=== PATIENT | female | born 1940 | race Asian ===

== ENCOUNTER 2017-06-17 20:55 | Inpatient (IN) | payer MEDICARE, MEDICAID ==
[~2017-06-17] VITALS: Ht 139.7 cm; Wt 47.7 kg
[~2017-06-17 20:55] MED LIST: DILT180C64 PO; GLIP10TA13 PO; HYDR-2766 PO; HYDR12.58 PO; METF-620 PO; METF500T4 PO; PIOG15TA2 PO
[2017-06-17] MEDS ORDERED: MORPHINE SULFATE 2 MG/ML DISP.SYRIN. IV/SQ PRN (21:15)
--- NOTE | 2017-06-17 21:21 | PHYS DOC ---
Past Medical History Past Medical History: A-Fib, Diabetes-Type II, Hypertension Past Surgical History: Hysterectomy Alcohol Use: None Drug Use: None Adult General Chief Complaint Chief Complaint: CHEST PAIN HPI HPI Patient is a 77 year old female who presents with chest pain. The patient reports 4-5 day history of intermittent chest tightness. Tonight the pain became more severe while she was at rest. Reports associated shortness of breath. She denies radiation of pain, denies nausea, diaphoresis. She denies previous history of similar symptoms. She doesn't know all of her medical problems but denies history of CAD or cardiac stents, may have CHF. She also has DM, HTN, CKD. She reports compliance with medication regiment. Nonsmoker. She recently moved from [place] & does not yet have a doctor here. She speaks Hmong, accompanied by her daughter in law who is translating & assisting with history. Review of Systems Review of Systems Constitutional: Denies fever or chills Eyes: Denies change in visual acuity HENT: Denies nasal congestion or sore throat Respiratory: Denies cough or reports shortness of breath Cardiovascular: For chest pain, denies edema GI: Denies abdominal pain, nausea, vomiting, bloody stools or diarrhea Musculoskeletal: Denies back pain or joint pain Integument: Denies rash or skin lesions Neurologic: Denies headache, focal weakness or sensory changes Current Medications Current Medications Current Medications Medications (Trade) Dose Ordered Sig/Sveta Start Time Stop Time Status Last Admin Dose Admin Aspirin (Maxi Aspirin) 325 mg 1X ONCE 06/17/17 21:30 06/17/17 21:31 DC 06/17/17 22:53 325 MG Morphine Sulfate 2 mg PRN Q15MIN PRN 06/17/17 21:15 06/18/17 21:14 Allergies Allergies Allergies Coded Allergies Type Severity Reaction Last Updated Verified No Known Drug Allergies 05/07/14 No Physical Exam Physical Exam Constitutional: Well developed, well nourished, no acute distress, non-toxic appearance. HENT: Normocephalic, atraumatic, bilateral external ears normal, oropharynx moist, nose normal. Eyes: PERRLA, EOMI, conjunctiva normal, no discharge. Neck: supple, no stridor. Cardiovascular: RRR, no murmurs, no edema. Lungs & Thorax: diminished bilaterally in bases, no wheezing, no respiratory distress. No reproducible tenderness with palpation over the anterior chest wall. Abdomen: soft, nontender, nondistended. Skin: Warm, dry, no erythema, no rash. Back: No tenderness. Extremities: No tenderness, no edema. No calf tenderness or swelling Neurologic: Alert and oriented X 3, no focal deficits noted. Psychologic: Affect normal, judgement normal, mood normal. Current Patient Data Vital Signs Vital Signs Date Time Temp Pulse Resp B/P (MAP) Pulse Ox O2 Delivery O2 Flow Rate FiO2 06/17/17 21:06 98.0 90 22 213/110 (144) 88 Room Air 98.0 Lab Values Laboratory Tests Test 06/17/17 21:45 White Blood Count 9.8 x10^3/uL (4.0-11.0) Red Blood Count 2.97 x10^6/uL (3.50-5.40) L Hemoglobin 9.3 g/dL (12.0-15.5) L Hematocrit 28.8 % (36.0-47.0) L Mean Corpuscular Volume 97 fL (79-100) Mean Corpuscular Hemoglobin 32 pg (25-35) Mean Corpuscular Hemoglobin Concent 32 g/dL (31-37) Red Cell Distribution Width 14.5 % (11.5-14.5) Platelet Count 259 x10^3/uL (140-400) Neutrophils (%) (Auto) 79 % (31-73) H Lymphocytes (%) (Auto) 14 % (24-48) L Monocytes (%) (Auto) 5 % (0-9) Eosinophils (%) (Auto) 1 % (0-3) Basophils (%) (Auto) 1 % (0-3) Neutrophils # (Auto) 7.8 x10^3uL (1.8-7.7) H Lymphocytes # (Auto) 1.4 x10^3/uL (1.0-4.8) Monocytes # (Auto) 0.5 x10^3/uL (0.0-1.1) Eosinophils # (Auto) 0.1 x10^3/uL (0.0-0.7) Basophils # (Auto) 0.1 x10^3/uL (0.0-0.2) Prothrombin Time 12.5 SEC (11.7-14.0) Prothrombin Time INR 1.0 (0.8-1.1) PTT 31 SEC (24-38) Sodium Level 141 mmol/L (136-145) Potassium Level 6.3 mmol/L (3.5-5.1) *H Chloride Level 108 mmol/L (98-107) H Carbon Dioxide Level 21 mmol/L (21-32) Anion Gap 12 (6-14) Blood Urea Nitrogen 56 mg/dL (7-20) H Creatinine 2.6 mg/dL (0.6-1.0) H Estimated GFR (Cockcroft-Gault) 17.8 BUN/Creatinine Ratio 22 (6-20) H Glucose Level 149 mg/dL (70-99) H Calcium Level 8.3 mg/dL (8.5-10.1) L Magnesium Level 2.3 mg/dL (1.8-2.4) Total Bilirubin 0.2 mg/dL (0.2-1.0) Aspartate Amino Transferase (AST) 18 U/L (15-37) Alanine Aminotransferase (ALT) 25 U/L (14-59) Alkaline Phosphatase 137 U/L (46-116) H Troponin I Quantitative 0.191 ng/mL (0.000-0.055) ZW-Oas-M-Type Natriuretic Peptide > 48491 pg/mL (0-449) H Total Protein 6.8 g/dL (6.4-8.2) Albumin 3.0 g/dL (3.4-5.0) L Albumin/Globulin Ratio 0.8 (1.0-1.7) L Lipase 142 U/L (73-393) Laboratory Tests 06/17/17 21:45 Laboratory Tests 06/17/17 21:45 EKG EKG Interpreted by me: Normal sinus rhythm rate 94, no acute ST or T wave changes, normal intervals, no ectopy.[] Radiology/Procedures Radiology/Procedures CXR: interpreted by me: cardiomegaly, pulmonary edema, right pleural effusion[ ] Course & Med Decision Making Course & Med Decision Making Pertinent Labs and Imaging studies reviewed. (See chart for details) The patient presents with chest pain and shortness of breath. She required oxygen by nasal cannula to maintain oxygen saturation > 90%. Gave aspirin upon arrival, morphine for pain. Blood pressure remained elevated greater than 200 systolic, administered labetalol 1. Systolic pressure improved to 180. Obtained labs, EKG, chest x-ray. Found to have acute exacerbation of congestive heart failure with acute on chronic renal failure and hyperkalemia. She did have peaked T waves on her EKG. Administered calcium, sodium bicarbonate, insulin and glucose, and Kayexalate. Gave Lasix for CHF. Troponin was elevated, likely secondary to congestive heart failure. Will defer anticoagulation at this time. Discussed with Dr. Hernandez of nephrology & Dr. Damon of cardiology. Discussed with Dr. Bey who agrees to admit to inpatient status. The patient is being admitted in guarded condition. Critical care time: 35 minutes [] Dragon Disclaimer Dragon Disclaimer This electronic medical record was generated, in whole or in part, using a voice recognition dictation system. Departure Departure Impression: Primary Impression: Congestive heart failure (CHF) Additional Impressions: Elevated troponin Acute on chronic renal failure Hyperkalemia Accelerated hypertension Disposition: ADMITTED INPATIENT Condition: GUARDED Referrals: NON,STAFF (PCP) Problem Qualifiers GÉNESIS BECKMAN MD Jun 17, 2017 21:21
[2017-06-17] MEDS ORDERED: ASPIRIN 325 MG TABLET PO ONE (21:30)
[2017-06-17 21:55] LABS: BASO # 0.1 x10^3/uL (0.0-0.2); BASO % 1 % (0-3); EOS % 1 % (0-3); HEMATOCRIT 28.8 % (36.0-47.0); HEMOGLOBIN 9.3 g/dL (12.0-15.5); LYMPH # 1.4 x10^3/uL (1.0-4.8); LYMPH % 14 % (24-48); MEAN CORPUSCULAR HEMOGLOBIN 32 pg (25-35); MEAN CORPUSCULAR HGB CONC 32 g/dL (31-37); MEAN CORPUSCULAR VOLUME 97 fL (79-100); MONO % 5 % (0-9); NEUT % 79 % (31-73); PLATELET COUNT 259 x10^3/uL (140-400); RED BLOOD COUNT 2.97 x10^6/uL (3.50-5.40); RED CELL DISTRIBUTION WIDTH 14.5 % (11.5-14.5); WHITE BLOOD COUNT 9.8 x10^3/uL (4.0-11.0)
[2017-06-17 22:04] LABS: PROTHROMBIN TIME PATIENT 12.5 SEC (11.7-14.0)
[2017-06-17 22:12] LABS: ALBUMIN/GLOBULIN RATIO 0.8 (1.0-1.7); CALCIUM 8.3 mg/dL (8.5-10.1); CREATININE 2.6 mg/dL (0.6-1.0); GFR 17.8; TOTAL BILIRUBIN 0.2 mg/dL (0.2-1.0); TOTAL PROTEIN 6.8 g/dL (6.4-8.2)
[2017-06-17 22:14] LABS: POTASSIUM 6.3 mmol/L (3.5-5.1)
[2017-06-17] MEDS ORDERED: INSULIN REGULAR 100 UNIT/ML 10ML VIAL. IV ONE (23:00)
[2017-06-17] MEDS ORDERED: DEXTROSE 50% 25 GM / 50ML DISP.SYRIN. IV ONE (23:00)
[2017-06-17] MEDS ORDERED: NITROGLYCERIN SUBLINGUAL 0.4 MG BOTTLE OF 25. SL PRN (23:00)
[2017-06-17] MEDS ORDERED: CALCIUM GLUCONATE 1,000 MG/10 ML VIAL. IVP ONE (23:00)
[2017-06-17] MEDS ORDERED: LABETALOL 20 MG/4 ML DISP.SYRIN. IVP ONE (23:00)
[2017-06-17] MEDS ORDERED: SODIUM POLYSTYRENE SULFONATE 15 GM/60 ML ORAL.SUSP. PO ONE (23:00)
[2017-06-17] MEDS ORDERED: FUROSEMIDE 40 MG/4 ML VIAL. IVP ONE (23:00)
[2017-06-17] MEDS ORDERED: ACETAMINOPHEN 325 MG TABLET. PO PRN (23:00)
[2017-06-17] MEDS ORDERED: SODIUM BICARB ADULT 8.4% 50 MEQ/50 ML DISP.SYRIN. IV ONE (23:00)
[2017-06-17] MEDS ORDERED: ONDANSETRON PF 4 MG/2 ML VIAL. IV PRN (23:00)
[2017-06-18] VITALS (9 sets, daily range): BP systolic 122–199; BP diastolic 50–98
--- NOTE | 2017-06-18 00:05 | HP ---
ADMIT DATE: 06/18/2017 CHIEF COMPLAINT: Shortness of breath. HISTORY OF PRESENT ILLNESS: The patient is a 77-year-old woman recently translocated from [place] who presented to the Emergency Room after she was noted by her family to be short of breath as well as weak and restless. On further questioning, the patient relates that this has been going on for a couple of days but worsening. She denies any chest pain. Denies any cough, any fevers, chills, headaches. She is not aware of any heart disease. She does have hypertension, diabetes and hypercholesterolemia; however. In the Emergency Room, she was found with signs and symptoms including elevated BNP. Chest x-rays with Redd B lines and right-sided minimal effusion consistent with CHF. PAST MEDICAL HISTORY: Chronic renal disease, hypertension, hyperlipidemia, diabetes mellitus. FAMILY HISTORY: Positive for kidney disease in two of her children. No heart disease known. SOCIAL HISTORY: Currently lives with her son, had immigrated to the [facility] in 1992, had been living in [place] and [place]. Never smoked. No toxic habits. ALLERGIES: No known drug allergies. MEDICATIONS: MAR reconciled with home medications. REVIEW OF SYSTEMS: The patient has generalized aches and pain in her joints but denies any focal problems in the chest, abdomen and head. The rest of organ system review is essentially negative. PHYSICAL EXAMINATION: VITAL SIGNS: Show a blood pressure of 178/87, heart rate of 89, of note initial blood pressure actually was 213/110. GENERAL: This is a frail 77-year-old woman, awake, alert, in no acute distress. HEENT: Shows no scleral icterus. NECK: Supple, no JVD. CARDIOVASCULAR: Heart has regular rate and rhythm. ABDOMEN: Positive bowel sounds, soft and nontender LUNGS: Clear. EXTREMITIES: She has trace edema in her lower extremities. No clubbing, no cyanosis. SKIN: Warm, soft and dry without any rash. LABORATORY DATA: CBC with WBC of 9.8, hemoglobin 9.3, platelets of 259. Chemistries with BUN and creatinine of 56 and 2.6, potassium at 6.3, sodium at 141, glucose 149. LFTs essentially within normal limits. ProBNP greater than 35,000. Initial troponin at 0.191. Albumin 3.0. IMAGING: Chest x-ray reviewed by myself showing vascular congestion as well as a small right-sided effusion. ASSESSMENT AND PLAN: This is a 77-year-old woman presenting with what appears to be congestive heart failure. This would be a new diagnosis for her. We will therefore admit to rule out acute coronary syndrome. We will get Cardiology involved. Echo will be done in the morning. In the meantime, we will start intravenous Lasix twice daily. Monitor her ins and outs closely. Her BUN and creatinine significantly elevated. Her son is aware of a history of renal failure. We will obtain Nephrology consult as well to guide further diuretic therapy. The patient had massive hyperkalemia which hopefully will correct with Lasix. We will monitor closely. The patient is diabetic. She is on both glipizide as well as metformin, both will be held for the time being in case further renal testing or cardiac catheterization will be necessary. We will institute insulin sliding scale, add Levemir if indicated. All her other home medications will be continued. She will be started on subcutaneous heparin twice daily for prophylaxis. GLENNA RANDLE MD DR: UR/nts JOB#: [id number] / [id number] EDUARDO
[2017-06-18] MEDS: DEXTROSE 50% 25 GM / 50ML DISP.SYRIN. IV PRN ×3 (01:06→07:53)
[2017-06-18] MEDS: FUROSEMIDE 20 MG/2 ML VIAL. IVP SCH ×3 (01:07→17:22)
[2017-06-18] MEDS ORDERED: PENT400T2 PO (01:46)
[2017-06-18] MEDS ORDERED: INSU100I13 SQ (01:46)
[2017-06-18] MEDS ORDERED: CRESTOR20 MG PO (01:46)
[2017-06-18] MEDS ORDERED: LOSA50TA6 PO (01:46)
[2017-06-18] MEDS ORDERED: HYDR25TA PO (01:46)
[2017-06-18] MEDS: hydrALAZINE 20 MG/ML VIAL. IVP PRN (03:04)
[2017-06-18 04:02] LABS: BASO % 0 % (0-3); EOS % 1 % (0-3); HEMATOCRIT 27.1 % (36.0-47.0); HEMOGLOBIN 8.6 g/dL (12.0-15.5); LYMPH # 1.6 x10^3/uL (1.0-4.8); LYMPH % 20 % (24-48); MEAN CORPUSCULAR HEMOGLOBIN 32 pg (25-35); MEAN CORPUSCULAR HGB CONC 32 g/dL (31-37); MEAN CORPUSCULAR VOLUME 100 fL (79-100); MONO % 7 % (0-9); NEUT % 73 % (31-73); PLATELET COUNT 224 x10^3/uL (140-400); RED BLOOD COUNT 2.72 x10^6/uL (3.50-5.40); RED CELL DISTRIBUTION WIDTH 14.6 % (11.5-14.5); WHITE BLOOD COUNT 8.4 x10^3/uL (4.0-11.0)
[2017-06-18 04:58] LABS: CALCIUM 8.5 mg/dL (8.5-10.1); CREATININE 2.8 mg/dL (0.6-1.0); GFR 16.3; POTASSIUM 4.5 mmol/L (3.5-5.1)
--- NOTE | 2017-06-18 07:16 | EKG ---
[facility] [address] [place] [address] Test Date: 2017-06-17 Test Time: 21:03:11 Pat Name: DELMY WASHINGTON Department: Room: 204 1 Gender: F Lock Fitter: : 1940 Requested By: GÉNESIS BECKMAN Order Number: [id number] Reading MD: Juan Martin Measurements Intervals [place] Rate: 94 P: 26 [place]: 140 QRS: -16 QRSD: 72 T: 31 QT: 374 QTc: 468 Interpretive Statements SINUS RHYTHM LEFTWARD AXIS QRS(T) CONTOUR ABNORMALITY CONSIDER ANTEROSEPTAL MYOCARDIAL DAMAGE RI6.01 Unconfirmed report Compared to ECG 05/07/2014 13:22:48 No significant changes Electronically Signed On 07-07-2017 10:17:24 CDT by Juan Martin
--- NOTE | 2017-06-18 07:28 | RAD ---
EXAM: Chest one view. HISTORY: Chest pain, shortness of breath. COMPARISON: 05/07/2014. FINDINGS: A frontal view of the chest is obtained. Basilar predominant interstitial opacities indicate mild pulmonary edema. There are small pleural effusions on the right greater than left. There is no pneumothorax. The heart is mildly enlarged. Prominence of the right hilum is not clearly changed chronically given differences in projection. This likely reflects aortic tortuosity. IMPRESSION: 1. Mild pulmonary edema. Small bilateral pleural effusions. Mild cardiomegaly.
[2017-06-18] MEDS: INSULIN ASPART 300 UNITS/3 ML INSULN.PEN SQ SCH ×3 (08:00→17:28)
[2017-06-18 08:45] LABS: CHOLESTEROL/HDL RATIO 3.2
[2017-06-18] MEDS: HYDROcodone/APAP 10/325 1 TAB TABLET PO SCH ×2 (09:00→21:08)
[2017-06-18] MEDS ORDERED: PIOGLITAZONE 15 MG TABLET. PO SCH (09:00)
[2017-06-18] MEDS ORDERED: hydroCHLOROthiazide 12.5 MG CAPSULE PO SCH (09:00)
[2017-06-18] MEDS ORDERED: LABETALOL 20 MG/4 ML DISP.SYRIN. IVP PRN (09:15)
[2017-06-18] MEDS ORDERED: MORPHINE SULFATE 2 MG/ML DISP.SYRIN. IV/SQ PRN (09:15)
[2017-06-18] MEDS ORDERED: ONDANSETRON PF 4 MG/2 ML VIAL. IV PRN (09:15)
--- NOTE | 2017-06-18 09:51 | PDOC2 ---
CARDIAC CONSULT DATE OF CONSULT Date of Consult DATE: 06/18/17 TIME: 09:42 REASON FOR CONSULT Reason for Consult: CHF Elevated troponin REFERRING PHYSICIAN Referring Physician: Dr. Martinez SOURCE Source: Chart review, Patient HISTORY OF PRESENT ILLNESS HISTORY OF PRESENT ILLNESS This is a 77 yo female who presented with complaints of chest pain. Patient reports symptoms have been ongoing for the past 10 days. Mainly occurs as night when she lays down. Located across her central chest. Described as heaviness. Non-radiating. Associated with shortness of breath. Denies any palpitations, dizziness, diaphoresis, or nausea/vomiting. Does reports orthopnea. No LE edema. Moved her from [place] a couple of months ago. Has not established care with anyone. Does report having history of "fluid on the lung" and reports having echocardiogram conducted in [place]. Reports compliance with medications. PAST MEDICAL HISTORY Cardiovascular: CHF, HTN, Hyperlipidemia Pulmonary: No pertinent hx GI: No pertinent hx Heme/Onc: Anemia NOS Hepatobiliary: No pertinent hx Psych: No pertinent hx Musculoskeletal: Osteoarthritis Rheumatologic: No pertinent hx Infectious disease: No pertinent hx ENT: No pertinent hx Renal/: Chronic renal insuff Endocrine: Diabetes Dermatology: No pertinent hx PAST SURGICAL HISTORY Past Surgical History: Hysterectomy FAMILY HISTORY Family History: Hypertension SOCIAL HISTORY Smoke: No ALCOHOL: none Drugs: None Lives: with Family CURRENT MEDICATIONS CURRENT MEDICATIONS Current Medications Medications (Trade) Dose Ordered Sig/Sveta Route PRN Reason Start Time Stop Time Status Last Admin Dose Admin Aspirin (Maxi Aspirin) 325 mg 1X ONCE PO 06/17/17 21:30 06/17/17 21:31 DC 06/17/17 22:53 Labetalol HCl (Normodyne) 10 mg 1X ONCE IVP 06/17/17 23:00 06/17/17 23:01 DC 06/17/17 22:53 Calcium Gluconate (Calcium Gluconate) 1,000 mg 1X ONCE IVP 06/17/17 23:00 06/17/17 23:01 DC 06/17/17 22:53 Sodium Bicarbonate 50 meq 1X ONCE IV 06/17/17 23:00 06/17/17 23:01 DC 06/17/17 23:33 Dextrose (Dextrose 50%-Water Syringe) 25 gm 1X ONCE IV 06/17/17 23:00 06/17/17 23:01 DC 06/17/17 22:54 Insulin Human Regular (NovoLIN R VIAL) 10 unit 1X ONCE IV 06/17/17 23:00 06/17/17 23:01 DC 06/17/17 22:50 Sodium Polystyrene Sulfonate (Kayexalate) 30 gm 1X ONCE PO 06/17/17 23:00 06/17/17 23:01 DC 06/17/17 23:33 Furosemide (Lasix) 40 mg 1X ONCE IVP 06/17/17 23:00 06/17/17 23:01 DC 06/17/17 22:53 Diltiazem HCl (Cardizem 24hr Cd) 180 mg DAILY PO 06/18/17 09:00 06/18/17 09:00 Dextrose (Dextrose 50%-Water Syringe) 12.5 gm PRN Q15MIN PRN IV SEE COMMENTS 06/17/17 23:30 06/18/17 07:53 Hydralazine HCl (Apresoline) 10 mg PRN Q4HRS PRN IVP ELEVATED BP, SEE COMMENTS 06/18/17 03:00 06/18/17 03:04 ALLERGIES ALLERGIES: Coded Allergies: No Known Drug Allergies (Unverified , 05/07/14) ROS Review of System 14 point ROS conducted with pertinent positives noted above in HPI. PHYSICAL EXAM General: Alert, Oriented X3, Cooperative, No acute distress HEENT: Atraumatic, Mucous membr. moist/pink Lungs: Other (bibasilar crackles) Heart: Regular rate, Normal S1, Normal S2, Other (2/6 systolic murmur ) Abdomen: Soft, No tenderness Extremities: No edema, Normal pulses Skin: No breakdown, No significant lesion Neuro: Normal speech, Sensation intact Psych/Mental Status: Mental status NL, Mood NL MUSCULOSKELETAL: Osteoarthritic changes both hands VITALS VITALS Vital Signs Date Time Temp Pulse Resp B/P (MAP) Pulse Ox O2 Delivery O2 Flow Rate FiO2 06/18/17 09:00 97 146/68 06/18/17 08:00 Nasal Cannula 3.0 06/18/17 07:00 98.1 22 92 98.1 LABS Lab: Laboratory Tests Test 06/17/17 21:45 06/18/17 00:09 06/18/17 00:59 06/18/17 01:27 White Blood Count 9.8 x10^3/uL (4.0-11.0) Red Blood Count 2.97 x10^6/uL (3.50-5.40) Hemoglobin 9.3 g/dL (12.0-15.5) Hematocrit 28.8 % (36.0-47.0) Mean Corpuscular Volume 97 fL (79-100) Mean Corpuscular Hemoglobin 32 pg (25-35) Mean Corpuscular Hemoglobin Concent 32 g/dL (31-37) Red Cell Distribution Width 14.5 % (11.5-14.5) Platelet Count 259 x10^3/uL (140-400) Neutrophils (%) (Auto) 79 % (31-73) Lymphocytes (%) (Auto) 14 % (24-48) Monocytes (%) (Auto) 5 % (0-9) Eosinophils (%) (Auto) 1 % (0-3) Basophils (%) (Auto) 1 % (0-3) Neutrophils # (Auto) 7.8 x10^3uL (1.8-7.7) Lymphocytes # (Auto) 1.4 x10^3/uL (1.0-4.8) Monocytes # (Auto) 0.5 x10^3/uL (0.0-1.1) Eosinophils # (Auto) 0.1 x10^3/uL (0.0-0.7) Basophils # (Auto) 0.1 x10^3/uL (0.0-0.2) Prothrombin Time 12.5 SEC (11.7-14.0) Prothromb Time International Ratio 1.0 (0.8-1.1) Activated Partial Thromboplast Time 31 SEC (24-38) Sodium Level 141 mmol/L (136-145) Potassium Level 6.3 mmol/L (3.5-5.1) Chloride Level 108 mmol/L (98-107) Carbon Dioxide Level 21 mmol/L (21-32) Anion Gap 12 (6-14) Blood Urea Nitrogen 56 mg/dL (7-20) Creatinine 2.6 mg/dL (0.6-1.0) Estimated GFR (Cockcroft-Gault) 17.8 BUN/Creatinine Ratio 22 (6-20) Glucose Level 149 mg/dL (70-99) Calcium Level 8.3 mg/dL (8.5-10.1) Magnesium Level 2.3 mg/dL (1.8-2.4) Total Bilirubin 0.2 mg/dL (0.2-1.0) Aspartate Amino Transf (AST/SGOT) 18 U/L (15-37) Alanine Aminotransferase (ALT/SGPT) 25 U/L (14-59) Alkaline Phosphatase 137 U/L (46-116) Troponin I Quantitative 0.191 ng/mL (0.000-0.055) YD-Bkh-H-Type Natriuretic Peptide > 85272 pg/mL (0-449) Total Protein 6.8 g/dL (6.4-8.2) Albumin 3.0 g/dL (3.4-5.0) Albumin/Globulin Ratio 0.8 (1.0-1.7) Lipase 142 U/L (73-393) Glucose (Fingerstick) 132 mg/dL (70-99) 30 mg/dL (70-99) 166 mg/dL (70-99) Test 06/18/17 03:09 06/18/17 03:29 06/18/17 03:30 06/18/17 05:09 Glucose (Fingerstick) 47 mg/dL (70-99) 279 mg/dL (70-99) 110 mg/dL (70-99) White Blood Count 8.4 x10^3/uL (4.0-11.0) Red Blood Count 2.72 x10^6/uL (3.50-5.40) Hemoglobin 8.6 g/dL (12.0-15.5) Hematocrit 27.1 % (36.0-47.0) Mean Corpuscular Volume 100 fL (79-100) Mean Corpuscular Hemoglobin 32 pg (25-35) Mean Corpuscular Hemoglobin Concent 32 g/dL (31-37) Red Cell Distribution Width 14.6 % (11.5-14.5) Platelet Count 224 x10^3/uL (140-400) Neutrophils (%) (Auto) 73 % (31-73) Lymphocytes (%) (Auto) 20 % (24-48) Monocytes (%) (Auto) 7 % (0-9) Eosinophils (%) (Auto) 1 % (0-3) Basophils (%) (Auto) 0 % (0-3) Neutrophils # (Auto) 6.1 x10^3uL (1.8-7.7) Lymphocytes # (Auto) 1.6 x10^3/uL (1.0-4.8) Monocytes # (Auto) 0.6 x10^3/uL (0.0-1.1) Eosinophils # (Auto) 0.0 x10^3/uL (0.0-0.7) Basophils # (Auto) 0.0 x10^3/uL (0.0-0.2) Sodium Level 147 mmol/L (136-145) Potassium Level 4.5 mmol/L (3.5-5.1) Chloride Level 110 mmol/L (98-107) Carbon Dioxide Level 25 mmol/L (21-32) Anion Gap 12 (6-14) Blood Urea Nitrogen 56 mg/dL (7-20) Creatinine 2.8 mg/dL (0.6-1.0) Estimated GFR (Cockcroft-Gault) 16.3 Glucose Level 332 mg/dL (70-99) Calcium Level 8.5 mg/dL (8.5-10.1) Magnesium Level 2.3 mg/dL (1.8-2.4) Troponin I Quantitative 0.213 ng/mL (0.000-0.055) Triglycerides Level 86 mg/dL (0-150) Cholesterol Level 151 mg/dL (0-200) LDL Cholesterol, Calculated 87 mg/dL (0-100) VLDL Cholesterol, Calculated 17 mg/dL (0-40) Non-HDL Cholesterol Calculated 104 mg/dL (0-129) HDL Cholesterol 47 mg/dL (40-60) Cholesterol/HDL Ratio 3.2 Thyroid Stimulating Hormone (TSH) 1.333 uIU/mL (0.358-3.74) Test 06/18/17 07:48 06/18/17 08:26 Glucose (Fingerstick) 38 mg/dL (70-99) 152 mg/dL (70-99) ASSESSMENT/PLAN ASSESSMENT/PLAN 1. Chest pain, atypical. Suspect the heaviness is related to orthopnea as it only occurs when patient lays down and is short of breath. 2. Elevated troponin; highest 0.213. Possibly type II demand ischemia in the setting of significant HTN and JOSY/CKD. 3. Acute on chronic heart failure; NT Pro BNP >35,000. CXR with pul edema 4. Malignant hypertension; improved but remains slightly elevated. 5. JOSY on CKD 6. Hyperkalemia; resolved 7. Diabetes; BS labile Recommendations 1. Resume home antiHTN therapy. Diltiazem was added. Monitor to assess need for changes 2. Check lipids. Trend troponin 3. Check echo to assess LV function/ presence of WMA 4. Continue IV diuresis with monitor of renal function 5. Obtain cardiac records, previous echocardiogram from [place]. 6. Could consider ischemic evaluation depending upon further diagnostics and review of previous records. Problems: JOJO ONEILL APRN Jun 18, 2017 09:51
--- NOTE | 2017-06-18 11:07 | PDOC ---
PROGRESS NOTES Chief Complaint Chief Complaint Chest pain Elevated troponin; highest 0.213. Possibly type II demand ischemia in the setting of significant HTN and JOSY/CKD. Acute on chronic heart failure; NT Pro BNP >35,000. CXR with pul edema Malignant hypertension JOSY on CKD Hyperkalemia, resolved Diabetes; BS labile LAnguage barrier History of Present Illness History of Present Illness feels ok SOn translating VS ok K better CXR shows pulmo edema and BNP high NO hx CHF [employer] TH[employer]AP[employer] NOw moved here from [place] creat 4 plus - old to patient - hx of CKD per family CARds has ordered echo DId not eat much breakfast, did not like food PLAN: echo PT/OT BMP while on diuresis shiela given CKD DVT prophy heparin SQ CArdiac diet Dw sons and RN Vitals Vitals Vital Signs Date Time Temp Pulse Resp B/P (MAP) Pulse Ox O2 Delivery O2 Flow Rate FiO2 06/18/17 09:00 97 146/68 06/18/17 08:00 Nasal Cannula 3.0 06/18/17 07:00 98.1 22 92 98.1 Physical Exam General: Alert, Cooperative, No acute distress Heart: Regular rate, Normal S1, Normal S2, No murmurs Lungs: Other (dec BS) Extremities: No clubbing, No cyanosis Skin: No rashes, No breakdown Labs LABS Laboratory Tests Test 06/17/17 21:45 06/18/17 00:09 06/18/17 00:59 06/18/17 01:27 White Blood Count 9.8 x10^3/uL (4.0-11.0) Red Blood Count 2.97 x10^6/uL (3.50-5.40) Hemoglobin 9.3 g/dL (12.0-15.5) Hematocrit 28.8 % (36.0-47.0) Mean Corpuscular Volume 97 fL (79-100) Mean Corpuscular Hemoglobin 32 pg (25-35) Mean Corpuscular Hemoglobin Concent 32 g/dL (31-37) Red Cell Distribution Width 14.5 % (11.5-14.5) Platelet Count 259 x10^3/uL (140-400) Neutrophils (%) (Auto) 79 % (31-73) Lymphocytes (%) (Auto) 14 % (24-48) Monocytes (%) (Auto) 5 % (0-9) Eosinophils (%) (Auto) 1 % (0-3) Basophils (%) (Auto) 1 % (0-3) Neutrophils # (Auto) 7.8 x10^3uL (1.8-7.7) Lymphocytes # (Auto) 1.4 x10^3/uL (1.0-4.8) Monocytes # (Auto) 0.5 x10^3/uL (0.0-1.1) Eosinophils # (Auto) 0.1 x10^3/uL (0.0-0.7) Basophils # (Auto) 0.1 x10^3/uL (0.0-0.2) Prothrombin Time 12.5 SEC (11.7-14.0) Prothromb Time International Ratio 1.0 (0.8-1.1) Activated Partial Thromboplast Time 31 SEC (24-38) Sodium Level 141 mmol/L (136-145) Potassium Level 6.3 mmol/L (3.5-5.1) Chloride Level 108 mmol/L (98-107) Carbon Dioxide Level 21 mmol/L (21-32) Anion Gap 12 (6-14) Blood Urea Nitrogen 56 mg/dL (7-20) Creatinine 2.6 mg/dL (0.6-1.0) Estimated GFR (Cockcroft-Gault) 17.8 BUN/Creatinine Ratio 22 (6-20) Glucose Level 149 mg/dL (70-99) Calcium Level 8.3 mg/dL (8.5-10.1) Magnesium Level 2.3 mg/dL (1.8-2.4) Total Bilirubin 0.2 mg/dL (0.2-1.0) Aspartate Amino Transf (AST/SGOT) 18 U/L (15-37) Alanine Aminotransferase (ALT/SGPT) 25 U/L (14-59) Alkaline Phosphatase 137 U/L (46-116) Troponin I Quantitative 0.191 ng/mL (0.000-0.055) RY-Nfl-R-Type Natriuretic Peptide > 71882 pg/mL (0-449) Total Protein 6.8 g/dL (6.4-8.2) Albumin 3.0 g/dL (3.4-5.0) Albumin/Globulin Ratio 0.8 (1.0-1.7) Lipase 142 U/L (73-393) Glucose (Fingerstick) 132 mg/dL (70-99) 30 mg/dL (70-99) 166 mg/dL (70-99) Test 06/18/17 03:09 06/18/17 03:29 06/18/17 03:30 06/18/17 05:09 Glucose (Fingerstick) 47 mg/dL (70-99) 279 mg/dL (70-99) 110 mg/dL (70-99) White Blood Count 8.4 x10^3/uL (4.0-11.0) Red Blood Count 2.72 x10^6/uL (3.50-5.40) Hemoglobin 8.6 g/dL (12.0-15.5) Hematocrit 27.1 % (36.0-47.0) Mean Corpuscular Volume 100 fL (79-100) Mean Corpuscular Hemoglobin 32 pg (25-35) Mean Corpuscular Hemoglobin Concent 32 g/dL (31-37) Red Cell Distribution Width 14.6 % (11.5-14.5) Platelet Count 224 x10^3/uL (140-400) Neutrophils (%) (Auto) 73 % (31-73) Lymphocytes (%) (Auto) 20 % (24-48) Monocytes (%) (Auto) 7 % (0-9) Eosinophils (%) (Auto) 1 % (0-3) Basophils (%) (Auto) 0 % (0-3) Neutrophils # (Auto) 6.1 x10^3uL (1.8-7.7) Lymphocytes # (Auto) 1.6 x10^3/uL (1.0-4.8) Monocytes # (Auto) 0.6 x10^3/uL (0.0-1.1) Eosinophils # (Auto) 0.0 x10^3/uL (0.0-0.7) Basophils # (Auto) 0.0 x10^3/uL (0.0-0.2) Sodium Level 147 mmol/L (136-145) Potassium Level 4.5 mmol/L (3.5-5.1) Chloride Level 110 mmol/L (98-107) Carbon Dioxide Level 25 mmol/L (21-32) Anion Gap 12 (6-14) Blood Urea Nitrogen 56 mg/dL (7-20) Creatinine 2.8 mg/dL (0.6-1.0) Estimated GFR (Cockcroft-Gault) 16.3 Glucose Level 332 mg/dL (70-99) Calcium Level 8.5 mg/dL (8.5-10.1) Magnesium Level 2.3 mg/dL (1.8-2.4) Troponin I Quantitative 0.213 ng/mL (0.000-0.055) Triglycerides Level 86 mg/dL (0-150) Cholesterol Level 151 mg/dL (0-200) LDL Cholesterol, Calculated 87 mg/dL (0-100) VLDL Cholesterol, Calculated 17 mg/dL (0-40) Non-HDL Cholesterol Calculated 104 mg/dL (0-129) HDL Cholesterol 47 mg/dL (40-60) Cholesterol/HDL Ratio 3.2 Thyroid Stimulating Hormone (TSH) 1.333 uIU/mL (0.358-3.74) Test 06/18/17 07:48 06/18/17 08:26 Glucose (Fingerstick) 38 mg/dL (70-99) 152 mg/dL (70-99) Review of Systems Review of Systems language barrier Assessment and Plan Assessmemt and Plan Problems Medical Problems: (1) Accelerated hypertension Status: Acute (2) Acute on chronic renal failure Status: Acute (3) Congestive heart failure (CHF) Status: Acute (4) Elevated troponin Status: Acute (5) Hyperkalemia Status: Acute Problems: Comment Review of Relevant I have reviewed the following items diamante (where applicable) has been applied. Labs Laboratory Tests Test 06/17/17 21:45 06/18/17 00:09 06/18/17 00:59 06/18/17 01:27 White Blood Count 9.8 x10^3/uL (4.0-11.0) Red Blood Count 2.97 x10^6/uL (3.50-5.40) Hemoglobin 9.3 g/dL (12.0-15.5) Hematocrit 28.8 % (36.0-47.0) Mean Corpuscular Volume 97 fL (79-100) Mean Corpuscular Hemoglobin 32 pg (25-35) Mean Corpuscular Hemoglobin Concent 32 g/dL (31-37) Red Cell Distribution Width 14.5 % (11.5-14.5) Platelet Count 259 x10^3/uL (140-400) Neutrophils (%) (Auto) 79 % (31-73) Lymphocytes (%) (Auto) 14 % (24-48) Monocytes (%) (Auto) 5 % (0-9) Eosinophils (%) (Auto) 1 % (0-3) Basophils (%) (Auto) 1 % (0-3) Neutrophils # (Auto) 7.8 x10^3uL (1.8-7.7) Lymphocytes # (Auto) 1.4 x10^3/uL (1.0-4.8) Monocytes # (Auto) 0.5 x10^3/uL (0.0-1.1) Eosinophils # (Auto) 0.1 x10^3/uL (0.0-0.7) Basophils # (Auto) 0.1 x10^3/uL (0.0-0.2) Prothrombin Time 12.5 SEC (11.7-14.0) Prothromb Time International Ratio 1.0 (0.8-1.1) Activated Partial Thromboplast Time 31 SEC (24-38) Sodium Level 141 mmol/L (136-145) Potassium Level 6.3 mmol/L (3.5-5.1) Chloride Level 108 mmol/L (98-107) Carbon Dioxide Level 21 mmol/L (21-32) Anion Gap 12 (6-14) Blood Urea Nitrogen 56 mg/dL (7-20) Creatinine 2.6 mg/dL (0.6-1.0) Estimated GFR (Cockcroft-Gault) 17.8 BUN/Creatinine Ratio 22 (6-20) Glucose Level 149 mg/dL (70-99) Calcium Level 8.3 mg/dL (8.5-10.1) Magnesium Level 2.3 mg/dL (1.8-2.4) Total Bilirubin 0.2 mg/dL (0.2-1.0) Aspartate Amino Transf (AST/SGOT) 18 U/L (15-37) Alanine Aminotransferase (ALT/SGPT) 25 U/L (14-59) Alkaline Phosphatase 137 U/L (46-116) Troponin I Quantitative 0.191 ng/mL (0.000-0.055) WF-Nsj-T-Type Natriuretic Peptide > 82133 pg/mL (0-449) Total Protein 6.8 g/dL (6.4-8.2) Albumin 3.0 g/dL (3.4-5.0) Albumin/Globulin Ratio 0.8 (1.0-1.7) Lipase 142 U/L (73-393) Glucose (Fingerstick) 132 mg/dL (70-99) 30 mg/dL (70-99) 166 mg/dL (70-99) Test 06/18/17 03:09 06/18/17 03:29 06/18/17 03:30 06/18/17 05:09 Glucose (Fingerstick) 47 mg/dL (70-99) 279 mg/dL (70-99) 110 mg/dL (70-99) White Blood Count 8.4 x10^3/uL (4.0-11.0) Red Blood Count 2.72 x10^6/uL (3.50-5.40) Hemoglobin 8.6 g/dL (12.0-15.5) Hematocrit 27.1 % (36.0-47.0) Mean Corpuscular Volume 100 fL (79-100) Mean Corpuscular Hemoglobin 32 pg (25-35) Mean Corpuscular Hemoglobin Concent 32 g/dL (31-37) Red Cell Distribution Width 14.6 % (11.5-14.5) Platelet Count 224 x10^3/uL (140-400) Neutrophils (%) (Auto) 73 % (31-73) Lymphocytes (%) (Auto) 20 % (24-48) Monocytes (%) (Auto) 7 % (0-9) Eosinophils (%) (Auto) 1 % (0-3) Basophils (%) (Auto) 0 % (0-3) Neutrophils # (Auto) 6.1 x10^3uL (1.8-7.7) Lymphocytes # (Auto) 1.6 x10^3/uL (1.0-4.8) Monocytes # (Auto) 0.6 x10^3/uL (0.0-1.1) Eosinophils # (Auto) 0.0 x10^3/uL (0.0-0.7) Basophils # (Auto) 0.0 x10^3/uL (0.0-0.2) Sodium Level 147 mmol/L (136-145) Potassium Level 4.5 mmol/L (3.5-5.1) Chloride Level 110 mmol/L (98-107) Carbon Dioxide Level 25 mmol/L (21-32) Anion Gap 12 (6-14) Blood Urea Nitrogen 56 mg/dL (7-20) Creatinine 2.8 mg/dL (0.6-1.0) Estimated GFR (Cockcroft-Gault) 16.3 Glucose Level 332 mg/dL (70-99) Calcium Level 8.5 mg/dL (8.5-10.1) Magnesium Level 2.3 mg/dL (1.8-2.4) Troponin I Quantitative 0.213 ng/mL (0.000-0.055) Triglycerides Level 86 mg/dL (0-150) Cholesterol Level 151 mg/dL (0-200) LDL Cholesterol, Calculated 87 mg/dL (0-100) VLDL Cholesterol, Calculated 17 mg/dL (0-40) Non-HDL Cholesterol Calculated 104 mg/dL (0-129) HDL Cholesterol 47 mg/dL (40-60) Cholesterol/HDL Ratio 3.2 Thyroid Stimulating Hormone (TSH) 1.333 uIU/mL (0.358-3.74) Test 06/18/17 07:48 06/18/17 08:26 Glucose (Fingerstick) 38 mg/dL (70-99) 152 mg/dL (70-99) Laboratory Tests Test 06/17/17 21:45 06/18/17 00:09 06/18/17 00:59 06/18/17 01:27 White Blood Count 9.8 x10^3/uL (4.0-11.0) Red Blood Count 2.97 x10^6/uL (3.50-5.40) Hemoglobin 9.3 g/dL (12.0-15.5) Hematocrit 28.8 % (36.0-47.0) Mean Corpuscular Volume 97 fL (79-100) Mean Corpuscular Hemoglobin 32 pg (25-35) Mean Corpuscular Hemoglobin Concent 32 g/dL (31-37) Red Cell Distribution Width 14.5 % (11.5-14.5) Platelet Count 259 x10^3/uL (140-400) Neutrophils (%) (Auto) 79 % (31-73) Lymphocytes (%) (Auto) 14 % (24-48) Monocytes (%) (Auto) 5 % (0-9) Eosinophils (%) (Auto) 1 % (0-3) Basophils (%) (Auto) 1 % (0-3) Neutrophils # (Auto) 7.8 x10^3uL (1.8-7.7) Lymphocytes # (Auto) 1.4 x10^3/uL (1.0-4.8) Monocytes # (Auto) 0.5 x10^3/uL (0.0-1.1) Eosinophils # (Auto) 0.1 x10^3/uL (0.0-0.7) Basophils # (Auto) 0.1 x10^3/uL (0.0-0.2) Prothrombin Time 12.5 SEC (11.7-14.0) Prothromb Time International Ratio 1.0 (0.8-1.1) Activated Partial Thromboplast Time 31 SEC (24-38) Sodium Level 141 mmol/L (136-145) Potassium Level 6.3 mmol/L (3.5-5.1) Chloride Level 108 mmol/L (98-107) Carbon Dioxide Level 21 mmol/L (21-32) Anion Gap 12 (6-14) Blood Urea Nitrogen 56 mg/dL (7-20) Creatinine 2.6 mg/dL (0.6-1.0) Estimated GFR (Cockcroft-Gault) 17.8 BUN/Creatinine Ratio 22 (6-20) Glucose Level 149 mg/dL (70-99) Calcium Level 8.3 mg/dL (8.5-10.1) Magnesium Level 2.3 mg/dL (1.8-2.4) Total Bilirubin 0.2 mg/dL (0.2-1.0) Aspartate Amino Transf (AST/SGOT) 18 U/L (15-37) Alanine Aminotransferase (ALT/SGPT) 25 U/L (14-59) Alkaline Phosphatase 137 U/L (46-116) Troponin I Quantitative 0.191 ng/mL (0.000-0.055) YG-Kss-J-Type Natriuretic Peptide > 05165 pg/mL (0-449) Total Protein 6.8 g/dL (6.4-8.2) Albumin 3.0 g/dL (3.4-5.0) Albumin/Globulin Ratio 0.8 (1.0-1.7) Lipase 142 U/L (73-393) Glucose (Fingerstick) 132 mg/dL (70-99) 30 mg/dL (70-99) 166 mg/dL (70-99) Test 06/18/17 03:09 06/18/17 03:29 06/18/17 03:30 06/18/17 05:09 Glucose (Fingerstick) 47 mg/dL (70-99) 279 mg/dL (70-99) 110 mg/dL (70-99) White Blood Count 8.4 x10^3/uL (4.0-11.0) Red Blood Count 2.72 x10^6/uL (3.50-5.40) Hemoglobin 8.6 g/dL (12.0-15.5) Hematocrit 27.1 % (36.0-47.0) Mean Corpuscular Volume 100 fL (79-100) Mean Corpuscular Hemoglobin 32 pg (25-35) Mean Corpuscular Hemoglobin Concent 32 g/dL (31-37) Red Cell Distribution Width 14.6 % (11.5-14.5) Platelet Count 224 x10^3/uL (140-400) Neutrophils (%) (Auto) 73 % (31-73) Lymphocytes (%) (Auto) 20 % (24-48) Monocytes (%) (Auto) 7 % (0-9) Eosinophils (%) (Auto) 1 % (0-3) Basophils (%) (Auto) 0 % (0-3) Neutrophils # (Auto) 6.1 x10^3uL (1.8-7.7) Lymphocytes # (Auto) 1.6 x10^3/uL (1.0-4.8) Monocytes # (Auto) 0.6 x10^3/uL (0.0-1.1) Eosinophils # (Auto) 0.0 x10^3/uL (0.0-0.7) Basophils # (Auto) 0.0 x10^3/uL (0.0-0.2) Sodium Level 147 mmol/L (136-145) Potassium Level 4.5 mmol/L (3.5-5.1) Chloride Level 110 mmol/L (98-107) Carbon Dioxide Level 25 mmol/L (21-32) Anion Gap 12 (6-14) Blood Urea Nitrogen 56 mg/dL (7-20) Creatinine 2.8 mg/dL (0.6-1.0) Estimated GFR (Cockcroft-Gault) 16.3 Glucose Level 332 mg/dL (70-99) Calcium Level 8.5 mg/dL (8.5-10.1) Magnesium Level 2.3 mg/dL (1.8-2.4) Troponin I Quantitative 0.213 ng/mL (0.000-0.055) Triglycerides Level 86 mg/dL (0-150) Cholesterol Level 151 mg/dL (0-200) LDL Cholesterol, Calculated 87 mg/dL (0-100) VLDL Cholesterol, Calculated 17 mg/dL (0-40) Non-HDL Cholesterol Calculated 104 mg/dL (0-129) HDL Cholesterol 47 mg/dL (40-60) Cholesterol/HDL Ratio 3.2 Thyroid Stimulating Hormone (TSH) 1.333 uIU/mL (0.358-3.74) Test 06/18/17 07:48 06/18/17 08:26 Glucose (Fingerstick) 38 mg/dL (70-99) 152 mg/dL (70-99) Medications Current Medications Aspirin (Amitive Aspirin) 325 mg 1X ONCE PO Last administered on 06/17/17 22:53 ; Start 06/17/17 at 21:30; Stop 06/17/17 at 21:31; Status DC Morphine Sulfate 2 mg PRN Q15MIN PRN IV/SQ PAIN GREATER THAN 3/10; Start at 21:15; Stop 06/18/17 at 09:15; Status DC Labetalol HCl (Normodyne) 10 mg 1X ONCE IVP Last administered on 06/17/17 22: 53; Start 06/17/17 at 23:00; Stop 06/17/17 at 23:01; Status DC Calcium Gluconate (Calcium Gluconate) 1,000 mg 1X ONCE IVP Last administered on 06/17/17 22:53; Start 06/17/17 at 23:00; Stop 06/17/17 at 23:01; Status DC Sodium Bicarbonate 50 meq 1X ONCE IV Last administered on 06/17/17 23:33; Start 06/17/17 at 23:00; Stop 06/17/17 at 23:01; Status DC Dextrose (Dextrose 50%-Water Syringe) 25 gm 1X ONCE IV Last administered on 22:54; Start 06/17/17 at 23:00; Stop 06/17/17 at 23:01; Status DC Insulin Human Regular (NovoLIN R VIAL) 10 unit 1X ONCE IV Last administered on 06/17/17 22:50; Start 06/17/17 at 23:00; Stop 06/17/17 at 23:01; Status DC Sodium Polystyrene Sulfonate (Kayexalate) 30 gm 1X ONCE PO Last administered on 06/17/17 23:33; Start 06/17/17 at 23:00; Stop 06/17/17 at 23:01; Status DC Furosemide (Lasix) 40 mg 1X ONCE IVP Last administered on 06/17/17 22:53; Start 06/17/17 at 23:00; Stop 06/17/17 at 23:01; Status DC Ondansetron HCl (Zofran) 4 mg PRN Q8HRS PRN IV NAUSEA/VOMITING; Start 06/17/17 at 23:00; Stop 06/18/17 at 09:15; Status DC Acetaminophen (Tylenol) 650 mg PRN Q4HRS PRN PO FEVER; Start 06/17/17 at 23:00 ; Stop 06/18/17 at 22:59 Nitroglycerin (Nitrostat) 0.4 mg PRN Q5MIN PRN SL CHEST PAIN; Start 06/17/17 at 23:00; Stop 06/18/17 at 22:59 Diltiazem HCl (Cardizem 24hr Cd) 180 mg DAILY PO Last administered on 09:00; Start 06/18/17 at 09:00 Acetaminophen/ Hydrocodone Bitart (Lortab 10/325) 1 tab BID PO ; Start 06/18/17 at 09:00 Pioglitazone HCl (Actos) 15 mg DAILY PO ; Start 06/18/17 at 09:00; Stop at 09:00; Status DC Hydrochlorothiazide (Microzide) 12.5 mg DAILY PO ; Start 06/18/17 at 09:00; Stop 06/18/17 at 09:00; Status DC Insulin Aspart (NovoLOG) 0-5 UNITS TIDWMEALS SQ ; Start 06/18/17 at 08:00 Dextrose (Dextrose 50%-Water Syringe) 12.5 gm PRN Q15MIN PRN IV SEE COMMENTS Last administered on 06/18/17 07:53; Start 06/17/17 at 23:30 Furosemide (Lasix) 20 mg [id number] IVP ; Start 06/17/17 at 23:30 Hydralazine HCl (Apresoline) 10 mg PRN Q4HRS PRN IVP ELEVATED BP, SEE COMMENTS Last administered on 06/18/17 03:04; Start 06/18/17 at 03:00 Morphine Sulfate 2 mg PRN Q2HR PRN IV/SQ PAIN GREATER THAN 3/10; Start at 09:15; Stop 06/19/17 at 09:14 Ondansetron HCl (Zofran) 4 mg PRN Q6HRS PRN IV NAUSEA/VOMITING; Start 06/18/17 at 09:15; Stop 06/19/17 at 09:14 Labetalol HCl (Normodyne) 10 mg PRN Q2HR PRN IVP HYPERTENSION, SEE COMMENTS; Start 06/18/17 at 09:15 Losartan Potassium (Cozaar) 50 mg DAILY PO ; Start 06/18/17 at 10:00 Pentoxifylline (TRENtal) 400 mg DAILY PO ; Start 06/18/17 at 10:00 Hydroxyzine Pamoate (Vistaril) 25 mg HS PO ; Start 06/18/17 at 21:00 Atorvastatin Calcium (Lipitor) 80 mg QHS PO ; Start 06/18/17 at 21:00 Active Scripts Active Reported Lantus Solostar (Insulin Glargine,Hum.rec.anlog) 100 Unit/1 Ml Insuln.pen 35 Unit SQ QHS Pentoxifylline 400 Mg Tablet.er 400 Mg PO DAILY Hydroxyzine Hcl 25 Mg Tablet 1 Tab PO HS Crestor (Rosuvastatin Calcium) 20 Mg Tablet 1 Tab PO DAILY Losartan Potassium 50 Mg Tablet 50 Mg PO DAILY Hydrochlorothiazide Tablet (Hydrochlorothiazide) 12.5 Mg Tablet 1 Tab PO DAILY Metformin Hcl 1,000 Mg Tablet 1 Tab PO BID Metformin Hcl 500 Mg Tablet 1 Tab PO BID Hydrocodone-Apap 10-325 (Hydrocodone Bit/Acetaminophen) 1 Each Tablet 1 Tab PO BID Glipizide 10 Mg Tablet 1 Tab PO BID Vitals/I & O Vital Sign - Last 24 Hours 06/17/17 06/17/17 06/17/17 06/17/17 21:06 22:00 22:30 22:53 Temp 98.0 98.0 Pulse 90 84 82 89 Resp 22 20 20 B/P (MAP) 213/110 (144) 180/84 (116) 181/91 (121) 178/87 Pulse Ox 88 93 95 O2 Delivery Room Air 06/17/17 06/17/17 06/18/17 06/18/17 23:00 23:54 00:32 00:32 Temp 98.5 98.5 Pulse 94 69 94 Resp 18 22 18 B/P (MAP) 219/97 (137) 176/81 (112) 199/98 (131) Pulse Ox 96 97 99 O2 Delivery Nasal Cannula Nasal Cannula Nasal Cannula O2 Flow Rate 3.0 3.0 3.0 06/18/17 06/18/17 06/18/17 06/18/17 02:40 03:04 03:30 04:34 Temp 97.9 97.9 Pulse 91 91 96 92 Resp 18 B/P (MAP) 199/94 (129) 199/94 166/72 (103) 150/85 (106) Pulse Ox 98 O2 Delivery Nasal Cannula O2 Flow Rate 3.0 06/18/17 06/18/17 06/18/17 07:00 08:00 09:00 Temp 98.1 98.1 Pulse 97 97 Resp 22 B/P (MAP) 146/68 (94) 146/68 Pulse Ox 92 O2 Delivery Nasal Cannula Nasal Cannula O2 Flow Rate 3.0 MALLORY DAWSON MD Jun 18, 2017 11:07
--- NOTE | 2017-06-18 11:56 | PDOC2 ---
CONSULT Date of Consult Date of Consult DATE: 06/18/17 TIME: 11:44 Reason for Consult Reason for Consult: RENAL FAILURE Referring Physician Referring Physician: RAZIA Identification/Chief Complaint Chief Complaint THIS IS A 77 YR OLD ADMITTED WITH SOB. SHE IS NOTED TO BE IN CHF. SHE IS ALSO NOTED TO HAVE A K O 6.3 WITH A CR OF 2.8. CR WAS 1.4 ABOUT 3 YEARS AGO WHEN SHE HAS CKD STAGE 3. ALL DUE TO HTN AND DM II RELATED END ORGAN DAMAGE. SHE HAS JUST MOVED BACK FROM [place] AND HER SON STATES THAT HER KIDNEY DOCTOR THERE TOLD HIM THAT HER KIDNEYS WERE WORKING AT 20%. OTHERWISE SHE HAS ANEMIA Problems: Source Source: Chart review History of Present Illness Reason for Visit: ABOVE Past Medical History Cardiovascular: CHF, HTN Heme/Onc: Anemia NOS Renal/: Chronic renal insuff Endocrine: Diabetes Past Surgical History Past Surgical History: Hysterectomy Current Problem List Problem List Problems Medical Problems: (1) Accelerated hypertension Status: Acute (2) Acute on chronic renal failure Status: Acute (3) Congestive heart failure (CHF) Status: Acute (4) Elevated troponin Status: Acute (5) Hyperkalemia Status: Acute Current Medications Current Medications Current Medications Aspirin (Maxi Aspirin) 325 mg 1X ONCE PO Last administered on 06/17/17 22:53 ; Start 06/17/17 at 21:30; Stop 06/17/17 at 21:31; Status DC Morphine Sulfate 2 mg PRN Q15MIN PRN IV/SQ PAIN GREATER THAN 3/10; Start at 21:15; Stop 06/18/17 at 09:15; Status DC Labetalol HCl (Normodyne) 10 mg 1X ONCE IVP Last administered on 06/17/17 22: 53; Start 06/17/17 at 23:00; Stop 06/17/17 at 23:01; Status DC Calcium Gluconate (Calcium Gluconate) 1,000 mg 1X ONCE IVP Last administered on 06/17/17 22:53; Start 06/17/17 at 23:00; Stop 06/17/17 at 23:01; Status DC Sodium Bicarbonate 50 meq 1X ONCE IV Last administered on 06/17/17 23:33; Start 06/17/17 at 23:00; Stop 06/17/17 at 23:01; Status DC Dextrose (Dextrose 50%-Water Syringe) 25 gm 1X ONCE IV Last administered on 22:54; Start 06/17/17 at 23:00; Stop 06/17/17 at 23:01; Status DC Insulin Human Regular (NovoLIN R VIAL) 10 unit 1X ONCE IV Last administered on 06/17/17 22:50; Start 06/17/17 at 23:00; Stop 06/17/17 at 23:01; Status DC Sodium Polystyrene Sulfonate (Kayexalate) 30 gm 1X ONCE PO Last administered on 06/17/17 23:33; Start 06/17/17 at 23:00; Stop 06/17/17 at 23:01; Status DC Furosemide (Lasix) 40 mg 1X ONCE IVP Last administered on 06/17/17 22:53; Start 06/17/17 at 23:00; Stop 06/17/17 at 23:01; Status DC Ondansetron HCl (Zofran) 4 mg PRN Q8HRS PRN IV NAUSEA/VOMITING; Start 06/17/17 at 23:00; Stop 06/18/17 at 09:15; Status DC Acetaminophen (Tylenol) 650 mg PRN Q4HRS PRN PO FEVER; Start 06/17/17 at 23:00 ; Stop 06/18/17 at 22:59 Nitroglycerin (Nitrostat) 0.4 mg PRN Q5MIN PRN SL CHEST PAIN; Start 06/17/17 at 23:00; Stop 06/18/17 at 22:59 Diltiazem HCl (Cardizem 24hr Cd) 180 mg DAILY PO Last administered on 09:00; Start 06/18/17 at 09:00 Acetaminophen/ Hydrocodone Bitart (Lortab 10/325) 1 tab BID PO ; Start 06/18/17 at 09:00 Pioglitazone HCl (Actos) 15 mg DAILY PO ; Start 06/18/17 at 09:00; Stop at 09:00; Status DC Hydrochlorothiazide (Microzide) 12.5 mg DAILY PO ; Start 06/18/17 at 09:00; Stop 06/18/17 at 09:00; Status DC Insulin Aspart (NovoLOG) 0-5 UNITS TIDWMEALS SQ ; Start 06/18/17 at 08:00 Dextrose (Dextrose 50%-Water Syringe) 12.5 gm PRN Q15MIN PRN IV SEE COMMENTS Last administered on 06/18/17 07:53; Start 06/17/17 at 23:30 Furosemide (Lasix) 20 mg BID92 IVP ; Start 06/17/17 at 23:30 Hydralazine HCl (Apresoline) 10 mg PRN Q4HRS PRN IVP ELEVATED BP, SEE COMMENTS Last administered on 06/18/17 03:04; Start 06/18/17 at 03:00 Morphine Sulfate 2 mg PRN Q2HR PRN IV/SQ PAIN GREATER THAN 3/10; Start at 09:15; Stop 06/19/17 at 09:14 Ondansetron HCl (Zofran) 4 mg PRN Q6HRS PRN IV NAUSEA/VOMITING; Start 06/18/17 at 09:15; Stop 06/19/17 at 09:14 Labetalol HCl (Normodyne) 10 mg PRN Q2HR PRN IVP HYPERTENSION, SEE COMMENTS; Start 06/18/17 at 09:15 Losartan Potassium (Cozaar) 50 mg DAILY PO ; Start 06/18/17 at 10:00 Pentoxifylline (TRENtal) 400 mg DAILY PO ; Start 06/18/17 at 10:00 Hydroxyzine Pamoate (Vistaril) 25 mg HS PO ; Start 06/18/17 at 21:00 Atorvastatin Calcium (Lipitor) 80 mg QHS PO ; Start 06/18/17 at 21:00 Heparin Sodium (Porcine) (Heparin Sq) 5,000 unit Q8HRS SQ ; Start 06/18/17 at 11 :30 Active Scripts Active Reported Lantus Solostar (Insulin Glargine,Hum.rec.anlog) 100 Unit/1 Ml Insuln.pen 35 Unit SQ QHS Pentoxifylline 400 Mg Tablet.er 400 Mg PO DAILY Hydroxyzine Hcl 25 Mg Tablet 1 Tab PO HS Crestor (Rosuvastatin Calcium) 20 Mg Tablet 1 Tab PO DAILY Losartan Potassium 50 Mg Tablet 50 Mg PO DAILY Hydrochlorothiazide Tablet (Hydrochlorothiazide) 12.5 Mg Tablet 1 Tab PO DAILY Metformin Hcl 1,000 Mg Tablet 1 Tab PO BID Metformin Hcl 500 Mg Tablet 1 Tab PO BID Hydrocodone-Apap 10-325 (Hydrocodone Bit/Acetaminophen) 1 Each Tablet 1 Tab PO BID Glipizide 10 Mg Tablet 1 Tab PO BID Allergies Allergies: Coded Allergies: No Known Drug Allergies (Unverified , 05/07/14) ROS General: YES: Fatigue, Appetite PSYCHOLOGICAL ROS: YES: Depression Eyes: Yes Decreased vision HEENT: YES: Heacaches Respiratory: YES: Cough, Orthopnea, Shortness of breath, SOB with excertion Cardiovascular: yes Edema, yes Lt Headedness Gastrointestinal: Yes Constipation Genitourinary: YES Frequency Musculoskeletal: Yes Muscular Weakness Neurological: Yes Weakness Skin: Yes Dry Skin Physical Exam General: Alert, Oriented X3, Cooperative, No acute distress HEENT: Atraumatic, PERRLA Lungs: Normal air movement, Other (BASILAR RALES) Heart: Regular rate, Normal S1, Normal S2 Abdomen: No tenderness Extremities: No clubbing, No cyanosis Skin: No rashes, No breakdown Neuro: Normal speech, Sensation intact Psych/Mental Status: Mental status NL, Mood NL MUSCULOSKELETAL: No joint tenderness, No deformity, No swelling Vitals VITALS Vital Signs Date Time Temp Pulse Resp B/P (MAP) Pulse Ox O2 Delivery O2 Flow Rate FiO2 06/18/17 09:00 97 146/68 06/18/17 08:00 Nasal Cannula 3.0 06/18/17 07:00 98.1 22 92 98.1 Labs Labs Laboratory Tests Test 06/17/17 21:45 06/18/17 00:09 06/18/17 00:59 06/18/17 01:27 White Blood Count 9.8 x10^3/uL (4.0-11.0) Red Blood Count 2.97 x10^6/uL (3.50-5.40) Hemoglobin 9.3 g/dL (12.0-15.5) Hematocrit 28.8 % (36.0-47.0) Mean Corpuscular Volume 97 fL (79-100) Mean Corpuscular Hemoglobin 32 pg (25-35) Mean Corpuscular Hemoglobin Concent 32 g/dL (31-37) Red Cell Distribution Width 14.5 % (11.5-14.5) Platelet Count 259 x10^3/uL (140-400) Neutrophils (%) (Auto) 79 % (31-73) Lymphocytes (%) (Auto) 14 % (24-48) Monocytes (%) (Auto) 5 % (0-9) Eosinophils (%) (Auto) 1 % (0-3) Basophils (%) (Auto) 1 % (0-3) Neutrophils # (Auto) 7.8 x10^3uL (1.8-7.7) Lymphocytes # (Auto) 1.4 x10^3/uL (1.0-4.8) Monocytes # (Auto) 0.5 x10^3/uL (0.0-1.1) Eosinophils # (Auto) 0.1 x10^3/uL (0.0-0.7) Basophils # (Auto) 0.1 x10^3/uL (0.0-0.2) Prothrombin Time 12.5 SEC (11.7-14.0) Prothromb Time International Ratio 1.0 (0.8-1.1) Activated Partial Thromboplast Time 31 SEC (24-38) Sodium Level 141 mmol/L (136-145) Potassium Level 6.3 mmol/L (3.5-5.1) Chloride Level 108 mmol/L (98-107) Carbon Dioxide Level 21 mmol/L (21-32) Anion Gap 12 (6-14) Blood Urea Nitrogen 56 mg/dL (7-20) Creatinine 2.6 mg/dL (0.6-1.0) Estimated GFR (Cockcroft-Gault) 17.8 BUN/Creatinine Ratio 22 (6-20) Glucose Level 149 mg/dL (70-99) Calcium Level 8.3 mg/dL (8.5-10.1) Magnesium Level 2.3 mg/dL (1.8-2.4) Total Bilirubin 0.2 mg/dL (0.2-1.0) Aspartate Amino Transf (AST/SGOT) 18 U/L (15-37) Alanine Aminotransferase (ALT/SGPT) 25 U/L (14-59) Alkaline Phosphatase 137 U/L (46-116) Troponin I Quantitative 0.191 ng/mL (0.000-0.055) GT-Emw-X-Type Natriuretic Peptide > 08453 pg/mL (0-449) Total Protein 6.8 g/dL (6.4-8.2) Albumin 3.0 g/dL (3.4-5.0) Albumin/Globulin Ratio 0.8 (1.0-1.7) Lipase 142 U/L (73-393) Glucose (Fingerstick) 132 mg/dL (70-99) 30 mg/dL (70-99) 166 mg/dL (70-99) Test 06/18/17 03:09 06/18/17 03:29 06/18/17 03:30 06/18/17 05:09 Glucose (Fingerstick) 47 mg/dL (70-99) 279 mg/dL (70-99) 110 mg/dL (70-99) White Blood Count 8.4 x10^3/uL (4.0-11.0) Red Blood Count 2.72 x10^6/uL (3.50-5.40) Hemoglobin 8.6 g/dL (12.0-15.5) Hematocrit 27.1 % (36.0-47.0) Mean Corpuscular Volume 100 fL (79-100) Mean Corpuscular Hemoglobin 32 pg (25-35) Mean Corpuscular Hemoglobin Concent 32 g/dL (31-37) Red Cell Distribution Width 14.6 % (11.5-14.5) Platelet Count 224 x10^3/uL (140-400) Neutrophils (%) (Auto) 73 % (31-73) Lymphocytes (%) (Auto) 20 % (24-48) Monocytes (%) (Auto) 7 % (0-9) Eosinophils (%) (Auto) 1 % (0-3) Basophils (%) (Auto) 0 % (0-3) Neutrophils # (Auto) 6.1 x10^3uL (1.8-7.7) Lymphocytes # (Auto) 1.6 x10^3/uL (1.0-4.8) Monocytes # (Auto) 0.6 x10^3/uL (0.0-1.1) Eosinophils # (Auto) 0.0 x10^3/uL (0.0-0.7) Basophils # (Auto) 0.0 x10^3/uL (0.0-0.2) Sodium Level 147 mmol/L (136-145) Potassium Level 4.5 mmol/L (3.5-5.1) Chloride Level 110 mmol/L (98-107) Carbon Dioxide Level 25 mmol/L (21-32) Anion Gap 12 (6-14) Blood Urea Nitrogen 56 mg/dL (7-20) Creatinine 2.8 mg/dL (0.6-1.0) Estimated GFR (Cockcroft-Gault) 16.3 Glucose Level 332 mg/dL (70-99) Calcium Level 8.5 mg/dL (8.5-10.1) Magnesium Level 2.3 mg/dL (1.8-2.4) Troponin I Quantitative 0.213 ng/mL (0.000-0.055) Triglycerides Level 86 mg/dL (0-150) Cholesterol Level 151 mg/dL (0-200) LDL Cholesterol, Calculated 87 mg/dL (0-100) VLDL Cholesterol, Calculated 17 mg/dL (0-40) Non-HDL Cholesterol Calculated 104 mg/dL (0-129) HDL Cholesterol 47 mg/dL (40-60) Cholesterol/HDL Ratio 3.2 Thyroid Stimulating Hormone (TSH) 1.333 uIU/mL (0.358-3.74) Test 06/18/17 07:48 06/18/17 08:26 06/18/17 10:30 Glucose (Fingerstick) 38 mg/dL (70-99) 152 mg/dL (70-99) Troponin I Quantitative 0.170 ng/mL (0.000-0.055) Laboratory Tests Test 06/17/17 21:45 06/18/17 00:09 06/18/17 00:59 06/18/17 01:27 White Blood Count 9.8 x10^3/uL (4.0-11.0) Red Blood Count 2.97 x10^6/uL (3.50-5.40) Hemoglobin 9.3 g/dL (12.0-15.5) Hematocrit 28.8 % (36.0-47.0) Mean Corpuscular Volume 97 fL (79-100) Mean Corpuscular Hemoglobin 32 pg (25-35) Mean Corpuscular Hemoglobin Concent 32 g/dL (31-37) Red Cell Distribution Width 14.5 % (11.5-14.5) Platelet Count 259 x10^3/uL (140-400) Neutrophils (%) (Auto) 79 % (31-73) Lymphocytes (%) (Auto) 14 % (24-48) Monocytes (%) (Auto) 5 % (0-9) Eosinophils (%) (Auto) 1 % (0-3) Basophils (%) (Auto) 1 % (0-3) Neutrophils # (Auto) 7.8 x10^3uL (1.8-7.7) Lymphocytes # (Auto) 1.4 x10^3/uL (1.0-4.8) Monocytes # (Auto) 0.5 x10^3/uL (0.0-1.1) Eosinophils # (Auto) 0.1 x10^3/uL (0.0-0.7) Basophils # (Auto) 0.1 x10^3/uL (0.0-0.2) Prothrombin Time 12.5 SEC (11.7-14.0) Prothromb Time International Ratio 1.0 (0.8-1.1) Activated Partial Thromboplast Time 31 SEC (24-38) Sodium Level 141 mmol/L (136-145) Potassium Level 6.3 mmol/L (3.5-5.1) Chloride Level 108 mmol/L (98-107) Carbon Dioxide Level 21 mmol/L (21-32) Anion Gap 12 (6-14) Blood Urea Nitrogen 56 mg/dL (7-20) Creatinine 2.6 mg/dL (0.6-1.0) Estimated GFR (Cockcroft-Gault) 17.8 BUN/Creatinine Ratio 22 (6-20) Glucose Level 149 mg/dL (70-99) Calcium Level 8.3 mg/dL (8.5-10.1) Magnesium Level 2.3 mg/dL (1.8-2.4) Total Bilirubin 0.2 mg/dL (0.2-1.0) Aspartate Amino Transf (AST/SGOT) 18 U/L (15-37) Alanine Aminotransferase (ALT/SGPT) 25 U/L (14-59) Alkaline Phosphatase 137 U/L (46-116) Troponin I Quantitative 0.191 ng/mL (0.000-0.055) YF-Vhd-Y-Type Natriuretic Peptide > 63593 pg/mL (0-449) Total Protein 6.8 g/dL (6.4-8.2) Albumin 3.0 g/dL (3.4-5.0) Albumin/Globulin Ratio 0.8 (1.0-1.7) Lipase 142 U/L (73-393) Glucose (Fingerstick) 132 mg/dL (70-99) 30 mg/dL (70-99) 166 mg/dL (70-99) Test 06/18/17 03:09 06/18/17 03:29 06/18/17 03:30 06/18/17 05:09 Glucose (Fingerstick) 47 mg/dL (70-99) 279 mg/dL (70-99) 110 mg/dL (70-99) White Blood Count 8.4 x10^3/uL (4.0-11.0) Red Blood Count 2.72 x10^6/uL (3.50-5.40) Hemoglobin 8.6 g/dL (12.0-15.5) Hematocrit 27.1 % (36.0-47.0) Mean Corpuscular Volume 100 fL (79-100) Mean Corpuscular Hemoglobin 32 pg (25-35) Mean Corpuscular Hemoglobin Concent 32 g/dL (31-37) Red Cell Distribution Width 14.6 % (11.5-14.5) Platelet Count 224 x10^3/uL (140-400) Neutrophils (%) (Auto) 73 % (31-73) Lymphocytes (%) (Auto) 20 % (24-48) Monocytes (%) (Auto) 7 % (0-9) Eosinophils (%) (Auto) 1 % (0-3) Basophils (%) (Auto) 0 % (0-3) Neutrophils # (Auto) 6.1 x10^3uL (1.8-7.7) Lymphocytes # (Auto) 1.6 x10^3/uL (1.0-4.8) Monocytes # (Auto) 0.6 x10^3/uL (0.0-1.1) Eosinophils # (Auto) 0.0 x10^3/uL (0.0-0.7) Basophils # (Auto) 0.0 x10^3/uL (0.0-0.2) Sodium Level 147 mmol/L (136-145) Potassium Level 4.5 mmol/L (3.5-5.1) Chloride Level 110 mmol/L (98-107) Carbon Dioxide Level 25 mmol/L (21-32) Anion Gap 12 (6-14) Blood Urea Nitrogen 56 mg/dL (7-20) Creatinine 2.8 mg/dL (0.6-1.0) Estimated GFR (Cockcroft-Gault) 16.3 Glucose Level 332 mg/dL (70-99) Calcium Level 8.5 mg/dL (8.5-10.1) Magnesium Level 2.3 mg/dL (1.8-2.4) Troponin I Quantitative 0.213 ng/mL (0.000-0.055) Triglycerides Level 86 mg/dL (0-150) Cholesterol Level 151 mg/dL (0-200) LDL Cholesterol, Calculated 87 mg/dL (0-100) VLDL Cholesterol, Calculated 17 mg/dL (0-40) Non-HDL Cholesterol Calculated 104 mg/dL (0-129) HDL Cholesterol 47 mg/dL (40-60) Cholesterol/HDL Ratio 3.2 Thyroid Stimulating Hormone (TSH) 1.333 uIU/mL (0.358-3.74) Test 06/18/17 07:48 06/18/17 08:26 06/18/17 10:30 Glucose (Fingerstick) 38 mg/dL (70-99) 152 mg/dL (70-99) Troponin I Quantitative 0.170 ng/mL (0.000-0.055) Assessment/Plan Assessment/Plan IMP CHF HYPERKALEMIA DM II HTN ANEMIA CKD STAGE 4 PLAN IV LASIX CONT WITH ARB 24 HR URINE ARANESP STOP HER METFORMIN JONES ABREU MD Jun 18, 2017 11:56
--- NOTE | 2017-06-18 12:19 | CARD ---
APPROVED REPORT EXAM: Two-dimensional and M-mode echocardiogram with Doppler and color Doppler. Other Information Quality : GoodHR: 90bpm Rhythm : NSR INDICATION Congestive Heart Failure New CHF RISK FACTORS Hypertension 2D DIMENSIONS RVDd2.2 (2.9-3.5cm)Left Atrium(2D)3.5 (1.6-4.0cm) IVSd1.2 (0.7-1.1cm)Aortic Root(2D)2.7 (2.0-3.7cm) LVDd4.6 (3.9-5.9cm)LVOT Diameter2.3 (1.8-2.4cm) PWd1.2 (0.7-1.1cm)LVDs3.1 (2.5-4.0cm) FS (%) 32.0 %SV58.0 ml LVEF(%)60.2 (>50%) Aortic Valve AoV Peak Elie.162.8cm/sAoV VTI29.7cm AO Peak GR.10.6mmHgLVOT Peak Elie.120.3cm/s AO Mean GR.6mmHgAVA (VMAX)3.08cm2 AI P 1/2 [id number] Mitral Valve MV E Lqqmmtod002.5cm/sMV E Peak Gr.9mmHg MV DECEL [id number] A Bntlicqr915.7cm/s MV E Mean Gr.4mmHgE/A Ratio0.7 MV A [id number] Pulmonary Valve PV Peak Rycaepgd97.4cm/s Tricuspid Valve TR P. Urzwympu500ry/sTR Peak Gr.41mmHg Pulmonary Vein S1 Linlmkft36.5cm/sD2 Tsdvbyhz80.0cm/s PVa [id number] LEFT VENTRICLE The left ventricle is normal size. There is mild concentric left ventricular hypertrophy. The left ve ntricular systolic function is low normal to mildly decreased. The Ejection Fraction is 45-50%. Trans mitral Doppler flow pattern is Grade I-abnormal relaxation pattern. RIGHT VENTRICLE The right ventricle is normal size. There is normal right ventricular wall thickness. The right ventr icular systolic function is normal. ATRIA The left atrium size is normal. The right atrium size is normal. The interatrial septum is intact wit h no evidence for an atrial septal defect or patent foramen ovale as noted on 2-D or Doppler imaging. AORTIC VALVE The aortic valve is not well visualized but appears mildly calcified and opens adequately. Doppler an d Color Flow revealed mild to moderate aortic regurgitation. There is no significant aortic valvular stenosis. MITRAL VALVE Mitral annular calcification is mild. The mitral valve leaflets are thickened. There is no evidence o f mitral valve prolapse. There is no mitral valve stenosis. Doppler and Color Flow revealed mild to m oderate, anteriorly directed mitral regurgitation. TRICUSPID VALVE Doppler and Color Flow revealed mild tricuspid regurgitation. The pulmonary artery systolic pressure is estimated at 44 mmHg. PULMONIC VALVE The pulmonic valve is not well visualized but appears to open adequately. Doppler and Color Flow reve aled mild pulmonic valvular regurgitation. There is no pulmonic valvular stenosis by spectral Doppler . GREAT VESSELS The aortic root is normal in size. The ascending aorta is normal in size. The pulmonary artery is nor mal. The IVC is normal in size and collapses >50% with inspiration. PERICARDIAL EFFUSION There is no evidence of significant pericardial effusion. Critical Notification Critical Value: No <Conclusion> The left ventricle is normal size. The left ventricular systolic function is low normal to mildly decreased. The Ejection Fraction is 45-50%. There is mild concentric left ventricular hypertrophy. There is no significant aortic valvular stenosis. Doppler and Color Flow revealed mild to moderate, anteriorly directed mitral regurgitation. Doppler and Color Flow revealed mild tricuspid regurgitation. The pulmonary artery systolic pressure is estimated at 44 mmHg.
[2017-06-18] MEDS: PENTOXIFYLLINE ER 400 MG TABLET.ER. PO SCH (12:32)
[2017-06-18] MEDS: LOSARTAN POTASSIUM 50 MG TABLET. PO SCH (12:33)
[2017-06-18] MEDS: HEPARIN PF for SUB-Q USE 5,000 UNIT/0.5 ML VIAL. SQ SCH ×2 (12:39→21:13)
[2017-06-18] MEDS ORDERED: DARBEPOETIN ALFA 60 MCG/0.3 ML DISP.SYRIN. SQ SCH (21:00)
[2017-06-18] MEDS: ATORVASTATIN CALCIUM 40 MG TABLET. PO SCH (21:07)
[2017-06-18] MEDS: hydrOXYzine PAMOATE 25 MG CAPSULE PO SCH (21:07)
[2017-06-19 03:10] VITALS: BP 118/47
[2017-06-19 05:48] LABS: HEMATOCRIT 26.3 % (36.0-47.0); HEMOGLOBIN 8.4 g/dL (12.0-15.5); RED BLOOD COUNT 2.68 x10^6/uL (3.50-5.40); RED CELL DISTRIBUTION WIDTH 14.5 % (11.5-14.5); WHITE BLOOD COUNT 7.8 x10^3/uL (4.0-11.0)
[2017-06-19 06:08] LABS: ALBUMIN 2.4 g/dL (3.4-5.0); CALCIUM 7.7 mg/dL (8.5-10.1); GFR 15.1; PHOSPHORUS 5.9 mg/dL (2.6-4.7); POTASSIUM 3.7 mmol/L (3.5-5.1)
[2017-06-19 06:09] LABS: CALCIUM 7.7 mg/dL (8.5-10.1); GFR 15.1; POTASSIUM 3.8 mmol/L (3.5-5.1)
[2017-06-19] MEDS: HEPARIN PF for SUB-Q USE 5,000 UNIT/0.5 ML VIAL. SQ SCH ×3 (06:10→21:49)
[2017-06-19 06:17] LABS: % SAT IRON 18 % (15-34); IRON,SERUM 33 ug/dL (50-170)
[2017-06-19 07:00] VITALS: BP 140/64
[2017-06-19] MEDS: INSULIN ASPART 300 UNITS/3 ML INSULN.PEN SQ SCH ×3 (08:00→17:39)
[2017-06-19] MEDS: PENTOXIFYLLINE ER 400 MG TABLET.ER. PO SCH (09:49)
[2017-06-19] MEDS: FUROSEMIDE 20 MG/2 ML VIAL. IVP SCH (09:49)
[2017-06-19] MEDS: LOSARTAN POTASSIUM 50 MG TABLET. PO SCH (09:49)
[2017-06-19] MEDS: HYDROcodone/APAP 10/325 1 TAB TABLET PO SCH ×2 (09:51→21:26)
[2017-06-19 11:00] VITALS: BP 170/94
--- NOTE | 2017-06-19 11:06 | PDOC ---
PROGRESS NOTES Chief Complaint Chief Complaint Chest pain Elevated troponin; highest 0.213. Possibly type II demand ischemia in the setting of significant HTN and JOSY/CKD. Acute on chronic heart failure; NT Pro BNP >35,000. CXR with pul edema Malignant hypertension JOSY on CKD Hyperkalemia, resolved Diabetes; BS labile LAnguage barrier History of Present Illness History of Present Illness Son not at bedside LAnguage barrier NO acute events overnight Good UO from lasix Getting 24 hr urine by renal - ends 5 pm tonight No CP or inc in SOA PLAn: CPM 24 hr urine Likely home xochilt Dw cards and NICANOR Muhammad Vitals Vitals Vital Signs Date Time Temp Pulse Resp B/P (MAP) Pulse Ox O2 Delivery O2 Flow Rate FiO2 06/19/17 09:51 18 Nasal Cannula 2.0 06/19/17 09:49 88 171/86 06/19/17 07:00 98.2 96 98.2 Physical Exam General: Alert, Oriented X3, Cooperative, No acute distress Heart: Regular rate, Normal S1, Normal S2, Other (2/6 systolic murmur ) Lungs: Other (dec BS) Abdomen: Soft, No tenderness Extremities: No edema, Normal pulses Skin: No breakdown, No significant lesion Labs LABS Laboratory Tests Test 06/18/17 11:32 06/18/17 16:25 06/18/17 21:04 06/19/17 04:30 Glucose (Fingerstick) 132 mg/dL (70-99) 208 mg/dL (70-99) 82 mg/dL (70-99) Sodium Level 145 mmol/L (136-145) Potassium Level 3.7 mmol/L (3.5-5.1) Chloride Level 108 mmol/L (98-107) Carbon Dioxide Level 27 mmol/L (21-32) Anion Gap 10 (6-14) Blood Urea Nitrogen 49 mg/dL (7-20) Creatinine 3.0 mg/dL (0.6-1.0) Estimated GFR (Cockcroft-Gault) 15.1 Glucose Level 160 mg/dL (70-99) Calcium Level 7.7 mg/dL (8.5-10.1) Phosphorus Level 5.9 mg/dL (2.6-4.7) Iron Level 33 ug/dL (50-170) Total Iron Binding Capacity 187 ug/dL (250-450) Iron Saturation 18 % (15-34) Albumin 2.4 g/dL (3.4-5.0) Test 06/19/17 04:45 06/19/17 07:40 06/19/17 10:17 White Blood Count 7.8 x10^3/uL (4.0-11.0) Red Blood Count 2.68 x10^6/uL (3.50-5.40) Hemoglobin 8.4 g/dL (12.0-15.5) Hematocrit 26.3 % (36.0-47.0) Mean Corpuscular Volume 98 fL (79-100) Mean Corpuscular Hemoglobin 31 pg (25-35) Mean Corpuscular Hemoglobin Concent 32 g/dL (31-37) Red Cell Distribution Width 14.5 % (11.5-14.5) Platelet Count 228 x10^3/uL (140-400) Sodium Level 146 mmol/L (136-145) Potassium Level 3.8 mmol/L (3.5-5.1) Chloride Level 109 mmol/L (98-107) Carbon Dioxide Level 26 mmol/L (21-32) Anion Gap 11 (6-14) Blood Urea Nitrogen 50 mg/dL (7-20) Creatinine 3.0 mg/dL (0.6-1.0) Estimated GFR (Cockcroft-Gault) 15.1 Glucose Level 164 mg/dL (70-99) Calcium Level 7.7 mg/dL (8.5-10.1) Glucose (Fingerstick) 90 mg/dL (70-99) 229 mg/dL (70-99) Review of Systems Review of Systems language barrier Assessment and Plan Assessmemt and Plan Problems Medical Problems: (1) Accelerated hypertension Status: Acute (2) Acute on chronic renal failure Status: Acute (3) Congestive heart failure (CHF) Status: Acute (4) Elevated troponin Status: Acute (5) Hyperkalemia Status: Acute Problems: Comment Review of Relevant I have reviewed the following items diamante (where applicable) has been applied. Labs Laboratory Tests Test 06/17/17 21:45 06/18/17 00:09 06/18/17 00:59 06/18/17 01:27 White Blood Count 9.8 x10^3/uL (4.0-11.0) Red Blood Count 2.97 x10^6/uL (3.50-5.40) Hemoglobin 9.3 g/dL (12.0-15.5) Hematocrit 28.8 % (36.0-47.0) Mean Corpuscular Volume 97 fL (79-100) Mean Corpuscular Hemoglobin 32 pg (25-35) Mean Corpuscular Hemoglobin Concent 32 g/dL (31-37) Red Cell Distribution Width 14.5 % (11.5-14.5) Platelet Count 259 x10^3/uL (140-400) Neutrophils (%) (Auto) 79 % (31-73) Lymphocytes (%) (Auto) 14 % (24-48) Monocytes (%) (Auto) 5 % (0-9) Eosinophils (%) (Auto) 1 % (0-3) Basophils (%) (Auto) 1 % (0-3) Neutrophils # (Auto) 7.8 x10^3uL (1.8-7.7) Lymphocytes # (Auto) 1.4 x10^3/uL (1.0-4.8) Monocytes # (Auto) 0.5 x10^3/uL (0.0-1.1) Eosinophils # (Auto) 0.1 x10^3/uL (0.0-0.7) Basophils # (Auto) 0.1 x10^3/uL (0.0-0.2) Prothrombin Time 12.5 SEC (11.7-14.0) Prothromb Time International Ratio 1.0 (0.8-1.1) Activated Partial Thromboplast Time 31 SEC (24-38) Sodium Level 141 mmol/L (136-145) Potassium Level 6.3 mmol/L (3.5-5.1) Chloride Level 108 mmol/L (98-107) Carbon Dioxide Level 21 mmol/L (21-32) Anion Gap 12 (6-14) Blood Urea Nitrogen 56 mg/dL (7-20) Creatinine 2.6 mg/dL (0.6-1.0) Estimated GFR (Cockcroft-Gault) 17.8 BUN/Creatinine Ratio 22 (6-20) Glucose Level 149 mg/dL (70-99) Calcium Level 8.3 mg/dL (8.5-10.1) Magnesium Level 2.3 mg/dL (1.8-2.4) Total Bilirubin 0.2 mg/dL (0.2-1.0) Aspartate Amino Transf (AST/SGOT) 18 U/L (15-37) Alanine Aminotransferase (ALT/SGPT) 25 U/L (14-59) Alkaline Phosphatase 137 U/L (46-116) Troponin I Quantitative 0.191 ng/mL (0.000-0.055) JA-Eqe-X-Type Natriuretic Peptide > 72500 pg/mL (0-449) Total Protein 6.8 g/dL (6.4-8.2) Albumin 3.0 g/dL (3.4-5.0) Albumin/Globulin Ratio 0.8 (1.0-1.7) Lipase 142 U/L (73-393) Glucose (Fingerstick) 132 mg/dL (70-99) 30 mg/dL (70-99) 166 mg/dL (70-99) Test 06/18/17 03:09 06/18/17 03:29 06/18/17 03:30 06/18/17 05:09 Glucose (Fingerstick) 47 mg/dL (70-99) 279 mg/dL (70-99) 110 mg/dL (70-99) White Blood Count 8.4 x10^3/uL (4.0-11.0) Red Blood Count 2.72 x10^6/uL (3.50-5.40) Hemoglobin 8.6 g/dL (12.0-15.5) Hematocrit 27.1 % (36.0-47.0) Mean Corpuscular Volume 100 fL (79-100) Mean Corpuscular Hemoglobin 32 pg (25-35) Mean Corpuscular Hemoglobin Concent 32 g/dL (31-37) Red Cell Distribution Width 14.6 % (11.5-14.5) Platelet Count 224 x10^3/uL (140-400) Neutrophils (%) (Auto) 73 % (31-73) Lymphocytes (%) (Auto) 20 % (24-48) Monocytes (%) (Auto) 7 % (0-9) Eosinophils (%) (Auto) 1 % (0-3) Basophils (%) (Auto) 0 % (0-3) Neutrophils # (Auto) 6.1 x10^3uL (1.8-7.7) Lymphocytes # (Auto) 1.6 x10^3/uL (1.0-4.8) Monocytes # (Auto) 0.6 x10^3/uL (0.0-1.1) Eosinophils # (Auto) 0.0 x10^3/uL (0.0-0.7) Basophils # (Auto) 0.0 x10^3/uL (0.0-0.2) Sodium Level 147 mmol/L (136-145) Potassium Level 4.5 mmol/L (3.5-5.1) Chloride Level 110 mmol/L (98-107) Carbon Dioxide Level 25 mmol/L (21-32) Anion Gap 12 (6-14) Blood Urea Nitrogen 56 mg/dL (7-20) Creatinine 2.8 mg/dL (0.6-1.0) Estimated GFR (Cockcroft-Gault) 16.3 Glucose Level 332 mg/dL (70-99) Calcium Level 8.5 mg/dL (8.5-10.1) Magnesium Level 2.3 mg/dL (1.8-2.4) Troponin I Quantitative 0.213 ng/mL (0.000-0.055) Triglycerides Level 86 mg/dL (0-150) Cholesterol Level 151 mg/dL (0-200) LDL Cholesterol, Calculated 87 mg/dL (0-100) VLDL Cholesterol, Calculated 17 mg/dL (0-40) Non-HDL Cholesterol Calculated 104 mg/dL (0-129) HDL Cholesterol 47 mg/dL (40-60) Cholesterol/HDL Ratio 3.2 Thyroid Stimulating Hormone (TSH) 1.333 uIU/mL (0.358-3.74) Test 06/18/17 07:48 06/18/17 08:26 06/18/17 10:30 06/18/17 11:32 Glucose (Fingerstick) 38 mg/dL (70-99) 152 mg/dL (70-99) 132 mg/dL (70-99) Troponin I Quantitative 0.170 ng/mL (0.000-0.055) Test 06/18/17 16:25 06/18/17 21:04 06/19/17 04:30 06/19/17 04:45 Glucose (Fingerstick) 208 mg/dL (70-99) 82 mg/dL (70-99) Sodium Level 145 mmol/L (136-145) 146 mmol/L (136-145) Potassium Level 3.7 mmol/L (3.5-5.1) 3.8 mmol/L (3.5-5.1) Chloride Level 108 mmol/L (98-107) 109 mmol/L (98-107) Carbon Dioxide Level 27 mmol/L (21-32) 26 mmol/L (21-32) Anion Gap 10 (6-14) 11 (6-14) Blood Urea Nitrogen 49 mg/dL (7-20) 50 mg/dL (7-20) Creatinine 3.0 mg/dL (0.6-1.0) 3.0 mg/dL (0.6-1.0) Estimated GFR (Cockcroft-Gault) 15.1 15.1 Glucose Level 160 mg/dL (70-99) 164 mg/dL (70-99) Calcium Level 7.7 mg/dL (8.5-10.1) 7.7 mg/dL (8.5-10.1) Phosphorus Level 5.9 mg/dL (2.6-4.7) Iron Level 33 ug/dL (50-170) Total Iron Binding Capacity 187 ug/dL (250-450) Iron Saturation 18 % (15-34) Albumin 2.4 g/dL (3.4-5.0) White Blood Count 7.8 x10^3/uL (4.0-11.0) Red Blood Count 2.68 x10^6/uL (3.50-5.40) Hemoglobin 8.4 g/dL (12.0-15.5) Hematocrit 26.3 % (36.0-47.0) Mean Corpuscular Volume 98 fL (79-100) Mean Corpuscular Hemoglobin 31 pg (25-35) Mean Corpuscular Hemoglobin Concent 32 g/dL (31-37) Red Cell Distribution Width 14.5 % (11.5-14.5) Platelet Count 228 x10^3/uL (140-400) Test 06/19/17 07:40 06/19/17 10:17 Glucose (Fingerstick) 90 mg/dL (70-99) 229 mg/dL (70-99) Laboratory Tests Test 06/18/17 11:32 06/18/17 16:25 06/18/17 21:04 06/19/17 04:30 Glucose (Fingerstick) 132 mg/dL (70-99) 208 mg/dL (70-99) 82 mg/dL (70-99) Sodium Level 145 mmol/L (136-145) Potassium Level 3.7 mmol/L (3.5-5.1) Chloride Level 108 mmol/L (98-107) Carbon Dioxide Level 27 mmol/L (21-32) Anion Gap 10 (6-14) Blood Urea Nitrogen 49 mg/dL (7-20) Creatinine 3.0 mg/dL (0.6-1.0) Estimated GFR (Cockcroft-Gault) 15.1 Glucose Level 160 mg/dL (70-99) Calcium Level 7.7 mg/dL (8.5-10.1) Phosphorus Level 5.9 mg/dL (2.6-4.7) Iron Level 33 ug/dL (50-170) Total Iron Binding Capacity 187 ug/dL (250-450) Iron Saturation 18 % (15-34) Albumin 2.4 g/dL (3.4-5.0) Test 06/19/17 04:45 06/19/17 07:40 06/19/17 10:17 White Blood Count 7.8 x10^3/uL (4.0-11.0) Red Blood Count 2.68 x10^6/uL (3.50-5.40) Hemoglobin 8.4 g/dL (12.0-15.5) Hematocrit 26.3 % (36.0-47.0) Mean Corpuscular Volume 98 fL (79-100) Mean Corpuscular Hemoglobin 31 pg (25-35) Mean Corpuscular Hemoglobin Concent 32 g/dL (31-37) Red Cell Distribution Width 14.5 % (11.5-14.5) Platelet Count 228 x10^3/uL (140-400) Sodium Level 146 mmol/L (136-145) Potassium Level 3.8 mmol/L (3.5-5.1) Chloride Level 109 mmol/L (98-107) Carbon Dioxide Level 26 mmol/L (21-32) Anion Gap 11 (6-14) Blood Urea Nitrogen 50 mg/dL (7-20) Creatinine 3.0 mg/dL (0.6-1.0) Estimated GFR (Cockcroft-Gault) 15.1 Glucose Level 164 mg/dL (70-99) Calcium Level 7.7 mg/dL (8.5-10.1) Glucose (Fingerstick) 90 mg/dL (70-99) 229 mg/dL (70-99) Medications Current Medications Aspirin (Maxi Aspirin) 325 mg 1X ONCE PO Last administered on 06/17/17 22:53 ; Start 06/17/17 at 21:30; Stop 06/17/17 at 21:31; Status DC Morphine Sulfate 2 mg PRN Q15MIN PRN IV/SQ PAIN GREATER THAN 3/10; Start at 21:15; Stop 06/18/17 at 09:15; Status DC Labetalol HCl (Normodyne) 10 mg 1X ONCE IVP Last administered on 06/17/17 22: 53; Start 06/17/17 at 23:00; Stop 06/17/17 at 23:01; Status DC Calcium Gluconate (Calcium Gluconate) 1,000 mg 1X ONCE IVP Last administered on 06/17/17 22:53; Start 06/17/17 at 23:00; Stop 06/17/17 at 23:01; Status DC Sodium Bicarbonate 50 meq 1X ONCE IV Last administered on 06/17/17 23:33; Start 06/17/17 at 23:00; Stop 06/17/17 at 23:01; Status DC Dextrose (Dextrose 50%-Water Syringe) 25 gm 1X ONCE IV Last administered on 22:54; Start 06/17/17 at 23:00; Stop 06/17/17 at 23:01; Status DC Insulin Human Regular (NovoLIN R VIAL) 10 unit 1X ONCE IV Last administered on 06/17/17 22:50; Start 06/17/17 at 23:00; Stop 06/17/17 at 23:01; Status DC Sodium Polystyrene Sulfonate (Kayexalate) 30 gm 1X ONCE PO Last administered on 06/17/17 23:33; Start 06/17/17 at 23:00; Stop 06/17/17 at 23:01; Status DC Furosemide (Lasix) 40 mg 1X ONCE IVP Last administered on 06/17/17 22:53; Start 06/17/17 at 23:00; Stop 06/17/17 at 23:01; Status DC Ondansetron HCl (Zofran) 4 mg PRN Q8HRS PRN IV NAUSEA/VOMITING; Start 06/17/17 at 23:00; Stop 06/18/17 at 09:15; Status DC Acetaminophen (Tylenol) 650 mg PRN Q4HRS PRN PO FEVER; Start 06/17/17 at 23:00 ; Stop 06/18/17 at 22:59; Status DC Nitroglycerin (Nitrostat) 0.4 mg PRN Q5MIN PRN SL CHEST PAIN; Start 06/17/17 at 23:00; Stop 06/18/17 at 22:59; Status DC Diltiazem HCl (Cardizem 24hr Cd) 180 mg DAILY PO Last administered on 09:49; Start 06/18/17 at 09:00 Acetaminophen/ Hydrocodone Bitart (Lortab 10/325) 1 tab BID PO Last administered on 06/19/17 09:51; Start 06/18/17 at 09:00 Pioglitazone HCl (Actos) 15 mg DAILY PO ; Start 06/18/17 at 09:00; Stop at 09:00; Status DC Hydrochlorothiazide (Microzide) 12.5 mg DAILY PO ; Start 06/18/17 at 09:00; Stop 06/18/17 at 09:00; Status DC Insulin Aspart (NovoLOG) 0-5 UNITS TIDWMEALS SQ Last administered on 06/18/17 17:28; Start 06/18/17 at 08:00 Dextrose (Dextrose 50%-Water Syringe) 12.5 gm PRN Q15MIN PRN IV SEE COMMENTS Last administered on 06/18/17 07:53; Start 06/17/17 at 23:30 Furosemide (Lasix) 20 mg [id number] IVP Last administered on 06/19/17 09:49; Start 06/17/17 at 23:30 Hydralazine HCl (Apresoline) 10 mg PRN Q4HRS PRN IVP ELEVATED BP, SEE COMMENTS Last administered on 06/18/17 03:04; Start 06/18/17 at 03:00 Morphine Sulfate 2 mg PRN Q2HR PRN IV/SQ PAIN GREATER THAN 3/10; Start at 09:15; Stop 06/19/17 at 09:14; Status DC Ondansetron HCl (Zofran) 4 mg PRN Q6HRS PRN IV NAUSEA/VOMITING; Start 06/18/17 at 09:15; Stop 06/19/17 at 09:14; Status DC Labetalol HCl (Normodyne) 10 mg PRN Q2HR PRN IVP HYPERTENSION, SEE COMMENTS; Start 06/18/17 at 09:15 Losartan Potassium (Cozaar) 50 mg DAILY PO Last administered on 06/19/17 09:49 ; Start 06/18/17 at 10:00 Pentoxifylline (TRENtal) 400 mg DAILY PO Last administered on 06/19/17 09:49; Start 06/18/17 at 10:00 Hydroxyzine Pamoate (Vistaril) 25 mg HS PO Last administered on 06/18/17 21:07 ; Start 06/18/17 at 21:00 Atorvastatin Calcium (Lipitor) 80 mg QHS PO Last administered on 06/18/17 21: 07; Start 06/18/17 at 21:00 Heparin Sodium (Porcine) (Heparin Sq) 5,000 unit Q8HRS SQ Last administered on 06/19/17 06:10; Start 06/18/17 at 11:30 Darbepoetin Keegan (Aranesp) 60 mcg WEEKLYHS SQ Last administered on 06/18/17 21 :08; Start 06/18/17 at 21:00 Active Scripts Active Reported Lantus Solostar (Insulin Glargine,Hum.rec.anlog) 100 Unit/1 Ml Insuln.pen 35 Unit SQ QHS Pentoxifylline 400 Mg Tablet.er 400 Mg PO DAILY Hydroxyzine Hcl 25 Mg Tablet 1 Tab PO HS Crestor (Rosuvastatin Calcium) 20 Mg Tablet 1 Tab PO DAILY Losartan Potassium 50 Mg Tablet 50 Mg PO DAILY Hydrochlorothiazide Tablet (Hydrochlorothiazide) 12.5 Mg Tablet 1 Tab PO DAILY Metformin Hcl 1,000 Mg Tablet 1 Tab PO BID Metformin Hcl 500 Mg Tablet 1 Tab PO BID Hydrocodone-Apap 10-325 (Hydrocodone Bit/Acetaminophen) 1 Each Tablet 1 Tab PO BID Glipizide 10 Mg Tablet 1 Tab PO BID Vitals/I & O Vital Sign - Last 24 Hours 906/18/17 06/18/17 06/18/17 12:33 15:00 19:10 19:31 Temp 97.8 98.9 97.8 98.9 Pulse 90 86 75 Resp 18 19 B/P (MAP) 169/75 146/63 (90) 144/58 (86) Pulse Ox 91 96 O2 Delivery Nasal Cannula Nasal Cannula Nasal Cannula O2 Flow Rate 3.0 2.0 06/18/17 06/18/17 06/18/17 06/19/17 21:08 22:36 23:15 03:10 Temp 98.4 98.0 98.4 98.0 Pulse 68 62 Resp 16 18 16 18 B/P (MAP) 122/50 (74) 118/47 (70) Pulse Ox 97 95 97 O2 Delivery Nasal Cannula Nasal Cannula Nasal Cannula Nasal Cannula O2 Flow Rate 2.0 3.0 3.0 06/19/17 06/19/17 06/19/17 06/19/17 07:00 08:00 09:49 09:49 Temp 98.2 98.2 Pulse 82 86 88 Resp B/P (MAP) 140/64 (89) 171/86 171/86 Pulse Ox 96 O2 Delivery Nasal Cannula Nasal Cannula O2 Flow Rate 3.0 2.0 06/19/17 09:51 Resp 18 O2 Delivery Nasal Cannula O2 Flow Rate 2.0 Intake and Output 06/19/17 06/19/17 06/20/17 14:59 22:59 06:59 Intake Total 250 ml Balance 250 ml MALLORY DAWSON MD Jun 19, 2017 11:06
--- NOTE | 2017-06-19 11:15 | PDOC ---
CARDIOLOGY PROGRESS NOTE SUBJECTIVE: Unable to communicate due to language barrier OBJECTIVE: Vital SIgns: Vital Signs Date Time Temp Pulse Resp B/P (MAP) Pulse Ox O2 Delivery O2 Flow Rate FiO2 06/19/17 09:51 18 Nasal Cannula 2.0 06/19/17 09:49 88 171/86 06/19/17 07:00 98.2 96 98.2 I & O Intake and Output 06/20/17 07:00 Intake Total 250 ml Balance 250 ml Intake Oral 250 ml Objective: Tachycardic. normal heart sounds mild rhonchi bilaterally. no edema. no focal neurologic deficits. CURRENT MEDICATIONS: Current Medications Medications (Trade) Dose Ordered Sig/Sveta Start Time Stop Time Status Last Admin Dose Admin Acetaminophen (Tylenol) 650 mg PRN Q4HRS PRN 06/17/17 23:00 06/18/17 22:59 DC Acetaminophen/ Hydrocodone Bitart (Lortab 10/325) 1 tab BID 06/18/17 09:00 06/19/17 09:51 1 TAB Aspirin (Maxi Aspirin) 325 mg 1X ONCE 06/17/17 21:30 06/17/17 21:31 DC 06/17/17 22:53 325 MG Atorvastatin Calcium (Lipitor) 80 mg QHS 06/18/17 21:00 06/18/17 21:07 80 MG Calcium Gluconate (Calcium Gluconate) 1,000 mg 1X ONCE 06/17/17 23:00 06/17/17 23:01 DC 06/17/17 22:53 1,000 MG Darbepoetin Keegan (Aranesp) 60 mcg WEEKLYHS 06/18/17 21:00 06/18/17 21:08 60 MCG Dextrose (Dextrose 50%-Water Syringe) 12.5 gm PRN Q15MIN PRN 06/17/17 23:30 06/18/17 07:53 12.5 GM Diltiazem HCl (Cardizem 24hr Cd) 180 mg DAILY 06/18/17 09:00 06/19/17 09:49 180 MG Furosemide (Lasix) 20 mg BID92 06/17/17 23:30 06/19/17 09:49 20 MG Heparin Sodium (Porcine) (Heparin Sq) 5,000 unit Q8HRS 06/18/17 11:30 06/19/17 06:10 5,000 UNIT Hydralazine HCl (Apresoline) 10 mg PRN Q4HRS PRN 06/18/17 03:00 06/18/17 03:04 10 MG Hydrochlorothiazide (Microzide) 12.5 mg DAILY 06/18/17 09:00 06/18/17 09:00 DC Hydroxyzine Pamoate (Vistaril) 25 mg HS 06/18/17 21:00 06/18/17 21:07 25 MG Insulin Aspart (NovoLOG) 0-5 UNITS TIDWMEALS 06/18/17 08:00 06/18/17 17:28 3 UNITS Insulin Human Regular (NovoLIN R VIAL) 10 unit 1X ONCE 06/17/17 23:00 06/17/17 23:01 DC 06/17/17 22:50 10 UNIT Labetalol HCl (Normodyne) 10 mg PRN Q2HR PRN 06/18/17 09:15 Losartan Potassium (Cozaar) 50 mg DAILY 06/18/17 10:00 06/19/17 09:49 50 MG Morphine Sulfate 2 mg PRN Q2HR PRN 06/18/17 09:15 06/19/17 09:14 DC Nitroglycerin (Nitrostat) 0.4 mg PRN Q5MIN PRN 06/17/17 23:00 06/18/17 22:59 DC Ondansetron HCl (Zofran) 4 mg PRN Q6HRS PRN 06/18/17 09:15 06/19/17 09:14 DC Pentoxifylline (TRENtal) 400 mg DAILY 06/18/17 10:00 06/19/17 09:49 400 MG Pioglitazone HCl (Actos) 15 mg DAILY 06/18/17 09:00 06/18/17 09:00 DC Sodium Polystyrene Sulfonate (Kayexalate) 30 gm 1X ONCE 06/17/17 23:00 06/17/17 23:01 DC 06/17/17 23:33 30 GM Sodium Bicarbonate 50 meq 1X ONCE 06/17/17 23:00 06/17/17 23:01 DC 06/17/17 23:33 50 MEQ ASSESSMENT: 1. Hypertensive urgency 2. Mild LV dysfunction. EF 45% 3. NSTEMI secondary to hypertensive urgency. Problems: PLAN: 1. Continue present meds. if necessary, can increase diltiazem. 2. Low dose lasix. Renal following. 3. Consider outpt MPI. Will follow along peripherally. AYSE MENDOZA MD Jun 19, 2017 11:15
--- NOTE | 2017-06-19 11:23 | PDOC ---
Renal-Progress Notes Subjective Notes Notes FEELING A BIT BETTER History of Present Illness Hx of present illness STABLE Vitals Vitals Vital Signs Date Time Temp Pulse Resp B/P (MAP) Pulse Ox O2 Delivery O2 Flow Rate FiO2 06/19/17 11:00 97.6 90 18 170/94 (119) 95 Nasal Cannula 3.0 97.6 Weight Weight [ ] I.O. Intake and Output Intake and Output 06/20/17 07:00 Intake Total 250 ml Balance 250 ml Intake Oral 250 ml Labs Labs Laboratory Tests Test 06/18/17 11:32 06/18/17 16:25 06/18/17 21:04 06/19/17 04:30 Glucose (Fingerstick) 132 mg/dL (70-99) 208 mg/dL (70-99) 82 mg/dL (70-99) Sodium Level 145 mmol/L (136-145) Potassium Level 3.7 mmol/L (3.5-5.1) Chloride Level 108 mmol/L (98-107) Carbon Dioxide Level 27 mmol/L (21-32) Anion Gap 10 (6-14) Blood Urea Nitrogen 49 mg/dL (7-20) Creatinine 3.0 mg/dL (0.6-1.0) Estimated GFR (Cockcroft-Gault) 15.1 Glucose Level 160 mg/dL (70-99) Calcium Level 7.7 mg/dL (8.5-10.1) Phosphorus Level 5.9 mg/dL (2.6-4.7) Iron Level 33 ug/dL (50-170) Total Iron Binding Capacity 187 ug/dL (250-450) Iron Saturation 18 % (15-34) Albumin 2.4 g/dL (3.4-5.0) Test 06/19/17 04:45 06/19/17 07:40 06/19/17 10:17 White Blood Count 7.8 x10^3/uL (4.0-11.0) Red Blood Count 2.68 x10^6/uL (3.50-5.40) Hemoglobin 8.4 g/dL (12.0-15.5) Hematocrit 26.3 % (36.0-47.0) Mean Corpuscular Volume 98 fL (79-100) Mean Corpuscular Hemoglobin 31 pg (25-35) Mean Corpuscular Hemoglobin Concent 32 g/dL (31-37) Red Cell Distribution Width 14.5 % (11.5-14.5) Platelet Count 228 x10^3/uL (140-400) Sodium Level 146 mmol/L (136-145) Potassium Level 3.8 mmol/L (3.5-5.1) Chloride Level 109 mmol/L (98-107) Carbon Dioxide Level 26 mmol/L (21-32) Anion Gap 11 (6-14) Blood Urea Nitrogen 50 mg/dL (7-20) Creatinine 3.0 mg/dL (0.6-1.0) Estimated GFR (Cockcroft-Gault) 15.1 Glucose Level 164 mg/dL (70-99) Calcium Level 7.7 mg/dL (8.5-10.1) Glucose (Fingerstick) 90 mg/dL (70-99) 229 mg/dL (70-99) Review of Systems Constitutional: yes: weakness, alert Eyes: Yes: no symptom reported Pulmonary: Yes dyspnea Cardiovascular: Yes no symptom reported, Yes edema Gastrointestional: Yes: no symptom reported Genitourinary: Yes: no symptom reported Skin: Yes no symptom reported Psychiatric/Neurological: Yes: no symptom reported Endocrine: Yes: no symptom reported Physical Exam General Appearance: no apparent distress Skin: warm Respiratory: decreased breath sounds Heart: S1S2, RRR Abdomen: soft, bowel sounds present Extremities: pulses present Neurology: alert, oriented Assessment Assessment IMP CKD STAGE 4-STABLE CHF-IMPROVED DM II HTN HYPERKALEMIA-RESOLVED ? 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
[2017-06-19 15:01] VITALS: BP 126/53
[2017-06-19 19:32] VITALS: BP 178/89
[2017-06-19] MEDS: hydrOXYzine PAMOATE 25 MG CAPSULE PO SCH (21:25)
[2017-06-19] MEDS: ATORVASTATIN CALCIUM 40 MG TABLET. PO SCH (21:25)
[2017-06-19] MEDS: hydrALAZINE 20 MG/ML VIAL. IVP PRN (21:27)
[2017-06-19 23:28] VITALS: BP 144/64
[2017-06-20 03:39] VITALS: BP 129/69
[2017-06-20] MEDS: HEPARIN PF for SUB-Q USE 5,000 UNIT/0.5 ML VIAL. SQ SCH ×2 (06:02→14:00)
[2017-06-20 06:50] LABS: CALCIUM 7.8 mg/dL (8.5-10.1); CREATININE 3.5 mg/dL (0.6-1.0); GFR 12.6
[2017-06-20 07:00] VITALS: BP 136/66
[2017-06-20] MEDS ORDERED: FUROSEMIDE 40 MG TABLET. PO SCH (09:00)
[2017-06-20] MEDS: PENTOXIFYLLINE ER 400 MG TABLET.ER. PO SCH (09:22)
[2017-06-20] MEDS: LOSARTAN POTASSIUM 50 MG TABLET. PO SCH (09:23)
[2017-06-20] MEDS: HYDROcodone/APAP 10/325 1 TAB TABLET PO SCH (09:24)
[2017-06-20] MEDS: INSULIN ASPART 300 UNITS/3 ML INSULN.PEN SQ SCH ×2 (09:26→12:00)
[2017-06-20 10:24] VITALS: BP 152/59
--- NOTE | 2017-06-20 11:49 | PDOC ---
Renal-Progress Notes Subjective Notes Notes NO NEW COMPLAINTS History of Present Illness Hx of present illness STABLE Vitals Vitals Vital Signs Date Time Temp Pulse Resp B/P (MAP) Pulse Ox O2 Delivery O2 Flow Rate FiO2 06/20/17 10:24 99.2 79 16 152/59 (90) 97 Nasal Cannula 3.0 99.2 Weight Weight [ ] I.O. Intake and Output Intake and Output 06/21/17 07:00 Intake Total 250 ml Balance 250 ml Intake Oral 250 ml Labs Labs Laboratory Tests Test 06/19/17 16:31 06/19/17 21:09 06/20/17 05:55 06/20/17 07:28 Glucose (Fingerstick) 227 mg/dL (70-99) 258 mg/dL (70-99) 241 mg/dL (70-99) Sodium Level 144 mmol/L (136-145) Potassium Level 4.0 mmol/L (3.5-5.1) Chloride Level 109 mmol/L (98-107) Carbon Dioxide Level 25 mmol/L (21-32) Anion Gap 10 (6-14) Blood Urea Nitrogen 55 mg/dL (7-20) Creatinine 3.5 mg/dL (0.6-1.0) Estimated GFR (Cockcroft-Gault) 12.6 Glucose Level 143 mg/dL (70-99) Calcium Level 7.8 mg/dL (8.5-10.1) Test 06/20/17 10:28 Glucose (Fingerstick) 289 mg/dL (70-99) Review of Systems Constitutional: yes: weakness, alert Eyes: Yes: no symptom reported Pulmonary: Yes dyspnea Cardiovascular: Yes no symptom reported, Yes edema Gastrointestional: Yes: no symptom reported Genitourinary: Yes: no symptom reported Skin: Yes no symptom reported Psychiatric/Neurological: Yes: no symptom reported Endocrine: Yes: no symptom reported Physical Exam General Appearance: no apparent distress Skin: warm Respiratory: decreased breath sounds Heart: S1S2, RRR Abdomen: soft, bowel sounds present Extremities: pulses present Neurology: alert, oriented Assessment Assessment IMP CKD STAGE 4-STABLE-CR OF 3.0-3.5 CHF-IMPROVED DM II HTN HYPERKALEMIA-RESOLVED ? PULM HTN CM WITH EF OF 45% AND LVH PLAN CONT LASIX STOP ARB OP F/U IN A FEW WEEKS WITH LABS JONES ABREU MD Jun 20, 2017 11:49
[2017-06-20] MEDS ORDERED: DILT180C2 PO (12:15)
[2017-06-20] MEDS ORDERED: FURO-69 PO (12:15)
--- NOTE | 2017-06-20 12:19 | PDOC3 ---
Discharge Summary Visit Information Date of Admission: Jun 17, 2017 Date of Discharge: Jun 20, 2017 Admitting Diagnosis Comment: Chest pain Elevated troponin; highest 0.213. Possibly type II demand ischemia in the setting of significant HTN and JOSY/CKD. Acute on chronic heart failure; NT Pro BNP >35,000. CXR with pul edema Malignant hypertension JOSY on CKD Hyperkalemia, resolved Diabetes; BS labile LAnguage barrier Final Diagnosis Problems Medical Problems: (1) Accelerated hypertension Status: Acute (2) Acute on chronic renal failure Status: Acute (3) Congestive heart failure (CHF) Status: Acute (4) Elevated troponin Status: Acute (5) Hyperkalemia Status: Acute Brief Hospital Course Allergies Allergies Coded Allergies Type Severity Reaction Last Updated Verified No Known Drug Allergies 05/07/14 No Vital Signs Vital Signs Date Time Temp Pulse Resp B/P (MAP) Pulse Ox O2 Delivery O2 Flow Rate FiO2 06/20/17 10:24 99.2 79 16 152/59 (90) 97 Nasal Cannula 3.0 99.2 Lab Results Laboratory Tests Test 06/18/17 16:25 06/18/17 21:04 06/19/17 04:30 06/19/17 04:45 Glucose (Fingerstick) 208 mg/dL (70-99) 82 mg/dL (70-99) Sodium Level 145 mmol/L (136-145) 146 mmol/L (136-145) Potassium Level 3.7 mmol/L (3.5-5.1) 3.8 mmol/L (3.5-5.1) Chloride Level 108 mmol/L (98-107) 109 mmol/L (98-107) Carbon Dioxide Level 27 mmol/L (21-32) 26 mmol/L (21-32) Anion Gap 10 (6-14) 11 (6-14) Blood Urea Nitrogen 49 mg/dL (7-20) 50 mg/dL (7-20) Creatinine 3.0 mg/dL (0.6-1.0) 3.0 mg/dL (0.6-1.0) Estimated GFR (Cockcroft-Gault) 15.1 15.1 Glucose Level 160 mg/dL (70-99) 164 mg/dL (70-99) Calcium Level 7.7 mg/dL (8.5-10.1) 7.7 mg/dL (8.5-10.1) Phosphorus Level 5.9 mg/dL (2.6-4.7) Iron Level 33 ug/dL (50-170) Total Iron Binding Capacity 187 ug/dL (250-450) Iron Saturation 18 % (15-34) Albumin 2.4 g/dL (3.4-5.0) White Blood Count 7.8 x10^3/uL (4.0-11.0) Red Blood Count 2.68 x10^6/uL (3.50-5.40) Hemoglobin 8.4 g/dL (12.0-15.5) Hematocrit 26.3 % (36.0-47.0) Mean Corpuscular Volume 98 fL (79-100) Mean Corpuscular Hemoglobin 31 pg (25-35) Mean Corpuscular Hemoglobin Concent 32 g/dL (31-37) Red Cell Distribution Width 14.5 % (11.5-14.5) Platelet Count 228 x10^3/uL (140-400) Test 06/19/17 07:40 06/19/17 10:17 06/19/17 16:31 06/19/17 21:09 Glucose (Fingerstick) 90 mg/dL (70-99) 229 mg/dL (70-99) 227 mg/dL (70-99) 258 mg/dL (70-99) Test 06/20/17 05:55 06/20/17 07:28 06/20/17 10:28 Sodium Level 144 mmol/L (136-145) Potassium Level 4.0 mmol/L (3.5-5.1) Chloride Level 109 mmol/L (98-107) Carbon Dioxide Level 25 mmol/L (21-32) Anion Gap 10 (6-14) Blood Urea Nitrogen 55 mg/dL (7-20) Creatinine 3.5 mg/dL (0.6-1.0) Estimated GFR (Cockcroft-Gault) 12.6 Glucose Level 143 mg/dL (70-99) Calcium Level 7.8 mg/dL (8.5-10.1) Glucose (Fingerstick) 241 mg/dL (70-99) 289 mg/dL (70-99) Laboratory Tests Test 06/19/17 16:31 06/19/17 21:09 06/20/17 05:55 06/20/17 07:28 Glucose (Fingerstick) 227 mg/dL (70-99) 258 mg/dL (70-99) 241 mg/dL (70-99) Sodium Level 144 mmol/L (136-145) Potassium Level 4.0 mmol/L (3.5-5.1) Chloride Level 109 mmol/L (98-107) Carbon Dioxide Level 25 mmol/L (21-32) Anion Gap 10 (6-14) Blood Urea Nitrogen 55 mg/dL (7-20) Creatinine 3.5 mg/dL (0.6-1.0) Estimated GFR (Cockcroft-Gault) 12.6 Glucose Level 143 mg/dL (70-99) Calcium Level 7.8 mg/dL (8.5-10.1) Test 06/20/17 10:28 Glucose (Fingerstick) 289 mg/dL (70-99) Brief Hospital Course Ms. Costa is a 77 old female no lebanese admitted for CHF and Chest pain, NO hx CHF but is diabetic, Also CKD. Just moved here for good from [place]. [place] managed with renal and cards, Cards recs low dose lasix. Renal recs stop losartan and metfomin, I dcd her on 20 PO lasix (Had mild CHF on admit), stop metformin and losartan given kidney fcn which stabilized here, Dw son over the phone, PT recs SNU, son decides to take her home, will be with her . RX done., Seen and examined time 40 mins in talks and paperwork Discharge Information Condition at Discharge: Improved, Stable Disposition/Orders: D/C to Home Scheduled Glipizide (Glipizide), 1 TAB PO BID, (Reported) Hydrochlorothiazide (Hydrochlorothiazide Tablet), 1 TAB PO DAILY, (Reported) Hydrocodone Bit/Acetaminophen (Hydrocodone-Apap 10-325 ), 1 TAB PO BID, ( Reported) Hydroxyzine Hcl (Hydroxyzine Hcl), 1 TAB PO HS, (Reported) Insulin Glargine,Hum.rec.anlog (Lantus Solostar), 35 UNIT SQ QHS, (Reported) Losartan Potassium (Losartan Potassium), 50 MG PO DAILY, (Reported) Metformin Hcl (Metformin Hcl), 1 TAB PO BID, (Reported) Metformin Hcl (Metformin Hcl), 1 TAB PO BID, (Reported) Pentoxifylline (Pentoxifylline), 400 MG PO DAILY, (Reported) Rosuvastatin Calcium (Crestor), 1 TAB PO DAILY, (Reported) Discontinued Medications Diltiazem Hcl (Cartia Xt), 180 MG PO, (Reported) Pioglitazone Hcl (Pioglitazone Hcl), 15 MG PO DAILY, (Reported) MALLORY DAWSON MD Jun 20, 2017 12:19
[2017-06-20 14:14] LABS: TOTAL SERUM CREATININE 2.62 mg/dL (0.57-1.00)
== END 2017-06-20 19:45 | disposition home or self-care (01) | DRG 280 ==
LOC: ER 20:55 → 2 NORTH 22:23
PROVIDERS: ADMIT Internal Medicine Hematology & Oncology; ATTEND Internal Medicine Hematology & Oncology
DX: I21.4 Non-ST elevation (NSTEMI) myocardial infarction (principal); I50.43 Acute on chronic combined systolic (congestive) and diastolic (congestive) heart failure; N18.4 Chronic kidney disease, stage 4 (severe); N17.9 Acute kidney failure, unspecified; I13.0 Hypertensive heart and chronic kidney disease with heart failure and stage 1 through stage 4 chronic kidney disease, or unspecified chronic kidney disease; E11.22 Type 2 diabetes mellitus with diabetic chronic kidney disease; E11.649 Type 2 diabetes mellitus with hypoglycemia without coma; E78.5 Hyperlipidemia, unspecified; E78.00 Pure hypercholesterolemia, unspecified; D64.9 Anemia, unspecified; I48.91 Unspecified atrial fibrillation; I16.0 Hypertensive urgency; E87.5 Hyperkalemia; M19.90 Unspecified osteoarthritis, unspecified site; Z90.710 Acquired absence of both cervix and uterus; Z82.49 Family history of ischemic heart disease and other diseases of the circulatory system; Z84.1 Family history of disorders of kidney and ureter; Z79.899 Other long term (current) drug therapy
CPT/HCPCS: 36415; 71010; 80048; 80053; 80061; 80069; 82575; 82962; 83540; 83550; 83690; 83735; 83880; 84156; 84443; 84484; 85025; 85027; 85610; 85730; 93005; 93306; 96374; 96375; J0360; J0610; J0881; J1815; J1940; J3490; J7042; Q0177; 99291-25

== ENCOUNTER 2017-08-06 13:07 | Emergency (ER) | payer MEDICARE, OTHER ==
[~2017-08-06] VITALS: Ht 152.4 cm; Wt 44.0 kg
[~2017-08-06 13:07] MED LIST changes: +CRESTOR20 MG PO; +DILT180C2 PO; +FURO-69 PO; +HYDR25TA PO; +INSU100I13 SQ; +LOSA50TA6 PO; +PENT400T2 PO
[2017-08-06] MEDS ORDERED: LIDOCAINE 1%/EPI 1:100,000 20 ML VIAL. ONE (14:53)
[2017-08-06] MEDS ORDERED: HEPARIN for IV BOLUS 10,000 UNIT/10 ML VIAL. ONE (14:54)
[2017-08-06] MEDS ORDERED: MIDAZOLAM HCL/PF 2 MG/2 ML VIAL. ONE (14:58)
[2017-08-06] MEDS ORDERED: fentaNYL PF VIAL 100 MCG/2 ML VIAL ONE (14:58)
[2017-08-06] MEDS ORDERED: MIDAZOLAM HCL/PF 2 MG/2 ML VIAL. IV ONE (15:00)
[2017-08-06] MEDS ORDERED: LIDOCAINE 1%/EPI 1:100,000 20 ML VIAL. IJ ONE (15:00)
[2017-08-06] MEDS ORDERED: fentaNYL PF VIAL 100 MCG/2 ML VIAL IV ONE (15:00)
--- NOTE | 2017-08-06 15:38 | EKG ---
[facility] [address] [place] [address] Test Date: 2017-08-06 Test Time: 13:56:12 Pat Name: DELMY WASHINGTON Department: Room: Gender: F [employer]: : 1940 Requested By: ISIS CALZADA Order Number: [id number] Reading MD: Lino Damon MD Measurements Intervals [place] Rate: 76 P: 13 WA: 170 QRS: -17 QRSD: 74 T: 30 QT: 406 QTc: 461 Interpretive Statements SINUS RHYTHM Electronically Signed On 08-09-2017 14:14:51 SPRING LAYER by Lino Damon MD
[2017-08-06 15:46] VITALS: BP 125/60
--- NOTE | 2017-08-06 16:10 | RAD ---
Procedure: Ultrasound and fluoroscopically guided placement of tunnel central venous catheter. 08/06/2017 4:05 PM Clinical Indication: Malfunctioning tunnel dialysis catheter Sedation: Conscious sedation was administered for 30 minutes. The patient was monitored by a qualified independent observer throughout the time of sedation. Please refer to the medical record for exact doses of medications utilized to achieve moderate sedation. Fluoroscopy time: 0.8 minutes Dose area product: 2 Gycm2 Consent: The procedure was explained in its entirety to the patient or the patients designated airline security representative by a member of the treatment team, including a discussion of the risks, benefits and commonly accepted alternatives to the procedure, as well as the expected consequences of no therapy whatsoever. Discussion of the risks included, but was not limited to, those that are most frequent and those that are rare but possibly severe or life-threatening, as well as the possibility of unforeseen complications. Sterility: All elements of maximal sterile barrier technique including the use of a cap, mask, sterile gown, sterile gloves, large sterile sheet, appropriate hand hygiene, and 2% chlorhexidine for cutaneous antisepsis (or acceptable alternative antiseptic per current guidelines) were followed for this procedure. Technique and Findings: Following informed consent, the patient was prepped and draped in the usual sterile fashion. Ultrasound interrogation of the right neck revealed patency and compressibility of the right internal jugular vein. A 21-gauge micropuncture was then used to gain access to this vein under ultrasound guidance. A hard copy ultrasound image was recorded. The needle was exchanged over a wire for a sheath. A small incision was made several centimeters inferior to the right clavicle. 19 cm tip to cuff palindrome tunneled dialysis catheter advanced from the small skin incision to the venotomy site, and then advanced through a peel-away sheath to the level of the right atrium. Catheter was found to flush and aspirate normally. Catheter was secured in place with 2-0 Prolene suture and a sterile dressing was applied. Catheter was packed with heparin per protocol. The neck dermatotomy was closed with Dermabond. No immediate complications were identified. Impression: Successful ultrasound and fluoroscopically guided placement of a right internal jugular tunneled central venous catheter
[2017-08-06 16:30] VITALS: BP 139/64
--- NOTE | 2017-08-06 17:10 | PHYS DOC ---
Past Medical History Past Medical History: A-Fib, Diabetes-Type II, Hypertension, Renal Failure Past Surgical History: Hysterectomy, Other Additional Past Surgical Histo: catheter placed in rt chest Alcohol Use: None Drug Use: None Adult General Chief Complaint Chief Complaint: DIALYSIS PROBLEM HPI HPI Patient is a 77 year old [f__sex] who presents with [] Review of Systems Review of Systems Constitutional: Denies fever or chills [] Eyes: Denies change in visual acuity, redness, or eye pain [] HENT: Denies nasal congestion or sore throat [] Respiratory: Denies cough or shortness of breath [] Cardiovascular: No additional information not addressed in HPI [] GI: Denies abdominal pain, nausea, vomiting, bloody stools or diarrhea [] : Denies dysuria or hematuria [] Musculoskeletal: Denies back pain or joint pain [] Integument: Denies rash or skin lesions [] Neurologic: Denies headache, focal weakness or sensory changes [] Endocrine: Denies polyuria or polydipsia [] All other systems were reviewed and found to be within normal limits, except as documented in this note. Current Medications Current Medications Current Medications Medications (Trade) Dose Ordered Sig/Sveta Start Time Stop Time Status Last Admin Dose Admin Cefazolin Sodium 50 ml @ 100 mls/hr 1X ONCE 08/06/17 15:00 08/06/17 15:29 DC 08/06/17 15:00 100 MLS/HR Fentanyl Citrate (Fentanyl 2ml Vial) 100 mcg 1X ONCE 08/06/17 15:00 08/06/17 15:02 DC 08/06/17 15:56 100 MCG Heparin Sodium (Porcine) (Heparin Sodium) 2,600 unit 1X ONCE 08/06/17 15:00 08/06/17 15:02 DC 08/06/17 15:55 3,200 UNIT Lidocaine/ Epinephrine (Xylocaine 1%-Epi 1:100,000) 20 ml 1X ONCE 08/06/17 15:00 08/06/17 15:02 DC 08/06/17 15:55 20 ML Midazolam HCl (Versed) 2 mg 1X ONCE 08/06/17 15:00 08/06/17 15:02 DC 08/06/17 15:56 2 MG Allergies Allergies Allergies Coded Allergies Type Severity Reaction Last Updated Verified No Known Drug Allergies 05/07/14 No Physical Exam Physical Exam Constitutional: Well developed, well nourished, no acute distress, non-toxic appearance. [] HENT: Normocephalic, atraumatic, bilateral external ears normal, oropharynx moist, no oral exudates, nose normal. [] Eyes: PERRLA, EOMI, conjunctiva normal, no discharge. [] Neck: Normal range of motion, no tenderness, supple, no stridor. [] Cardiovascular:Heart rate regular rhythm, no murmur [] Lungs & Thorax: Bilateral breath sounds clear to auscultation [] Abdomen: Bowel sounds normal, soft, no tenderness, no masses, no pulsatile masses. [] Skin: Warm, dry, no erythema, no rash. [] Back: No tenderness, no CVA tenderness. [] Extremities: No tenderness, no cyanosis, no clubbing, ROM intact, no edema. [] Neurologic: Alert and oriented X 3, normal motor function, normal sensory function, no focal deficits noted. [] Psychologic: Affect normal, judgement normal, mood normal. [] Current Patient Data Vital Signs Vital Signs Date Time Temp Pulse Resp B/P (MAP) Pulse Ox O2 Delivery O2 Flow Rate FiO2 08/06/17 16:30 78 19 139/64 (89) 91 Room Air 08/06/17 15:56 2.0 08/06/17 13:15 99.1 99.1 EKG EKG [] Radiology/Procedures Radiology/Procedures [] Course & Med Decision Making Course & Med Decision Making Pertinent Labs and Imaging studies reviewed. (See chart for details) [] Dragon Disclaimer Dragon Disclaimer This electronic medical record was generated, in whole or in part, using a voice recognition dictation system. Departure Departure Impression: Primary Impression: Peritoneal dialysis catheter dysfunction Additional Impression: Vascular dialysis catheter in place Disposition: HOME, SELF-CARE Condition: GOOD Referrals: CHRISTIANNE JACKSON MD (PCP) Additional Instructions: Your dialysis catheter was replaced today and follow-up as scheduled tomorrow to complete your dialysis which was unable to be fully performed today. If you have any oozing from the site apply some pressure. If it persists after an hour or become severe return to the emergency department. Follow-up with your doctor tomorrow Problem Qualifiers ISIS CALZADA MD Aug 06, 2017 17:10
[2017-08-07] MEDS ORDERED: INSU100I13 SQ (20:02)
== END 2017-08-06 17:51 | disposition home or self-care (01) ==
LOC: ER 13:07
DX: T85.691A Other mechanical complication of intraperitoneal dialysis catheter, initial encounter (principal); I12.9 Hypertensive chronic kidney disease with stage 1 through stage 4 chronic kidney disease, or unspecified chronic kidney disease; E11.22 Type 2 diabetes mellitus with diabetic chronic kidney disease; N18.9 Chronic kidney disease, unspecified; Z90.710 Acquired absence of both cervix and uterus; Z99.2 Dependence on renal dialysis; Y84.1 Kidney dialysis as the cause of abnormal reaction of the patient, or of later complication, without mention of misadventure at the time of the procedure; Y92.89 Other specified places as the place of occurrence of the external cause
CPT/HCPCS: 36558; 36589; 76937; 77001; 93005; 96365; 96375; 99285; C1750; C1769; C1892; J0690; J2250; J3010; J3490; 99152; 99153

== ENCOUNTER 2017-08-07 14:38 | Inpatient (IN) | payer OTHER, MEDICARE ==
[~2017-08-07] VITALS: Ht 152.4 cm; Wt 44.9 kg
--- NOTE | 2017-08-07 15:06 | RAD ---
AP PORTABLE CHEST Clinical Indication: SOA. Comparison: AP chest 06/17/2017. Findings: There is a right IJ hemodialysis catheter, tip in distal SVC. Atherosclerotic and tortuous thoracic aorta. Stable cardiomegaly. There is minimal interstitial edema, less apparent than on the prior study. No focal airspace disease. There is no pneumothorax. No pleural effusion is appreciated. There is no acute bone abnormality. IMPRESSION: 1. Right IJ dialysis catheter, tip in distal SVC. 2. Minimal interstitial edema. 3. Stable cardiomegaly.
[2017-08-07] MEDS ORDERED: IV NORMAL SALINE 500ML BAG 500 ML IV ONE (15:15)
--- NOTE | 2017-08-07 15:53 | RAD ---
PQRS Compliance Statement: One or more of the following individualized dose reduction techniques were utilized for this examination: 1. Automated exposure control 2. Adjustment of the mA and/or kV according to patient size 3. Use of iterative reconstruction technique CT HEAD WITHOUT CONTRAST History: AMS . Comparison: None. Technique: Axial images are obtained of the head from the skull base through the vertex without IV contrast. Findings: No mass-effect, midline shift, hemorrhage or obvious acute infarction is identified. Basilar cisterns are patent. The ventricles and sulci are prominent, consistent with age-related cerebral atrophy. There is mild periventricular white matter hypoattenuation. This is a nonspecific finding but is commonly due to chronic small vessel ischemic disease in a patient of this age. 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 Bone windows demonstrate no acute calvarial abnormality. The visualized paranasal sinuses appear clear. Mastoid air cells are well aerated. IMPRESSION: No acute intracranial abnormality.
[2017-08-07 16:02] LABS: BASO % 0 % (0-3); EOS % 1 % (0-3); LYMPH # 1.1 x10^3/uL (1.0-4.8); LYMPH % 11 % (24-48); MEAN CORPUSCULAR HEMOGLOBIN 30 pg (25-35); MEAN CORPUSCULAR HGB CONC 33 g/dL (31-37); MEAN CORPUSCULAR VOLUME 92 fL (79-100); MONO % 9 % (0-9); NEUT % 79 % (31-73); PLATELET COUNT 155 x10^3/uL (140-400); RED BLOOD COUNT 2.12 x10^6/uL (3.50-5.40); RED CELL DISTRIBUTION WIDTH 15.7 % (11.5-14.5); WHITE BLOOD COUNT 10.2 x10^3/uL (4.0-11.0)
[2017-08-07 16:05] LABS: HEMOGLOBIN 6.4 g/dL (12.0-15.5)
[2017-08-07 16:06] LABS: HEMATOCRIT 19.5 % (36.0-47.0)
[2017-08-07 16:10] LABS: CALCIUM 7.4 mg/dL (8.5-10.1); CREATININE 2.8 mg/dL (0.6-1.0); GFR 16.3; POTASSIUM 4.1 mmol/L (3.5-5.1)
[2017-08-07 16:16] LABS: ALBUMIN 2.1 g/dL (3.4-5.0); ALBUMIN/GLOBULIN RATIO 0.5 (1.0-1.7); TOTAL BILIRUBIN 0.2 mg/dL (0.2-1.0); TOTAL PROTEIN 6.2 g/dL (6.4-8.2)
--- NOTE | 2017-08-07 16:28 | PHYS DOC ---
Past Medical History Past Medical History: A-Fib, Diabetes-Type II, Hypertension, Renal Failure Past Surgical History: Hysterectomy, Other Additional Past Surgical Histo: catheter placed in rt chest Alcohol Use: None Drug Use: None Adult General Chief Complaint Chief Complaint: TREMORS HPI HPI Patient is a 77 year old Croatian female with history of end-stage renal disease requiring dialysis, hypertension and A. fib who presents with mental status change while at dialysis today. Patient system became hypotensive and then became altered with shaking tremors. Patient hypotensive on ED arrival alert person. Reports fever, body. No other symptoms or complaints. Patient was evaluated in this emergency department yesterday for a block Rios catheter was replaced by interventional radiology. Review of Systems Review of Systems ROS as per HPI. All other systems were reviewed and found to be within normal limits, except as documented in this note. Current Medications Current Medications Current Medications Medications (Trade) Dose Ordered Sig/Sveta Start Time Stop Time Status Last Admin Dose Admin Lorazepam (Ativan) 0.5 mg 1X ONCE 08/07/17 14:45 08/07/17 14:46 DC 08/07/17 14:47 0.5 MG Sodium Chloride 500 ml @ 500 mls/hr 1X ONCE 08/07/17 15:15 08/07/17 16:14 DC 08/07/17 15:27 500 MLS/HR Vancomycin HCl 1.25 gm/Sodium Chloride 250 ml @ 166.667 mls/hr 1X ONCE 08/07/17 16:45 08/07/17 18:14 08/07/17 16:33 166.667 MLS/HR Allergies Allergies Allergies Coded Allergies Type Severity Reaction Last Updated Verified No Known Drug Allergies 05/07/14 No Physical Exam Physical Exam Constitutional: Well developed, well nourished, weak and chronically ill appearing. [] HENT: Normocephalic, atraumatic, bilateral external ears normal, oropharynx moist, no oral exudates, nose normal. [] Eyes: PERRLA, EOMI. [] Neck: Normal range of motion, no tenderness, supple, no stridor. [] Cardiovascular:Heart rate regular rhythm, no murmur [] Lungs & Thorax: Bilateral breath sounds clear to auscultation [] Abdomen: Bowel sounds normal, soft. [] Skin: Warm, dry, no erythema, no rash. [] Back: No tenderness, no CVA tenderness. [] Extremities: No tenderness, ROM intact, no edema. [] Neurologic: Alert and oriented X 1, normal motor function, normal sensory function, no focal deficits noted. [] Current Patient Data Vital Signs Vital Signs Date Time Temp Pulse Resp B/P (MAP) Pulse Ox O2 Delivery O2 Flow Rate FiO2 08/07/17 14:38 100.6 100 16 132/61 (84) 97 Room Air 100.6 Lab Values Laboratory Tests Test 08/07/17 15:53 08/07/17 16:02 08/07/17 16:03 White Blood Count 10.2 x10^3/uL (4.0-11.0) Red Blood Count 2.12 x10^6/uL (3.50-5.40) L Hemoglobin 6.4 g/dL (12.0-15.5) *L Hematocrit 19.5 % (36.0-47.0) *L Mean Corpuscular Volume 92 fL (79-100) Mean Corpuscular Hemoglobin 30 pg (25-35) Mean Corpuscular Hemoglobin Concent 33 g/dL (31-37) Red Cell Distribution Width 15.7 % (11.5-14.5) H Platelet Count 155 x10^3/uL (140-400) Neutrophils (%) (Auto) 79 % (31-73) H Lymphocytes (%) (Auto) 11 % (24-48) L Monocytes (%) (Auto) 9 % (0-9) Eosinophils (%) (Auto) 1 % (0-3) Basophils (%) (Auto) 0 % (0-3) Neutrophils # (Auto) 8.1 x10^3uL (1.8-7.7) H Lymphocytes # (Auto) 1.1 x10^3/uL (1.0-4.8) Monocytes # (Auto) 0.9 x10^3/uL (0.0-1.1) Eosinophils # (Auto) 0.1 x10^3/uL (0.0-0.7) Basophils # (Auto) 0.0 x10^3/uL (0.0-0.2) Sodium Level 137 mmol/L (136-145) Potassium Level 4.1 mmol/L (3.5-5.1) Chloride Level 106 mmol/L (98-107) Carbon Dioxide Level 22 mmol/L (21-32) Anion Gap 9 (6-14) Blood Urea Nitrogen 17 mg/dL (7-20) Creatinine 2.8 mg/dL (0.6-1.0) H Estimated GFR (Cockcroft-Gault) 16.3 BUN/Creatinine Ratio 6 (6-20) Glucose Level 150 mg/dL (70-99) H Lactic Acid Level 1.5 mmol/L (0.4-2.0) Calcium Level 7.4 mg/dL (8.5-10.1) L Total Bilirubin 0.2 mg/dL (0.2-1.0) Aspartate Amino Transferase (AST) 18 U/L (15-37) Alanine Aminotransferase (ALT) 16 U/L (14-59) Alkaline Phosphatase 90 U/L (46-116) Ammonia 10 mcmol/L (11-34) L Total Protein 6.2 g/dL (6.4-8.2) L Albumin 2.1 g/dL (3.4-5.0) L Albumin/Globulin Ratio 0.5 (1.0-1.7) L Influenza Type A Antigen Negative (NEGATIVE) Influenza Type B Antigen Negative (NEGATIVE) Glucose (Fingerstick) 130 mg/dL (70-99) H Laboratory Tests 08/07/17 15:53 Laboratory Tests 08/07/17 15:53 EKG EKG [EKG: Sinus rhythm, rate 84, no acute ST-T wave changes, QTC 474. Interpretation by me.] Radiology/Procedures Radiology/Procedures [Chest x-ray: No acute cardiopulmonary disease CT head: No acute intracranial disease.] Course & Med Decision Making Course & Med Decision Making Pertinent Labs and Imaging studies reviewed. (See chart for details) [Patient with fever with rigors. IV abx started, infectious disease consulted for abx management. Dr. Gupta to admit. ] Dragon Disclaimer Dragon Disclaimer This electronic medical record was generated, in whole or in part, using a voice recognition dictation system. Departure Departure Impression: Primary Impression: Acute febrile illness Additional Impression: Urinary tract infection Disposition: ADMITTED INPATIENT Admitting Physician: Natalia Gupta Condition: STABLE Referrals: CHRISTIANNE JACKSON MD (PCP) Problem Qualifiers MAOMILADIS DOMINGUEZ Aug 07, 2017 16:28
[2017-08-07] MEDS ORDERED: VANCOMYCIN 1.25 GM in IV NORMAL SALINE 250ML 250 ML IV ONE (16:45)
[2017-08-07 17:02] LABS: OBC FLU VALID
[2017-08-07 18:00] LABS: BILIRUBIN,URINE NEGATIVE (NEG); GLUCOSE,URINE 250 mg/dL (NEG); NITRITE,URINE NEGATIVE (NEG); PH,URINE 7.5; PROTEIN,URINE 100 mg/dL (NEG-TRACE); UROBILINOGEN,URINE 0.2 mg/dL (0.2 mg/dL)
[2017-08-07 18:10] LABS: BACTERIA,URINE FEW /HPF (0-FEW); SQUAMOUS EPITHELIAL CELL,UR MANY /LPF; YEAST,URINE PRESENT /HPF
[2017-08-07 19:00] VITALS: BP 119/56
[2017-08-07] MEDS ORDERED: ONDANSETRON PF 4 MG/2 ML VIAL. IV PRN (19:00)
--- NOTE | 2017-08-07 19:21 | PDOC ---
PROGRESS NOTES Chief Complaint Chief Complaint Patient is a 77 year old Marshallese female with history of end-stage renal disease requiring dialysis, hypertension and A. fib who presents with mental status change while at dialysis today. Patient system became hypotensive and then became altered with shaking tremors. Patient hypotensive on ED arrival alert person. Reports fever, body. No other symptoms or complaints. Patient was evaluated in this emergency department yesterday for a block Rios catheter was replaced by interventional radiology. Vitals Vitals Vital Signs Date Time Temp Pulse Resp B/P (MAP) Pulse Ox O2 Delivery O2 Flow Rate FiO2 08/07/17 14:38 100.6 100 16 132/61 (84) 97 Room Air 100.6 Physical Exam Lungs: Other Labs LABS Laboratory Tests Test 08/07/17 15:53 08/07/17 16:02 08/07/17 16:03 08/07/17 17:55 White Blood Count 10.2 x10^3/uL (4.0-11.0) Red Blood Count 2.12 x10^6/uL (3.50-5.40) Hemoglobin 6.4 g/dL (12.0-15.5) Hematocrit 19.5 % (36.0-47.0) Mean Corpuscular Volume 92 fL (79-100) Mean Corpuscular Hemoglobin 30 pg (25-35) Mean Corpuscular Hemoglobin Concent 33 g/dL (31-37) Red Cell Distribution Width 15.7 % (11.5-14.5) Platelet Count 155 x10^3/uL (140-400) Neutrophils (%) (Auto) 79 % (31-73) Lymphocytes (%) (Auto) 11 % (24-48) Monocytes (%) (Auto) 9 % (0-9) Eosinophils (%) (Auto) 1 % (0-3) Basophils (%) (Auto) 0 % (0-3) Neutrophils # (Auto) 8.1 x10^3uL (1.8-7.7) Lymphocytes # (Auto) 1.1 x10^3/uL (1.0-4.8) Monocytes # (Auto) 0.9 x10^3/uL (0.0-1.1) Eosinophils # (Auto) 0.1 x10^3/uL (0.0-0.7) Basophils # (Auto) 0.0 x10^3/uL (0.0-0.2) Sodium Level 137 mmol/L (136-145) Potassium Level 4.1 mmol/L (3.5-5.1) Chloride Level 106 mmol/L (98-107) Carbon Dioxide Level 22 mmol/L (21-32) Anion Gap 9 (6-14) Blood Urea Nitrogen 17 mg/dL (7-20) Creatinine 2.8 mg/dL (0.6-1.0) Estimated GFR (Cockcroft-Gault) 16.3 BUN/Creatinine Ratio 6 (6-20) Glucose Level 150 mg/dL (70-99) Lactic Acid Level 1.5 mmol/L (0.4-2.0) Calcium Level 7.4 mg/dL (8.5-10.1) Total Bilirubin 0.2 mg/dL (0.2-1.0) Aspartate Amino Transf (AST/SGOT) 18 U/L (15-37) Alanine Aminotransferase (ALT/SGPT) 16 U/L (14-59) Alkaline Phosphatase 90 U/L (46-116) Ammonia 10 mcmol/L (11-34) Total Protein 6.2 g/dL (6.4-8.2) Albumin 2.1 g/dL (3.4-5.0) Albumin/Globulin Ratio 0.5 (1.0-1.7) Influenza Type A Antigen Negative (NEGATIVE) Influenza Type B Antigen Negative (NEGATIVE) Glucose (Fingerstick) 130 mg/dL (70-99) Urine Collection Type Unknown Urine Color Yellow Urine Clarity Cloudy Urine pH 7.5 Urine Specific [place] 1.010 Urine Protein 100 mg/dL (NEG-TRACE) Urine Glucose (UA) 250 mg/dL (NEG) Urine Ketones (Stick) Negative mg/dL (NEG) Urine Blood Moderate (NEG) Urine Nitrite Negative (NEG) Urine Bilirubin Negative (NEG) Urine Urobilinogen Dipstick 0.2 mg/dL (0.2 mg/dL) Urine Leukocyte Esterase Negative (NEG) Urine RBC 1-2 /HPF (0-2) Urine WBC 1-4 /HPF (0-4) Urine Squamous Epithelial Cells Many /LPF Urine Bacteria Few /HPF (0-FEW) Urine Yeast Present /HPF Assessment and Plan Assessmemt and Plan Problems Medical Problems: (1) Acute febrile illness Status: Acute (2) Urinary tract infection Status: Acute Problems: Comment Review of Relevant I have reviewed the following items diamante (where applicable) has been applied. Labs Laboratory Tests Test 08/07/17 15:53 08/07/17 16:02 08/07/17 16:03 08/07/17 17:55 White Blood Count 10.2 x10^3/uL (4.0-11.0) Red Blood Count 2.12 x10^6/uL (3.50-5.40) Hemoglobin 6.4 g/dL (12.0-15.5) Hematocrit 19.5 % (36.0-47.0) Mean Corpuscular Volume 92 fL (79-100) Mean Corpuscular Hemoglobin 30 pg (25-35) Mean Corpuscular Hemoglobin Concent 33 g/dL (31-37) Red Cell Distribution Width 15.7 % (11.5-14.5) Platelet Count 155 x10^3/uL (140-400) Neutrophils (%) (Auto) 79 % (31-73) Lymphocytes (%) (Auto) 11 % (24-48) Monocytes (%) (Auto) 9 % (0-9) Eosinophils (%) (Auto) 1 % (0-3) Basophils (%) (Auto) 0 % (0-3) Neutrophils # (Auto) 8.1 x10^3uL (1.8-7.7) Lymphocytes # (Auto) 1.1 x10^3/uL (1.0-4.8) Monocytes # (Auto) 0.9 x10^3/uL (0.0-1.1) Eosinophils # (Auto) 0.1 x10^3/uL (0.0-0.7) Basophils # (Auto) 0.0 x10^3/uL (0.0-0.2) Sodium Level 137 mmol/L (136-145) Potassium Level 4.1 mmol/L (3.5-5.1) Chloride Level 106 mmol/L (98-107) Carbon Dioxide Level 22 mmol/L (21-32) Anion Gap 9 (6-14) Blood Urea Nitrogen 17 mg/dL (7-20) Creatinine 2.8 mg/dL (0.6-1.0) Estimated GFR (Cockcroft-Gault) 16.3 BUN/Creatinine Ratio 6 (6-20) Glucose Level 150 mg/dL (70-99) Lactic Acid Level 1.5 mmol/L (0.4-2.0) Calcium Level 7.4 mg/dL (8.5-10.1) Total Bilirubin 0.2 mg/dL (0.2-1.0) Aspartate Amino Transf (AST/SGOT) 18 U/L (15-37) Alanine Aminotransferase (ALT/SGPT) 16 U/L (14-59) Alkaline Phosphatase 90 U/L (46-116) Ammonia 10 mcmol/L (11-34) Total Protein 6.2 g/dL (6.4-8.2) Albumin 2.1 g/dL (3.4-5.0) Albumin/Globulin Ratio 0.5 (1.0-1.7) Influenza Type A Antigen Negative (NEGATIVE) Influenza Type B Antigen Negative (NEGATIVE) Glucose (Fingerstick) 130 mg/dL (70-99) Urine Collection Type Unknown Urine Color Yellow Urine Clarity Cloudy Urine pH 7.5 Urine Specific [place] 1.010 Urine Protein 100 mg/dL (NEG-TRACE) Urine Glucose (UA) 250 mg/dL (NEG) Urine Ketones (Stick) Negative mg/dL (NEG) Urine Blood Moderate (NEG) Urine Nitrite Negative (NEG) Urine Bilirubin Negative (NEG) Urine Urobilinogen Dipstick 0.2 mg/dL (0.2 mg/dL) Urine Leukocyte Esterase Negative (NEG) Urine RBC 1-2 /HPF (0-2) Urine WBC 1-4 /HPF (0-4) Urine Squamous Epithelial Cells Many /LPF Urine Bacteria Few /HPF (0-FEW) Urine Yeast Present /HPF Laboratory Tests Test 08/07/17 15:53 08/07/17 16:02 08/07/17 16:03 08/07/17 17:55 White Blood Count 10.2 x10^3/uL (4.0-11.0) Red Blood Count 2.12 x10^6/uL (3.50-5.40) Hemoglobin 6.4 g/dL (12.0-15.5) Hematocrit 19.5 % (36.0-47.0) Mean Corpuscular Volume 92 fL (79-100) Mean Corpuscular Hemoglobin 30 pg (25-35) Mean Corpuscular Hemoglobin Concent 33 g/dL (31-37) Red Cell Distribution Width 15.7 % (11.5-14.5) Platelet Count 155 x10^3/uL (140-400) Neutrophils (%) (Auto) 79 % (31-73) Lymphocytes (%) (Auto) 11 % (24-48) Monocytes (%) (Auto) 9 % (0-9) Eosinophils (%) (Auto) 1 % (0-3) Basophils (%) (Auto) 0 % (0-3) Neutrophils # (Auto) 8.1 x10^3uL (1.8-7.7) Lymphocytes # (Auto) 1.1 x10^3/uL (1.0-4.8) Monocytes # (Auto) 0.9 x10^3/uL (0.0-1.1) Eosinophils # (Auto) 0.1 x10^3/uL (0.0-0.7) Basophils # (Auto) 0.0 x10^3/uL (0.0-0.2) Sodium Level 137 mmol/L (136-145) Potassium Level 4.1 mmol/L (3.5-5.1) Chloride Level 106 mmol/L (98-107) Carbon Dioxide Level 22 mmol/L (21-32) Anion Gap 9 (6-14) Blood Urea Nitrogen 17 mg/dL (7-20) Creatinine 2.8 mg/dL (0.6-1.0) Estimated GFR (Cockcroft-Gault) 16.3 BUN/Creatinine Ratio 6 (6-20) Glucose Level 150 mg/dL (70-99) Lactic Acid Level 1.5 mmol/L (0.4-2.0) Calcium Level 7.4 mg/dL (8.5-10.1) Total Bilirubin 0.2 mg/dL (0.2-1.0) Aspartate Amino Transf (AST/SGOT) 18 U/L (15-37) Alanine Aminotransferase (ALT/SGPT) 16 U/L (14-59) Alkaline Phosphatase 90 U/L (46-116) Ammonia 10 mcmol/L (11-34) Total Protein 6.2 g/dL (6.4-8.2) Albumin 2.1 g/dL (3.4-5.0) Albumin/Globulin Ratio 0.5 (1.0-1.7) Influenza Type A Antigen Negative (NEGATIVE) Influenza Type B Antigen Negative (NEGATIVE) Glucose (Fingerstick) 130 mg/dL (70-99) Urine Collection Type Unknown Urine Color Yellow Urine Clarity Cloudy Urine pH 7.5 Urine Specific [place] 1.010 Urine Protein 100 mg/dL (NEG-TRACE) Urine Glucose (UA) 250 mg/dL (NEG) Urine Ketones (Stick) Negative mg/dL (NEG) Urine Blood Moderate (NEG) Urine Nitrite Negative (NEG) Urine Bilirubin Negative (NEG) Urine Urobilinogen Dipstick 0.2 mg/dL (0.2 mg/dL) Urine Leukocyte Esterase Negative (NEG) Urine RBC 1-2 /HPF (0-2) Urine WBC 1-4 /HPF (0-4) Urine Squamous Epithelial Cells Many /LPF Urine Bacteria Few /HPF (0-FEW) Urine Yeast Present /HPF Medications Current Medications Lorazepam (Ativan) 0.5 mg 1X ONCE IV Last administered on 08/07/17 14:47; Start 08/07/17 at 14:45; Stop 08/07/17 at 14:46; Status DC Sodium Chloride 500 ml @ 500 mls/hr 1X ONCE IV Last administered on 15:27; Start 08/07/17 at 15:15; Stop 08/07/17 at 16:14; Status DC Vancomycin HCl 1.25 gm/Sodium Chloride 250 ml @ 166.667 mls/hr 1X ONCE IV Last administered on 08/07/17 16:33; Start 08/07/17 at 16:45; Stop 08/07/17 at 18:14; Status DC Ondansetron HCl (Zofran) 4 mg PRN Q8HRS PRN IV NAUSEA/VOMITING; Start at 19:00; Stop 08/08/17 at 18:59 Active Scripts Active Cardizem Cd (Diltiazem Hcl) 180 Mg Cap.er.24h 1 Cap PO DAILY Lasix (Furosemide) 20 Mg Tablet 1 Tab PO DAILY Reported Pentoxifylline 400 Mg Tablet.er 400 Mg PO DAILY Hydroxyzine Hcl 25 Mg Tablet 1 Tab PO HS Crestor (Rosuvastatin Calcium) 20 Mg Tablet 1 Tab PO DAILY Glipizide 10 Mg Tablet 1 Tab PO BID Vitals/I & O Vital Sign - Last 24 Hours 08/07/17 14:38 Temp 100.6 100.6 Pulse 100 Resp 16 B/P (MAP) 132/61 (84) Pulse Ox 97 O2 Delivery Room Air TONI MERRILL MD Aug 07, 2017 19:21
[2017-08-07 19:30] VITALS: BP 126/70
[2017-08-07] MEDS ORDERED: DEXTROSE 50% 25 GM / 50ML DISP.SYRIN. IV PRN (19:30)
--- NOTE | 2017-08-07 19:37 | PDOC1 ---
History and Physical Date of Admission Date of Admission DATE: 08/07/17 TIME: 19:28 Identification/Chief Complaint Chief Complaint confusion, acute Problems: Source Source: Caregiver, Chart review History of Present Illness History of Present Illness Ms. Costa, is a 77 year old [place] female who presents with mental status change while at dialysis today. Confusion and was making odd hand gestures in the ER the patient speaks no faroese, and her son translates. Hypotensive with rigors at dialysis today, and low blood pressure here in the ER pt seen now in the ICU, and BP 135/73, p 75, and per her son, she is near her baseline she has been getting gradually weaker, sometimes walks with a cane, but he reports he has had to carry her recently, but her arm. Patient was evaluated in this emergency department yesterday for a block Rios catheter was replaced by interventional radiology. Past Medical History Past Medical History end-stage renal disease requiring dialysis, hypertension and A. fib Cardiovascular: CHF, HTN, Hyperlipidemia Pulmonary: No pertinent hx GI: No pertinent hx Heme/Onc: Anemia NOS Hepatobiliary: No pertinent hx Psych: No pertinent hx Rheumatologic: No pertinent hx Infectious disease: No pertinent hx Renal/: Chronic renal insuff Endocrine: Diabetes Past Surgical History Past Surgical History: Hysterectomy Family History Family History: Hypertension Social History Smoke: No ALCOHOL: none Drugs: None Current Problem List Problem List Problems Medical Problems: (1) Acute febrile illness Status: Acute (2) Urinary tract infection Status: Acute Problems: Current Medications Current Medications Current Medications Lorazepam (Ativan) 0.5 mg 1X ONCE IV Last administered on 08/07/17 14:47; Start 08/07/17 at 14:45; Stop 08/07/17 at 14:46; Status DC Sodium Chloride 500 ml @ 500 mls/hr 1X ONCE IV Last administered on 15:27; Start 08/07/17 at 15:15; Stop 08/07/17 at 16:14; Status DC Vancomycin HCl 1.25 gm/Sodium Chloride 250 ml @ 166.667 mls/hr 1X ONCE IV Last administered on 08/07/17 16:33; Start 08/07/17 at 16:45; Stop 08/07/17 at 18:14; Status DC Ondansetron HCl (Zofran) 4 mg PRN Q8HRS PRN IV NAUSEA/VOMITING; Start at 19:00; Stop 08/08/17 at 18:59 Active Scripts Active Cardizem Cd (Diltiazem Hcl) 180 Mg Cap.er.24h 1 Cap PO DAILY Lasix (Furosemide) 20 Mg Tablet 1 Tab PO DAILY Reported Pentoxifylline 400 Mg Tablet.er 400 Mg PO DAILY Hydroxyzine Hcl 25 Mg Tablet 1 Tab PO HS Crestor (Rosuvastatin Calcium) 20 Mg Tablet 1 Tab PO DAILY Glipizide 10 Mg Tablet 1 Tab PO BID Allergies Allergies: Coded Allergies: No Known Drug Allergies (Unverified , 05/07/14) ROS General: YES: Chills, Fatigue, Malaise, Appetite PSYCHOLOGICAL ROS: No: Anxiety, Behavioral Disorder, Concentration difficultie , Decreased libido, Depression, Disorientation, Hallucinations, Hostility, Irritablity, Memory difficulties, Mood Swings, Obsessive thoughts Eyes: No Double vision, No Excessive tearing, No Eye Pain, No Photophobia, No Uses glasses HEENT: No: Heacaches, Visual Changes, Hearing change, Nasal congestion, Nasal discharge, Oral lesions, Sinus pain, Sore Throat, Epistaxis, Sneezing Gastrointestinal: No Nausea, No Vomiting, No Abdominal Pain, No Diarrhea, No Constipation, No Melena, No Hematochezia, No Other Genitourinary: No Dysuria, No Frequency, No Incontinence, No Hematuria, No Retention, No Discharge, No Urgency, No Pain, No Flank Pain, No Other, No , No , No , No , No , No , No Musculoskeletal: Yes Gait Disturbance, Yes Joint Pain, Yes Joint Stiffness, Yes Pain In: (right buttock), No Joint Swelling, No Muscle Pain, No Muscular Weakness, No Swelling In:, No Other Neurological: Yes Gait Disturbance, Yes Weakness, No Behavorial Changes, No Bowel/Bladder ControlChng, No Confusion, No Dizziness, No Headaches, No Impaired Coord/balance, No Memory Loss, No Numbness/ Tingling, No Seizures, No Other Skin: No Lumps, No Rash, No Skin Lesion Changes, No Other, No Acne Physical Exam General: Alert, Cooperative, No acute distress HEENT: Atraumatic, PERRLA, EOMI, Mucous membr. moist/pink, Other (OP clear) Lungs: Clear to auscultation Heart: no gallops, no murmurs Abdomen: Normal bowel sounds Rectal Exam: not examined, deferred Extremities: No cyanosis, No edema Skin: No rashes Neuro: Normal speech, Sensation intact, Cranial nerves 3-12 NL Psych/Mental Status: Mood NL Vitals Vitals Vital Signs Date Time Temp Pulse Resp B/P (MAP) Pulse Ox O2 Delivery O2 Flow Rate FiO2 08/07/17 18:43 76 26 139/78 (98) 96 Room Air 08/07/17 14:38 100.6 100.6 Labs Labs Laboratory Tests Test 08/07/17 15:53 08/07/17 16:02 08/07/17 16:03 08/07/17 17:55 White Blood Count 10.2 x10^3/uL (4.0-11.0) Red Blood Count 2.12 x10^6/uL (3.50-5.40) Hemoglobin 6.4 g/dL (12.0-15.5) Hematocrit 19.5 % (36.0-47.0) Mean Corpuscular Volume 92 fL (79-100) Mean Corpuscular Hemoglobin 30 pg (25-35) Mean Corpuscular Hemoglobin Concent 33 g/dL (31-37) Red Cell Distribution Width 15.7 % (11.5-14.5) Platelet Count 155 x10^3/uL (140-400) Neutrophils (%) (Auto) 79 % (31-73) Lymphocytes (%) (Auto) 11 % (24-48) Monocytes (%) (Auto) 9 % (0-9) Eosinophils (%) (Auto) 1 % (0-3) Basophils (%) (Auto) 0 % (0-3) Neutrophils # (Auto) 8.1 x10^3uL (1.8-7.7) Lymphocytes # (Auto) 1.1 x10^3/uL (1.0-4.8) Monocytes # (Auto) 0.9 x10^3/uL (0.0-1.1) Eosinophils # (Auto) 0.1 x10^3/uL (0.0-0.7) Basophils # (Auto) 0.0 x10^3/uL (0.0-0.2) Sodium Level 137 mmol/L (136-145) Potassium Level 4.1 mmol/L (3.5-5.1) Chloride Level 106 mmol/L (98-107) Carbon Dioxide Level 22 mmol/L (21-32) Anion Gap 9 (6-14) Blood Urea Nitrogen 17 mg/dL (7-20) Creatinine 2.8 mg/dL (0.6-1.0) Estimated GFR (Cockcroft-Gault) 16.3 BUN/Creatinine Ratio 6 (6-20) Glucose Level 150 mg/dL (70-99) Lactic Acid Level 1.5 mmol/L (0.4-2.0) Calcium Level 7.4 mg/dL (8.5-10.1) Total Bilirubin 0.2 mg/dL (0.2-1.0) Aspartate Amino Transf (AST/SGOT) 18 U/L (15-37) Alanine Aminotransferase (ALT/SGPT) 16 U/L (14-59) Alkaline Phosphatase 90 U/L (46-116) Ammonia 10 mcmol/L (11-34) Total Protein 6.2 g/dL (6.4-8.2) Albumin 2.1 g/dL (3.4-5.0) Albumin/Globulin Ratio 0.5 (1.0-1.7) Influenza Type A Antigen Negative (NEGATIVE) Influenza Type B Antigen Negative (NEGATIVE) Glucose (Fingerstick) 130 mg/dL (70-99) Urine Collection Type Unknown Urine Color Yellow Urine Clarity Cloudy Urine pH 7.5 Urine Specific [place] 1.010 Urine Protein 100 mg/dL (NEG-TRACE) Urine Glucose (UA) 250 mg/dL (NEG) Urine Ketones (Stick) Negative mg/dL (NEG) Urine Blood Moderate (NEG) Urine Nitrite Negative (NEG) Urine Bilirubin Negative (NEG) Urine Urobilinogen Dipstick 0.2 mg/dL (0.2 mg/dL) Urine Leukocyte Esterase Negative (NEG) Urine RBC 1-2 /HPF (0-2) Urine WBC 1-4 /HPF (0-4) Urine Squamous Epithelial Cells Many /LPF Urine Bacteria Few /HPF (0-FEW) Urine Yeast Present /HPF Laboratory Tests Test 08/07/17 15:53 08/07/17 16:02 08/07/17 16:03 08/07/17 17:55 White Blood Count 10.2 x10^3/uL (4.0-11.0) Red Blood Count 2.12 x10^6/uL (3.50-5.40) Hemoglobin 6.4 g/dL (12.0-15.5) Hematocrit 19.5 % (36.0-47.0) Mean Corpuscular Volume 92 fL (79-100) Mean Corpuscular Hemoglobin 30 pg (25-35) Mean Corpuscular Hemoglobin Concent 33 g/dL (31-37) Red Cell Distribution Width 15.7 % (11.5-14.5) Platelet Count 155 x10^3/uL (140-400) Neutrophils (%) (Auto) 79 % (31-73) Lymphocytes (%) (Auto) 11 % (24-48) Monocytes (%) (Auto) 9 % (0-9) Eosinophils (%) (Auto) 1 % (0-3) Basophils (%) (Auto) 0 % (0-3) Neutrophils # (Auto) 8.1 x10^3uL (1.8-7.7) Lymphocytes # (Auto) 1.1 x10^3/uL (1.0-4.8) Monocytes # (Auto) 0.9 x10^3/uL (0.0-1.1) Eosinophils # (Auto) 0.1 x10^3/uL (0.0-0.7) Basophils # (Auto) 0.0 x10^3/uL (0.0-0.2) Sodium Level 137 mmol/L (136-145) Potassium Level 4.1 mmol/L (3.5-5.1) Chloride Level 106 mmol/L (98-107) Carbon Dioxide Level 22 mmol/L (21-32) Anion Gap 9 (6-14) Blood Urea Nitrogen 17 mg/dL (7-20) Creatinine 2.8 mg/dL (0.6-1.0) Estimated GFR (Cockcroft-Gault) 16.3 BUN/Creatinine Ratio 6 (6-20) Glucose Level 150 mg/dL (70-99) Lactic Acid Level 1.5 mmol/L (0.4-2.0) Calcium Level 7.4 mg/dL (8.5-10.1) Total Bilirubin 0.2 mg/dL (0.2-1.0) Aspartate Amino Transf (AST/SGOT) 18 U/L (15-37) Alanine Aminotransferase (ALT/SGPT) 16 U/L (14-59) Alkaline Phosphatase 90 U/L (46-116) Ammonia 10 mcmol/L (11-34) Total Protein 6.2 g/dL (6.4-8.2) Albumin 2.1 g/dL (3.4-5.0) Albumin/Globulin Ratio 0.5 (1.0-1.7) Influenza Type A Antigen Negative (NEGATIVE) Influenza Type B Antigen Negative (NEGATIVE) Glucose (Fingerstick) 130 mg/dL (70-99) Urine Collection Type Unknown Urine Color Yellow Urine Clarity Cloudy Urine pH 7.5 Urine Specific [place] 1.010 Urine Protein 100 mg/dL (NEG-TRACE) Urine Glucose (UA) 250 mg/dL (NEG) Urine Ketones (Stick) Negative mg/dL (NEG) Urine Blood Moderate (NEG) Urine Nitrite Negative (NEG) Urine Bilirubin Negative (NEG) Urine Urobilinogen Dipstick 0.2 mg/dL (0.2 mg/dL) Urine Leukocyte Esterase Negative (NEG) Urine RBC 1-2 /HPF (0-2) Urine WBC 1-4 /HPF (0-4) Urine Squamous Epithelial Cells Many /LPF Urine Bacteria Few /HPF (0-FEW) Urine Yeast Present /HPF VTE Prophylaxis Ordered VTE Prophylaxis Devices: Yes VTE Pharmacological Prophylaxi: No Assessment/Plan Assessment/Plan fever, tachycardia, tachypnea, sepsis, metabolic encephalopathy, acute ESRD anemia of ESRD, type and cross as may need transfusion in AM vital now better admit, IV vanco, ID consult recently changed HD line severe malnutrition, consult nutrition DM2, on glipizide, check A1c, add SSI weakness and debility, PT and OT, plan home health at minimum TONI MERRILL MD Aug 07, 2017 19:37
[2017-08-07 20:00] VITALS: BP 131/65
[2017-08-07] MEDS ORDERED: CYCLOBENZAPRINE 10 MG TABLET. PO PRN (20:00)
[2017-08-07] MEDS ORDERED: INSU100I13 SQ (20:02)
[2017-08-07] MEDS: LIDOCAINE (700MG/PATCH) PATCH. TD SCH (20:46)
[2017-08-07] MEDS: hydrOXYzine PAMOATE 25 MG CAPSULE PO SCH (20:46)
[2017-08-07] MEDS: ATORVASTATIN CALCIUM 40 MG TABLET. PO SCH (20:46)
[2017-08-07 21:00] VITALS: BP 101/77
[2017-08-07 22:00] VITALS: BP 100/73
[2017-08-07 23:00] VITALS: BP 151/74
[2017-08-08] VITALS (15 sets, daily range): BP systolic 126–154; BP diastolic 55–69
[2017-08-08] MEDS ORDERED: CYCLOBENZAPRINE 10 MG TABLET. PO PRN (03:00)
[2017-08-08 05:42] LABS: BASO % 1 % (0-3); EOS % 3 % (0-3); LYMPH # 1.5 x10^3/uL (1.0-4.8); LYMPH % 20 % (24-48); MEAN CORPUSCULAR HEMOGLOBIN 31 pg (25-35); MEAN CORPUSCULAR HGB CONC 33 g/dL (31-37); MEAN CORPUSCULAR VOLUME 92 fL (79-100); MONO % 9 % (0-9); NEUT % 68 % (31-73); PLATELET COUNT 165 x10^3/uL (140-400); RED BLOOD COUNT 2.11 x10^6/uL (3.50-5.40); WHITE BLOOD COUNT 7.6 x10^3/uL (4.0-11.0)
[2017-08-08 05:51] LABS: POTASSIUM 4.4 mmol/L (3.5-5.1); TOTAL BILIRUBIN 0.2 mg/dL (0.2-1.0); TOTAL PROTEIN 6.1 g/dL (6.4-8.2)
[2017-08-08 05:58] LABS: HEMATOCRIT 19.4 % (36.0-47.0); HEMOGLOBIN 6.5 g/dL (12.0-15.5)
[2017-08-08 06:22] LABS: ALBUMIN/GLOBULIN RATIO 0.5 (1.0-1.7); CALCIUM 7.9 mg/dL (8.5-10.1); CREATININE 3.8 mg/dL (0.6-1.0); GFR 11.5
[2017-08-08] MEDS: glipiZIDE 5 MG TABLET PO SCH ×2 (07:30→17:24)
[2017-08-08] MEDS: INSULIN ASPART 300 UNITS/3 ML INSULN.PEN SQ SCH ×3 (08:00→17:28)
--- NOTE | 2017-08-08 08:49 | EKG ---
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
[2017-08-08] MEDS ORDERED: LIDOCAINE (700MG/PATCH) PATCH. TD SCH (09:00)
[2017-08-08] MEDS: PENTOXIFYLLINE ER 400 MG TABLET.ER. PO SCH (10:01)
--- NOTE | 2017-08-08 11:37 | PDOC2 ---
CONSULT Date of Consult Date of Consult DATE: 08/08/17 TIME: 11:36 Reason for Consult Reason for Consult: ESRD Referring Physician Referring Physician: Alonso Identification/Chief Complaint Chief Complaint fever and weakness Problems: Source Source: Chart review, Patient History of Present Illness Reason for Visit: 77 yo female with multiple recent hospitalizations here and [facility]. was at OP HD and developed Fevers, chills and shakes. SHe was george here for further eval. SHe is also noted to have low Hgb and has been transfused. Past Medical History Cardiovascular: CHF, HTN, Hyperlipidemia Pulmonary: No pertinent hx GI: No pertinent hx Heme/Onc: Anemia NOS Hepatobiliary: No pertinent hx Psych: No pertinent hx Rheumatologic: No pertinent hx Infectious disease: No pertinent hx Renal/: Chronic renal insuff Endocrine: Diabetes Past Surgical History Past Surgical History: Hysterectomy Family History Family History: Hypertension Social History No ALCOHOL: none Drugs: None Lives: with Family Current Problem List Problem List Problems Medical Problems: (1) Acute febrile illness Status: Acute (2) Urinary tract infection Status: Acute Current Medications Current Medications Current Medications Lorazepam (Ativan) 0.5 mg 1X ONCE IV Last administered on 08/07/17 14:47; Start 08/07/17 at 14:45; Stop 08/07/17 at 14:46; Status DC Sodium Chloride 500 ml @ 500 mls/hr 1X ONCE IV Last administered on 15:27; Start 08/07/17 at 15:15; Stop 08/07/17 at 16:14; Status DC Vancomycin HCl 1.25 gm/Sodium Chloride 250 ml @ 166.667 mls/hr 1X ONCE IV Last administered on 08/07/17 16:33; Start 08/07/17 at 16:45; Stop 08/07/17 at 18:14; Status DC Ondansetron HCl (Zofran) 4 mg PRN Q8HRS PRN IV NAUSEA/VOMITING; Start at 19:00; Stop 08/08/17 at 18:59 Diltiazem HCl (Cardizem 24hr Cd) 180 mg DAILY PO Last administered on 10:01; Start 08/08/17 at 09:00 Pentoxifylline (TRENtal) 400 mg DAILY PO Last administered on 08/08/17 10:01 ; Start 08/08/17 at 09:00 Glipizide (Glucotrol) 10 mg BIDBFRMEAL PO ; Start 08/08/17 at 07:30 Hydroxyzine Pamoate (Vistaril) 25 mg QHS PO Last administered on 08/07/17 20: 46; Start 08/07/17 at 21:00 Atorvastatin Calcium (Lipitor) 80 mg QHS PO Last administered on 08/07/17 20: 46; Start 08/07/17 at 21:00 Insulin Aspart (NovoLOG) 0-5 UNITS TIDWMEALS SQ ; Start 08/08/17 at 08:00 Dextrose (Dextrose 50%-Water Syringe) 12.5 gm PRN Q15MIN PRN IV SEE COMMENTS; Start 08/07/17 at 19:30 Cyclobenzaprine HCl (Flexeril) 5 mg PRN Q8MIN PRN PO MUSCLE SPASMS Last administered on 08/07/17 20:46; Start 08/07/17 at 20:00; Stop 08/08/17 at 02 :56; Status DC Lidocaine (Lidoderm) 1 patch DAILY TD ; Start 08/08/17 at 09:00; Stop at 09:00; Status DC Lidocaine (Lidoderm) 1 patch DAILY TD Last administered on 08/07/17 20:46; Start 08/07/17 at 21:00 Cyclobenzaprine HCl (Flexeril) 5 mg PRN Q8HRS PRN PO MUSCLE SPASMS; Start at 03:00 Active Scripts Active Cardizem Cd (Diltiazem Hcl) 180 Mg Cap.er.24h 1 Cap PO DAILY Lasix (Furosemide) 20 Mg Tablet 1 Tab PO DAILY Reported Lantus Solostar (Insulin Glargine,Hum.rec.anlog) 100 Unit/1 Ml Insuln.pen 15 Unit SQ DAILYWBKFT Pentoxifylline 400 Mg Tablet.er 400 Mg PO DAILY Hydroxyzine Hcl 25 Mg Tablet 1 Tab PO HS Crestor (Rosuvastatin Calcium) 20 Mg Tablet 1 Tab PO DAILY Glipizide 10 Mg Tablet 1 Tab PO BID Allergies Allergies: Coded Allergies: No Known Drug Allergies (Unverified , 05/07/14) ROS Review of System unable to get due to language barrier and no family around Physical Exam Physical Exam GEN: Awake, Oriented x ?, In no distress EYES: Vision Unchanged, Conjunctiva Normal EN: No EN Drainage, Mucous Membranes moist NECK: no JVD, min JVP, Supple, no Thyromegaly CVS: S1S2, soft Murmur, No Gallop, No Rub,no Edema RESP: no Rales, no Rhonchi,no Acc. Muscle Use GI: BS + ve, NO Bruit, Non Tender, Non Distended : no CVA tenderness, no Suprapubic Tenderness Vital Signs Vital Signs Date Time Temp Pulse Resp B/P (MAP) Pulse Ox O2 Delivery O2 Flow Rate FiO2 08/08/17 11:00 99.5 79 23 149/67 (94) 97 Nasal Cannula 2.0 99.5 Assessment & Plan ESRD: Current FLuid and E-lyte status does not necessitate emergent need for Dialysis. Will re-evaluate for Dialysis in am and continue on MWF schedule. fevers - defer to ID Met Acidosis - correct with HD Labs Labs Laboratory Tests Test 08/07/17 15:53 08/07/17 16:02 08/07/17 16:03 08/07/17 17:55 White Blood Count 10.2 x10^3/uL (4.0-11.0) Red Blood Count 2.12 x10^6/uL (3.50-5.40) Hemoglobin 6.4 g/dL (12.0-15.5) Hematocrit 19.5 % (36.0-47.0) Mean Corpuscular Volume 92 fL (79-100) Mean Corpuscular Hemoglobin 30 pg (25-35) Mean Corpuscular Hemoglobin Concent 33 g/dL (31-37) Red Cell Distribution Width 15.7 % (11.5-14.5) Platelet Count 155 x10^3/uL (140-400) Neutrophils (%) (Auto) 79 % (31-73) Lymphocytes (%) (Auto) 11 % (24-48) Monocytes (%) (Auto) 9 % (0-9) Eosinophils (%) (Auto) 1 % (0-3) Basophils (%) (Auto) 0 % (0-3) Neutrophils # (Auto) 8.1 x10^3uL (1.8-7.7) Lymphocytes # (Auto) 1.1 x10^3/uL (1.0-4.8) Monocytes # (Auto) 0.9 x10^3/uL (0.0-1.1) Eosinophils # (Auto) 0.1 x10^3/uL (0.0-0.7) Basophils # (Auto) 0.0 x10^3/uL (0.0-0.2) Sodium Level 137 mmol/L (136-145) Potassium Level 4.1 mmol/L (3.5-5.1) Chloride Level 106 mmol/L (98-107) Carbon Dioxide Level 22 mmol/L (21-32) Anion Gap 9 (6-14) Blood Urea Nitrogen 17 mg/dL (7-20) Creatinine 2.8 mg/dL (0.6-1.0) Estimated GFR (Cockcroft-Gault) 16.3 BUN/Creatinine Ratio 6 (6-20) Glucose Level 150 mg/dL (70-99) Lactic Acid Level 1.5 mmol/L (0.4-2.0) Calcium Level 7.4 mg/dL (8.5-10.1) Total Bilirubin 0.2 mg/dL (0.2-1.0) Aspartate Amino Transf (AST/SGOT) 18 U/L (15-37) Alanine Aminotransferase (ALT/SGPT) 16 U/L (14-59) Alkaline Phosphatase 90 U/L (46-116) Ammonia 10 mcmol/L (11-34) Total Protein 6.2 g/dL (6.4-8.2) Albumin 2.1 g/dL (3.4-5.0) Albumin/Globulin Ratio 0.5 (1.0-1.7) Influenza Type A Antigen Negative (NEGATIVE) Influenza Type B Antigen Negative (NEGATIVE) Glucose (Fingerstick) 130 mg/dL (70-99) Urine Collection Type Unknown Urine Color Yellow Urine Clarity Cloudy Urine pH 7.5 Urine Specific [place] 1.010 Urine Protein 100 mg/dL (NEG-TRACE) Urine Glucose (UA) 250 mg/dL (NEG) Urine Ketones (Stick) Negative mg/dL (NEG) Urine Blood Moderate (NEG) Urine Nitrite Negative (NEG) Urine Bilirubin Negative (NEG) Urine Urobilinogen Dipstick 0.2 mg/dL (0.2 mg/dL) Urine Leukocyte Esterase Negative (NEG) Urine RBC 1-2 /HPF (0-2) Urine WBC 1-4 /HPF (0-4) Urine Squamous Epithelial Cells Many /LPF Urine Bacteria Few /HPF (0-FEW) Urine Yeast Present /HPF Test 08/07/17 20:51 08/07/17 21:23 08/08/17 03:00 08/08/17 08:59 Glucose (Fingerstick) 69 mg/dL (70-99) 82 mg/dL (70-99) 63 mg/dL (70-99) White Blood Count 7.6 x10^3/uL (4.0-11.0) Red Blood Count 2.11 x10^6/uL (3.50-5.40) Hemoglobin 6.5 g/dL (12.0-15.5) Hematocrit 19.4 % (36.0-47.0) Mean Corpuscular Volume 92 fL (79-100) Mean Corpuscular Hemoglobin 31 pg (25-35) Mean Corpuscular Hemoglobin Concent 33 g/dL (31-37) Red Cell Distribution Width 16.0 % (11.5-14.5) Platelet Count 165 x10^3/uL (140-400) Neutrophils (%) (Auto) 68 % (31-73) Lymphocytes (%) (Auto) 20 % (24-48) Monocytes (%) (Auto) 9 % (0-9) Eosinophils (%) (Auto) 3 % (0-3) Basophils (%) (Auto) 1 % (0-3) Neutrophils # (Auto) 5.1 x10^3uL (1.8-7.7) Lymphocytes # (Auto) 1.5 x10^3/uL (1.0-4.8) Monocytes # (Auto) 0.7 x10^3/uL (0.0-1.1) Eosinophils # (Auto) 0.2 x10^3/uL (0.0-0.7) Basophils # (Auto) 0.0 x10^3/uL (0.0-0.2) Sodium Level 141 mmol/L (136-145) Potassium Level 4.4 mmol/L (3.5-5.1) Chloride Level 109 mmol/L (98-107) Carbon Dioxide Level 19 mmol/L (21-32) Anion Gap 13 (6-14) Blood Urea Nitrogen 25 mg/dL (7-20) Creatinine 3.8 mg/dL (0.6-1.0) Estimated GFR (Cockcroft-Gault) 11.5 BUN/Creatinine Ratio 7 (6-20) Glucose Level 96 mg/dL (70-99) Calcium Level 7.9 mg/dL (8.5-10.1) Total Bilirubin 0.2 mg/dL (0.2-1.0) Aspartate Amino Transf (AST/SGOT) 20 U/L (15-37) Alanine Aminotransferase (ALT/SGPT) 14 U/L (14-59) Alkaline Phosphatase 86 U/L (46-116) Total Protein 6.1 g/dL (6.4-8.2) Albumin 2.0 g/dL (3.4-5.0) Albumin/Globulin Ratio 0.5 (1.0-1.7) Random Vancomycin Level 27.1 mcg/mL Test 08/08/17 09:59 Glucose (Fingerstick) 102 mg/dL (70-99) Laboratory Tests Test 08/07/17 15:53 08/07/17 16:02 08/07/17 16:03 08/07/17 17:55 White Blood Count 10.2 x10^3/uL (4.0-11.0) Red Blood Count 2.12 x10^6/uL (3.50-5.40) Hemoglobin 6.4 g/dL (12.0-15.5) Hematocrit 19.5 % (36.0-47.0) Mean Corpuscular Volume 92 fL (79-100) Mean Corpuscular Hemoglobin 30 pg (25-35) Mean Corpuscular Hemoglobin Concent 33 g/dL (31-37) Red Cell Distribution Width 15.7 % (11.5-14.5) Platelet Count 155 x10^3/uL (140-400) Neutrophils (%) (Auto) 79 % (31-73) Lymphocytes (%) (Auto) 11 % (24-48) Monocytes (%) (Auto) 9 % (0-9) Eosinophils (%) (Auto) 1 % (0-3) Basophils (%) (Auto) 0 % (0-3) Neutrophils # (Auto) 8.1 x10^3uL (1.8-7.7) Lymphocytes # (Auto) 1.1 x10^3/uL (1.0-4.8) Monocytes # (Auto) 0.9 x10^3/uL (0.0-1.1) Eosinophils # (Auto) 0.1 x10^3/uL (0.0-0.7) Basophils # (Auto) 0.0 x10^3/uL (0.0-0.2) Sodium Level 137 mmol/L (136-145) Potassium Level 4.1 mmol/L (3.5-5.1) Chloride Level 106 mmol/L (98-107) Carbon Dioxide Level 22 mmol/L (21-32) Anion Gap 9 (6-14) Blood Urea Nitrogen 17 mg/dL (7-20) Creatinine 2.8 mg/dL (0.6-1.0) Estimated GFR (Cockcroft-Gault) 16.3 BUN/Creatinine Ratio 6 (6-20) Glucose Level 150 mg/dL (70-99) Lactic Acid Level 1.5 mmol/L (0.4-2.0) Calcium Level 7.4 mg/dL (8.5-10.1) Total Bilirubin 0.2 mg/dL (0.2-1.0) Aspartate Amino Transf (AST/SGOT) 18 U/L (15-37) Alanine Aminotransferase (ALT/SGPT) 16 U/L (14-59) Alkaline Phosphatase 90 U/L (46-116) Ammonia 10 mcmol/L (11-34) Total Protein 6.2 g/dL (6.4-8.2) Albumin 2.1 g/dL (3.4-5.0) Albumin/Globulin Ratio 0.5 (1.0-1.7) Influenza Type A Antigen Negative (NEGATIVE) Influenza Type B Antigen Negative (NEGATIVE) Glucose (Fingerstick) 130 mg/dL (70-99) Urine Collection Type Unknown Urine Color Yellow Urine Clarity Cloudy Urine pH 7.5 Urine Specific [place] 1.010 Urine Protein 100 mg/dL (NEG-TRACE) Urine Glucose (UA) 250 mg/dL (NEG) Urine Ketones (Stick) Negative mg/dL (NEG) Urine Blood Moderate (NEG) Urine Nitrite Negative (NEG) Urine Bilirubin Negative (NEG) Urine Urobilinogen Dipstick 0.2 mg/dL (0.2 mg/dL) Urine Leukocyte Esterase Negative (NEG) Urine RBC 1-2 /HPF (0-2) Urine WBC 1-4 /HPF (0-4) Urine Squamous Epithelial Cells Many /LPF Urine Bacteria Few /HPF (0-FEW) Urine Yeast Present /HPF Test 08/07/17 20:51 08/07/17 21:23 08/08/17 03:00 08/08/17 08:59 Glucose (Fingerstick) 69 mg/dL (70-99) 82 mg/dL (70-99) 63 mg/dL (70-99) White Blood Count 7.6 x10^3/uL (4.0-11.0) Red Blood Count 2.11 x10^6/uL (3.50-5.40) Hemoglobin 6.5 g/dL (12.0-15.5) Hematocrit 19.4 % (36.0-47.0) Mean Corpuscular Volume 92 fL (79-100) Mean Corpuscular Hemoglobin 31 pg (25-35) Mean Corpuscular Hemoglobin Concent 33 g/dL (31-37) Red Cell Distribution Width 16.0 % (11.5-14.5) Platelet Count 165 x10^3/uL (140-400) Neutrophils (%) (Auto) 68 % (31-73) Lymphocytes (%) (Auto) 20 % (24-48) Monocytes (%) (Auto) 9 % (0-9) Eosinophils (%) (Auto) 3 % (0-3) Basophils (%) (Auto) 1 % (0-3) Neutrophils # (Auto) 5.1 x10^3uL (1.8-7.7) Lymphocytes # (Auto) 1.5 x10^3/uL (1.0-4.8) Monocytes # (Auto) 0.7 x10^3/uL (0.0-1.1) Eosinophils # (Auto) 0.2 x10^3/uL (0.0-0.7) Basophils # (Auto) 0.0 x10^3/uL (0.0-0.2) Sodium Level 141 mmol/L (136-145) Potassium Level 4.4 mmol/L (3.5-5.1) Chloride Level 109 mmol/L (98-107) Carbon Dioxide Level 19 mmol/L (21-32) Anion Gap 13 (6-14) Blood Urea Nitrogen 25 mg/dL (7-20) Creatinine 3.8 mg/dL (0.6-1.0) Estimated GFR (Cockcroft-Gault) 11.5 BUN/Creatinine Ratio 7 (6-20) Glucose Level 96 mg/dL (70-99) Calcium Level 7.9 mg/dL (8.5-10.1) Total Bilirubin 0.2 mg/dL (0.2-1.0) Aspartate Amino Transf (AST/SGOT) 20 U/L (15-37) Alanine Aminotransferase (ALT/SGPT) 14 U/L (14-59) Alkaline Phosphatase 86 U/L (46-116) Total Protein 6.1 g/dL (6.4-8.2) Albumin 2.0 g/dL (3.4-5.0) Albumin/Globulin Ratio 0.5 (1.0-1.7) Random Vancomycin Level 27.1 mcg/mL Test 08/08/17 09:59 Glucose (Fingerstick) 102 mg/dL (70-99) RICHI ROSAS MD Aug 08, 2017 11:37
[2017-08-08] MEDS ORDERED: MAGNESIUM SULFATE 2GM 50 ML IV PRN (12:00)
--- NOTE | 2017-08-08 15:45 | PDOC2 ---
NEUROLOGY CONSULT Date of Admission Date of Admission DATE: 08/08/17 TIME: 15:35 Reason for Consult Reason for Consult: IMPRESSION: Metabolic encephalopathy. Confusion during dialysis. Abnormal movements. Hypocalcemia. Fever. ESRD on dialysis. AFib. HTN Hypotension episode. Anemia, Hgb 6.4 g GI bleeding? RECOMMENDATIONS/PLAN: EEG Lab: see orders. Maintain electrolytes balance. Treat medical diseases. OT/PT. HISTORY OF THE PRESENT ILLNESS: 77-y-old [place] origin female patient with above medical diseases had MS changes during dialysis. She also had confusion, muscle spasm like signs, and abnormal movements. She was therefore, hospitalized for further evaluation. Past Medical History end-stage renal disease requiring dialysis, hypertension and A. fib Cardiovascular: CHF, HTN, Hyperlipidemia Pulmonary: No pertinent hx GI: No pertinent hx Heme/Onc: Anemia NOS Hepatobiliary: No pertinent hx Psych: No pertinent hx Rheumatologic: No pertinent hx Infectious disease: No pertinent hx Renal/: Chronic renal insuff Endocrine: Diabetes Past Surgical History Hysterectomy Family History Hypertension Social History Smoke: No ALCOHOL: none Drugs: None ALLERGY: Reviewed. MEDICATIONS: Refer to MAR REVIEW OF SYSTEMS: Constitutional: Mild malnutrition. Head: No traumatic brain or head injury. Skin: No edema, or rash. Ear: No infection. Eyes: No vision loss or color blindness. Nose: No bleeding or purulent discharges. Hearing: Hearing decrease. Neck: No injury. Breast: No history of cancer, masses,or discharges. Cardiac: HTN. Pulmonary: No COPD. GI: No GI ulcer, GI bleeding. Urinary/genital: ESRD on dialysis.. Endocrinologic: No cousin face, craniofacial dysmorphism, polydactyly. Skeletomuscular: No muscular atrophy, deformity. Neurological: see HP. Psychiatric: Denies drug use/abuse. Otherwise, not [id number] review of systems. PHYSICAL EXAMINATION: General appearance is in subacute distress. HEENT: Normocephalic and nontraumatic. Eyes, nose, ears, and throat are unremarkable. Neck is supple. No lymphadenopathy. No bruits are heard over the carotid artery. No crepitus. Cardiovascular: S1, S2, regular rate and rhythm. Pulmonary: Clear to auscultation bilaterally. Abdomen: Bowel sounds are positive. Abdomen is soft, nontender, and nondistended. Extremities: No rash, lesions, or edema. No restriction of range of motion NEUROLOGICAL EXAMINATION: Awake. Unable to communicate. Not speaks Ghanaian. Oriented to time, place and person. PERRL. EOMI. CN: no focal findings. Muscle tone: within normal. Muscle strength: 4+ DTR: 2- Plantar reflex: Neutral response bilaterally Gait: not examined in bed. Sensory exam: no abnormal findings. No cerebellar signs elicited. F-T-N test fine. Current Medications Current Medications Current Medications Lorazepam (Ativan) 0.5 mg 1X ONCE IV Last administered on 08/07/17 14:47; Start 08/07/17 at 14:45; Stop 08/07/17 at 14:46; Status DC Sodium Chloride 500 ml @ 500 mls/hr 1X ONCE IV Last administered on 15:27; Start 08/07/17 at 15:15; Stop 08/07/17 at 16:14; Status DC Vancomycin HCl 1.25 gm/Sodium Chloride 250 ml @ 166.667 mls/hr 1X ONCE IV Last administered on 08/07/17 16:33; Start 08/07/17 at 16:45; Stop 08/07/17 at 18:14; Status DC Ondansetron HCl (Zofran) 4 mg PRN Q8HRS PRN IV NAUSEA/VOMITING; Start at 19:00; Stop 08/08/17 at 18:59 Diltiazem HCl (Cardizem 24hr Cd) 180 mg DAILY PO Last administered on 10:01; Start 08/08/17 at 09:00 Pentoxifylline (TRENtal) 400 mg DAILY PO Last administered on 08/08/17 10:01 ; Start 08/08/17 at 09:00 Glipizide (Glucotrol) 10 mg BIDBFRMEAL PO ; Start 08/08/17 at 07:30 Hydroxyzine Pamoate (Vistaril) 25 mg QHS PO Last administered on 08/07/17 20: 46; Start 08/07/17 at 21:00 Atorvastatin Calcium (Lipitor) 80 mg QHS PO Last administered on 08/07/17 20: 46; Start 08/07/17 at 21:00 Insulin Aspart (NovoLOG) 0-5 UNITS TIDWMEALS SQ ; Start 08/08/17 at 08:00 Dextrose (Dextrose 50%-Water Syringe) 12.5 gm PRN Q15MIN PRN IV SEE COMMENTS; Start 08/07/17 at 19:30 Cyclobenzaprine HCl (Flexeril) 5 mg PRN Q8MIN PRN PO MUSCLE SPASMS Last administered on 08/07/17t 20:46; Start 08/07/17 at 20:00; Stop 08/08/17 at 02 :56; Status DC Lidocaine (Lidoderm) 1 patch DAILY TD ; Start 08/08/17 at 09:00; Stop at 09:00; Status DC Lidocaine (Lidoderm) 1 patch DAILY TD Last administered on 08/07/17 20:46; Start 08/07/17 at 21:00 Cyclobenzaprine HCl (Flexeril) 5 mg PRN Q8HRS PRN PO MUSCLE SPASMS; Start at 03:00 Magnesium Sulfate/ Dextrose 50 ml @ 25 mls/hr PRN DAILY PRN IV for Mag < 1.7 on am labs; Start 08/08/17 at 12:00 Darbepoetin Keegan (Aranesp) 60 mcg WEEKLYHS SQ ; Start 08/08/17 at 21:00 Active Scripts Active Cardizem Cd (Diltiazem Hcl) 180 Mg Cap.er.24h 1 Cap PO DAILY Lasix (Furosemide) 20 Mg Tablet 1 Tab PO DAILY Reported Lantus Solostar (Insulin Glargine,Hum.rec.anlog) 100 Unit/1 Ml Insuln.pen 15 Unit SQ DAILYWBKFT Pentoxifylline 400 Mg Tablet.er 400 Mg PO DAILY Hydroxyzine Hcl 25 Mg Tablet 1 Tab PO HS Crestor (Rosuvastatin Calcium) 20 Mg Tablet 1 Tab PO DAILY Glipizide 10 Mg Tablet 1 Tab PO BID Allergies Allergies: Coded Allergies: No Known Drug Allergies (Unverified , 05/07/14) Vitals VITALS Vital Signs Date Time Temp Pulse Resp B/P (MAP) Pulse Ox O2 Delivery O2 Flow Rate FiO2 08/08/17 15:11 97.9 82 19 142/55 (84) 97 Room Air 97.9 08/08/17 12:00 2.0 Labs Labs Laboratory Tests Test 08/07/17 15:53 08/07/17 16:02 08/07/17 16:03 08/07/17 17:55 White Blood Count 10.2 x10^3/uL (4.0-11.0) Red Blood Count 2.12 x10^6/uL (3.50-5.40) Hemoglobin 6.4 g/dL (12.0-15.5) Hematocrit 19.5 % (36.0-47.0) Mean Corpuscular Volume 92 fL (79-100) Mean Corpuscular Hemoglobin 30 pg (25-35) Mean Corpuscular Hemoglobin Concent 33 g/dL (31-37) Red Cell Distribution Width 15.7 % (11.5-14.5) Platelet Count 155 x10^3/uL (140-400) Neutrophils (%) (Auto) 79 % (31-73) Lymphocytes (%) (Auto) 11 % (24-48) Monocytes (%) (Auto) 9 % (0-9) Eosinophils (%) (Auto) 1 % (0-3) Basophils (%) (Auto) 0 % (0-3) Neutrophils # (Auto) 8.1 x10^3uL (1.8-7.7) Lymphocytes # (Auto) 1.1 x10^3/uL (1.0-4.8) Monocytes # (Auto) 0.9 x10^3/uL (0.0-1.1) Eosinophils # (Auto) 0.1 x10^3/uL (0.0-0.7) Basophils # (Auto) 0.0 x10^3/uL (0.0-0.2) Sodium Level 137 mmol/L (136-145) Potassium Level 4.1 mmol/L (3.5-5.1) Chloride Level 106 mmol/L (98-107) Carbon Dioxide Level 22 mmol/L (21-32) Anion Gap 9 (6-14) Blood Urea Nitrogen 17 mg/dL (7-20) Creatinine 2.8 mg/dL (0.6-1.0) Estimated GFR (Cockcroft-Gault) 16.3 BUN/Creatinine Ratio 6 (6-20) Glucose Level 150 mg/dL (70-99) Hemoglobin A1c 7.2 % (4.8-5.6) Lactic Acid Level 1.5 mmol/L (0.4-2.0) Calcium Level 7.4 mg/dL (8.5-10.1) Total Bilirubin 0.2 mg/dL (0.2-1.0) Aspartate Amino Transf (AST/SGOT) 18 U/L (15-37) Alanine Aminotransferase (ALT/SGPT) 16 U/L (14-59) Alkaline Phosphatase 90 U/L (46-116) Ammonia 10 mcmol/L (11-34) Total Protein 6.2 g/dL (6.4-8.2) Albumin 2.1 g/dL (3.4-5.0) Albumin/Globulin Ratio 0.5 (1.0-1.7) Influenza Type A Antigen Negative (NEGATIVE) Influenza Type B Antigen Negative (NEGATIVE) Glucose (Fingerstick) 130 mg/dL (70-99) Urine Collection Type Unknown Urine Color Yellow Urine Clarity Cloudy Urine pH 7.5 Urine Specific [place] 1.010 Urine Protein 100 mg/dL (NEG-TRACE) Urine Glucose (UA) 250 mg/dL (NEG) Urine Ketones (Stick) Negative mg/dL (NEG) Urine Blood Moderate (NEG) Urine Nitrite Negative (NEG) Urine Bilirubin Negative (NEG) Urine Urobilinogen Dipstick 0.2 mg/dL (0.2 mg/dL) Urine Leukocyte Esterase Negative (NEG) Urine RBC 1-2 /HPF (0-2) Urine WBC 1-4 /HPF (0-4) Urine Squamous Epithelial Cells Many /LPF Urine Bacteria Few /HPF (0-FEW) Urine Yeast Present /HPF Test 08/07/17 20:51 08/07/17 21:23 08/08/17 03:00 08/08/17 08:59 Glucose (Fingerstick) 69 mg/dL (70-99) 82 mg/dL (70-99) 63 mg/dL (70-99) White Blood Count 7.6 x10^3/uL (4.0-11.0) Red Blood Count 2.11 x10^6/uL (3.50-5.40) Hemoglobin 6.5 g/dL (12.0-15.5) Hematocrit 19.4 % (36.0-47.0) Mean Corpuscular Volume 92 fL (79-100) Mean Corpuscular Hemoglobin 31 pg (25-35) Mean Corpuscular Hemoglobin Concent 33 g/dL (31-37) Red Cell Distribution Width 16.0 % (11.5-14.5) Platelet Count 165 x10^3/uL (140-400) Neutrophils (%) (Auto) 68 % (31-73) Lymphocytes (%) (Auto) 20 % (24-48) Monocytes (%) (Auto) 9 % (0-9) Eosinophils (%) (Auto) 3 % (0-3) Basophils (%) (Auto) 1 % (0-3) Neutrophils # (Auto) 5.1 x10^3uL (1.8-7.7) Lymphocytes # (Auto) 1.5 x10^3/uL (1.0-4.8) Monocytes # (Auto) 0.7 x10^3/uL (0.0-1.1) Eosinophils # (Auto) 0.2 x10^3/uL (0.0-0.7) Basophils # (Auto) 0.0 x10^3/uL (0.0-0.2) Sodium Level 141 mmol/L (136-145) Potassium Level 4.4 mmol/L (3.5-5.1) Chloride Level 109 mmol/L (98-107) Carbon Dioxide Level 19 mmol/L (21-32) Anion Gap 13 (6-14) Blood Urea Nitrogen 25 mg/dL (7-20) Creatinine 3.8 mg/dL (0.6-1.0) Estimated GFR (Cockcroft-Gault) 11.5 BUN/Creatinine Ratio 7 (6-20) Glucose Level 96 mg/dL (70-99) Calcium Level 7.9 mg/dL (8.5-10.1) Total Bilirubin 0.2 mg/dL (0.2-1.0) Aspartate Amino Transf (AST/SGOT) 20 U/L (15-37) Alanine Aminotransferase (ALT/SGPT) 14 U/L (14-59) Alkaline Phosphatase 86 U/L (46-116) Total Protein 6.1 g/dL (6.4-8.2) Albumin 2.0 g/dL (3.4-5.0) Albumin/Globulin Ratio 0.5 (1.0-1.7) Random Vancomycin Level 27.1 mcg/mL Test 08/08/17 09:59 08/08/17 12:06 08/08/17 14:30 Glucose (Fingerstick) 102 mg/dL (70-99) 139 mg/dL (70-99) Hemoglobin 8.6 g/dL (12.0-15.5) Laboratory Tests Test 08/07/17 15:53 08/07/17 16:02 08/07/17 16:03 08/07/17 17:55 White Blood Count 10.2 x10^3/uL (4.0-11.0) Red Blood Count 2.12 x10^6/uL (3.50-5.40) Hemoglobin 6.4 g/dL (12.0-15.5) Hematocrit 19.5 % (36.0-47.0) Mean Corpuscular Volume 92 fL (79-100) Mean Corpuscular Hemoglobin 30 pg (25-35) Mean Corpuscular Hemoglobin Concent 33 g/dL (31-37) Red Cell Distribution Width 15.7 % (11.5-14.5) Platelet Count 155 x10^3/uL (140-400) Neutrophils (%) (Auto) 79 % (31-73) Lymphocytes (%) (Auto) 11 % (24-48) Monocytes (%) (Auto) 9 % (0-9) Eosinophils (%) (Auto) 1 % (0-3) Basophils (%) (Auto) 0 % (0-3) Neutrophils # (Auto) 8.1 x10^3uL (1.8-7.7) Lymphocytes # (Auto) 1.1 x10^3/uL (1.0-4.8) Monocytes # (Auto) 0.9 x10^3/uL (0.0-1.1) Eosinophils # (Auto) 0.1 x10^3/uL (0.0-0.7) Basophils # (Auto) 0.0 x10^3/uL (0.0-0.2) Sodium Level 137 mmol/L (136-145) Potassium Level 4.1 mmol/L (3.5-5.1) Chloride Level 106 mmol/L (98-107) Carbon Dioxide Level 22 mmol/L (21-32) Anion Gap 9 (6-14) Blood Urea Nitrogen 17 mg/dL (7-20) Creatinine 2.8 mg/dL (0.6-1.0) Estimated GFR (Cockcroft-Gault) 16.3 BUN/Creatinine Ratio 6 (6-20) Glucose Level 150 mg/dL (70-99) Hemoglobin A1c 7.2 % (4.8-5.6) Lactic Acid Level 1.5 mmol/L (0.4-2.0) Calcium Level 7.4 mg/dL (8.5-10.1) Total Bilirubin 0.2 mg/dL (0.2-1.0) Aspartate Amino Transf (AST/SGOT) 18 U/L (15-37) Alanine Aminotransferase (ALT/SGPT) 16 U/L (14-59) Alkaline Phosphatase 90 U/L (46-116) Ammonia 10 mcmol/L (11-34) Total Protein 6.2 g/dL (6.4-8.2) Albumin 2.1 g/dL (3.4-5.0) Albumin/Globulin Ratio 0.5 (1.0-1.7) Influenza Type A Antigen Negative (NEGATIVE) Influenza Type B Antigen Negative (NEGATIVE) Glucose (Fingerstick) 130 mg/dL (70-99) Urine Collection Type Unknown Urine Color Yellow Urine Clarity Cloudy Urine pH 7.5 Urine Specific [place] 1.010 Urine Protein 100 mg/dL (NEG-TRACE) Urine Glucose (UA) 250 mg/dL (NEG) Urine Ketones (Stick) Negative mg/dL (NEG) Urine Blood Moderate (NEG) Urine Nitrite Negative (NEG) Urine Bilirubin Negative (NEG) Urine Urobilinogen Dipstick 0.2 mg/dL (0.2 mg/dL) Urine Leukocyte Esterase Negative (NEG) Urine RBC 1-2 /HPF (0-2) Urine WBC 1-4 /HPF (0-4) Urine Squamous Epithelial Cells Many /LPF Urine Bacteria Few /HPF (0-FEW) Urine Yeast Present /HPF Test 08/07/17 20:51 08/07/17 21:23 08/08/17 03:00 08/08/17 08:59 Glucose (Fingerstick) 69 mg/dL (70-99) 82 mg/dL (70-99) 63 mg/dL (70-99) White Blood Count 7.6 x10^3/uL (4.0-11.0) Red Blood Count 2.11 x10^6/uL (3.50-5.40) Hemoglobin 6.5 g/dL (12.0-15.5) Hematocrit 19.4 % (36.0-47.0) Mean Corpuscular Volume 92 fL (79-100) Mean Corpuscular Hemoglobin 31 pg (25-35) Mean Corpuscular Hemoglobin Concent 33 g/dL (31-37) Red Cell Distribution Width 16.0 % (11.5-14.5) Platelet Count 165 x10^3/uL (140-400) Neutrophils (%) (Auto) 68 % (31-73) Lymphocytes (%) (Auto) 20 % (24-48) Monocytes (%) (Auto) 9 % (0-9) Eosinophils (%) (Auto) 3 % (0-3) Basophils (%) (Auto) 1 % (0-3) Neutrophils # (Auto) 5.1 x10^3uL (1.8-7.7) Lymphocytes # (Auto) 1.5 x10^3/uL (1.0-4.8) Monocytes # (Auto) 0.7 x10^3/uL (0.0-1.1) Eosinophils # (Auto) 0.2 x10^3/uL (0.0-0.7) Basophils # (Auto) 0.0 x10^3/uL (0.0-0.2) Sodium Level 141 mmol/L (136-145) Potassium Level 4.4 mmol/L (3.5-5.1) Chloride Level 109 mmol/L (98-107) Carbon Dioxide Level 19 mmol/L (21-32) Anion Gap 13 (6-14) Blood Urea Nitrogen 25 mg/dL (7-20) Creatinine 3.8 mg/dL (0.6-1.0) Estimated GFR (Cockcroft-Gault) 11.5 BUN/Creatinine Ratio 7 (6-20) Glucose Level 96 mg/dL (70-99) Calcium Level 7.9 mg/dL (8.5-10.1) Total Bilirubin 0.2 mg/dL (0.2-1.0) Aspartate Amino Transf (AST/SGOT) 20 U/L (15-37) Alanine Aminotransferase (ALT/SGPT) 14 U/L (14-59) Alkaline Phosphatase 86 U/L (46-116) Total Protein 6.1 g/dL (6.4-8.2) Albumin 2.0 g/dL (3.4-5.0) Albumin/Globulin Ratio 0.5 (1.0-1.7) Random Vancomycin Level 27.1 mcg/mL Test 08/08/17 09:59 08/08/17 12:06 08/08/17 14:30 Glucose (Fingerstick) 102 mg/dL (70-99) 139 mg/dL (70-99) Hemoglobin 8.6 g/dL (12.0-15.5) MIRLANDE DEXTER MD Aug 08, 2017 15:45
--- NOTE | 2017-08-08 16:06 | PDOC ---
Infectious Disease Note Vital Sign Vital Signs Vital Signs Date Time Temp Pulse Resp B/P (MAP) Pulse Ox O2 Delivery O2 Flow Rate FiO2 08/08/17 15:11 97.9 82 19 142/55 (84) 97 Room Air 97.9 08/08/17 12:00 2.0 Labs Lab Laboratory Tests Test 08/07/17 15:53 08/07/17 16:02 08/07/17 16:03 08/07/17 17:55 White Blood Count 10.2 x10^3/uL (4.0-11.0) Red Blood Count 2.12 x10^6/uL (3.50-5.40) Hemoglobin 6.4 g/dL (12.0-15.5) Hematocrit 19.5 % (36.0-47.0) Mean Corpuscular Volume 92 fL (79-100) Mean Corpuscular Hemoglobin 30 pg (25-35) Mean Corpuscular Hemoglobin Concent 33 g/dL (31-37) Red Cell Distribution Width 15.7 % (11.5-14.5) Platelet Count 155 x10^3/uL (140-400) Neutrophils (%) (Auto) 79 % (31-73) Lymphocytes (%) (Auto) 11 % (24-48) Monocytes (%) (Auto) 9 % (0-9) Eosinophils (%) (Auto) 1 % (0-3) Basophils (%) (Auto) 0 % (0-3) Neutrophils # (Auto) 8.1 x10^3uL (1.8-7.7) Lymphocytes # (Auto) 1.1 x10^3/uL (1.0-4.8) Monocytes # (Auto) 0.9 x10^3/uL (0.0-1.1) Eosinophils # (Auto) 0.1 x10^3/uL (0.0-0.7) Basophils # (Auto) 0.0 x10^3/uL (0.0-0.2) Sodium Level 137 mmol/L (136-145) Potassium Level 4.1 mmol/L (3.5-5.1) Chloride Level 106 mmol/L (98-107) Carbon Dioxide Level 22 mmol/L (21-32) Anion Gap 9 (6-14) Blood Urea Nitrogen 17 mg/dL (7-20) Creatinine 2.8 mg/dL (0.6-1.0) Estimated GFR (Cockcroft-Gault) 16.3 BUN/Creatinine Ratio 6 (6-20) Glucose Level 150 mg/dL (70-99) Hemoglobin A1c 7.2 % (4.8-5.6) Lactic Acid Level 1.5 mmol/L (0.4-2.0) Calcium Level 7.4 mg/dL (8.5-10.1) Total Bilirubin 0.2 mg/dL (0.2-1.0) Aspartate Amino Transf (AST/SGOT) 18 U/L (15-37) Alanine Aminotransferase (ALT/SGPT) 16 U/L (14-59) Alkaline Phosphatase 90 U/L (46-116) Ammonia 10 mcmol/L (11-34) Total Protein 6.2 g/dL (6.4-8.2) Albumin 2.1 g/dL (3.4-5.0) Albumin/Globulin Ratio 0.5 (1.0-1.7) Influenza Type A Antigen Negative (NEGATIVE) Influenza Type B Antigen Negative (NEGATIVE) Glucose (Fingerstick) 130 mg/dL (70-99) Urine Collection Type Unknown Urine Color Yellow Urine Clarity Cloudy Urine pH 7.5 Urine Specific [place] 1.010 Urine Protein 100 mg/dL (NEG-TRACE) Urine Glucose (UA) 250 mg/dL (NEG) Urine Ketones (Stick) Negative mg/dL (NEG) Urine Blood Moderate (NEG) Urine Nitrite Negative (NEG) Urine Bilirubin Negative (NEG) Urine Urobilinogen Dipstick 0.2 mg/dL (0.2 mg/dL) Urine Leukocyte Esterase Negative (NEG) Urine RBC 1-2 /HPF (0-2) Urine WBC 1-4 /HPF (0-4) Urine Squamous Epithelial Cells Many /LPF Urine Bacteria Few /HPF (0-FEW) Urine Yeast Present /HPF Test 08/07/17 20:51 08/07/17 21:23 08/08/17 03:00 08/08/17 08:59 Glucose (Fingerstick) 69 mg/dL (70-99) 82 mg/dL (70-99) 63 mg/dL (70-99) White Blood Count 7.6 x10^3/uL (4.0-11.0) Red Blood Count 2.11 x10^6/uL (3.50-5.40) Hemoglobin 6.5 g/dL (12.0-15.5) Hematocrit 19.4 % (36.0-47.0) Mean Corpuscular Volume 92 fL (79-100) Mean Corpuscular Hemoglobin 31 pg (25-35) Mean Corpuscular Hemoglobin Concent 33 g/dL (31-37) Red Cell Distribution Width 16.0 % (11.5-14.5) Platelet Count 165 x10^3/uL (140-400) Neutrophils (%) (Auto) 68 % (31-73) Lymphocytes (%) (Auto) 20 % (24-48) Monocytes (%) (Auto) 9 % (0-9) Eosinophils (%) (Auto) 3 % (0-3) Basophils (%) (Auto) 1 % (0-3) Neutrophils # (Auto) 5.1 x10^3uL (1.8-7.7) Lymphocytes # (Auto) 1.5 x10^3/uL (1.0-4.8) Monocytes # (Auto) 0.7 x10^3/uL (0.0-1.1) Eosinophils # (Auto) 0.2 x10^3/uL (0.0-0.7) Basophils # (Auto) 0.0 x10^3/uL (0.0-0.2) Sodium Level 141 mmol/L (136-145) Potassium Level 4.4 mmol/L (3.5-5.1) Chloride Level 109 mmol/L (98-107) Carbon Dioxide Level 19 mmol/L (21-32) Anion Gap 13 (6-14) Blood Urea Nitrogen 25 mg/dL (7-20) Creatinine 3.8 mg/dL (0.6-1.0) Estimated GFR (Cockcroft-Gault) 11.5 BUN/Creatinine Ratio 7 (6-20) Glucose Level 96 mg/dL (70-99) Calcium Level 7.9 mg/dL (8.5-10.1) Total Bilirubin 0.2 mg/dL (0.2-1.0) Aspartate Amino Transf (AST/SGOT) 20 U/L (15-37) Alanine Aminotransferase (ALT/SGPT) 14 U/L (14-59) Alkaline Phosphatase 86 U/L (46-116) Total Protein 6.1 g/dL (6.4-8.2) Albumin 2.0 g/dL (3.4-5.0) Albumin/Globulin Ratio 0.5 (1.0-1.7) Random Vancomycin Level 27.1 mcg/mL Test 08/08/17 09:59 08/08/17 12:06 08/08/17 14:30 Glucose (Fingerstick) 102 mg/dL (70-99) 139 mg/dL (70-99) Hemoglobin 8.6 g/dL (12.0-15.5) Objective Assessment Fever Yeast in urine Malfunction HDC s/p replacement, 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 An attempt to contact her son Mack at [phone] was unsuccessful. D/w patient's [id number] Will continue to follow D/w Dr. Jose Rafael Rosas, renal Thank you [id number] PT SEEN ,EXAMINED ,D/W SPRAYER INSECTICIDE CONTINUE SAME EVELYN CULP APRN Aug 08, 2017 16:05 LUZ ROSAS MD Aug 08, 2017 18:40
--- NOTE | 2017-08-08 16:27 | PDOC ---
PROGRESS NOTES Chief Complaint Chief Complaint fever, tachycardia, tachypnea, sepsis, metabolic encephalopathy, acute ESRD anemia of ESRD, severe malnutrition, DM2, on glipizide, weakness and debility, History of Present Illness History of Present Illness vital now better 1 u PRBC given this AM , IV vanco x1, ID consult, level checked this AM recently changed HD line Vitals Vitals Vital Signs Date Time Temp Pulse Resp B/P (MAP) Pulse Ox O2 Delivery O2 Flow Rate FiO2 08/08/17 15:11 97.9 82 19 142/55 (84) 97 Room Air 97.9 08/08/17 13:30 2.0 Physical Exam General: Alert, Cooperative, No acute distress Heart: Regular rate Lungs: Clear, Other Abdomen: Normal bowel sounds Extremities: No cyanosis, No edema Skin: No rashes Labs LABS Laboratory Tests Test 08/07/17 17:55 08/07/17 20:51 08/07/17 21:23 08/08/17 00:00 Urine Collection Type Unknown Urine Color Yellow Urine Clarity Cloudy Urine pH 7.5 Urine Specific [place] 1.010 Urine Protein 100 mg/dL (NEG-TRACE) Urine Glucose (UA) 250 mg/dL (NEG) Urine Ketones (Stick) Negative mg/dL (NEG) Urine Blood Moderate (NEG) Urine Nitrite Negative (NEG) Urine Bilirubin Negative (NEG) Urine Urobilinogen Dipstick 0.2 mg/dL (0.2 mg/dL) Urine Leukocyte Esterase Negative (NEG) Urine RBC 1-2 /HPF (0-2) Urine WBC 1-4 /HPF (0-4) Urine Squamous Epithelial Cells Many /LPF Urine Bacteria Few /HPF (0-FEW) Urine Yeast Present /HPF Glucose (Fingerstick) 69 mg/dL (70-99) 82 mg/dL (70-99) Nasal Screen MRSA (PCR) Negative (Negative) Test 08/08/17 03:00 08/08/17 08:59 08/08/17 09:59 08/08/17 12:06 White Blood Count 7.6 x10^3/uL (4.0-11.0) Red Blood Count 2.11 x10^6/uL (3.50-5.40) Hemoglobin 6.5 g/dL (12.0-15.5) Hematocrit 19.4 % (36.0-47.0) Mean Corpuscular Volume 92 fL (79-100) Mean Corpuscular Hemoglobin 31 pg (25-35) Mean Corpuscular Hemoglobin Concent 33 g/dL (31-37) Red Cell Distribution Width 16.0 % (11.5-14.5) Platelet Count 165 x10^3/uL (140-400) Neutrophils (%) (Auto) 68 % (31-73) Lymphocytes (%) (Auto) 20 % (24-48) Monocytes (%) (Auto) 9 % (0-9) Eosinophils (%) (Auto) 3 % (0-3) Basophils (%) (Auto) 1 % (0-3) Neutrophils # (Auto) 5.1 x10^3uL (1.8-7.7) Lymphocytes # (Auto) 1.5 x10^3/uL (1.0-4.8) Monocytes # (Auto) 0.7 x10^3/uL (0.0-1.1) Eosinophils # (Auto) 0.2 x10^3/uL (0.0-0.7) Basophils # (Auto) 0.0 x10^3/uL (0.0-0.2) Sodium Level 141 mmol/L (136-145) Potassium Level 4.4 mmol/L (3.5-5.1) Chloride Level 109 mmol/L (98-107) Carbon Dioxide Level 19 mmol/L (21-32) Anion Gap 13 (6-14) Blood Urea Nitrogen 25 mg/dL (7-20) Creatinine 3.8 mg/dL (0.6-1.0) Estimated GFR (Cockcroft-Gault) 11.5 BUN/Creatinine Ratio 7 (6-20) Glucose Level 96 mg/dL (70-99) Calcium Level 7.9 mg/dL (8.5-10.1) Total Bilirubin 0.2 mg/dL (0.2-1.0) Aspartate Amino Transf (AST/SGOT) 20 U/L (15-37) Alanine Aminotransferase (ALT/SGPT) 14 U/L (14-59) Alkaline Phosphatase 86 U/L (46-116) Total Protein 6.1 g/dL (6.4-8.2) Albumin 2.0 g/dL (3.4-5.0) Albumin/Globulin Ratio 0.5 (1.0-1.7) Random Vancomycin Level 27.1 mcg/mL Glucose (Fingerstick) 63 mg/dL (70-99) 102 mg/dL (70-99) 139 mg/dL (70-99) Test 08/08/17 14:30 Hemoglobin 8.6 g/dL (12.0-15.5) Review of Systems Review of Systems no n.v/.d str better eating OK more alert this AM, much improved from last night Assessment and Plan Assessmemt and Plan Problems Medical Problems: (1) Acute febrile illness Status: Acute (2) Urinary tract infection Status: Acute Problems: Comment Review of Relevant I have reviewed the following items diamante (where applicable) has been applied. Labs Laboratory Tests Test 08/07/17 15:53 08/07/17 16:02 08/07/17 16:03 08/07/17 17:55 White Blood Count 10.2 x10^3/uL (4.0-11.0) Red Blood Count 2.12 x10^6/uL (3.50-5.40) Hemoglobin 6.4 g/dL (12.0-15.5) Hematocrit 19.5 % (36.0-47.0) Mean Corpuscular Volume 92 fL (79-100) Mean Corpuscular Hemoglobin 30 pg (25-35) Mean Corpuscular Hemoglobin Concent 33 g/dL (31-37) Red Cell Distribution Width 15.7 % (11.5-14.5) Platelet Count 155 x10^3/uL (140-400) Neutrophils (%) (Auto) 79 % (31-73) Lymphocytes (%) (Auto) 11 % (24-48) Monocytes (%) (Auto) 9 % (0-9) Eosinophils (%) (Auto) 1 % (0-3) Basophils (%) (Auto) 0 % (0-3) Neutrophils # (Auto) 8.1 x10^3uL (1.8-7.7) Lymphocytes # (Auto) 1.1 x10^3/uL (1.0-4.8) Monocytes # (Auto) 0.9 x10^3/uL (0.0-1.1) Eosinophils # (Auto) 0.1 x10^3/uL (0.0-0.7) Basophils # (Auto) 0.0 x10^3/uL (0.0-0.2) Sodium Level 137 mmol/L (136-145) Potassium Level 4.1 mmol/L (3.5-5.1) Chloride Level 106 mmol/L (98-107) Carbon Dioxide Level 22 mmol/L (21-32) Anion Gap 9 (6-14) Blood Urea Nitrogen 17 mg/dL (7-20) Creatinine 2.8 mg/dL (0.6-1.0) Estimated GFR (Cockcroft-Gault) 16.3 BUN/Creatinine Ratio 6 (6-20) Glucose Level 150 mg/dL (70-99) Hemoglobin A1c 7.2 % (4.8-5.6) Lactic Acid Level 1.5 mmol/L (0.4-2.0) Calcium Level 7.4 mg/dL (8.5-10.1) Total Bilirubin 0.2 mg/dL (0.2-1.0) Aspartate Amino Transf (AST/SGOT) 18 U/L (15-37) Alanine Aminotransferase (ALT/SGPT) 16 U/L (14-59) Alkaline Phosphatase 90 U/L (46-116) Ammonia 10 mcmol/L (11-34) Total Protein 6.2 g/dL (6.4-8.2) Albumin 2.1 g/dL (3.4-5.0) Albumin/Globulin Ratio 0.5 (1.0-1.7) Influenza Type A Antigen Negative (NEGATIVE) Influenza Type B Antigen Negative (NEGATIVE) Glucose (Fingerstick) 130 mg/dL (70-99) Urine Collection Type Unknown Urine Color Yellow Urine Clarity Cloudy Urine pH 7.5 Urine Specific [employer] [place] 1.010 Urine Protein 100 mg/dL (NEG-TRACE) Urine Glucose (UA) 250 mg/dL (NEG) Urine Ketones (Stick) Negative mg/dL (NEG) Urine Blood Moderate (NEG) Urine Nitrite Negative (NEG) Urine Bilirubin Negative (NEG) Urine Urobilinogen Dipstick 0.2 mg/dL (0.2 mg/dL) Urine Leukocyte Esterase Negative (NEG) Urine RBC 1-2 /HPF (0-2) Urine WBC 1-4 /HPF (0-4) Urine Squamous Epithelial Cells Many /LPF Urine Bacteria Few /HPF (0-FEW) Urine Yeast Present /HPF Test 08/07/17 20:51 08/07/17 21:23 08/08/17 00:00 08/08/17 03:00 Glucose (Fingerstick) 69 mg/dL (70-99) 82 mg/dL (70-99) Nasal Screen MRSA (PCR) Negative (Negative) White Blood Count 7.6 x10^3/uL (4.0-11.0) Red Blood Count 2.11 x10^6/uL (3.50-5.40) Hemoglobin 6.5 g/dL (12.0-15.5) Hematocrit 19.4 % (36.0-47.0) Mean Corpuscular Volume 92 fL (79-100) Mean Corpuscular Hemoglobin 31 pg (25-35) Mean Corpuscular Hemoglobin Concent 33 g/dL (31-37) Red Cell Distribution Width 16.0 % (11.5-14.5) Platelet Count 165 x10^3/uL (140-400) Neutrophils (%) (Auto) 68 % (31-73) Lymphocytes (%) (Auto) 20 % (24-48) Monocytes (%) (Auto) 9 % (0-9) Eosinophils (%) (Auto) 3 % (0-3) Basophils (%) (Auto) 1 % (0-3) Neutrophils # (Auto) 5.1 x10^3uL (1.8-7.7) Lymphocytes # (Auto) 1.5 x10^3/uL (1.0-4.8) Monocytes # (Auto) 0.7 x10^3/uL (0.0-1.1) Eosinophils # (Auto) 0.2 x10^3/uL (0.0-0.7) Basophils # (Auto) 0.0 x10^3/uL (0.0-0.2) Sodium Level 141 mmol/L (136-145) Potassium Level 4.4 mmol/L (3.5-5.1) Chloride Level 109 mmol/L (98-107) Carbon Dioxide Level 19 mmol/L (21-32) Anion Gap 13 (6-14) Blood Urea Nitrogen 25 mg/dL (7-20) Creatinine 3.8 mg/dL (0.6-1.0) Estimated GFR (Cockcroft-Gault) 11.5 BUN/Creatinine Ratio 7 (6-20) Glucose Level 96 mg/dL (70-99) Calcium Level 7.9 mg/dL (8.5-10.1) Total Bilirubin 0.2 mg/dL (0.2-1.0) Aspartate Amino Transf (AST/SGOT) 20 U/L (15-37) Alanine Aminotransferase (ALT/SGPT) 14 U/L (14-59) Alkaline Phosphatase 86 U/L (46-116) Total Protein 6.1 g/dL (6.4-8.2) Albumin 2.0 g/dL (3.4-5.0) Albumin/Globulin Ratio 0.5 (1.0-1.7) Random Vancomycin Level 27.1 mcg/mL Test 08/08/17 08:59 08/08/17 09:59 08/08/17 12:06 08/08/17 14:30 Glucose (Fingerstick) 63 mg/dL (70-99) 102 mg/dL (70-99) 139 mg/dL (70-99) Hemoglobin 8.6 g/dL (12.0-15.5) Laboratory Tests Test 08/07/17 17:55 08/07/17 20:51 08/07/17 21:23 08/08/17 00:00 Urine Collection Type Unknown Urine Color Yellow Urine Clarity Cloudy Urine pH 7.5 Urine Specific [place] 1.010 Urine Protein 100 mg/dL (NEG-TRACE) Urine Glucose (UA) 250 mg/dL (NEG) Urine Ketones (Stick) Negative mg/dL (NEG) Urine Blood Moderate (NEG) Urine Nitrite Negative (NEG) Urine Bilirubin Negative (NEG) Urine Urobilinogen Dipstick 0.2 mg/dL (0.2 mg/dL) Urine Leukocyte Esterase Negative (NEG) Urine RBC 1-2 /HPF (0-2) Urine WBC 1-4 /HPF (0-4) Urine Squamous Epithelial Cells Many /LPF Urine Bacteria Few /HPF (0-FEW) Urine Yeast Present /HPF Glucose (Fingerstick) 69 mg/dL (70-99) 82 mg/dL (70-99) Nasal Screen MRSA (PCR) Negative (Negative) Test 08/08/17 03:00 08/08/17 08:59 08/08/17 09:59 08/08/17 12:06 White Blood Count 7.6 x10^3/uL (4.0-11.0) Red Blood Count 2.11 x10^6/uL (3.50-5.40) Hemoglobin 6.5 g/dL (12.0-15.5) Hematocrit 19.4 % (36.0-47.0) Mean Corpuscular Volume 92 fL (79-100) Mean Corpuscular Hemoglobin 31 pg (25-35) Mean Corpuscular Hemoglobin Concent 33 g/dL (31-37) Red Cell Distribution Width 16.0 % (11.5-14.5) Platelet Count 165 x10^3/uL (140-400) Neutrophils (%) (Auto) 68 % (31-73) Lymphocytes (%) (Auto) 20 % (24-48) Monocytes (%) (Auto) 9 % (0-9) Eosinophils (%) (Auto) 3 % (0-3) Basophils (%) (Auto) 1 % (0-3) Neutrophils # (Auto) 5.1 x10^3uL (1.8-7.7) Lymphocytes # (Auto) 1.5 x10^3/uL (1.0-4.8) Monocytes # (Auto) 0.7 x10^3/uL (0.0-1.1) Eosinophils # (Auto) 0.2 x10^3/uL (0.0-0.7) Basophils # (Auto) 0.0 x10^3/uL (0.0-0.2) Sodium Level 141 mmol/L (136-145) Potassium Level 4.4 mmol/L (3.5-5.1) Chloride Level 109 mmol/L (98-107) Carbon Dioxide Level 19 mmol/L (21-32) Anion Gap 13 (6-14) Blood Urea Nitrogen 25 mg/dL (7-20) Creatinine 3.8 mg/dL (0.6-1.0) Estimated GFR (Cockcroft-Gault) 11.5 BUN/Creatinine Ratio 7 (6-20) Glucose Level 96 mg/dL (70-99) Calcium Level 7.9 mg/dL (8.5-10.1) Total Bilirubin 0.2 mg/dL (0.2-1.0) Aspartate Amino Transf (AST/SGOT) 20 U/L (15-37) Alanine Aminotransferase (ALT/SGPT) 14 U/L (14-59) Alkaline Phosphatase 86 U/L (46-116) Total Protein 6.1 g/dL (6.4-8.2) Albumin 2.0 g/dL (3.4-5.0) Albumin/Globulin Ratio 0.5 (1.0-1.7) Random Vancomycin Level 27.1 mcg/mL Glucose (Fingerstick) 63 mg/dL (70-99) 102 mg/dL (70-99) 139 mg/dL (70-99) Test 08/08/17 14:30 Hemoglobin 8.6 g/dL (12.0-15.5) Medications Current Medications Lorazepam (Ativan) 0.5 mg 1X ONCE IV Last administered on 08/07/17 14:47; Start 08/07/17 at 14:45; Stop 08/07/17 at 14:46; Status DC Sodium Chloride 500 ml @ 500 mls/hr 1X ONCE IV Last administered on 15:27; Start 08/07/17 at 15:15; Stop 08/07/17 at 16:14; Status DC Vancomycin HCl 1.25 gm/Sodium Chloride 250 ml @ 166.667 mls/hr 1X ONCE IV Last administered on 08/07/17 16:33; Start 08/07/17 at 16:45; Stop 08/07/17 at 18:14; Status DC Ondansetron HCl (Zofran) 4 mg PRN Q8HRS PRN IV NAUSEA/VOMITING; Start at 19:00; Stop 08/08/17 at 18:59 Diltiazem HCl (Cardizem 24hr Cd) 180 mg DAILY PO Last administered on 10:01; Start 08/08/17 at 09:00 Pentoxifylline (TRENtal) 400 mg DAILY PO Last administered on 08/08/17 10:01 ; Start 08/08/17 at 09:00 Glipizide (Glucotrol) 10 mg BIDBFRMEAL PO ; Start 08/08/17 at 07:30 Hydroxyzine Pamoate (Vistaril) 25 mg QHS PO Last administered on 08/07/17 20: 46; Start 08/07/17 at 21:00 Atorvastatin Calcium (Lipitor) 80 mg QHS PO Last administered on 08/07/17 20: 46; Start 08/07/17 at 21:00 Insulin Aspart (NovoLOG) 0-5 UNITS TIDWMEALS SQ ; Start 08/08/17 at 08:00 Dextrose (Dextrose 50%-Water Syringe) 12.5 gm PRN Q15MIN PRN IV SEE COMMENTS; Start 08/07/17 at 19:30 Cyclobenzaprine HCl (Flexeril) 5 mg PRN Q8MIN PRN PO MUSCLE SPASMS Last administered on 08/07/17 20:46; Start 08/07/17 at 20:00; Stop 08/08/17 at 02 :56; Status DC Lidocaine (Lidoderm) 1 patch DAILY TD ; Start 08/08/17 at 09:00; Stop at 09:00; Status DC Lidocaine (Lidoderm) 1 patch DAILY TD Last administered on 08/07/17 20:46; Start 08/07/17 at 21:00 Cyclobenzaprine HCl (Flexeril) 5 mg PRN Q8HRS PRN PO MUSCLE SPASMS; Start at 03:00 Magnesium Sulfate/ Dextrose 50 ml @ 25 mls/hr PRN DAILY PRN IV for Mag < 1.7 on am labs; Start 08/08/17 at 12:00 Darbepoetin Keegan (Aranesp) 60 mcg WEEKLYHS SQ ; Start 08/08/17 at 21:00 Active Scripts Active Cardizem Cd (Diltiazem Hcl) 180 Mg Cap.er.24h 1 Cap PO DAILY Lasix (Furosemide) 20 Mg Tablet 1 Tab PO DAILY Reported Lantus Solostar (Insulin Glargine,Hum.rec.anlog) 100 Unit/1 Ml Insuln.pen 15 Unit SQ DAILYWBKFT Pentoxifylline 400 Mg Tablet.er 400 Mg PO DAILY Hydroxyzine Hcl 25 Mg Tablet 1 Tab PO HS Crestor (Rosuvastatin Calcium) 20 Mg Tablet 1 Tab PO DAILY Glipizide 10 Mg Tablet 1 Tab PO BID Vitals/I & O Vital Sign - Last 24 Hours 08/07/17 08/07/17 08/07/17 08/07/17 16:43 17:13 17:43 18:13 Pulse 76 76 78 70 Resp 27 22 28 26 B/P (MAP) 135/62 (86) 139/64 (89) 122/66 (84) 128/62 (84) Pulse Ox 96 93 97 93 O2 Delivery Room Air Room Air Room Air Room Air 08/07/17 08/07/17 08/07/17 08/07/17 18:43 19:00 19:00 19:30 Temp 99.8 99.8 Pulse 76 76 74 Resp 26 14 14 B/P (MAP) 139/78 (98) 119/56 (77) 126/70 (88) Pulse Ox 96 92 94 O2 Delivery Room Air Room Air Room Air Room Air 08/07/17 08/07/17 08/07/17 08/07/17 20:00 21:00 22:00 22:10 Pulse 76 72 72 Resp 14 14 14 B/P (MAP) 131/65 (87) 101/77 (85) 100/73 (82) Pulse Ox 94 90 83 95 O2 Delivery Room Air Room Air Room Air Nasal Cannula O2 Flow Rate 2.0 08/07/17 08/07/17 08/08/17 08/08/17 23:00 23:50 00:00 01:00 Temp 99.0 99.0 Pulse 79 76 74 Resp 12 14 14 B/P (MAP) 151/74 (99) 134/65 (88) 132/61 (84) Pulse Ox 99 98 98 O2 Delivery Nasal Cannula Room Air Nasal Cannula Nasal Cannula O2 Flow Rate 2.0 2.0 2.0 08/08/17 08/08/17 08/08/17 08/08/17 02:00 03:01 03:50 04:00 Temp 99.8 99.8 Pulse 78 74 78 Resp 14 14 16 B/P (MAP) 141/68 (92) 133/68 (89) 146/64 (91) Pulse Ox 92 100 100 O2 Delivery Nasal Cannula Nasal Cannula Room Air Nasal Cannula O2 Flow Rate 2.0 2.0 2.0 08/08/17 08/08/17 08/08/17 08/08/17 05:00 06:00 07:00 08:00 Pulse 80 84 78 Resp 16 16 B/P (MAP) 131/63 (85) 131/62 (85) 138/60 (86) Pulse Ox 100 100 100 O2 Delivery Nasal Cannula Nasal Cannula Nasal Cannula Nasal Cannula O2 Flow Rate 2.0 2.0 2.0 2.0 08/08/17 08/08/17 08/08/17 08/08/17 08:00 09:00 10:01 10:45 Temp 100.6 99.1 100.6 99.1 Pulse 80 82 85 79 Resp 23 B/P (MAP) 141/67 (91) 126/69 (88) 140/68 140/68 Pulse Ox 97 98 O2 Delivery Nasal Cannula Nasal Cannula O2 Flow Rate 2.0 2.0 08/08/17 08/08/17 08/08/17 08/08/17 11:00 12:00 13:30 15:11 Temp 99.5 97.9 99.5 97.9 Pulse 79 77 82 Resp 19 B/P (MAP) 149/67 (94) 135/57 (83) 142/55 (84) Pulse Ox 97 99 97 O2 Delivery Nasal Cannula Nasal Cannula Nasal Cannula Room Air O2 Flow Rate 2.0 2.0 2.0 Intake and Output 08/07/17 08/07/17 08/08/17 15:00 23:00 07:00 Intake Total 850 ml Output Total 375 ml 425 ml Balance 475 ml -425 ml TONI MERRILL MD Aug 08, 2017 16:27
[2017-08-08] MEDS ORDERED: DARBEPOETIN ALFA 60 MCG/0.3 ML DISP.SYRIN. SQ SCH (21:00)
[2017-08-08] MEDS: LIDOCAINE (700MG/PATCH) PATCH. TD SCH (21:33)
[2017-08-08] MEDS: hydrOXYzine PAMOATE 25 MG CAPSULE PO SCH (21:34)
[2017-08-08] MEDS: ATORVASTATIN CALCIUM 40 MG TABLET. PO SCH (21:34)
[2017-08-09] VITALS (7 sets, daily range): BP systolic 114–152; BP diastolic 61–86
--- NOTE | 2017-08-09 04:04 | CONS ---
DATE OF CONSULTATION: 08/07/2017 REFERRING PHYSICIAN: Dr. Gupta REASON FOR CONSULTATION: Fever in a hemodialysis patient. HISTORY OF PRESENT ILLNESS: This patient is a 77-year-old Laotian Tyson speaking female with a past medical history of chronic kidney disease stage 4. She was hospitalized at [facility] last month where she was started on dialysis after developing pulmonary edema. Blood cultures on 07/18/2017 and 07/22/2017 were negative. According to her law since discharge, the patient has had several episodes of fever, chills and moments of not quite acting herself. She and her family understood these symptoms are typical of persons new to dialysis. Two days ago apparently her dialysis catheter malfunctioned and was replaced on 08/06/2017. The following day during dialysis run, she developed fevers, chills and altered mental status changes. On arrival to the ER, she had a temperature of 100.6 with a normal white blood cell count and hemoglobin of 6.4. She was transfused with 1 unit of packed RBCs. A CT of the head was unremarkable. Chest x-ray showed minimal interstitial edema without focal airspace disease, pneumothorax or pleural effusion. Blood cultures were obtained. She received one-time dose of vancomycin. In an attempt to communicate with the patient the regional trainer line was somewhat difficult as she has hearing impairment apparent. She is currently eating a snack and following a nonverbal cues appropriately. PAST MEDICAL HISTORY: ESBL. Chronic kidney disease, on hemodialysis; congestive heart failure, diabetes mellitus type 2, hypertension, anemia, non-ST elevation NV, atrial fibrillation, and GI bleed. PAST SURGICAL HISTORY: Right IJ tunneled hemodialysis catheter replacement 08/06/2017. Partial hysterectomy. SOCIAL HISTORY: The patient lives at home. She has been hospitalized four times within the last 2 months. ALLERGIES: No known drug allergies. MEDICATIONS: One time dose of vancomycin 08/07/2017. Other medications are available and have been reviewed on the MAR. REVIEW OF SYSTEMS: The patient's [id number] is assisting with interpreting. The patient denies headaches or dizziness. She had an episode of confusion a couple nights ago where she saw children running around and that were not there. Denies chest congestion, cough, shortness of air or wheezing. Denies chest pain, palpitations or swelling. Denies nausea, vomiting or diarrhea. She makes small amounts of urine. She complains of some dysuria at times. Denies muscle aches or joint pains. Denies rash. Overall, is feeling better. She would like to get out of bed on her own without the bed alarm going off. PHYSICAL EXAMINATION: GENERAL: Laotian female, propped up in bed and conversing with her [id number] and grandchildren in no apparent distress. VITAL SIGNS: Temperature is 97.9. T max 100.6, blood pressure 142/55, heart rate 82, respiratory rate 19, pulse oximetry 97% on room air. Weight is 101 pounds, BMI 19. HEENT: Normal conjunctivae. Oral mucosa is pink and moist, edentulous. NECK: Supple. LUNGS: Fine crackles, right lower lobe. Breathing unlabored. HEART: Normal S1, S2. ABDOMEN: Nondistended. Bowel sounds active. Soft, nontender. EXTREMITIES: No gross edema or cyanosis. SKIN: Without rash. Warm to touch. NEUROLOGIC: Alert, responding to questions appropriately and following commands via family. LINES: Right-sided tunneled [facility] (08/06/2017). Clean. LABORATORY DATA: Today's WBC 7.6, hemoglobin 8.6 from 6.5, platelet count 165,000. Creatinine is 3.8, BUN 25, sodium 141, potassium 4.4, glucose 96, total bilirubin 0.2, AST 20, ALT 14, albumin 2.0, ammonia 10, creatinine kinase 113. Random vancomycin trough 27.1. Urinalysis unremarkable for infection. Positive yeast. MRSA screen negative. Influenza screen negative. IMAGING: Per HPI. IMPRESSION: 1. Fever. 2. Yeast in urine. 3. Malfunction hemodialysis catheter, status post replacement on 08/06/2017. 4. Chronic kidney disease on hemodialysis. 5. Anemia, status post blood transfusion. 6. Congestive heart failure. 7. Diabetes. PLAN: The patient received a one-time dose of vancomycin on the , so far. Blood cultures are pending. An attempt to contact her son, Mack was unsuccessful. The above information obtained through her [id number], medical record and staff. We will continue to follow. Thank you, Dr. Gupta for asking us to participate in this patient's care. Should you have further questions or concerns please call. LUZ ROSAS MD DR: [email or web address]/ayde JOB#: [id number] / [id number] EDUARDO
[2017-08-09 04:52] LABS: CALCIUM 8.3 mg/dL (8.5-10.1); CREATININE 4.9 mg/dL (0.6-1.0); GFR 8.6; PHOSPHORUS 5.4 mg/dL (2.6-4.7); POTASSIUM 4.8 mmol/L (3.5-5.1)
[2017-08-09] MEDS: PENTOXIFYLLINE ER 400 MG TABLET.ER. PO SCH (08:51)
[2017-08-09] MEDS: glipiZIDE 5 MG TABLET PO SCH ×2 (08:51→20:12)
[2017-08-09] MEDS: LIDOCAINE (700MG/PATCH) PATCH. TD SCH (08:52)
[2017-08-09] MEDS: INSULIN ASPART 300 UNITS/3 ML INSULN.PEN SQ SCH ×3 (08:58→17:00)
[2017-08-09] MEDS ORDERED: VANCOMYCIN PER PHARMACY MC PRN (11:00)
--- NOTE | 2017-08-09 11:20 | PDOC ---
SUBJECTIVE ROS ESRD Doing same unable to get ROS OBJECTIVE Vital Signs Vital Signs Date Time Temp Pulse Resp B/P (MAP) Pulse Ox O2 Delivery O2 Flow Rate FiO2 08/09/17 08:51 80 126/62 08/09/17 07:00 100.9 18 92 Room Air 100.9 08/08/17 13:30 2.0 I & 0 Intake and Output 08/09/17 07:00 Intake Total 910 ml Output Total 500 ml Balance 410 ml Intake Oral 560 ml Blood Product IV Normal Saline Flush 350 ml Output Urine Total 500 ml # Voids 2 # Bowel Movements 1 PHYSICAL EXAM Physical Exam General Appearance: Awake: Alert Oriented x ? Neck: No JVD or JVP Chest: CTA Carmelo Heart: S1 S2 Abdomen - Soft NTND Extremities - No Edema DIAGNOSIS/ASSESSMENT Assessment & Plan ESRD: Dialysis as below F 180 NR 3.0 Hrs 3 K 2.5 Ca 140 Na 40 HC03 Qb 350 + Qd 500+ Heparin 0 Units Uf 2-3 Kgs or to dry weight as tolerated May give 25-50 gms of 25% Albumin if needed to maintain Hemodynamic stability Treatment plan reviewed and discussed with stripper cutter machine Problems: COMMENT/RELEVANT DATA Meds Current Medications Medications (Trade) Dose Ordered Sig/Sveta Start Time Stop Time Status Last Admin Dose Admin Atorvastatin Calcium (Lipitor) 80 mg QHS 08/07/17 21:00 08/08/17 21:34 80 MG Calcium Carbonate/ Glycine (Oscal) 500 mg BID 08/09/17 12:00 Cefepime HCl (Maxipime) 1 gm DAILY 08/09/17 11:00 Cefepime HCl 1 gm/ Dextrose 50 ml @ 100 mls/hr DAILY 08/10/17 09:00 UNV Cyclobenzaprine HCl (Flexeril) 5 mg PRN Q8HRS PRN 08/08/17 03:00 Darbepoetin Keegan (Aranesp) 60 mcg WEEKLYHS 08/08/17 21:00 08/08/17 21:34 60 MCG Dextrose (Dextrose 50%-Water Syringe) 12.5 gm PRN Q15MIN PRN 08/07/17 19:30 Diltiazem HCl (Cardizem 24hr Cd) 180 mg DAILY 08/08/17 09:00 08/09/17 08:51 180 MG Glipizide (Glucotrol) 10 mg BIDBFRMEAL 08/08/17 07:30 08/09/17 08:51 10 MG Hydroxyzine Pamoate (Vistaril) 25 mg QHS 08/07/17 21:00 08/08/17 21:34 25 MG Insulin Aspart (NovoLOG) 0-5 UNITS TIDWMEALS 08/08/17 08:00 08/09/17 08:58 2 UNITS Lidocaine (Lidoderm) 1 patch DAILY 08/07/17 21:00 08/09/17 08:52 1 PATCH Lorazepam (Ativan) 0.5 mg 1X ONCE 08/07/17 14:45 08/07/17 14:46 DC 08/07/17 14:47 0.5 MG Magnesium Sulfate/ Dextrose 50 ml @ 25 mls/hr PRN DAILY PRN 08/08/17 12:00 Ondansetron HCl (Zofran) 4 mg PRN Q8HRS PRN 08/07/17 19:00 08/08/17 18:59 DC Pentoxifylline (TRENtal) 400 mg DAILY 08/08/17 09:00 08/09/17 08:51 400 MG Sodium Chloride 500 ml @ 500 mls/hr 1X ONCE 08/07/17 15:15 08/07/17 16:14 DC 08/07/17 15:27 500 MLS/HR Vancomycin HCl (Vanco Per Pharmacy) 1 each PRN DAILY PRN 08/09/17 11:00 Vancomycin HCl 1.25 gm/Sodium Chloride 250 ml @ 166.667 mls/hr 1X ONCE 08/07/17 16:45 08/07/17 18:14 DC 08/07/17 16:33 166.667 MLS/HR Vancomycin HCl 750 mg/Dextrose 250 ml @ 250 mls/hr 1X ONCE 08/09/17 16:00 08/09/17 16:59 Cancel Vitamin D (Vitamin D3) 5,000 unit DAILY 08/09/17 12:00 Lab Laboratory Tests Test 08/08/17 12:06 08/08/17 14:30 08/08/17 16:38 08/08/17 20:52 Glucose (Fingerstick) 139 mg/dL (70-99) 365 mg/dL (70-99) 269 mg/dL (70-99) Hemoglobin 8.6 g/dL (12.0-15.5) Test 08/09/17 02:52 08/09/17 04:00 08/09/17 08:05 08/09/17 11:04 Glucose (Fingerstick) 109 mg/dL (70-99) 163 mg/dL (70-99) 144 mg/dL (70-99) Hemoglobin 7.9 g/dL (12.0-15.5) Sodium Level 139 mmol/L (136-145) Potassium Level 4.8 mmol/L (3.5-5.1) Chloride Level 108 mmol/L (98-107) Carbon Dioxide Level 20 mmol/L (21-32) Anion Gap 11 (6-14) Blood Urea Nitrogen 35 mg/dL (7-20) Creatinine 4.9 mg/dL (0.6-1.0) Estimated GFR (Cockcroft-Gault) 8.6 Glucose Level 143 mg/dL (70-99) Calcium Level 8.3 mg/dL (8.5-10.1) Phosphorus Level 5.4 mg/dL (2.6-4.7) Magnesium Level 1.9 mg/dL (1.8-2.4) Albumin 2.0 g/dL (3.4-5.0) Random Vancomycin Level 19.7 mcg/mL RICHI ROSAS MD Aug 09, 2017 11:20
[2017-08-09] MEDS: CHOLECALCIFEROL (VITAMIN D3) 5,000 UNIT CAPSULE PO SCH (12:41)
[2017-08-09] MEDS: CEFEPIME HCL IV Push 1 GM VIAL. IVP SCH (12:41)
[2017-08-09] MEDS: CALCIUM CARBONATE 500 MG TABLET PO SCH ×2 (12:41→20:11)
--- NOTE | 2017-08-09 13:56 | PDOC ---
PROGRESS NOTES Chief Complaint Chief Complaint fever, tachycardia, tachypnea, sepsis, metabolic encephalopathy, acute ESRD anemia of ESRD, severe malnutrition, DM2, on glipizide, weakness and debility, History of Present Illness History of Present Illness NO fevers no leukocytosis Tender to palpation HD cath site - has this been changed? UA clean, CXR ok, neg BC ID on case NO mauritanian no fam at bedside PLAn: CPM Change HD cath? HD per renal Add esr xochilt Vitals Vitals Vital Signs Date Time Temp Pulse Resp B/P (MAP) Pulse Ox O2 Delivery O2 Flow Rate FiO2 08/09/17 08:51 80 126/62 08/09/17 08:00 Room Air 2.0 08/09/17 07:00 100.9 18 92 100.9 Physical Exam General: Alert, Cooperative, No acute distress Heart: Regular rate Lungs: Clear, Other Abdomen: Normal bowel sounds Extremities: No cyanosis, No edema Skin: No rashes Labs LABS Laboratory Tests Test 08/08/17 14:30 08/08/17 16:38 08/08/17 20:52 08/09/17 02:52 Hemoglobin 8.6 g/dL (12.0-15.5) Glucose (Fingerstick) 365 mg/dL (70-99) 269 mg/dL (70-99) 109 mg/dL (70-99) Test 08/09/17 04:00 08/09/17 08:05 08/09/17 11:04 Hemoglobin 7.9 g/dL (12.0-15.5) Sodium Level 139 mmol/L (136-145) Potassium Level 4.8 mmol/L (3.5-5.1) Chloride Level 108 mmol/L (98-107) Carbon Dioxide Level 20 mmol/L (21-32) Anion Gap 11 (6-14) Blood Urea Nitrogen 35 mg/dL (7-20) Creatinine 4.9 mg/dL (0.6-1.0) Estimated GFR (Cockcroft-Gault) 8.6 Glucose Level 143 mg/dL (70-99) Calcium Level 8.3 mg/dL (8.5-10.1) Phosphorus Level 5.4 mg/dL (2.6-4.7) Magnesium Level 1.9 mg/dL (1.8-2.4) Albumin 2.0 g/dL (3.4-5.0) Random Vancomycin Level 19.7 mcg/mL Glucose (Fingerstick) 163 mg/dL (70-99) 144 mg/dL (70-99) Review of Systems Review of Systems minimal mauritanian Assessment and Plan Assessmemt and Plan Problems Medical Problems: (1) Acute febrile illness Status: Acute (2) Urinary tract infection Status: Acute Problems: Comment Review of Relevant I have reviewed the following items diamante (where applicable) has been applied. Labs Laboratory Tests Test 08/07/17 15:53 08/07/17 16:02 08/07/17 16:03 08/07/17 17:55 White Blood Count 10.2 x10^3/uL (4.0-11.0) Red Blood Count 2.12 x10^6/uL (3.50-5.40) Hemoglobin 6.4 g/dL (12.0-15.5) Hematocrit 19.5 % (36.0-47.0) Mean Corpuscular Volume 92 fL (79-100) Mean Corpuscular Hemoglobin 30 pg (25-35) Mean Corpuscular Hemoglobin Concent 33 g/dL (31-37) Red Cell Distribution Width 15.7 % (11.5-14.5) Platelet Count 155 x10^3/uL (140-400) Neutrophils (%) (Auto) 79 % (31-73) Lymphocytes (%) (Auto) 11 % (24-48) Monocytes (%) (Auto) 9 % (0-9) Eosinophils (%) (Auto) 1 % (0-3) Basophils (%) (Auto) 0 % (0-3) Neutrophils # (Auto) 8.1 x10^3uL (1.8-7.7) Lymphocytes # (Auto) 1.1 x10^3/uL (1.0-4.8) Monocytes # (Auto) 0.9 x10^3/uL (0.0-1.1) Eosinophils # (Auto) 0.1 x10^3/uL (0.0-0.7) Basophils # (Auto) 0.0 x10^3/uL (0.0-0.2) Sodium Level 137 mmol/L (136-145) Potassium Level 4.1 mmol/L (3.5-5.1) Chloride Level 106 mmol/L (98-107) Carbon Dioxide Level 22 mmol/L (21-32) Anion Gap 9 (6-14) Blood Urea Nitrogen 17 mg/dL (7-20) Creatinine 2.8 mg/dL (0.6-1.0) Estimated GFR (Cockcroft-Gault) 16.3 BUN/Creatinine Ratio 6 (6-20) Glucose Level 150 mg/dL (70-99) Hemoglobin A1c 7.2 % (4.8-5.6) Lactic Acid Level 1.5 mmol/L (0.4-2.0) Calcium Level 7.4 mg/dL (8.5-10.1) Total Bilirubin 0.2 mg/dL (0.2-1.0) Aspartate Amino Transf (AST/SGOT) 18 U/L (15-37) Alanine Aminotransferase (ALT/SGPT) 16 U/L (14-59) Alkaline Phosphatase 90 U/L (46-116) Ammonia 10 mcmol/L (11-34) Total Protein 6.2 g/dL (6.4-8.2) Albumin 2.1 g/dL (3.4-5.0) Albumin/Globulin Ratio 0.5 (1.0-1.7) Influenza Type A Antigen Negative (NEGATIVE) Influenza Type B Antigen Negative (NEGATIVE) Glucose (Fingerstick) 130 mg/dL (70-99) Urine Collection Type Unknown Urine Color Yellow Urine Clarity Cloudy Urine pH 7.5 Urine Specific [place] 1.010 Urine Protein 100 mg/dL (NEG-TRACE) Urine Glucose (UA) 250 mg/dL (NEG) Urine Ketones (Stick) Negative mg/dL (NEG) Urine Blood Moderate (NEG) Urine Nitrite Negative (NEG) Urine Bilirubin Negative (NEG) Urine Urobilinogen Dipstick 0.2 mg/dL (0.2 mg/dL) Urine Leukocyte Esterase Negative (NEG) Urine RBC 1-2 /HPF (0-2) Urine WBC 1-4 /HPF (0-4) Urine Squamous Epithelial Cells Many /LPF Urine Bacteria Few /HPF (0-FEW) Urine Yeast Present /HPF Test 08/07/17 20:51 08/07/17 21:23 08/08/17 00:00 08/08/17 03:00 Glucose (Fingerstick) 69 mg/dL (70-99) 82 mg/dL (70-99) Nasal Screen MRSA (PCR) Negative (Negative) White Blood Count 7.6 x10^3/uL (4.0-11.0) Red Blood Count 2.11 x10^6/uL (3.50-5.40) Hemoglobin 6.5 g/dL (12.0-15.5) Hematocrit 19.4 % (36.0-47.0) Mean Corpuscular Volume 92 fL (79-100) Mean Corpuscular Hemoglobin 31 pg (25-35) Mean Corpuscular Hemoglobin Concent 33 g/dL (31-37) Red Cell Distribution Width 16.0 % (11.5-14.5) Platelet Count 165 x10^3/uL (140-400) Neutrophils (%) (Auto) 68 % (31-73) Lymphocytes (%) (Auto) 20 % (24-48) Monocytes (%) (Auto) 9 % (0-9) Eosinophils (%) (Auto) 3 % (0-3) Basophils (%) (Auto) 1 % (0-3) Neutrophils # (Auto) 5.1 x10^3uL (1.8-7.7) Lymphocytes # (Auto) 1.5 x10^3/uL (1.0-4.8) Monocytes # (Auto) 0.7 x10^3/uL (0.0-1.1) Eosinophils # (Auto) 0.2 x10^3/uL (0.0-0.7) Basophils # (Auto) 0.0 x10^3/uL (0.0-0.2) Sodium Level 141 mmol/L (136-145) Potassium Level 4.4 mmol/L (3.5-5.1) Chloride Level 109 mmol/L (98-107) Carbon Dioxide Level 19 mmol/L (21-32) Anion Gap 13 (6-14) Blood Urea Nitrogen 25 mg/dL (7-20) Creatinine 3.8 mg/dL (0.6-1.0) Estimated GFR (Cockcroft-Gault) 11.5 BUN/Creatinine Ratio 7 (6-20) Glucose Level 96 mg/dL (70-99) Calcium Level 7.9 mg/dL (8.5-10.1) Total Bilirubin 0.2 mg/dL (0.2-1.0) Aspartate Amino Transf (AST/SGOT) 20 U/L (15-37) Alanine Aminotransferase (ALT/SGPT) 14 U/L (14-59) Alkaline Phosphatase 86 U/L (46-116) Creatine Kinase 113 U/L (26-192) Total Protein 6.1 g/dL (6.4-8.2) Albumin 2.0 g/dL (3.4-5.0) Albumin/Globulin Ratio 0.5 (1.0-1.7) Vitamin B12 Level 382 pg/mL (247-911) 25-Hydroxy Vitamin D Total 9.6 ng/mL (30-100) Thyroid Stimulating Hormone (TSH) 1.276 uIU/mL (0.358-3.74) Random Vancomycin Level 27.1 mcg/mL Test 08/08/17 08:59 08/08/17 09:59 08/08/17 12:06 08/08/17 14:30 Glucose (Fingerstick) 63 mg/dL (70-99) 102 mg/dL (70-99) 139 mg/dL (70-99) Hemoglobin 8.6 g/dL (12.0-15.5) Test 08/08/17 16:38 08/08/17 20:52 08/09/17 02:52 08/09/17 04:00 Glucose (Fingerstick) 365 mg/dL (70-99) 269 mg/dL (70-99) 109 mg/dL (70-99) Hemoglobin 7.9 g/dL (12.0-15.5) Sodium Level 139 mmol/L (136-145) Potassium Level 4.8 mmol/L (3.5-5.1) Chloride Level 108 mmol/L (98-107) Carbon Dioxide Level 20 mmol/L (21-32) Anion Gap 11 (6-14) Blood Urea Nitrogen 35 mg/dL (7-20) Creatinine 4.9 mg/dL (0.6-1.0) Estimated GFR (Cockcroft-Gault) 8.6 Glucose Level 143 mg/dL (70-99) Calcium Level 8.3 mg/dL (8.5-10.1) Phosphorus Level 5.4 mg/dL (2.6-4.7) Magnesium Level 1.9 mg/dL (1.8-2.4) Albumin 2.0 g/dL (3.4-5.0) Random Vancomycin Level 19.7 mcg/mL Test 08/09/17 08:05 08/09/17 11:04 Glucose (Fingerstick) 163 mg/dL (70-99) 144 mg/dL (70-99) Laboratory Tests Test 08/08/17 14:30 08/08/17 16:38 08/08/17 20:52 08/09/17 02:52 Hemoglobin 8.6 g/dL (12.0-15.5) Glucose (Fingerstick) 365 mg/dL (70-99) 269 mg/dL (70-99) 109 mg/dL (70-99) Test 08/09/17 04:00 08/09/17 08:05 08/09/17 11:04 Hemoglobin 7.9 g/dL (12.0-15.5) Sodium Level 139 mmol/L (136-145) Potassium Level 4.8 mmol/L (3.5-5.1) Chloride Level 108 mmol/L (98-107) Carbon Dioxide Level 20 mmol/L (21-32) Anion Gap 11 (6-14) Blood Urea Nitrogen 35 mg/dL (7-20) Creatinine 4.9 mg/dL (0.6-1.0) Estimated GFR (Cockcroft-Gault) 8.6 Glucose Level 143 mg/dL (70-99) Calcium Level 8.3 mg/dL (8.5-10.1) Phosphorus Level 5.4 mg/dL (2.6-4.7) Magnesium Level 1.9 mg/dL (1.8-2.4) Albumin 2.0 g/dL (3.4-5.0) Random Vancomycin Level 19.7 mcg/mL Glucose (Fingerstick) 163 mg/dL (70-99) 144 mg/dL (70-99) Microbiology 08/07/17 Blood Culture - Preliminary, Resulted NO GROWTH AFTER 1 DAY Medications Current Medications Lorazepam (Ativan) 0.5 mg 1X ONCE IV Last administered on 08/07/17 14:47; Start 08/07/17 at 14:45; Stop 08/07/17 at 14:46; Status DC Sodium Chloride 500 ml @ 500 mls/hr 1X ONCE IV Last administered on 15:27; Start 08/07/17 at 15:15; Stop 08/07/17 at 16:14; Status DC Vancomycin HCl 1.25 gm/Sodium Chloride 250 ml @ 166.667 mls/hr 1X ONCE IV Last administered on 08/07/17 16:33; Start 08/07/17 at 16:45; Stop 08/07/17 at 18:14; Status DC Ondansetron HCl (Zofran) 4 mg PRN Q8HRS PRN IV NAUSEA/VOMITING; Start at 19:00; Stop 08/08/17 at 18:59; Status DC Diltiazem HCl (Cardizem 24hr Cd) 180 mg DAILY PO Last administered on 08:51; Start 08/08/17 at 09:00 Pentoxifylline (TRENtal) 400 mg DAILY PO Last administered on 08/09/17 08:51 ; Start 08/08/17 at 09:00 Glipizide (Glucotrol) 10 mg BIDBFRMEAL PO Last administered on 08/09/17 08:51 ; Start 08/08/17 at 07:30 Hydroxyzine Pamoate (Vistaril) 25 mg QHS PO Last administered on 08/08/17 21: 34; Start 08/07/17 at 21:00 Atorvastatin Calcium (Lipitor) 80 mg QHS PO Last administered on 08/08/17 21: 34; Start 08/07/17 at 21:00 Insulin Aspart (NovoLOG) 0-5 UNITS TIDWMEALS SQ Last administered on 08:58; Start 08/08/17 at 08:00 Dextrose (Dextrose 50%-Water Syringe) 12.5 gm PRN Q15MIN PRN IV SEE COMMENTS; Start 08/07/17 at 19:30 Cyclobenzaprine HCl (Flexeril) 5 mg PRN Q8MIN PRN PO MUSCLE SPASMS Last administered on 08/07/17 20:46; Start 08/07/17 at 20:00; Stop 08/08/17 at 02 :56; Status DC Lidocaine (Lidoderm) 1 patch DAILY TD ; Start 08/08/17 at 09:00; Stop at 09:00; Status DC Lidocaine (Lidoderm) 1 patch DAILY TD Last administered on 08/09/17 08:52; Start 08/07/17 at 21:00 Cyclobenzaprine HCl (Flexeril) 5 mg PRN Q8HRS PRN PO MUSCLE SPASMS; Start at 03:00 Magnesium Sulfate/ Dextrose 50 ml @ 25 mls/hr PRN DAILY PRN IV for Mag < 1.7 on am labs; Start 08/08/17 at 12:00 Darbepoetin Keegan (Aranesp) 60 mcg WEEKLYHS SQ Last administered on 08/08/17 21:34; Start 08/08/17 at 21:00 Vancomycin HCl (Vanco Per Pharmacy) 1 each PRN DAILY PRN MC SEE COMMENTS Last administered on 08/09/17 12:12; Start 08/09/17 at 11:00 Cefepime HCl 1 gm/ Dextrose 50 ml @ 100 mls/hr DAILY IV ; Start 08/10/17 at 09 :00; Status UNV Cefepime HCl (Maxipime) 1 gm DAILY IVP Last administered on 08/09/17 12:41; Start 08/09/17 at 11:00 Vancomycin HCl 750 mg/Dextrose 250 ml @ 250 mls/hr 1X ONCE IV ; Start at 16:00; Stop 08/09/17 at 16:59; Status Cancel Vitamin D (Vitamin D3) 5,000 unit DAILY PO Last administered on 08/09/17 12: 41; Start 08/09/17 at 12:00 Calcium Carbonate/ Glycine (Oscal) 500 mg BID PO Last administered on 12:41; Start 08/09/17 at 12:00 Vancomycin HCl 500 mg/Dextrose 100 ml @ 100 mls/hr QMWF IV ; Start 08/09/17 at 16:00 Active Scripts Active Cardizem Cd (Diltiazem Hcl) 180 Mg Cap.er.24h 1 Cap PO DAILY Lasix (Furosemide) 20 Mg Tablet 1 Tab PO DAILY Reported Lantus Solostar (Insulin Glargine,Hum.rec.anlog) 100 Unit/1 Ml Insuln.pen 15 Unit SQ DAILYWBKFT Pentoxifylline 400 Mg Tablet.er 400 Mg PO DAILY Hydroxyzine Hcl 25 Mg Tablet 1 Tab PO HS Crestor (Rosuvastatin Calcium) 20 Mg Tablet 1 Tab PO DAILY Glipizide 10 Mg Tablet 1 Tab PO BID Vitals/I & O Vital Sign - Last 24 Hours 08/08/17 08/08/17 08/08/17 08/09/17 15:11 20:00 20:00 00:00 Temp 97.9 99.3 98.7 97.9 99.3 98.7 Pulse 82 81 81 Resp B/P (MAP) 142/55 (84) 154/68 (96) 152/61 (91) Pulse Ox 97 96 94 O2 Delivery Room Air Room Air Room Air Room Air 08/09/17 08/09/17 08/09/17 08/09/17 04:00 07:00 08:00 08:51 Temp 101.4 100.9 101.4 100.9 Pulse 86 86 80 Resp B/P (MAP) 144/63 (90) 126/76 (93) 126/62 Pulse Ox 94 92 O2 Delivery Room Air Room Air Room Air O2 Flow Rate 2.0 Intake and Output 08/08/17 08/08/17 08/09/17 15:00 23:00 07:00 Intake Total 350 ml 200 ml 360 ml Output Total 150 ml 350 ml Balance 200 ml -150 ml 360 ml MALLORY DAWSON MD Aug 09, 2017 13:56
--- NOTE | 2017-08-09 15:05 | PDOC ---
PROGRESS NOTES Assessment Assessment Metabolic encephalopathy. Confusion during dialysis. Abnormal movements. Hypocalcemia. Fever. ESRD on dialysis. AFib. HTN Hypotension episode. Anemia, Hgb 6.4 g GI bleeding? Vit D deficiency, Vut D 25OH 9.6. RECOMMENDATIONS/PLAN: EEG Maintain electrolytes balance. Treat medical diseases. Vit D and Calcium supplement. OT/PT. HISTORY OF THE PRESENT ILLNESS: 77-y-old [place] origin female patient with above medical diseases had MS changes during dialysis. She also had confusion, muscle spasm like signs, and abnormal movements. She was therefore, hospitalized for further evaluation. Past Medical History end-stage renal disease requiring dialysis, hypertension and A. fib Cardiovascular: CHF, HTN, Hyperlipidemia Pulmonary: No pertinent hx GI: No pertinent hx Heme/Onc: Anemia NOS Hepatobiliary: No pertinent hx Psych: No pertinent hx Rheumatologic: No pertinent hx Infectious disease: No pertinent hx Renal/: Chronic renal insuff Endocrine: Diabetes Past Surgical History Hysterectomy Family History Hypertension Social History Smoke: No ALCOHOL: none Drugs: None ALLERGY: Reviewed. MEDICATIONS: Refer to MAR REVIEW OF SYSTEMS: Constitutional: Mild malnutrition. Head: No traumatic brain or head injury. Skin: No edema, or rash. Ear: No infection. Eyes: No vision loss or color blindness. Nose: No bleeding or purulent discharges. Hearing: Hearing decrease. Neck: No injury. Breast: No history of cancer, masses,or discharges. Cardiac: HTN. Pulmonary: No COPD. GI: No GI ulcer, GI bleeding. Urinary/genital: ESRD on dialysis.. Endocrinologic: No cousin face, craniofacial dysmorphism, polydactyly. Skeletomuscular: No muscular atrophy, deformity. Neurological: see HP. Psychiatric: Denies drug use/abuse. Otherwise, not [id number] review of systems. PHYSICAL EXAMINATION: General appearance is in subacute distress. HEENT: Normocephalic and nontraumatic. Eyes, nose, ears, and throat are unremarkable. Neck is supple. No lymphadenopathy. No bruits are heard over the carotid artery. No crepitus. Cardiovascular: S1, S2, regular rate and rhythm. Pulmonary: Clear to auscultation bilaterally. Abdomen: Bowel sounds are positive. Abdomen is soft, nontender, and nondistended. Extremities: No rash, lesions, or edema. No restriction of range of motion NEUROLOGICAL EXAMINATION: Awake. Unable to communicate. Not speaks Sammarinese. Not sure if she is oriented to time, place and person. PERRL. EOMI. CN: no focal findings. Muscle tone: within normal. Muscle strength: 4+ DTR: 2- Plantar reflex: Neutral response bilaterally Gait: not examined in bed. Sensory exam: no abnormal findings. No cerebellar signs elicited. F-T-N test fine. Objective Objective Vital Signs Date Time Temp Pulse Resp B/P (MAP) Pulse Ox O2 Delivery O2 Flow Rate FiO2 08/09/17 11:00 100.3 85 18 151/86 (107) 96 Room Air 100.3 08/09/17 08:00 2.0 Intake and Output 08/09/17 07:00 Intake Total 910 ml Output Total 500 ml Balance 410 ml Intake Oral 560 ml Blood Product IV Normal Saline Flush 350 ml Output Urine Total 500 ml # Voids 2 # Bowel Movements 1 Vitals Signs Vitals VS - Last 72 Hours, by Label Date Time Temp Pulse Resp B/P (MAP) Pulse Ox O2 Delivery O2 Flow Rate FiO2 08/09/17 11:00 100.3 85 18 151/86 (107) 96 Room Air 100.3 08/09/17 08:51 80 126/62 08/09/17 08:00 Room Air 2.0 08/09/17 07:00 100.9 86 18 126/76 (93) 92 Room Air 100.9 08/09/17 04:00 101.4 86 19 144/63 (90) 94 Room Air 101.4 08/09/17 00:00 98.7 81 19 152/61 (91) 94 Room Air 98.7 08/08/17 20:00 Room Air 08/08/17 20:00 99.3 81 19 154/68 (96) 96 Room Air 99.3 08/08/17 15:11 97.9 82 19 142/55 (84) 97 Room Air 97.9 08/08/17 13:30 Nasal Cannula 2.0 08/08/17 12:00 77 22 135/57 (83) 99 Nasal Cannula 2.0 08/08/17 11:00 99.5 79 23 149/67 (94) 97 Nasal Cannula 2.0 99.5 08/08/17 10:45 99.1 79 23 140/68 99.1 08/08/17 10:01 85 140/68 08/08/17 09:00 82 24 126/69 (88) 98 Nasal Cannula 2.0 08/08/17 08:00 100.6 80 25 141/67 (91) 97 Nasal Cannula 2.0 100.6 08/08/17 08:00 Nasal Cannula 2.0 08/08/17 07:00 78 138/60 (86) 100 Nasal Cannula 2.0 Laboratory Laboratory Laboratory Tests Test 08/08/17 16:38 08/08/17 20:52 08/09/17 02:52 08/09/17 04:00 Glucose (Fingerstick) 365 mg/dL (70-99) 269 mg/dL (70-99) 109 mg/dL (70-99) Hemoglobin 7.9 g/dL (12.0-15.5) Sodium Level 139 mmol/L (136-145) Potassium Level 4.8 mmol/L (3.5-5.1) Chloride Level 108 mmol/L (98-107) Carbon Dioxide Level 20 mmol/L (21-32) Anion Gap 11 (6-14) Blood Urea Nitrogen 35 mg/dL (7-20) Creatinine 4.9 mg/dL (0.6-1.0) Estimated GFR (Cockcroft-Gault) 8.6 Glucose Level 143 mg/dL (70-99) Calcium Level 8.3 mg/dL (8.5-10.1) Phosphorus Level 5.4 mg/dL (2.6-4.7) Magnesium Level 1.9 mg/dL (1.8-2.4) Albumin 2.0 g/dL (3.4-5.0) Random Vancomycin Level 19.7 mcg/mL Test 08/09/17 08:05 08/09/17 11:04 Glucose (Fingerstick) 163 mg/dL (70-99) 144 mg/dL (70-99) Microbiology 08/07/17 Blood Culture - Preliminary, Resulted NO GROWTH AFTER 1 DAY Medication Medications Current Medications Calcium Carbonate/ Glycine (Oscal) 500 mg BID PO Last administered on 12:41; Start 08/09/17 at 12:00 Cefepime HCl (Maxipime) 1 gm DAILY IVP Last administered on 08/09/17 12:41; Start 08/09/17 at 11:00 Cefepime HCl 1 gm/ Dextrose 50 ml @ 100 mls/hr DAILY IV ; Start 08/10/17 at 09 :00; Status UNV Darbepoetin Keegan (Aranesp) 60 mcg WEEKLYHS SQ Last administered on 08/08/17 21:34; Start 08/08/17 at 21:00 Vancomycin HCl (Vanco Per Pharmacy) 1 each PRN DAILY PRN MC SEE COMMENTS Last administered on 08/09/17 12:12; Start 08/09/17 at 11:00 Vancomycin HCl 500 mg/Dextrose 100 ml @ 100 mls/hr QMWF IV ; Start 08/09/17 at 16:00 Vancomycin HCl 750 mg/Dextrose 250 ml @ 250 mls/hr 1X ONCE IV ; Start at 16:00; Stop 08/09/17 at 16:59; Status Cancel Vitamin D (Vitamin D3) 5,000 unit DAILY PO Last administered on 08/09/17 12: 41; Start 08/09/17 at 12:00 Comment Review of Relevant I have reviewed the following items diamante (where applicable) has been applied. MIRLANDE DEXTER MD Aug 09, 2017 15:05
[2017-08-09] MEDS ORDERED: IV NORMAL SALINE 1000ML BAG 1,000 ML IV PRN ×2 (15:31)
[2017-08-09] MEDS ORDERED: diphenhydrAMINE 50 MG/ML VIAL IV PRN ×2 (15:45)
[2017-08-09] MEDS ORDERED: DIALYSIS PATIENT. MC PRN (15:45)
[2017-08-09] MEDS ORDERED: VANCOMYCIN 500 MG in IV DEXTROSE 5% 100 ML IV SCH (16:00)
[2017-08-09] MEDS ORDERED: VANCOMYCIN 750 MG in IV DEXTROSE 5% 250 ML IV ONE (16:00)
--- NOTE | 2017-08-09 18:32 | EEG ---
DATE OF SERVICE: 08/09/2017 EEG NUMBER: [id number]. OBJECTIVE: This is a 77-year-old female patient with history of mental status changes, abnormal movements and seizure-like episodes. EEG was requested to evaluate a seizure activity. METHODS: Twenty electrodes were applied according to the international 10-20 electrode placement system. EKG monitoring, hyperventilation, intermittent photic stimulation, monopolar and bipolar montages are routinely utilized. The record was obtained on a digital system with video monitoring. FINDINGS: 1. Background: The patient was recorded in the awake and drowsy states. No actual sleep state was recorded. The overall background amplitude is 10-30 microvolts. A posterior dominant rhythm of 7-8 Hz is observed. 2. Abnormalities: No specific epileptiform discharge or electrographic seizure is seen. No focal or diffuse slowing. 3. Activation: Hyperventilation was not performed because the patient does not speak Togolese and was unable to follow the commands. Intermittent photic stimulation was performed with photic driving. No specific epileptiform discharge or electrographic seizure induced. IMPRESSION: This EEG is a mildly abnormal study for the awake and drowsy states. No sleep state was recorded. The posterior dominant rhythm of 7-8 Hz is mildly slow for age. No focal, lateralizing, specific epileptiform discharge or electrographic seizure is seen. MIRLANDE DEXTER MD DR: JOCELYN/ayde JOB#: [id number] / [id number] EDUARDO
[2017-08-09] MEDS: hydrOXYzine PAMOATE 25 MG CAPSULE PO SCH (20:12)
[2017-08-09] MEDS: ATORVASTATIN CALCIUM 40 MG TABLET. PO SCH (20:12)
[2017-08-10 03:00] VITALS: BP 133/66
[2017-08-10 05:04] LABS: BASO % 1 % (0-3); EOS % 1 % (0-3); HEMATOCRIT 26.5 % (36.0-47.0); HEMOGLOBIN 8.9 g/dL (12.0-15.5); LYMPH # 1.3 x10^3/uL (1.0-4.8); LYMPH % 18 % (24-48); MEAN CORPUSCULAR HEMOGLOBIN 30 pg (25-35); MEAN CORPUSCULAR HGB CONC 34 g/dL (31-37); MEAN CORPUSCULAR VOLUME 88 fL (79-100); MONO % 11 % (0-9); NEUT % 70 % (31-73); PLATELET COUNT 196 x10^3/uL (140-400); RED BLOOD COUNT 3.02 x10^6/uL (3.50-5.40); RED CELL DISTRIBUTION WIDTH 17.8 % (11.5-14.5); WHITE BLOOD COUNT 7.3 x10^3/uL (4.0-11.0)
[2017-08-10 05:56] LABS: ALBUMIN 2.2 g/dL (3.4-5.0); CALCIUM 8.6 mg/dL (8.5-10.1); CREATININE 2.7 mg/dL (0.6-1.0); MAGNESIUM 1.9 mg/dL (1.8-2.4); POTASSIUM 3.7 mmol/L (3.5-5.1)
[2017-08-10 07:00] VITALS: BP 134/59
[2017-08-10 08:07] VITALS: BP 133/66
[2017-08-10] MEDS: CHOLECALCIFEROL (VITAMIN D3) 5,000 UNIT CAPSULE PO SCH (08:07)
[2017-08-10] MEDS: CALCIUM CARBONATE 500 MG TABLET PO SCH (08:08)
[2017-08-10] MEDS: glipiZIDE 5 MG TABLET PO SCH (08:08)
[2017-08-10] MEDS: PENTOXIFYLLINE ER 400 MG TABLET.ER. PO SCH (08:08)
[2017-08-10] MEDS: CEFEPIME HCL IV Push 1 GM VIAL. IVP SCH (08:09)
[2017-08-10] MEDS: INSULIN ASPART 300 UNITS/3 ML INSULN.PEN SQ SCH (08:22)
[2017-08-10] MEDS: LIDOCAINE (700MG/PATCH) PATCH. TD SCH (08:22)
[2017-08-10] MEDS ORDERED: CEFEPIME HCL 1 GM in IV DEXTROSE 5% 50 ML IV SCH (09:00)
[2017-08-10] MEDS ORDERED: DEXTROSE 50% 25 GM / 50ML DISP.SYRIN. IV PRN (09:30)
--- NOTE | 2017-08-10 10:48 | PDOC ---
Infectious Disease Note Subjective Subjective pt feeling good, as per family, ready to go home ROS ROS GEN: Denies fevers, chills, sweats HEENT: Denies blurred vision, sore throat CV: Denies chest pain RESP: Denies shortness of air, cough GI: Denies n/v/d NEURO: Denies confusion, dizziness MSK: Denies weakness, joint pain/swelling Vital Sign Vital Signs Vital Signs Date Time Temp Pulse Resp B/P (MAP) Pulse Ox O2 Delivery O2 Flow Rate FiO2 08/10/17 08:07 90 133/66 08/10/17 08:00 Room Air 2.0 08/10/17 07:00 99.3 20 97 99.3 Physical Exam PHYSICAL EXAM GENERAL: NAD, Alert HEENT: PERRL, OC/OP NECK: Supple, no JVD, no LN LUNGS: Clear HEART: S1S2, no gallop, no murmur ABD: Soft, NT, no organomegaly, no rebound EXT: No edema, no cyanosis [employer]: Alert, oriented x 3, no focal neurologic deficit SKIN: No rash IV: ok Labs Lab Laboratory Tests Test 08/09/17 11:04 08/09/17 20:43 08/10/17 03:50 08/10/17 07:49 Glucose (Fingerstick) 144 mg/dL (70-99) 207 mg/dL (70-99) 362 mg/dL (70-99) White Blood Count 7.3 x10^3/uL (4.0-11.0) Red Blood Count 3.02 x10^6/uL (3.50-5.40) Hemoglobin 8.9 g/dL (12.0-15.5) Hematocrit 26.5 % (36.0-47.0) Mean Corpuscular Volume 88 fL (79-100) Mean Corpuscular Hemoglobin 30 pg (25-35) Mean Corpuscular Hemoglobin Concent 34 g/dL (31-37) Red Cell Distribution Width 17.8 % (11.5-14.5) Platelet Count 196 x10^3/uL (140-400) Neutrophils (%) (Auto) 70 % (31-73) Lymphocytes (%) (Auto) 18 % (24-48) Monocytes (%) (Auto) 11 % (0-9) Eosinophils (%) (Auto) 1 % (0-3) Basophils (%) (Auto) 1 % (0-3) Neutrophils # (Auto) 5.1 x10^3uL (1.8-7.7) Lymphocytes # (Auto) 1.3 x10^3/uL (1.0-4.8) Monocytes # (Auto) 0.8 x10^3/uL (0.0-1.1) Eosinophils # (Auto) 0.1 x10^3/uL (0.0-0.7) Basophils # (Auto) 0.0 x10^3/uL (0.0-0.2) Erythrocyte Sedimentation Rate 115 (0-25) Sodium Level 139 mmol/L (136-145) Potassium Level 3.7 mmol/L (3.5-5.1) Chloride Level 98 mmol/L (98-107) Carbon Dioxide Level 33 mmol/L (21-32) Anion Gap 8 (6-14) Blood Urea Nitrogen 15 mg/dL (7-20) Creatinine 2.7 mg/dL (0.6-1.0) Estimated GFR (Cockcroft-Gault) 17.0 Glucose Level 348 mg/dL (70-99) Calcium Level 8.6 mg/dL (8.5-10.1) Phosphorus Level 3.0 mg/dL (2.6-4.7) Magnesium Level 1.9 mg/dL (1.8-2.4) Albumin 2.2 g/dL (3.4-5.0) Micro bc neg Objective Assessment Fever Yeast in urine Malfunction HDC s/p replacement, 08/06 CKD/HD Anemia s/p PRBCs CHF Diabetes Plan Plan of Care change antibiotics to po augmentin x 5 days d/c ANKIT Stock MD Aug 10, 2017 10:47
[2017-08-10] MEDS ORDERED: AMOX1TAB58 PO (11:11)
--- NOTE | 2017-08-10 11:15 | PDOC3 ---
Discharge Summary Visit Information Date of Admission: Aug 07, 2017 Date of Discharge: Aug 10, 2017 Admitting Diagnosis Comment: Chief Complaint fever, tachycardia, tachypnea, sepsis, metabolic encephalopathy, acute ESRD anemia of ESRD, severe malnutrition, DM2, on glipizide, weakness and debility, Final Diagnosis Problems Medical Problems: (1) Acute febrile illness Status: Acute (2) Urinary tract infection Status: Acute Brief Hospital Course Allergies Allergies Coded Allergies Type Severity Reaction Last Updated Verified No Known Drug Allergies 05/07/14 No Vital Signs Vital Signs Date Time Temp Pulse Resp B/P (MAP) Pulse Ox O2 Delivery O2 Flow Rate FiO2 08/10/17 08:07 90 133/66 08/10/17 08:00 Room Air 2.0 08/10/17 07:00 99.3 20 97 99.3 Lab Results Laboratory Tests Test 08/08/17 12:06 08/08/17 14:30 08/08/17 16:38 08/08/17 20:52 Glucose (Fingerstick) 139 mg/dL (70-99) 365 mg/dL (70-99) 269 mg/dL (70-99) Hemoglobin 8.6 g/dL (12.0-15.5) Test 08/09/17 02:52 08/09/17 04:00 08/09/17 08:05 08/09/17 11:04 Glucose (Fingerstick) 109 mg/dL (70-99) 163 mg/dL (70-99) 144 mg/dL (70-99) Hemoglobin 7.9 g/dL (12.0-15.5) Sodium Level 139 mmol/L (136-145) Potassium Level 4.8 mmol/L (3.5-5.1) Chloride Level 108 mmol/L (98-107) Carbon Dioxide Level 20 mmol/L (21-32) Anion Gap 11 (6-14) Blood Urea Nitrogen 35 mg/dL (7-20) Creatinine 4.9 mg/dL (0.6-1.0) Estimated GFR (Cockcroft-Gault) 8.6 Glucose Level 143 mg/dL (70-99) Calcium Level 8.3 mg/dL (8.5-10.1) Phosphorus Level 5.4 mg/dL (2.6-4.7) Magnesium Level 1.9 mg/dL (1.8-2.4) Albumin 2.0 g/dL (3.4-5.0) 25-Hydroxy Vitamin D Total 9.5 ng/mL (30-100) Random Vancomycin Level 19.7 mcg/mL Test 08/09/17 20:43 08/10/17 03:50 08/10/17 07:49 Glucose (Fingerstick) 207 mg/dL (70-99) 362 mg/dL (70-99) White Blood Count 7.3 x10^3/uL (4.0-11.0) Red Blood Count 3.02 x10^6/uL (3.50-5.40) Hemoglobin 8.9 g/dL (12.0-15.5) Hematocrit 26.5 % (36.0-47.0) Mean Corpuscular Volume 88 fL (79-100) Mean Corpuscular Hemoglobin 30 pg (25-35) Mean Corpuscular Hemoglobin Concent 34 g/dL (31-37) Red Cell Distribution Width 17.8 % (11.5-14.5) Platelet Count 196 x10^3/uL (140-400) Neutrophils (%) (Auto) 70 % (31-73) Lymphocytes (%) (Auto) 18 % (24-48) Monocytes (%) (Auto) 11 % (0-9) Eosinophils (%) (Auto) 1 % (0-3) Basophils (%) (Auto) 1 % (0-3) Neutrophils # (Auto) 5.1 x10^3uL (1.8-7.7) Lymphocytes # (Auto) 1.3 x10^3/uL (1.0-4.8) Monocytes # (Auto) 0.8 x10^3/uL (0.0-1.1) Eosinophils # (Auto) 0.1 x10^3/uL (0.0-0.7) Basophils # (Auto) 0.0 x10^3/uL (0.0-0.2) Erythrocyte Sedimentation Rate 115 (0-25) Sodium Level 139 mmol/L (136-145) Potassium Level 3.7 mmol/L (3.5-5.1) Chloride Level 98 mmol/L (98-107) Carbon Dioxide Level 33 mmol/L (21-32) Anion Gap 8 (6-14) Blood Urea Nitrogen 15 mg/dL (7-20) Creatinine 2.7 mg/dL (0.6-1.0) Estimated GFR (Cockcroft-Gault) 17.0 Glucose Level 348 mg/dL (70-99) Calcium Level 8.6 mg/dL (8.5-10.1) Phosphorus Level 3.0 mg/dL (2.6-4.7) Magnesium Level 1.9 mg/dL (1.8-2.4) Albumin 2.2 g/dL (3.4-5.0) Laboratory Tests Test 08/09/17 20:43 08/10/17 03:50 08/10/17 07:49 Glucose (Fingerstick) 207 mg/dL (70-99) 362 mg/dL (70-99) White Blood Count 7.3 x10^3/uL (4.0-11.0) Red Blood Count 3.02 x10^6/uL (3.50-5.40) Hemoglobin 8.9 g/dL (12.0-15.5) Hematocrit 26.5 % (36.0-47.0) Mean Corpuscular Volume 88 fL (79-100) Mean Corpuscular Hemoglobin 30 pg (25-35) Mean Corpuscular Hemoglobin Concent 34 g/dL (31-37) Red Cell Distribution Width 17.8 % (11.5-14.5) Platelet Count 196 x10^3/uL (140-400) Neutrophils (%) (Auto) 70 % (31-73) Lymphocytes (%) (Auto) 18 % (24-48) Monocytes (%) (Auto) 11 % (0-9) Eosinophils (%) (Auto) 1 % (0-3) Basophils (%) (Auto) 1 % (0-3) Neutrophils # (Auto) 5.1 x10^3uL (1.8-7.7) Lymphocytes # (Auto) 1.3 x10^3/uL (1.0-4.8) Monocytes # (Auto) 0.8 x10^3/uL (0.0-1.1) Eosinophils # (Auto) 0.1 x10^3/uL (0.0-0.7) Basophils # (Auto) 0.0 x10^3/uL (0.0-0.2) Erythrocyte Sedimentation Rate 115 (0-25) Sodium Level 139 mmol/L (136-145) Potassium Level 3.7 mmol/L (3.5-5.1) Chloride Level 98 mmol/L (98-107) Carbon Dioxide Level 33 mmol/L (21-32) Anion Gap 8 (6-14) Blood Urea Nitrogen 15 mg/dL (7-20) Creatinine 2.7 mg/dL (0.6-1.0) Estimated GFR (Cockcroft-Gault) 17.0 Glucose Level 348 mg/dL (70-99) Calcium Level 8.6 mg/dL (8.5-10.1) Phosphorus Level 3.0 mg/dL (2.6-4.7) Magnesium Level 1.9 mg/dL (1.8-2.4) Albumin 2.2 g/dL (3.4-5.0) Brief Hospital Course Ms. Costa is a 77 old [ female, minimal citizen of [place] lives with son who speaks fluent citizen of [place] admitted for fevers, BC neg, no source, urine and CXR ok, CO managed with ID, With broad spectrum abx fever abated, HD cath on left side changed this admit, To resume reg schedule fo HD, Cleared form ID. PO augmentin x 5 days Dw ,. Cady and son and RN Rx inc alvarado Time 31 mins Discharge Information Condition at Discharge: Improved, Stable Disposition/Orders: D/C to Home Scheduled Diltiazem Hcl (Cardizem Cd), 1 CAP PO DAILY Furosemide (Lasix), 1 TAB PO DAILY Glipizide (Glipizide), 1 TAB PO BID, (Reported) Hydroxyzine Hcl (Hydroxyzine Hcl), 1 TAB PO HS, (Reported) Insulin Glargine,Hum.rec.anlog (Lantus Solostar), 15 UNIT SQ [id number], ( Reported) Pentoxifylline (Pentoxifylline), 400 MG PO DAILY, (Reported) Rosuvastatin Calcium (Crestor), 1 TAB PO DAILY, (Reported) MALLORY DAWSON MD Aug 10, 2017 11:15
[2017-08-10] MEDS ORDERED: AMOXICILLIN/K CLAV 500/125MG TABLET. PO SCH (11:30)
[2017-08-10] MEDS ORDERED: INSULIN ASPART 300 UNITS/3 ML INSULN.PEN SQ SCH ×2 (11:30→12:00)
--- NOTE | 2017-08-10 17:14 | PDOC ---
PROGRESS NOTES Assessment Assessment Metabolic encephalopathy. Confusion during dialysis. Abnormal movements. Hypocalcemia. Fever. ESRD on dialysis. AFib. HTN Hypotension episode. Anemia, Hgb 6.4 g GI bleeding? Vit D deficiency, Vut D 25OH 9.6. RECOMMENDATIONS/PLAN: Maintain electrolytes balance. Treat medical diseases. Vit D and Calcium supplement. Discussed with her sone at bedside. FU with PCP. EEG on 08/09/17: The posterior dominant rhythm of 7-8 Hz/s that is slow for age. HISTORY OF THE PRESENT ILLNESS: 77-y-old [place] origin female patient with above medical diseases had MS changes during dialysis. She also had confusion, muscle spasm like signs, and abnormal movements. She was therefore, hospitalized for further evaluation. Past Medical History end-stage renal disease requiring dialysis, hypertension and A. fib Cardiovascular: CHF, HTN, Hyperlipidemia Pulmonary: No pertinent hx GI: No pertinent hx Heme/Onc: Anemia NOS Hepatobiliary: No pertinent hx Psych: No pertinent hx Rheumatologic: No pertinent hx Infectious disease: No pertinent hx Renal/: Chronic renal insuff Endocrine: Diabetes Past Surgical History Hysterectomy Family History Hypertension Social History Smoke: No ALCOHOL: none Drugs: None ALLERGY: Reviewed. MEDICATIONS: Refer to MAR REVIEW OF SYSTEMS: Constitutional: Mild malnutrition. Head: No traumatic brain or head injury. Skin: No edema, or rash. Ear: No infection. Eyes: No vision loss or color blindness. Nose: No bleeding or purulent discharges. Hearing: Hearing decrease. Neck: No injury. Breast: No history of cancer, masses,or discharges. Cardiac: HTN. Pulmonary: No COPD. GI: No GI ulcer, GI bleeding. Urinary/genital: ESRD on dialysis.. Endocrinologic: No cousin face, craniofacial dysmorphism, polydactyly. Skeletomuscular: No muscular atrophy, deformity. Neurological: see HP. Psychiatric: Denies drug use/abuse. Otherwise, not [id number] review of systems. PHYSICAL EXAMINATION: General appearance is in no acute distress. HEENT: Normocephalic and nontraumatic. Eyes, nose, ears, and throat are unremarkable. Neck is supple. No lymphadenopathy. No bruits are heard over the carotid artery. No crepitus. Cardiovascular: S1, S2, regular rate and rhythm. Pulmonary: Clear to auscultation bilaterally. Abdomen: Bowel sounds are positive. Abdomen is soft, nontender, and nondistended. Extremities: No rash, lesions, or edema. No restriction of range of motion NEUROLOGICAL EXAMINATION: Awake. Unable to communicate. Not speaks [place]ian. Not sure if she is oriented to time, but she knows place and person. PERRL. EOMI. CN: no focal findings. Muscle tone: within normal. Muscle strength: 4+ DTR: 2- Plantar reflex: Neutral response bilaterally Gait: not examined in bed. Sensory exam: no abnormal findings. No cerebellar signs elicited. F-T-N test fine. Objective Objective Vital Signs Date Time Temp Pulse Resp B/P (MAP) Pulse Ox O2 Delivery O2 Flow Rate FiO2 08/10/17 08:07 90 133/66 08/10/17 08:00 Room Air 2.0 08/10/17 07:00 99.3 20 97 99.3 Intake and Output 08/10/17 07:00 Intake Total 780 ml Balance 780 ml Intake Oral 680 ml IV Total 100 ml # Voids 11 Vitals Signs Vitals VS - Last 72 Hours, by Label Date Time Temp Pulse Resp B/P (MAP) Pulse Ox O2 Delivery O2 Flow Rate FiO2 08/10/17 08:07 90 133/66 08/10/17 08:00 Room Air 2.0 08/10/17 07:00 99.3 93 20 134/59 (84) 97 Room Air 99.3 08/10/17 03:00 99.0 90 20 133/66 (88) 92 Room Air 99.0 08/09/17 23:00 98.8 104 20 139/70 (93) 94 Room Air 98.8 08/09/17 20:00 Room Air 08/09/17 19:00 98.8 109 20 114/65 (81) 95 Room Air 98.8 08/09/17 15:00 99.5 79 18 129/63 (85) 92 Room Air 99.5 08/09/17 11:00 100.3 85 18 151/86 (107) 96 Room Air 100.3 08/09/17 08:51 80 126/62 08/09/17 08:00 Room Air 2.0 08/09/17 07:00 100.9 86 18 126/76 (93) 92 Room Air 100.9 Laboratory Laboratory Laboratory Tests Test 08/09/17 20:43 08/10/17 03:50 08/10/17 07:49 Glucose (Fingerstick) 207 mg/dL (70-99) 362 mg/dL (70-99) White Blood Count 7.3 x10^3/uL (4.0-11.0) Red Blood Count 3.02 x10^6/uL (3.50-5.40) Hemoglobin 8.9 g/dL (12.0-15.5) Hematocrit 26.5 % (36.0-47.0) Mean Corpuscular Volume 88 fL (79-100) Mean Corpuscular Hemoglobin 30 pg (25-35) Mean Corpuscular Hemoglobin Concent 34 g/dL (31-37) Red Cell Distribution Width 17.8 % (11.5-14.5) Platelet Count 196 x10^3/uL (140-400) Neutrophils (%) (Auto) 70 % (31-73) Lymphocytes (%) (Auto) 18 % (24-48) Monocytes (%) (Auto) 11 % (0-9) Eosinophils (%) (Auto) 1 % (0-3) Basophils (%) (Auto) 1 % (0-3) Neutrophils # (Auto) 5.1 x10^3uL (1.8-7.7) Lymphocytes # (Auto) 1.3 x10^3/uL (1.0-4.8) Monocytes # (Auto) 0.8 x10^3/uL (0.0-1.1) Eosinophils # (Auto) 0.1 x10^3/uL (0.0-0.7) Basophils # (Auto) 0.0 x10^3/uL (0.0-0.2) Erythrocyte Sedimentation Rate 115 (0-25) Sodium Level 139 mmol/L (136-145) Potassium Level 3.7 mmol/L (3.5-5.1) Chloride Level 98 mmol/L (98-107) Carbon Dioxide Level 33 mmol/L (21-32) Anion Gap 8 (6-14) Blood Urea Nitrogen 15 mg/dL (7-20) Creatinine 2.7 mg/dL (0.6-1.0) Estimated GFR (Cockcroft-Gault) 17.0 Glucose Level 348 mg/dL (70-99) Calcium Level 8.6 mg/dL (8.5-10.1) Phosphorus Level 3.0 mg/dL (2.6-4.7) Magnesium Level 1.9 mg/dL (1.8-2.4) Albumin 2.2 g/dL (3.4-5.0) Microbiology 08/07/17 Blood Culture - Preliminary, Resulted NO GROWTH AFTER 2 DAYS Medication Medications Current Medications Amoxicillin/ Clavulanate Potassium (Augmentin 500/ 125mg) 1 tab BID PO ; Start 08/10/17 at 11:30; Stop 08/10/17 at 12:11; Status DC Cefepime HCl 1 gm/ Dextrose 50 ml @ 100 mls/hr DAILY IV ; Start 08/10/17 at 09 :00; Status UNV Dextrose (Dextrose 50%-Water Syringe) 12.5 gm PRN Q15MIN PRN IV SEE COMMENTS; Start 08/10/17 at 09:30; Stop 08/10/17 at 12:11; Status DC Insulin Aspart (NovoLOG) 0-9 UNITS TIDWMEALS SQ ; Start 08/10/17 at 12:00; Stop 08/10/17 at 12:11; Status DC Insulin Aspart (NovoLOG) 5 units TIDAC SQ ; Start 08/10/17 at 11:30; Stop at 12:11; Status DC Insulin Detemir (Levemir) 15 units QHS SQ ; Start 08/10/17 at 21:00; Stop at 21:00; Status DC Comment Review of Relevant I have reviewed the following items diamante (where applicable) has been applied. MIRLANDE DEXTER MD Aug 10, 2017 17:14
[2017-08-10] MEDS ORDERED: INSULIN DETEMIR 300 UNITS/3 ML INSULN.PEN. SQ SCH (21:00)
== END 2017-08-10 12:10 | disposition home or self-care (01) | DRG 871 ==
LOC: ER 14:38 → 1 WEST ICU 17:59 → 5 NORTH 08-08 13:01
PROVIDERS: ADMIT Internal Medicine; ATTEND Internal Medicine
PROC: 30233N1 Transfusion of Nonautologous Red Blood Cells into Peripheral Vein, Percutaneous Approach (ICD-10-PCS; 2017-08-08)
PROC: 5A1D70Z Performance of Urinary Filtration, Intermittent, Less than 6 Hours Per Day (ICD-10-PCS; principal; 2017-08-09)
DX: A41.9 Sepsis, unspecified organism (principal); E43 Unspecified severe protein-calorie malnutrition; G93.41 Metabolic encephalopathy; I13.2 Hypertensive heart and chronic kidney disease with heart failure and with stage 5 chronic kidney disease, or end stage renal disease; I95.9 Hypotension, unspecified; E11.22 Type 2 diabetes mellitus with diabetic chronic kidney disease; I48.91 Unspecified atrial fibrillation; I50.9 Heart failure, unspecified; N18.6 End stage renal disease; N39.0 Urinary tract infection, site not specified; Z68.1 Body mass index [BMI] 19.9 or less, adult; M62.838 Other muscle spasm; E55.9 Vitamin D deficiency, unspecified; D63.1 Anemia in chronic kidney disease; R41.0 Disorientation, unspecified; E78.5 Hyperlipidemia, unspecified; Z82.49 Family history of ischemic heart disease and other diseases of the circulatory system; Z99.2 Dependence on renal dialysis; I25.2 Old myocardial infarction; Z90.711 Acquired absence of uterus with remaining cervical stump
CPT/HCPCS: 36415; 70450; 71010; 80053; 80069; 80202; 81001; 82140; 82306; 82550; 82607; 82962; 83036; 83605; 83735; 84443; 85018; 85025; 85651; 86850; 86900; 86901; 86920; 87040; 87641; 87804; 93005; 95816; 96361; 96365; 96366; 96375; J0692; J0881; J1815; J2060; J3370; J7040; J7050; P9016; Q0177; 97530; 97535; 99285-25; J7030

== ENCOUNTER 2017-08-14 10:40 | Emergency (ER) | payer OTHER, MEDICARE ==
[~2017-08-14] VITALS: Ht 152.4 cm; Wt 44.0 kg
[~2017-08-14 10:40] MED LIST changes: +AMOX1TAB58 PO
--- NOTE | 2017-08-14 11:11 | PHYS DOC ---
Past Medical History Past Medical History: A-Fib, Diabetes-Type II, Hypertension, Renal Failure Past Surgical History: Hysterectomy, Other Additional Past Surgical Histo: catheter placed in rt chest Alcohol Use: None Drug Use: None Adult General Chief Complaint Chief Complaint: DIALYSIS PROBLEM HPI HPI Patient is a 77 year old female who presents with complaint of problems with her dialysis catheter. Patient is accompanied by her son who helps provide history. The patient was recently diagnosed with end-stage renal disease and has been on hemodialysis for approximately 1 month. Patient has a right subclavian catheter in place which has already required replacement due to the previous catheter clotting. Patient underwent dialysis yesterday, however the patient was told that there was concern her catheter might be clotting again as it was not working properly. The patient currently has no other complaints and is not experiencing any somatic symptoms at this time. The patient's son brought the patient to the emergency department for evaluation and guidance as to resolution of any trouble with her catheter. Review of Systems Review of Systems Constitutional: Denies fever or chills [] Eyes: Denies change in visual acuity, redness, or eye pain [] HENT: Denies nasal congestion or sore throat [] Respiratory: Denies cough or shortness of breath [] Cardiovascular: Denies chest pain or edema[] GI: Denies abdominal pain, nausea, vomiting, bloody stools or diarrhea [] : Denies dysuria or hematuria [] Musculoskeletal: Denies back pain or joint pain [] Integument: Denies rash or skin lesions [] Neurologic: Denies headache, focal weakness or sensory changes [] All other systems were reviewed and found to be within normal limits, except as documented in this note. Allergies Allergies Allergies Coded Allergies Type Severity Reaction Last Updated Verified No Known Drug Allergies 05/07/14 No Physical Exam Physical Exam Constitutional: Alert, afebrile, no acute distress. [] HENT: Normocephalic, atraumatic, bilateral external ears normal, oropharynx moist, no oral exudates, nose normal. [] Eyes: PERRLA, EOMI, conjunctiva normal, no discharge. [] Neck: Normal range of motion, no tenderness, supple, no stridor. [] Cardiovascular:Heart rate regular rhythm, no murmur [] Lungs & Thorax: Right subclavian catheter, breath sounds clear to auscultation bilaterally [] Abdomen: Bowel sounds normal, soft, no tenderness, no masses, no pulsatile masses. [] Skin: Warm, dry, no erythema, no rash. [] Back: No tenderness, no CVA tenderness. [] Extremities: No tenderness, no cyanosis, no clubbing, ROM intact, no edema. [] Neurologic: Alert and oriented X 3, normal motor function, normal sensory function, no focal deficits noted. [] Current Patient Data Vital Signs Vital Signs Date Time Temp Pulse Resp B/P (MAP) Pulse Ox O2 Delivery O2 Flow Rate FiO2 08/14/17 11:54 76 20 146/63 (90) 94 08/14/17 10:57 98.2 Room Air 98.2 Lab Values Laboratory Tests Test 08/14/17 11:30 White Blood Count 9.1 x10^3/uL (4.0-11.0) Red Blood Count 2.63 x10^6/uL (3.50-5.40) L Hemoglobin 7.7 g/dL (12.0-15.5) L Hematocrit 24.2 % (36.0-47.0) L Mean Corpuscular Volume 92 fL (79-100) Mean Corpuscular Hemoglobin 29 pg (25-35) Mean Corpuscular Hemoglobin Concent 32 g/dL (31-37) Red Cell Distribution Width 18.6 % (11.5-14.5) H Platelet Count 147 x10^3/uL (140-400) Neutrophils (%) (Auto) 64 % (31-73) Lymphocytes (%) (Auto) 21 % (24-48) L Monocytes (%) (Auto) 12 % (0-9) H Eosinophils (%) (Auto) 3 % (0-3) Basophils (%) (Auto) 1 % (0-3) Neutrophils # (Auto) 5.8 x10^3uL (1.8-7.7) Lymphocytes # (Auto) 1.9 x10^3/uL (1.0-4.8) Monocytes # (Auto) 1.1 x10^3/uL (0.0-1.1) Eosinophils # (Auto) 0.2 x10^3/uL (0.0-0.7) Basophils # (Auto) 0.1 x10^3/uL (0.0-0.2) Sodium Level 132 mmol/L (136-145) L Potassium Level 4.0 mmol/L (3.5-5.1) Chloride Level 98 mmol/L (98-107) Carbon Dioxide Level 23 mmol/L (21-32) Anion Gap 11 (6-14) Blood Urea Nitrogen 31 mg/dL (7-20) H Creatinine 4.9 mg/dL (0.6-1.0) H Estimated GFR (Cockcroft-Gault) 8.6 Glucose Level 468 mg/dL (70-99) H Calcium Level 7.7 mg/dL (8.5-10.1) L Phosphorus Level 5.1 mg/dL (2.6-4.7) H Magnesium Level 2.0 mg/dL (1.8-2.4) Laboratory Tests 08/14/17 11:30 Laboratory Tests 08/14/17 11:30 EKG EKG Rhythm strip interpretation by me: Heart rate 77, sinus rhythm, no ectopy[] Radiology/Procedures Radiology/Procedures Not performed[] Course & Med Decision Making Course & Med Decision Making Pertinent Labs and Imaging studies reviewed. (See chart for details) Patient remained in the emergency department with no remarkable events reported. Patient's vital signs are stable and patient is in no acute distress. After receiving the patient's blood work, I contacted Dr. Novak and spoke with him regarding the patient's numbers and current concerns over the dialysis catheter. After discussion we agreed the patient can safely be discharged with recommended follow-up in 2 days at the patient's dialysis center for reevaluation of the catheter and referral for replacement that day if the catheter is not functioning properly. I did recommend that the patient return to the emergency department if she experiences any worsening symptoms including shortness of breath, worsening swelling, chest pain, or any other worsening symptoms. The patient and patient's son voiced understanding and in agreement with treatment plan. Dragon Disclaimer Dragon Disclaimer This electronic medical record was generated, in whole or in part, using a voice recognition dictation system. Departure Departure Impression: Primary Impression: Complications, dialysis, catheter, mechanical Additional Impression: ESRD (end stage renal disease) Disposition: HOME, SELF-CARE Condition: STABLE Referrals: CHRISTIANNE JACKSON MD (PCP) Patient Instructions: Tunneled Catheter Insertion and Removal Additional Instructions: You will need to go to the dialysis center on 08/16/2017, to have your catheter reevaluated. If your catheter is not functioning, they will schedule you to have the catheter replaced the same day. Return to the emergency department for any worsening symptoms. Problem Qualifiers Primary Impression: Complications, dialysis, catheter, mechanical Encounter type: initial encounter Qualified Codes: T82.49XA - Other complication of vascular dialysis catheter, initial encounter LEE HANNA MD Aug 14, 2017 11:11
[2017-08-14 11:43] LABS: BASO # 0.1 x10^3/uL (0.0-0.2); BASO % 1 % (0-3); EOS % 3 % (0-3); HEMATOCRIT 24.2 % (36.0-47.0); HEMOGLOBIN 7.7 g/dL (12.0-15.5); LYMPH # 1.9 x10^3/uL (1.0-4.8); LYMPH % 21 % (24-48); MEAN CORPUSCULAR HEMOGLOBIN 29 pg (25-35); MEAN CORPUSCULAR HGB CONC 32 g/dL (31-37); MEAN CORPUSCULAR VOLUME 92 fL (79-100); MONO % 12 % (0-9); NEUT % 64 % (31-73); PLATELET COUNT 147 x10^3/uL (140-400); RED BLOOD COUNT 2.63 x10^6/uL (3.50-5.40); RED CELL DISTRIBUTION WIDTH 18.6 % (11.5-14.5); WHITE BLOOD COUNT 9.1 x10^3/uL (4.0-11.0)
[2017-08-14 11:54] LABS: CALCIUM 7.7 mg/dL (8.5-10.1); CREATININE 4.9 mg/dL (0.6-1.0); GFR 8.6
[2017-08-14 11:58] LABS: PHOSPHORUS 5.1 mg/dL (2.6-4.7)
[2017-08-14 12:50] VITALS: BP 137/63
== END 2017-08-14 12:55 | disposition home or self-care (01) ==
LOC: ER 10:40
DX: T82.898A Other specified complication of vascular prosthetic devices, implants and grafts, initial encounter (principal); I12.0 Hypertensive chronic kidney disease with stage 5 chronic kidney disease or end stage renal disease; E11.22 Type 2 diabetes mellitus with diabetic chronic kidney disease; N18.6 End stage renal disease; Z99.2 Dependence on renal dialysis; I48.91 Unspecified atrial fibrillation
CPT/HCPCS: 36415; 80048; 83735; 84100; 85025; 99284

== ENCOUNTER 2017-08-16 17:47 | Inpatient (IN) | payer OTHER, MEDICARE ==
[~2017-08-16] VITALS: Ht 142.2 cm; Wt 42.6 kg
[2017-08-16 18:39] LABS: BASO # 0.1 x10^3/uL (0.0-0.2); BASO % 1 % (0-3); EOS % 3 % (0-3); HEMATOCRIT 26.2 % (36.0-47.0); HEMOGLOBIN 8.6 g/dL (12.0-15.5); LYMPH # 1.7 x10^3/uL (1.0-4.8); LYMPH % 19 % (24-48); MEAN CORPUSCULAR HEMOGLOBIN 29 pg (25-35); MEAN CORPUSCULAR HGB CONC 33 g/dL (31-37); MEAN CORPUSCULAR VOLUME 90 fL (79-100); MONO % 10 % (0-9); NEUT % 68 % (31-73); PLATELET COUNT 186 x10^3/uL (140-400); RED BLOOD COUNT 2.92 x10^6/uL (3.50-5.40); RED CELL DISTRIBUTION WIDTH 18.1 % (11.5-14.5); WHITE BLOOD COUNT 8.9 x10^3/uL (4.0-11.0)
--- NOTE | 2017-08-16 18:45 | PHYS DOC ---
Past Medical History Past Medical History: A-Fib, Diabetes-Type II, Hypertension, Renal Failure Past Surgical History: Hysterectomy, Other Additional Past Surgical Histo: catheter placed in rt chest Alcohol Use: None Drug Use: None Adult General Chief Complaint Chief Complaint: dialysis catheter problem HPI HPI Patient is a 77 year old female who presents with complaint of dialysis catheter not working properly. Patient presented to her dialysis center prior to arrival and was told that her dialysis catheter was not working properly. The patient was sent to the emergency department for evaluation. The patient was seen 2 days ago in the emergency department for the same complaint. Dr. Novak of nephrology was consulted and agreed with plan of patient going to the dialysis center today as he stated they would be able to refer the patient for outpatient replacement of her dialysis catheter if it were not functioning properly. The patient has no other complaints at this time. The patient has not received full dialysis over the past 4 days. Review of Systems Review of Systems Constitutional: Denies fever or chills [] Eyes: Denies change in visual acuity, redness, or eye pain [] HENT: Denies nasal congestion or sore throat [] Respiratory: Denies cough or shortness of breath [] Cardiovascular: Denies chest pain or edema[] GI: Denies abdominal pain, nausea, vomiting, bloody stools or diarrhea [] : Denies dysuria or hematuria [] Musculoskeletal: Denies back pain or joint pain [] Integument: Denies rash or skin lesions [] Neurologic: Denies headache, focal weakness or sensory changes [] All other systems were reviewed and found to be within normal limits, except as documented in this note. Allergies Allergies Allergies Coded Allergies Type Severity Reaction Last Updated Verified No Known Drug Allergies 05/07/14 No Physical Exam Physical Exam Constitutional: Alert, afebrile, no acute distress. [] HENT: Normocephalic, atraumatic, bilateral external ears normal, oropharynx moist, no oral exudates, nose normal. [] Eyes: PERRLA, EOMI, conjunctiva normal, no discharge. [] Neck: Normal range of motion, no tenderness, supple, no stridor. [] Cardiovascular:Heart rate regular rhythm, no murmur [] Lungs & Thorax: Right subclavian catheter in place, Bilateral breath sounds clear to auscultation [] Abdomen: Bowel sounds normal, soft, no tenderness, no masses, no pulsatile masses. [] Skin: Warm, dry, no erythema, no rash. [] Back: No tenderness, no CVA tenderness. [] Extremities: No tenderness, no cyanosis, no clubbing, ROM intact, no edema. [] Neurologic: Alert and oriented X 3, normal motor function, normal sensory function, no focal deficits noted. [] Current Patient Data Vital Signs Vital Signs Date Time Temp Pulse Resp B/P (MAP) Pulse Ox O2 Delivery O2 Flow Rate FiO2 08/16/17 17:55 98.8 84 24 138/66 (90) 97 Room Air 98.8 Lab Values Laboratory Tests Test 08/16/17 18:20 White Blood Count 8.9 x10^3/uL (4.0-11.0) Red Blood Count 2.92 x10^6/uL (3.50-5.40) L Hemoglobin 8.6 g/dL (12.0-15.5) L Hematocrit 26.2 % (36.0-47.0) L Mean Corpuscular Volume 90 fL (79-100) Mean Corpuscular Hemoglobin 29 pg (25-35) Mean Corpuscular Hemoglobin Concent 33 g/dL (31-37) Red Cell Distribution Width 18.1 % (11.5-14.5) H Platelet Count 186 x10^3/uL (140-400) Neutrophils (%) (Auto) 68 % (31-73) Lymphocytes (%) (Auto) 19 % (24-48) L Monocytes (%) (Auto) 10 % (0-9) H Eosinophils (%) (Auto) 3 % (0-3) Basophils (%) (Auto) 1 % (0-3) Neutrophils # (Auto) 6.1 x10^3uL (1.8-7.7) Lymphocytes # (Auto) 1.7 x10^3/uL (1.0-4.8) Monocytes # (Auto) 0.9 x10^3/uL (0.0-1.1) Eosinophils # (Auto) 0.2 x10^3/uL (0.0-0.7) Basophils # (Auto) 0.1 x10^3/uL (0.0-0.2) Sodium Level 136 mmol/L (136-145) Potassium Level 4.0 mmol/L (3.5-5.1) Chloride Level 102 mmol/L (98-107) Carbon Dioxide Level 21 mmol/L (21-32) Anion Gap 13 (6-14) Blood Urea Nitrogen 38 mg/dL (7-20) H Creatinine 4.9 mg/dL (0.6-1.0) H Estimated GFR (Cockcroft-Gault) 8.6 BUN/Creatinine Ratio 8 (6-20) Glucose Level 326 mg/dL (70-99) H Calcium Level 8.5 mg/dL (8.5-10.1) Magnesium Level Pending Total Bilirubin Pending Aspartate Amino Transferase (AST) Pending Alanine Aminotransferase (ALT) Pending Alkaline Phosphatase Pending Total Protein Pending Albumin Pending Albumin/Globulin Ratio Pending Laboratory Tests 08/16/17 18:20 Laboratory Tests 08/16/17 18:20 EKG EKG Interpreted by me: Heart rate 83, sinus rhythm, normal intervals, normal axis, no acute ST/T-wave abnormalities present[] Radiology/Procedures Radiology/Procedures Not performed[] Course & Med Decision Making Course & Med Decision Making Pertinent Labs and Imaging studies reviewed. (See chart for details) Patient's vital signs are stable and patient is in no acute distress at this time. However, the patient was unable to have her dialysis catheter placed as was previously recommended. Patient's BUN and creatinine have increased since previous visit. Due to failure for successful outpatient treatment, the patient will be admitted to the hospital for placement of dialysis catheter and to resume her dialysis. I spoke with Dr. Gupta who accepted care of patient in hospital. Dragon Disclaimer Dragon Disclaimer This electronic medical record was generated, in whole or in part, using a voice recognition dictation system. Departure Departure Impression: Primary Impression: Dialysis catheter clot or failure Additional Impressions: End stage renal disease Failure of outpatient treatment Disposition: ADMITTED INPATIENT Admitting Physician: Natalia Gupta Condition: STABLE Referrals: CHRISTIANNE JACKSON MD (PCP) Problem Qualifiers LEE HANNA MD Aug 16, 2017 18:45
[2017-08-16 18:59] LABS: CALCIUM 8.5 mg/dL (8.5-10.1); CREATININE 4.9 mg/dL (0.6-1.0); GFR 8.6
[2017-08-16 19:04] LABS: ALBUMIN 2.5 g/dL (3.4-5.0); ALBUMIN/GLOBULIN RATIO 0.6 (1.0-1.7); MAGNESIUM 2.4 mg/dL (1.8-2.4); TOTAL BILIRUBIN 0.2 mg/dL (0.2-1.0); TOTAL PROTEIN 6.7 g/dL (6.4-8.2)
[2017-08-16] MEDS ORDERED: ONDANSETRON PF 4 MG/2 ML VIAL. IV PRN (19:30)
[2017-08-16] MEDS ORDERED: ACETAMINOPHEN 325 MG TABLET. PO PRN (19:30)
--- NOTE | 2017-08-16 22:08 | PDOC1 ---
History and Physical Date of Admission Date of Admission DATE: 08/16/17 TIME: 22:08 Identification/Chief Complaint Chief Complaint sent from dialysis, fistula not functional Problems: Source Source: Chart review, Patient History of Present Illness History of Present Illness Ms De Luna, is a 77 year old female sent by EMS from HD, due to dialysis catheter not working properly. . The patient was seen by me in the emergency department for evaluation. The patient was seen 2 days ago in the emergency department for the same complaint. Dr. Novak of nephrology was made aware of situation by ER staff. Pt feels well, and per report by her son, she had no new complaints no HD 4 days Past Medical History Cardiovascular: CHF, HTN, Hyperlipidemia Pulmonary: No pertinent hx GI: No pertinent hx Heme/Onc: Anemia NOS Hepatobiliary: No pertinent hx Psych: No pertinent hx Rheumatologic: No pertinent hx Infectious disease: No pertinent hx Renal/: Chronic renal insuff Endocrine: Diabetes Past Surgical History Past Surgical History: Hysterectomy Family History Family History: Hypertension Social History Smoke: No ALCOHOL: none Drugs: None Current Problem List Problem List Problems Medical Problems: (1) Complications, dialysis, catheter, mechanical Status: Acute (2) Dialysis catheter clot or failure Status: Acute (3) End stage renal disease Status: Acute (4) Failure of outpatient treatment Status: Acute Problems: Current Medications Current Medications Current Medications Ondansetron HCl (Zofran) 4 mg PRN Q8HRS PRN IV NAUSEA/VOMITING; Start at 19:30; Stop 08/17/17 at 19:29 Acetaminophen (Tylenol) 650 mg PRN Q4HRS PRN PO FEVER; Start 08/16/17 at 19:30 ; Stop 08/17/17 at 19:29 Active Scripts Active Augmentin 500-125 Tablet (Amoxicillin/Potassium Clav) 1 Each Tablet 1 Tab PO BID Cardizem Cd (Diltiazem Hcl) 180 Mg Cap.er.24h 1 Cap PO DAILY Lasix (Furosemide) 20 Mg Tablet 1 Tab PO DAILY Reported Lantus Solostar (Insulin Glargine,Hum.rec.anlog) 100 Unit/1 Ml Insuln.pen 15 Unit SQ DAILYWBKFT Pentoxifylline 400 Mg Tablet.er 400 Mg PO DAILY Hydroxyzine Hcl 25 Mg Tablet 1 Tab PO HS Crestor (Rosuvastatin Calcium) 20 Mg Tablet 1 Tab PO DAILY Glipizide 10 Mg Tablet 1 Tab PO BID Allergies Allergies: Coded Allergies: No Known Drug Allergies (Unverified , 05/07/14) ROS Review of System unable due to language barrier Physical Exam General: Alert, Cooperative, No acute distress HEENT: EOMI, Mucous membr. moist/pink Lungs: Normal air movement Heart: no gallops Rectal Exam: not examined Extremities: Normal pulses Neuro: Normal tone Psych/Mental Status: Mood NL Vitals Vitals Vital Signs Date Time Temp Pulse Resp B/P (MAP) Pulse Ox O2 Delivery O2 Flow Rate FiO2 08/16/17 20:53 81 16 141/68 (92) 95 Room Air 08/16/17 17:55 98.8 98.8 Labs Labs Laboratory Tests Test 08/16/17 18:20 08/16/17 21:30 White Blood Count 8.9 x10^3/uL (4.0-11.0) Red Blood Count 2.92 x10^6/uL (3.50-5.40) Hemoglobin 8.6 g/dL (12.0-15.5) Hematocrit 26.2 % (36.0-47.0) Mean Corpuscular Volume 90 fL (79-100) Mean Corpuscular Hemoglobin 29 pg (25-35) Mean Corpuscular Hemoglobin Concent 33 g/dL (31-37) Red Cell Distribution Width 18.1 % (11.5-14.5) Platelet Count 186 x10^3/uL (140-400) Neutrophils (%) (Auto) 68 % (31-73) Lymphocytes (%) (Auto) 19 % (24-48) Monocytes (%) (Auto) 10 % (0-9) Eosinophils (%) (Auto) 3 % (0-3) Basophils (%) (Auto) 1 % (0-3) Neutrophils # (Auto) 6.1 x10^3uL (1.8-7.7) Lymphocytes # (Auto) 1.7 x10^3/uL (1.0-4.8) Monocytes # (Auto) 0.9 x10^3/uL (0.0-1.1) Eosinophils # (Auto) 0.2 x10^3/uL (0.0-0.7) Basophils # (Auto) 0.1 x10^3/uL (0.0-0.2) Sodium Level 136 mmol/L (136-145) Potassium Level 4.0 mmol/L (3.5-5.1) Chloride Level 102 mmol/L (98-107) Carbon Dioxide Level 21 mmol/L (21-32) Anion Gap 13 (6-14) Blood Urea Nitrogen 38 mg/dL (7-20) Creatinine 4.9 mg/dL (0.6-1.0) Estimated GFR (Cockcroft-Gault) 8.6 BUN/Creatinine Ratio 8 (6-20) Glucose Level 326 mg/dL (70-99) Calcium Level 8.5 mg/dL (8.5-10.1) Magnesium Level 2.4 mg/dL (1.8-2.4) Total Bilirubin 0.2 mg/dL (0.2-1.0) Aspartate Amino Transf (AST/SGOT) 14 U/L (15-37) Alanine Aminotransferase (ALT/SGPT) 14 U/L (14-59) Alkaline Phosphatase 121 U/L (46-116) Total Protein 6.7 g/dL (6.4-8.2) Albumin 2.5 g/dL (3.4-5.0) Albumin/Globulin Ratio 0.6 (1.0-1.7) Glucose (Fingerstick) 283 mg/dL (70-99) Laboratory Tests Test 08/16/17 18:20 08/16/17 21:30 White Blood Count 8.9 x10^3/uL (4.0-11.0) Red Blood Count 2.92 x10^6/uL (3.50-5.40) Hemoglobin 8.6 g/dL (12.0-15.5) Hematocrit 26.2 % (36.0-47.0) Mean Corpuscular Volume 90 fL (79-100) Mean Corpuscular Hemoglobin 29 pg (25-35) Mean Corpuscular Hemoglobin Concent 33 g/dL (31-37) Red Cell Distribution Width 18.1 % (11.5-14.5) Platelet Count 186 x10^3/uL (140-400) Neutrophils (%) (Auto) 68 % (31-73) Lymphocytes (%) (Auto) 19 % (24-48) Monocytes (%) (Auto) 10 % (0-9) Eosinophils (%) (Auto) 3 % (0-3) Basophils (%) (Auto) 1 % (0-3) Neutrophils # (Auto) 6.1 x10^3uL (1.8-7.7) Lymphocytes # (Auto) 1.7 x10^3/uL (1.0-4.8) Monocytes # (Auto) 0.9 x10^3/uL (0.0-1.1) Eosinophils # (Auto) 0.2 x10^3/uL (0.0-0.7) Basophils # (Auto) 0.1 x10^3/uL (0.0-0.2) Sodium Level 136 mmol/L (136-145) Potassium Level 4.0 mmol/L (3.5-5.1) Chloride Level 102 mmol/L (98-107) Carbon Dioxide Level 21 mmol/L (21-32) Anion Gap 13 (6-14) Blood Urea Nitrogen 38 mg/dL (7-20) Creatinine 4.9 mg/dL (0.6-1.0) Estimated GFR (Cockcroft-Gault) 8.6 BUN/Creatinine Ratio 8 (6-20) Glucose Level 326 mg/dL (70-99) Calcium Level 8.5 mg/dL (8.5-10.1) Magnesium Level 2.4 mg/dL (1.8-2.4) Total Bilirubin 0.2 mg/dL (0.2-1.0) Aspartate Amino Transf (AST/SGOT) 14 U/L (15-37) Alanine Aminotransferase (ALT/SGPT) 14 U/L (14-59) Alkaline Phosphatase 121 U/L (46-116) Total Protein 6.7 g/dL (6.4-8.2) Albumin 2.5 g/dL (3.4-5.0) Albumin/Globulin Ratio 0.6 (1.0-1.7) Glucose (Fingerstick) 283 mg/dL (70-99) VTE Prophylaxis Ordered VTE Prophylaxis Devices: Yes VTE Pharmacological Prophylaxi: No Assessment/Plan Assessment/Plan ESRD malnfunctioning HD fistula admit TONI MERRILL MD Aug 16, 2017 22:08
[2017-08-16 23:00] VITALS: BP 131/65
[2017-08-16] MEDS ORDERED: DEXTROSE 50% 25 GM / 50ML DISP.SYRIN. IV PRN (23:30)
[2017-08-16] MEDS: hydrOXYzine PAMOATE 25 MG CAPSULE PO SCH (23:43)
[2017-08-17] VITALS (14 sets, daily range): BP systolic 116–154; BP diastolic 51–77
--- NOTE | 2017-08-17 00:53 | EKG ---
[facility] [address] [place] [address] Test Date: 2017-08-16 Test Time: 18:10:47 Pat Name: DELMY WASHINGTON Department: Room: 536 1 Gender: F Setter Induction Heating Equipment: : 1940 Requested By: LEE HANNA Order Number: [id number] Reading MD: Lucas Haile Measurements Intervals [place] Rate: 83 P: 6 WV: 170 QRS: -22 QRSD: 76 T: 41 QT: 392 QTc: 461 Interpretive Statements SINUS RHYTHM LEFTWARD AXIS CONSIDER LEFT VENTRICULAR HYPERTROPHY POSSIBLY ABNORMAL ECG Electronically Signed On 08-23-2017 14:25:46 [employer] by Lucas Haile
[2017-08-17 05:20] LABS: BASO # 0.1 x10^3/uL (0.0-0.2); BASO % 1 % (0-3); EOS % 3 % (0-3); HEMATOCRIT 24.2 % (36.0-47.0); HEMOGLOBIN 7.8 g/dL (12.0-15.5); LYMPH # 1.9 x10^3/uL (1.0-4.8); LYMPH % 23 % (24-48); MEAN CORPUSCULAR HEMOGLOBIN 29 pg (25-35); MEAN CORPUSCULAR HGB CONC 32 g/dL (31-37); MEAN CORPUSCULAR VOLUME 90 fL (79-100); MONO % 11 % (0-9); NEUT % 63 % (31-73); PLATELET COUNT 189 x10^3/uL (140-400); RED BLOOD COUNT 2.71 x10^6/uL (3.50-5.40); RED CELL DISTRIBUTION WIDTH 18.3 % (11.5-14.5); WHITE BLOOD COUNT 8.2 x10^3/uL (4.0-11.0)
[2017-08-17 05:39] LABS: CALCIUM 8.2 mg/dL (8.5-10.1); CREATININE 5.3 mg/dL (0.6-1.0); GFR 7.8; POTASSIUM 4.3 mmol/L (3.5-5.1)
[2017-08-17] MEDS: glipiZIDE 5 MG TABLET PO SCH ×2 (07:30→16:34)
[2017-08-17] MEDS: INSULIN ASPART 300 UNITS/3 ML INSULN.PEN SQ SCH ×3 (08:00→16:37)
[2017-08-17] MEDS ORDERED: IV NORMAL SALINE 1000ML BAG 1,000 ML IV PRN ×2 (08:38)
[2017-08-17] MEDS ORDERED: DIALYSIS PATIENT. MC PRN ×2 (08:45)
[2017-08-17] MEDS ORDERED: 0.9 % SODIUM CHLORIDE 10 ML DISP.SYRIN. IV PRN ×2 (08:45)
--- NOTE | 2017-08-17 11:10 | PDOC ---
PROGRESS NOTES Chief Complaint Chief Complaint 1. MAlfunctioning HD cath 2. ESRD on HD 3. ANemia of ESRD 4. HTN, controlled 5. Fevers History of Present Illness History of Present Illness CAlled by RN bec Temp 100 low grade this AM No UA, CXR ok, WBC ok HD cath site seems ok, but not functioning per HD RN so renal planning to change it by IR Pt seen in HD, no concerns - language barrier PLAN: IR to change HD cath Send UA MOnitor temps IF > 102 BC Dw RN TAY and RN sean Vitals Vitals Vital Signs Date Time Temp Pulse Resp B/P (MAP) Pulse Ox O2 Delivery O2 Flow Rate FiO2 08/17/17 08:00 Room Air 08/17/17 07:30 100.4 83 20 132/51 (78) 95 100.4 Physical Exam General: Alert, Cooperative, No acute distress Heart: No murmurs Lungs: Clear, Other Abdomen: Normal bowel sounds Extremities: No clubbing, No cyanosis, Normal pulses Skin: No rashes, No breakdown Labs LABS Laboratory Tests Test 08/16/17 18:20 08/16/17 21:30 08/17/17 04:30 08/17/17 08:07 White Blood Count 8.9 x10^3/uL (4.0-11.0) 8.2 x10^3/uL (4.0-11.0) Red Blood Count 2.92 x10^6/uL (3.50-5.40) 2.71 x10^6/uL (3.50-5.40) Hemoglobin 8.6 g/dL (12.0-15.5) 7.8 g/dL (12.0-15.5) Hematocrit 26.2 % (36.0-47.0) 24.2 % (36.0-47.0) Mean Corpuscular Volume 90 fL (79-100) 90 fL (79-100) Mean Corpuscular Hemoglobin 29 pg (25-35) 29 pg (25-35) Mean Corpuscular Hemoglobin Concent 33 g/dL (31-37) 32 g/dL (31-37) Red Cell Distribution Width 18.1 % (11.5-14.5) 18.3 % (11.5-14.5) Platelet Count 186 x10^3/uL (140-400) 189 x10^3/uL (140-400) Neutrophils (%) (Auto) 68 % (31-73) 63 % (31-73) Lymphocytes (%) (Auto) 19 % (24-48) 23 % (24-48) Monocytes (%) (Auto) 10 % (0-9) 11 % (0-9) Eosinophils (%) (Auto) 3 % (0-3) 3 % (0-3) Basophils (%) (Auto) 1 % (0-3) 1 % (0-3) Neutrophils # (Auto) 6.1 x10^3uL (1.8-7.7) 5.2 x10^3uL (1.8-7.7) Lymphocytes # (Auto) 1.7 x10^3/uL (1.0-4.8) 1.9 x10^3/uL (1.0-4.8) Monocytes # (Auto) 0.9 x10^3/uL (0.0-1.1) 0.9 x10^3/uL (0.0-1.1) Eosinophils # (Auto) 0.2 x10^3/uL (0.0-0.7) 0.2 x10^3/uL (0.0-0.7) Basophils # (Auto) 0.1 x10^3/uL (0.0-0.2) 0.1 x10^3/uL (0.0-0.2) Sodium Level 136 mmol/L (136-145) 138 mmol/L (136-145) Potassium Level 4.0 mmol/L (3.5-5.1) 4.3 mmol/L (3.5-5.1) Chloride Level 102 mmol/L (98-107) 106 mmol/L (98-107) Carbon Dioxide Level 21 mmol/L (21-32) 23 mmol/L (21-32) Anion Gap 13 (6-14) 9 (6-14) Blood Urea Nitrogen 38 mg/dL (7-20) 40 mg/dL (7-20) Creatinine 4.9 mg/dL (0.6-1.0) 5.3 mg/dL (0.6-1.0) Estimated GFR (Cockcroft-Gault) 8.6 7.8 BUN/Creatinine Ratio 8 (6-20) Glucose Level 326 mg/dL (70-99) 179 mg/dL (70-99) Calcium Level 8.5 mg/dL (8.5-10.1) 8.2 mg/dL (8.5-10.1) Magnesium Level 2.4 mg/dL (1.8-2.4) Total Bilirubin 0.2 mg/dL (0.2-1.0) Aspartate Amino Transf (AST/SGOT) 14 U/L (15-37) Alanine Aminotransferase (ALT/SGPT) 14 U/L (14-59) Alkaline Phosphatase 121 U/L (46-116) Total Protein 6.7 g/dL (6.4-8.2) Albumin 2.5 g/dL (3.4-5.0) Albumin/Globulin Ratio 0.6 (1.0-1.7) Glucose (Fingerstick) 283 mg/dL (70-99) 107 mg/dL (70-99) 25-Hydroxy Vitamin D Total 9.0 ng/mL (30-100) Review of Systems Review of Systems language barrier, no concerns Assessment and Plan Assessmemt and Plan Problems Medical Problems: (1) Complications, dialysis, catheter, mechanical Status: Acute (2) Dialysis catheter clot or failure Status: Acute (3) End stage renal disease Status: Acute (4) Failure of outpatient treatment Status: Acute Problems: Comment Review of Relevant I have reviewed the following items diamante (where applicable) has been applied. Labs Laboratory Tests Test 08/16/17 18:20 08/16/17 21:30 08/17/17 04:30 08/17/17 08:07 White Blood Count 8.9 x10^3/uL (4.0-11.0) 8.2 x10^3/uL (4.0-11.0) Red Blood Count 2.92 x10^6/uL (3.50-5.40) 2.71 x10^6/uL (3.50-5.40) Hemoglobin 8.6 g/dL (12.0-15.5) 7.8 g/dL (12.0-15.5) Hematocrit 26.2 % (36.0-47.0) 24.2 % (36.0-47.0) Mean Corpuscular Volume 90 fL (79-100) 90 fL (79-100) Mean Corpuscular Hemoglobin 29 pg (25-35) 29 pg (25-35) Mean Corpuscular Hemoglobin Concent 33 g/dL (31-37) 32 g/dL (31-37) Red Cell Distribution Width 18.1 % (11.5-14.5) 18.3 % (11.5-14.5) Platelet Count 186 x10^3/uL (140-400) 189 x10^3/uL (140-400) Neutrophils (%) (Auto) 68 % (31-73) 63 % (31-73) Lymphocytes (%) (Auto) 19 % (24-48) 23 % (24-48) Monocytes (%) (Auto) 10 % (0-9) 11 % (0-9) Eosinophils (%) (Auto) 3 % (0-3) 3 % (0-3) Basophils (%) (Auto) 1 % (0-3) 1 % (0-3) Neutrophils # (Auto) 6.1 x10^3uL (1.8-7.7) 5.2 x10^3uL (1.8-7.7) Lymphocytes # (Auto) 1.7 x10^3/uL (1.0-4.8) 1.9 x10^3/uL (1.0-4.8) Monocytes # (Auto) 0.9 x10^3/uL (0.0-1.1) 0.9 x10^3/uL (0.0-1.1) Eosinophils # (Auto) 0.2 x10^3/uL (0.0-0.7) 0.2 x10^3/uL (0.0-0.7) Basophils # (Auto) 0.1 x10^3/uL (0.0-0.2) 0.1 x10^3/uL (0.0-0.2) Sodium Level 136 mmol/L (136-145) 138 mmol/L (136-145) Potassium Level 4.0 mmol/L (3.5-5.1) 4.3 mmol/L (3.5-5.1) Chloride Level 102 mmol/L (98-107) 106 mmol/L (98-107) Carbon Dioxide Level 21 mmol/L (21-32) 23 mmol/L (21-32) Anion Gap 13 (6-14) 9 (6-14) Blood Urea Nitrogen 38 mg/dL (7-20) 40 mg/dL (7-20) Creatinine 4.9 mg/dL (0.6-1.0) 5.3 mg/dL (0.6-1.0) Estimated GFR (Cockcroft-Gault) 8.6 7.8 BUN/Creatinine Ratio 8 (6-20) Glucose Level 326 mg/dL (70-99) 179 mg/dL (70-99) Calcium Level 8.5 mg/dL (8.5-10.1) 8.2 mg/dL (8.5-10.1) Magnesium Level 2.4 mg/dL (1.8-2.4) Total Bilirubin 0.2 mg/dL (0.2-1.0) Aspartate Amino Transf (AST/SGOT) 14 U/L (15-37) Alanine Aminotransferase (ALT/SGPT) 14 U/L (14-59) Alkaline Phosphatase 121 U/L (46-116) Total Protein 6.7 g/dL (6.4-8.2) Albumin 2.5 g/dL (3.4-5.0) Albumin/Globulin Ratio 0.6 (1.0-1.7) Glucose (Fingerstick) 283 mg/dL (70-99) 107 mg/dL (70-99) 25-Hydroxy Vitamin D Total 9.0 ng/mL (30-100) Laboratory Tests Test 08/16/17 18:20 08/16/17 21:30 08/17/17 04:30 08/17/17 08:07 White Blood Count 8.9 x10^3/uL (4.0-11.0) 8.2 x10^3/uL (4.0-11.0) Red Blood Count 2.92 x10^6/uL (3.50-5.40) 2.71 x10^6/uL (3.50-5.40) Hemoglobin 8.6 g/dL (12.0-15.5) 7.8 g/dL (12.0-15.5) Hematocrit 26.2 % (36.0-47.0) 24.2 % (36.0-47.0) Mean Corpuscular Volume 90 fL (79-100) 90 fL (79-100) Mean Corpuscular Hemoglobin 29 pg (25-35) 29 pg (25-35) Mean Corpuscular Hemoglobin Concent 33 g/dL (31-37) 32 g/dL (31-37) Red Cell Distribution Width 18.1 % (11.5-14.5) 18.3 % (11.5-14.5) Platelet Count 186 x10^3/uL (140-400) 189 x10^3/uL (140-400) Neutrophils (%) (Auto) 68 % (31-73) 63 % (31-73) Lymphocytes (%) (Auto) 19 % (24-48) 23 % (24-48) Monocytes (%) (Auto) 10 % (0-9) 11 % (0-9) Eosinophils (%) (Auto) 3 % (0-3) 3 % (0-3) Basophils (%) (Auto) 1 % (0-3) 1 % (0-3) Neutrophils # (Auto) 6.1 x10^3uL (1.8-7.7) 5.2 x10^3uL (1.8-7.7) Lymphocytes # (Auto) 1.7 x10^3/uL (1.0-4.8) 1.9 x10^3/uL (1.0-4.8) Monocytes # (Auto) 0.9 x10^3/uL (0.0-1.1) 0.9 x10^3/uL (0.0-1.1) Eosinophils # (Auto) 0.2 x10^3/uL (0.0-0.7) 0.2 x10^3/uL (0.0-0.7) Basophils # (Auto) 0.1 x10^3/uL (0.0-0.2) 0.1 x10^3/uL (0.0-0.2) Sodium Level 136 mmol/L (136-145) 138 mmol/L (136-145) Potassium Level 4.0 mmol/L (3.5-5.1) 4.3 mmol/L (3.5-5.1) Chloride Level 102 mmol/L (98-107) 106 mmol/L (98-107) Carbon Dioxide Level 21 mmol/L (21-32) 23 mmol/L (21-32) Anion Gap 13 (6-14) 9 (6-14) Blood Urea Nitrogen 38 mg/dL (7-20) 40 mg/dL (7-20) Creatinine 4.9 mg/dL (0.6-1.0) 5.3 mg/dL (0.6-1.0) Estimated GFR (Cockcroft-Gault) 8.6 7.8 BUN/Creatinine Ratio 8 (6-20) Glucose Level 326 mg/dL (70-99) 179 mg/dL (70-99) Calcium Level 8.5 mg/dL (8.5-10.1) 8.2 mg/dL (8.5-10.1) Magnesium Level 2.4 mg/dL (1.8-2.4) Total Bilirubin 0.2 mg/dL (0.2-1.0) Aspartate Amino Transf (AST/SGOT) 14 U/L (15-37) Alanine Aminotransferase (ALT/SGPT) 14 U/L (14-59) Alkaline Phosphatase 121 U/L (46-116) Total Protein 6.7 g/dL (6.4-8.2) Albumin 2.5 g/dL (3.4-5.0) Albumin/Globulin Ratio 0.6 (1.0-1.7) Glucose (Fingerstick) 283 mg/dL (70-99) 107 mg/dL (70-99) 25-Hydroxy Vitamin D Total 9.0 ng/mL (30-100) Medications Current Medications Ondansetron HCl (Zofran) 4 mg PRN Q8HRS PRN IV NAUSEA/VOMITING; Start at 19:30; Stop 08/17/17 at 19:29 Acetaminophen (Tylenol) 650 mg PRN Q4HRS PRN PO FEVER Last administered on t 08:25; Start 08/16/17 at 19:30; Stop 08/17/17 at 19:29 Diltiazem HCl (Cardizem 24hr Cd) 180 mg DAILY PO ; Start 08/17/17 at 09:00 Furosemide (Lasix) 20 mg DAILY PO ; Start 08/17/17 at 09:00 Pentoxifylline (TRENtal) 400 mg DAILY PO ; Start 08/17/17 at 09:00 Glipizide (Glucotrol) 10 mg BIDBFRMEAL PO ; Start 08/17/17 at 07:30 Hydroxyzine Pamoate (Vistaril) 25 mg QHS PO Last administered on 08/16/17t 23: 43; Start 08/16/17 at 23:45 Insulin Detemir (Levemir) 15 units QHS SQ ; Start 08/17/17 at 21:00 Atorvastatin Calcium (Lipitor) 80 mg QHS PO ; Start 08/17/17 at 21:00 Insulin Aspart (NovoLOG) 0-7 UNITS TIDWMEALS SQ ; Start 08/17/17 at 08:00 Dextrose (Dextrose 50%-Water Syringe) 12.5 gm PRN Q15MIN PRN IV SEE COMMENTS; Start 08/16/17 at 23:30 Sodium Chloride 1,000 ml @ 1,000 mls/hr Q1H PRN IV hypotension; Start at 08:38; Stop 08/17/17 at 14:37 Sodium Chloride (Normal Saline Flush) 10 ml 1X PRN PRN IV AP catheter pack; Start 08/17/17 at 08:45; Stop 08/18/17 at 08:44 Sodium Chloride (Normal Saline Flush) 10 ml 1X PRN PRN IV PAPER LATCHER catheter pack; Start 08/17/17 at 08:45; Stop 08/18/17 at 08:44 Sodium Chloride 1,000 ml @ 400 mls/hr Q2H30M PRN IV PATENCY; Start 08/17/17 at 08:38; Stop 08/17/17 at 20:37 Info (PHARMACY MONITORING -- do not chart) 1 each PRN DAILY PRN MC SEE COMMENTS ; Start 08/17/17 at 08:45 Info (PHARMACY MONITORING -- do not chart) 1 each PRN DAILY PRN MC SEE COMMENTS ; Start 08/17/17 at 08:45; Status UNV Active Scripts Active Augmentin 500-125 Tablet (Amoxicillin/Potassium Clav) 1 Each Tablet 1 Tab PO BID Cardizem Cd (Diltiazem Hcl) 180 Mg Cap.er.24h 1 Cap PO DAILY Lasix (Furosemide) 20 Mg Tablet 1 Tab PO DAILY Reported Lantus Solostar (Insulin Glargine,Hum.rec.anlog) 100 Unit/1 Ml Insuln.pen 15 Unit SQ DAILYWBKFT Pentoxifylline 400 Mg Tablet.er 400 Mg PO DAILY Hydroxyzine Hcl 25 Mg Tablet 1 Tab PO HS Crestor (Rosuvastatin Calcium) 20 Mg Tablet 1 Tab PO DAILY Glipizide 10 Mg Tablet 1 Tab PO BID Vitals/I & O Vital Sign - Last 24 Hours 08/16/17 08/16/17 08/16/17 08/16/17 17:55 18:53 19:23 20:23 Temp 98.8 98.8 Pulse 84 76 79 75 Resp 24 18 18 16 B/P (MAP) 138/66 (90) 134/64 (87) 159/71 (100) 138/68 (91) Pulse Ox 97 96 97 95 O2 Delivery Room Air Room Air Room Air Room Air 08/16/17 08/16/17 08/16/17 08/17/17 20:53 22:49 23:00 03:00 Temp 99.1 99.9 99.1 99.9 Pulse 81 73 74 Resp 16 20 20 B/P (MAP) 141/68 (92) 131/65 (87) 126/66 (86) Pulse Ox 95 94 95 O2 Delivery Room Air Room Air Room Air Room Air 08/17/17 08/17/17 07:30 08:00 Temp 100.4 100.4 Pulse 83 Resp 20 B/P (MAP) 132/51 (78) Pulse Ox 95 O2 Delivery Room Air Room Air Intake and Output 08/16/17 08/16/17 08/17/17 15:00 23:00 07:00 Intake Total 500 ml Balance 500 ml MALLORY DAWSON MD Aug 17, 2017 11:10
--- NOTE | 2017-08-17 11:29 | PDOC2 ---
CONSULT Date of Consult Date of Consult DATE: 08/17/17 TIME: 11:21 Reason for Consult Reason for Consult: ESRD Referring Physician Referring Physician: GARFIELD Identification/Chief Complaint Chief Complaint NON FUNCTIONING DIALYSIS CATHETER AND SOME SOB Problems: Source Source: Chart review History of Present Illness Reason for Visit: THIS IS A 77 YR OLD ESRD PT ON HD OP ON MWF. SHE HAS NOT HAD A GOOD DIALYSIS SINCE LAST WEDNESDAY DUE TO HER POORLY FUNCTIONING HD CATHETER. SHE WENT TO DIALYSIS YESTERDAY AND THE CATHETER WAS NOT WORKING WELL AND THE PT WAS SLIGHTLY SOB WELL. THE DIALYSIS UNIT SENT HER TO THE ER AFTER EFFORTS TO HAVE THIS CATHETER CHANGED AN OP LAST WEEK DID NOT WORK. LAST WEEK BEING THE WEEK. WITH HER MILD SOB AND LACK OF DIALYSIS SHE WAS ADMITTED. HER LABS ARE C/W ESRD Past Medical History Cardiovascular: CHF, HTN, Hyperlipidemia Pulmonary: No pertinent hx GI: No pertinent hx Heme/Onc: Anemia NOS Hepatobiliary: No pertinent hx Psych: No pertinent hx Rheumatologic: No pertinent hx Infectious disease: No pertinent hx Renal/: Chronic renal insuff Endocrine: Diabetes, Hyperparathyroidism Past Surgical History Past Surgical History: Hysterectomy Family History Family History: Hypertension Social History No ALCOHOL: none Drugs: None Lives: with Family Current Problem List Problem List Problems Medical Problems: (1) Complications, dialysis, catheter, mechanical Status: Acute (2) Dialysis catheter clot or failure Status: Acute (3) End stage renal disease Status: Acute (4) Failure of outpatient treatment Status: Acute Current Medications Current Medications Current Medications Ondansetron HCl (Zofran) 4 mg PRN Q8HRS PRN IV NAUSEA/VOMITING; Start at 19:30; Stop 08/17/17 at 19:29 Acetaminophen (Tylenol) 650 mg PRN Q4HRS PRN PO FEVER Last administered on t 08:25; Start 08/16/17 at 19:30; Stop 08/17/17 at 19:29 Diltiazem HCl (Cardizem 24hr Cd) 180 mg DAILY PO ; Start 08/17/17 at 09:00 Furosemide (Lasix) 20 mg DAILY PO ; Start 08/17/17 at 09:00 Pentoxifylline (TRENtal) 400 mg DAILY PO ; Start 08/17/17 at 09:00 Glipizide (Glucotrol) 10 mg BIDBFRMEAL PO ; Start 08/17/17 at 07:30 Hydroxyzine Pamoate (Vistaril) 25 mg QHS PO Last administered on 08/16/17t 23: 43; Start 08/16/17 at 23:45 Insulin Detemir (Levemir) 15 units QHS SQ ; Start 08/17/17 at 21:00 Atorvastatin Calcium (Lipitor) 80 mg QHS PO ; Start 08/17/17 at 21:00 Insulin Aspart (NovoLOG) 0-7 UNITS TIDWMEALS SQ ; Start 08/17/17 at 08:00 Dextrose (Dextrose 50%-Water Syringe) 12.5 gm PRN Q15MIN PRN IV SEE COMMENTS; Start 08/16/17 at 23:30 Sodium Chloride 1,000 ml @ 1,000 mls/hr Q1H PRN IV hypotension; Start at 08:38; Stop 08/17/17 at 14:37 Sodium Chloride (Normal Saline Flush) 10 ml 1X PRN PRN IV AP catheter pack; Start 08/17/17 at 08:45; Stop 08/18/17 at 08:44 Sodium Chloride (Normal Saline Flush) 10 ml 1X PRN PRN IV [employer]OR catheter pack; Start 08/17/17 at 08:45; Stop 08/18/17 at 08:44 Sodium Chloride 1,000 ml @ 400 mls/hr Q2H30M PRN IV PATENCY; Start 08/17/17 at 08:38; Stop 08/17/17 at 20:37 Info (PHARMACY MONITORING -- do not chart) 1 each PRN DAILY PRN MC SEE COMMENTS ; Start 08/17/17 at 08:45 Info (PHARMACY MONITORING -- do not chart) 1 each PRN DAILY PRN MC SEE COMMENTS ; Start 08/17/17 at 08:45; Status UNV Active Scripts Active Augmentin 500-125 Tablet (Amoxicillin/Potassium Clav) 1 Each Tablet 1 Tab PO BID Cardizem Cd (Diltiazem Hcl) 180 Mg Cap.er.24h 1 Cap PO DAILY Lasix (Furosemide) 20 Mg Tablet 1 Tab PO DAILY Reported Lantus Solostar (Insulin Glargine,Hum.rec.anlog) 100 Unit/1 Ml Insuln.pen 15 Unit SQ DAILYWBKFT Pentoxifylline 400 Mg Tablet.er 400 Mg PO DAILY Hydroxyzine Hcl 25 Mg Tablet 1 Tab PO HS Crestor (Rosuvastatin Calcium) 20 Mg Tablet 1 Tab PO DAILY Glipizide 10 Mg Tablet 1 Tab PO BID Allergies Allergies: Coded Allergies: No Known Drug Allergies (Unverified , 05/07/14) ROS General: YES: Fatigue, Malaise PSYCHOLOGICAL ROS: YES: Anxiety Eyes: Yes Decreased vision HEENT: YES: Heacaches Respiratory: YES: Cough, Orthopnea, Shortness of breath Cardiovascular: yes Orthopnea Gastrointestinal: Yes Constipation Genitourinary: YES Other (ANURIA) Musculoskeletal: Yes Muscular Weakness Neurological: Yes Weakness Skin: Yes Dry Skin Physical Exam General: Alert, Cooperative HEENT: Atraumatic, PERRLA Lungs: Other (DECREASED AT BASES) Heart: Regular rate Abdomen: Normal bowel sounds, Soft, No tenderness Extremities: No clubbing Skin: No breakdown Neuro: Cranial nerves 3-12 NL Psych/Mental Status: Mental status NL, Mood NL MUSCULOSKELETAL: No joint tenderness, No deformity, No swelling Vitals VITALS Vital Signs Date Time Temp Pulse Resp B/P (MAP) Pulse Ox O2 Delivery O2 Flow Rate FiO2 08/17/17 08:00 Room Air 08/17/17 07:30 100.4 83 20 132/51 (78) 95 100.4 Labs Labs Laboratory Tests Test 08/16/17 18:20 08/16/17 21:30 08/17/17 04:30 08/17/17 08:07 White Blood Count 8.9 x10^3/uL (4.0-11.0) 8.2 x10^3/uL (4.0-11.0) Red Blood Count 2.92 x10^6/uL (3.50-5.40) 2.71 x10^6/uL (3.50-5.40) Hemoglobin 8.6 g/dL (12.0-15.5) 7.8 g/dL (12.0-15.5) Hematocrit 26.2 % (36.0-47.0) 24.2 % (36.0-47.0) Mean Corpuscular Volume 90 fL (79-100) 90 fL (79-100) Mean Corpuscular Hemoglobin 29 pg (25-35) 29 pg (25-35) Mean Corpuscular Hemoglobin Concent 33 g/dL (31-37) 32 g/dL (31-37) Red Cell Distribution Width 18.1 % (11.5-14.5) 18.3 % (11.5-14.5) Platelet Count 186 x10^3/uL (140-400) 189 x10^3/uL (140-400) Neutrophils (%) (Auto) 68 % (31-73) 63 % (31-73) Lymphocytes (%) (Auto) 19 % (24-48) 23 % (24-48) Monocytes (%) (Auto) 10 % (0-9) 11 % (0-9) Eosinophils (%) (Auto) 3 % (0-3) 3 % (0-3) Basophils (%) (Auto) 1 % (0-3) 1 % (0-3) Neutrophils # (Auto) 6.1 x10^3uL (1.8-7.7) 5.2 x10^3uL (1.8-7.7) Lymphocytes # (Auto) 1.7 x10^3/uL (1.0-4.8) 1.9 x10^3/uL (1.0-4.8) Monocytes # (Auto) 0.9 x10^3/uL (0.0-1.1) 0.9 x10^3/uL (0.0-1.1) Eosinophils # (Auto) 0.2 x10^3/uL (0.0-0.7) 0.2 x10^3/uL (0.0-0.7) Basophils # (Auto) 0.1 x10^3/uL (0.0-0.2) 0.1 x10^3/uL (0.0-0.2) Sodium Level 136 mmol/L (136-145) 138 mmol/L (136-145) Potassium Level 4.0 mmol/L (3.5-5.1) 4.3 mmol/L (3.5-5.1) Chloride Level 102 mmol/L (98-107) 106 mmol/L (98-107) Carbon Dioxide Level 21 mmol/L (21-32) 23 mmol/L (21-32) Anion Gap 13 (6-14) 9 (6-14) Blood Urea Nitrogen 38 mg/dL (7-20) 40 mg/dL (7-20) Creatinine 4.9 mg/dL (0.6-1.0) 5.3 mg/dL (0.6-1.0) Estimated GFR (Cockcroft-Gault) 8.6 7.8 BUN/Creatinine Ratio 8 (6-20) Glucose Level 326 mg/dL (70-99) 179 mg/dL (70-99) Calcium Level 8.5 mg/dL (8.5-10.1) 8.2 mg/dL (8.5-10.1) Magnesium Level 2.4 mg/dL (1.8-2.4) Total Bilirubin 0.2 mg/dL (0.2-1.0) Aspartate Amino Transf (AST/SGOT) 14 U/L (15-37) Alanine Aminotransferase (ALT/SGPT) 14 U/L (14-59) Alkaline Phosphatase 121 U/L (46-116) Total Protein 6.7 g/dL (6.4-8.2) Albumin 2.5 g/dL (3.4-5.0) Albumin/Globulin Ratio 0.6 (1.0-1.7) Glucose (Fingerstick) 283 mg/dL (70-99) 107 mg/dL (70-99) 25-Hydroxy Vitamin D Total 9.0 ng/mL (30-100) Laboratory Tests Test 08/16/17 18:20 08/16/17 21:30 08/17/17 04:30 08/17/17 08:07 White Blood Count 8.9 x10^3/uL (4.0-11.0) 8.2 x10^3/uL (4.0-11.0) Red Blood Count 2.92 x10^6/uL (3.50-5.40) 2.71 x10^6/uL (3.50-5.40) Hemoglobin 8.6 g/dL (12.0-15.5) 7.8 g/dL (12.0-15.5) Hematocrit 26.2 % (36.0-47.0) 24.2 % (36.0-47.0) Mean Corpuscular Volume 90 fL (79-100) 90 fL (79-100) Mean Corpuscular Hemoglobin 29 pg (25-35) 29 pg (25-35) Mean Corpuscular Hemoglobin Concent 33 g/dL (31-37) 32 g/dL (31-37) Red Cell Distribution Width 18.1 % (11.5-14.5) 18.3 % (11.5-14.5) Platelet Count 186 x10^3/uL (140-400) 189 x10^3/uL (140-400) Neutrophils (%) (Auto) 68 % (31-73) 63 % (31-73) Lymphocytes (%) (Auto) 19 % (24-48) 23 % (24-48) Monocytes (%) (Auto) 10 % (0-9) 11 % (0-9) Eosinophils (%) (Auto) 3 % (0-3) 3 % (0-3) Basophils (%) (Auto) 1 % (0-3) 1 % (0-3) Neutrophils # (Auto) 6.1 x10^3uL (1.8-7.7) 5.2 x10^3uL (1.8-7.7) Lymphocytes # (Auto) 1.7 x10^3/uL (1.0-4.8) 1.9 x10^3/uL (1.0-4.8) Monocytes # (Auto) 0.9 x10^3/uL (0.0-1.1) 0.9 x10^3/uL (0.0-1.1) Eosinophils # (Auto) 0.2 x10^3/uL (0.0-0.7) 0.2 x10^3/uL (0.0-0.7) Basophils # (Auto) 0.1 x10^3/uL (0.0-0.2) 0.1 x10^3/uL (0.0-0.2) Sodium Level 136 mmol/L (136-145) 138 mmol/L (136-145) Potassium Level 4.0 mmol/L (3.5-5.1) 4.3 mmol/L (3.5-5.1) Chloride Level 102 mmol/L (98-107) 106 mmol/L (98-107) Carbon Dioxide Level 21 mmol/L (21-32) 23 mmol/L (21-32) Anion Gap 13 (6-14) 9 (6-14) Blood Urea Nitrogen 38 mg/dL (7-20) 40 mg/dL (7-20) Creatinine 4.9 mg/dL (0.6-1.0) 5.3 mg/dL (0.6-1.0) Estimated GFR (Cockcroft-Gault) 8.6 7.8 BUN/Creatinine Ratio 8 (6-20) Glucose Level 326 mg/dL (70-99) 179 mg/dL (70-99) Calcium Level 8.5 mg/dL (8.5-10.1) 8.2 mg/dL (8.5-10.1) Magnesium Level 2.4 mg/dL (1.8-2.4) Total Bilirubin 0.2 mg/dL (0.2-1.0) Aspartate Amino Transf (AST/SGOT) 14 U/L (15-37) Alanine Aminotransferase (ALT/SGPT) 14 U/L (14-59) Alkaline Phosphatase 121 U/L (46-116) Total Protein 6.7 g/dL (6.4-8.2) Albumin 2.5 g/dL (3.4-5.0) Albumin/Globulin Ratio 0.6 (1.0-1.7) Glucose (Fingerstick) 283 mg/dL (70-99) 107 mg/dL (70-99) 25-Hydroxy Vitamin D Total 9.0 ng/mL (30-100) Assessment/Plan Assessment/Plan IMP ESRD ANEMIA NON FUNCTIONING HD CATHETER DM II HTN HYPERVOLEMIA PLAN [facility] WILL ASK IR TO PLACE NEW TUNNELED HD CATHETER WILL HAVE HD HERE HD TODAY UF TO RUI D/W OK ONCE NEW HD CATHETER IS IN PLACE JONES ABREU MD Aug 17, 2017 11:29
[2017-08-17 12:45] LABS: PROTHROMBIN TIME PATIENT 12.8 SEC (11.7-14.0)
[2017-08-17] MEDS ORDERED: LIDOCAINE 1%/EPI 1:100,000 20 ML VIAL. ONE (13:25)
[2017-08-17] MEDS ORDERED: HEPARIN for IV BOLUS 10,000 UNIT/10 ML VIAL. ONE (13:25)
--- NOTE | 2017-08-17 13:36 | PDOC1 ---
IR Pre-Procedure H&P H&P Update No significant change from Dr. Hernandez consult note done on 08/17/17. Will plan to check and exchange HD cath BOB ROMEO MD Aug 17, 2017 13:36
[2017-08-17] MEDS ORDERED: MIDAZOLAM HCL/PF 2 MG/2 ML VIAL. ONE (13:38)
[2017-08-17] MEDS ORDERED: fentaNYL PF VIAL 100 MCG/2 ML VIAL ONE (13:38)
[2017-08-17] MEDS ORDERED: fentaNYL PF VIAL 100 MCG/2 ML VIAL IV ONE (14:00)
[2017-08-17] MEDS ORDERED: LIDOCAINE 1%/EPI 1:100,000 20 ML VIAL. IJ ONE (14:00)
[2017-08-17] MEDS ORDERED: MIDAZOLAM HCL/PF 2 MG/2 ML VIAL. IV ONE (14:00)
--- NOTE | 2017-08-17 14:40 | RAD ---
Procedure: Tunneled right IJ hemodialysis catheter exchange Date: 08/17/2017 2:31 PM Clinical Indication: NONFUNCTIONING DIALYSIS CATHETER Sedation: Conscious sedation was administered for 38 minutes. Intravenous Versed and fentanyl were given. The patient was monitored by a qualified independent observer throughout the time of sedation. Please refer to the medical record for exact doses of medications utilized to achieve moderate sedation. Fluoroscopy time: 0.8 minutes Dose area product: 1 Gycm2 Consent: The procedure was explained in its entirety to the patient and her son by a member of the treatment team, including a discussion of the risks, benefits and commonly accepted alternatives to the procedure, as well as the expected consequences of no therapy whatsoever. Discussion of the risks included, but was not limited to, those that are most frequent and those that are rare but possibly severe or life-threatening, as well as the possibility of unforeseen complications. Sterility: All elements of maximal sterile barrier technique including the use of a cap, mask, sterile gown, sterile gloves, large sterile sheet, appropriate hand hygiene, and 2% chlorhexidine for cutaneous antisepsis (or acceptable alternative antiseptic per current guidelines) were followed for this procedure. Technique and Findings: Following informed consent, the patient was prepped and draped in the usual sterile fashion. Initial fluoroscopic image demonstrated that the existing HD catheter had been slightly retracted compared to 08/06/2017 placement images. 2 separate stiff Glidewires were advanced through the existing HD catheter past the right atrium and into the IVC. The existing catheter was removed over the wires and a new 23 cm palindrome HD catheter was positioned with tip in the right atrium. Catheter was secured to the skin with sutures. Catheter was packed with 1000 units per milliliter heparin. Sterile dressing was applied. The patient tolerated the procedure well and was transferred to the floor in stable condition. No immediate complications were identified. Impression: Successful replacement of right IJ hemodialysis catheter with a 23 cm palindrome HD catheter.
[2017-08-17 16:32] LABS: BILIRUBIN,URINE NEGATIVE (NEG); GLUCOSE,URINE 500 mg/dL (NEG); NITRITE,URINE NEGATIVE (NEG); PH,URINE 7.5; PROTEIN,URINE >=300 mg/dL (NEG-TRACE); UROBILINOGEN,URINE 0.2 mg/dL (0.2 mg/dL)
[2017-08-17] MEDS: FUROSEMIDE 20 MG TABLET PO SCH (16:35)
[2017-08-17] MEDS: PENTOXIFYLLINE ER 400 MG TABLET.ER. PO SCH (16:35)
[2017-08-17 16:58] LABS: BACTERIA,URINE 0 /HPF (0-FEW); RBC,URINE OCC /HPF (0-2); SQUAMOUS EPITHELIAL CELL,UR FEW /LPF; WBC,URINE 0 /HPF (0-4)
[2017-08-17] MEDS ORDERED: ATORVASTATIN CALCIUM 40 MG TABLET. PO SCH (21:00)
[2017-08-17] MEDS ORDERED: INSULIN DETEMIR 300 UNITS/3 ML INSULN.PEN. SQ SCH (21:00)
[2017-08-17] MEDS ORDERED: DARBEPOETIN ALFA 60 MCG/0.3 ML DISP.SYRIN. SQ SCH (21:00)
[2017-08-17] MEDS: hydrOXYzine PAMOATE 25 MG CAPSULE PO SCH (21:18)
[2017-08-17] MEDS ORDERED: ACETAMINOPHEN 325 MG TABLET. PO PRN (21:30)
[2017-08-18 03:00] VITALS: BP 118/73
[2017-08-18 06:29] LABS: CALCIUM 8.4 mg/dL (8.5-10.1); CREATININE 4.2 mg/dL (0.6-1.0); GFR 10.2; POTASSIUM 4.4 mmol/L (3.5-5.1)
[2017-08-18 07:00] VITALS: BP 143/62
[2017-08-18] MEDS: INSULIN ASPART 300 UNITS/3 ML INSULN.PEN SQ SCH ×3 (08:00→17:37)
[2017-08-18 11:00] VITALS: BP 129/57
[2017-08-18] MEDS: FUROSEMIDE 20 MG TABLET PO SCH (11:13)
[2017-08-18] MEDS: glipiZIDE 5 MG TABLET PO SCH ×2 (11:13→17:39)
[2017-08-18] MEDS: PENTOXIFYLLINE ER 400 MG TABLET.ER. PO SCH (11:13)
--- NOTE | 2017-08-18 11:57 | PDOC ---
Renal-Progress Notes Subjective Notes Notes NO COMPLAINTS History of Present Illness Hx of present illness STABLE Vitals Vitals Vital Signs Date Time Temp Pulse Resp B/P (MAP) Pulse Ox O2 Delivery O2 Flow Rate FiO2 08/18/17 11:14 87 129/57 08/18/17 08:00 Room Air 08/18/17 07:00 97.7 16 97 97.7 Weight Weight [ ] I.O. Intake and Output Intake and Output 08/18/17 06:59 Intake Total 360 ml Output Total 750 ml Balance -390 ml Intake Oral 360 ml Output Urine Total 300 ml Stool Total 450 ml # Voids 3 Labs Labs Laboratory Tests Test 08/17/17 12:25 08/17/17 12:30 08/17/17 16:15 08/17/17 16:31 Prothrombin Time 12.8 SEC (11.7-14.0) Prothromb Time International Ratio 1.0 (0.8-1.1) Glucose (Fingerstick) 214 mg/dL (70-99) 316 mg/dL (70-99) Urine Collection Type Unknown Urine Color Yellow Urine Clarity Clear Urine pH 7.5 Urine Specific [place] 1.010 Urine Protein >=300 mg/dL (NEG-TRACE) Urine Glucose (UA) 500 mg/dL (NEG) Urine Ketones (Stick) Negative mg/dL (NEG) Urine Blood Small (NEG) Urine Nitrite Negative (NEG) Urine Bilirubin Negative (NEG) Urine Urobilinogen Dipstick 0.2 mg/dL (0.2 mg/dL) Urine Leukocyte Esterase Negative (NEG) Urine RBC Occ /HPF (0-2) Urine WBC 0 /HPF (0-4) Urine Squamous Epithelial Cells Few /LPF Urine Bacteria 0 /HPF (0-FEW) Test 08/17/17 20:53 08/18/17 05:25 08/18/17 08:23 08/18/17 11:11 Glucose (Fingerstick) 174 mg/dL (70-99) 67 mg/dL (70-99) 277 mg/dL (70-99) Sodium Level 141 mmol/L (136-145) Potassium Level 4.4 mmol/L (3.5-5.1) Chloride Level 107 mmol/L (98-107) Carbon Dioxide Level 26 mmol/L (21-32) Anion Gap 8 (6-14) Blood Urea Nitrogen 30 mg/dL (7-20) Creatinine 4.2 mg/dL (0.6-1.0) Estimated GFR (Cockcroft-Gault) 10.2 Glucose Level 96 mg/dL (70-99) Calcium Level 8.4 mg/dL (8.5-10.1) Review of Systems Constitutional: yes: weakness, alert, oriented Ears/Nose/Throat: Yes: no symptom reported Eyes: Yes: no symptom reported Cardiovascular: Yes no symptom reported Gastrointestional: Yes: no symptom reported Genitourinary: Yes: no symptom reported Musculoskeletal: Yes: muscle stiffness Psychiatric/Neurological: Yes: no symptom reported Endocrine: Yes: no symptom reported Physical Exam General Appearance: no apparent distress Skin: warm Respiratory: bilateral CTA Heart: S1S2 Abdomen: soft, bowel sounds present Genitourinary: bladder flat Extremities: pulses present, atrophy Neurology: alert Assessment Assessment IMP NON FUNCTIONING DIALYSIS CATHETER S/P NEW TUNNELED HD CATHETER DM II HTN ESRD ANEMIA HYPERVOLEMIA-RESOLVED PLAN OK TO D/C FROM RENAL STANDPOINT NEXT HD OP TOMORROW UPDATED SON JONES ABREU MD Aug 18, 2017 11:57
--- NOTE | 2017-08-18 13:35 | PDOC3 ---
Discharge Summary Visit Information Date of Admission: Aug 16, 2017 Date of Discharge: Aug 18, 2017 Admitting Diagnosis Comment: 1. MAlfunctioning HD cath 2. ESRD on HD 3. ANemia of ESRD 4. HTN, controlled 5. Fevers Final Diagnosis Problems Medical Problems: (1) Complications, dialysis, catheter, mechanical Status: Acute (2) Dialysis catheter clot or failure Status: Acute (3) End stage renal disease Status: Acute (4) Failure of outpatient treatment Status: Acute Brief Hospital Course Allergies Allergies Coded Allergies Type Severity Reaction Last Updated Verified No Known Drug Allergies 05/07/14 No Vital Signs Vital Signs Date Time Temp Pulse Resp B/P (MAP) Pulse Ox O2 Delivery O2 Flow Rate FiO2 08/18/17 11:14 87 129/57 08/18/17 11:00 98.1 18 98 Room Air 98.1 Lab Results Laboratory Tests Test 08/16/17 18:20 08/16/17 21:30 08/17/17 04:30 08/17/17 08:07 White Blood Count 8.9 x10^3/uL (4.0-11.0) 8.2 x10^3/uL (4.0-11.0) Red Blood Count 2.92 x10^6/uL (3.50-5.40) 2.71 x10^6/uL (3.50-5.40) Hemoglobin 8.6 g/dL (12.0-15.5) 7.8 g/dL (12.0-15.5) Hematocrit 26.2 % (36.0-47.0) 24.2 % (36.0-47.0) Mean Corpuscular Volume 90 fL (79-100) 90 fL (79-100) Mean Corpuscular Hemoglobin 29 pg (25-35) 29 pg (25-35) Mean Corpuscular Hemoglobin Concent 33 g/dL (31-37) 32 g/dL (31-37) Red Cell Distribution Width 18.1 % (11.5-14.5) 18.3 % (11.5-14.5) Platelet Count 186 x10^3/uL (140-400) 189 x10^3/uL (140-400) Neutrophils (%) (Auto) 68 % (31-73) 63 % (31-73) Lymphocytes (%) (Auto) 19 % (24-48) 23 % (24-48) Monocytes (%) (Auto) 10 % (0-9) 11 % (0-9) Eosinophils (%) (Auto) 3 % (0-3) 3 % (0-3) Basophils (%) (Auto) 1 % (0-3) 1 % (0-3) Neutrophils # (Auto) 6.1 x10^3uL (1.8-7.7) 5.2 x10^3uL (1.8-7.7) Lymphocytes # (Auto) 1.7 x10^3/uL (1.0-4.8) 1.9 x10^3/uL (1.0-4.8) Monocytes # (Auto) 0.9 x10^3/uL (0.0-1.1) 0.9 x10^3/uL (0.0-1.1) Eosinophils # (Auto) 0.2 x10^3/uL (0.0-0.7) 0.2 x10^3/uL (0.0-0.7) Basophils # (Auto) 0.1 x10^3/uL (0.0-0.2) 0.1 x10^3/uL (0.0-0.2) Sodium Level 136 mmol/L (136-145) 138 mmol/L (136-145) Potassium Level 4.0 mmol/L (3.5-5.1) 4.3 mmol/L (3.5-5.1) Chloride Level 102 mmol/L (98-107) 106 mmol/L (98-107) Carbon Dioxide Level 21 mmol/L (21-32) 23 mmol/L (21-32) Anion Gap 13 (6-14) 9 (6-14) Blood Urea Nitrogen 38 mg/dL (7-20) 40 mg/dL (7-20) Creatinine 4.9 mg/dL (0.6-1.0) 5.3 mg/dL (0.6-1.0) Estimated GFR (Cockcroft-Gault) 8.6 7.8 BUN/Creatinine Ratio 8 (6-20) Glucose Level 326 mg/dL (70-99) 179 mg/dL (70-99) Calcium Level 8.5 mg/dL (8.5-10.1) 8.2 mg/dL (8.5-10.1) Magnesium Level 2.4 mg/dL (1.8-2.4) Total Bilirubin 0.2 mg/dL (0.2-1.0) Aspartate Amino Transf (AST/SGOT) 14 U/L (15-37) Alanine Aminotransferase (ALT/SGPT) 14 U/L (14-59) Alkaline Phosphatase 121 U/L (46-116) Total Protein 6.7 g/dL (6.4-8.2) Albumin 2.5 g/dL (3.4-5.0) Albumin/Globulin Ratio 0.6 (1.0-1.7) Glucose (Fingerstick) 283 mg/dL (70-99) 107 mg/dL (70-99) 25-Hydroxy Vitamin D Total 9.0 ng/mL (30-100) Test 08/17/17 12:25 08/17/17 12:30 08/17/17 16:15 08/17/17 16:31 Prothrombin Time 12.8 SEC (11.7-14.0) Prothromb Time International Ratio 1.0 (0.8-1.1) Glucose (Fingerstick) 214 mg/dL (70-99) 316 mg/dL (70-99) Urine Collection Type Unknown Urine Color Yellow Urine Clarity Clear Urine pH 7.5 Urine Specific [place] 1.010 Urine Protein >=300 mg/dL (NEG-TRACE) Urine Glucose (UA) 500 mg/dL (NEG) Urine Ketones (Stick) Negative mg/dL (NEG) Urine Blood Small (NEG) Urine Nitrite Negative (NEG) Urine Bilirubin Negative (NEG) Urine Urobilinogen Dipstick 0.2 mg/dL (0.2 mg/dL) Urine Leukocyte Esterase Negative (NEG) Urine RBC Occ /HPF (0-2) Urine WBC 0 /HPF (0-4) Urine Squamous Epithelial Cells Few /LPF Urine Bacteria 0 /HPF (0-FEW) Test 08/17/17 20:53 08/18/17 05:25 08/18/17 08:23 08/18/17 11:11 Glucose (Fingerstick) 174 mg/dL (70-99) 67 mg/dL (70-99) 277 mg/dL (70-99) Sodium Level 141 mmol/L (136-145) Potassium Level 4.4 mmol/L (3.5-5.1) Chloride Level 107 mmol/L (98-107) Carbon Dioxide Level 26 mmol/L (21-32) Anion Gap 8 (6-14) Blood Urea Nitrogen 30 mg/dL (7-20) Creatinine 4.2 mg/dL (0.6-1.0) Estimated GFR (Cockcroft-Gault) 10.2 Glucose Level 96 mg/dL (70-99) Calcium Level 8.4 mg/dL (8.5-10.1) Laboratory Tests Test 08/17/17 16:15 08/17/17 16:31 08/17/17 20:53 08/18/17 05:25 Urine Collection Type Unknown Urine Color Yellow Urine Clarity Clear Urine pH 7.5 Urine Specific [place] 1.010 Urine Protein >=300 mg/dL (NEG-TRACE) Urine Glucose (UA) 500 mg/dL (NEG) Urine Ketones (Stick) Negative mg/dL (NEG) Urine Blood Small (NEG) Urine Nitrite Negative (NEG) Urine Bilirubin Negative (NEG) Urine Urobilinogen Dipstick 0.2 mg/dL (0.2 mg/dL) Urine Leukocyte Esterase Negative (NEG) Urine RBC Occ /HPF (0-2) Urine WBC 0 /HPF (0-4) Urine Squamous Epithelial Cells Few /LPF Urine Bacteria 0 /HPF (0-FEW) Glucose (Fingerstick) 316 mg/dL (70-99) 174 mg/dL (70-99) Sodium Level 141 mmol/L (136-145) Potassium Level 4.4 mmol/L (3.5-5.1) Chloride Level 107 mmol/L (98-107) Carbon Dioxide Level 26 mmol/L (21-32) Anion Gap 8 (6-14) Blood Urea Nitrogen 30 mg/dL (7-20) Creatinine 4.2 mg/dL (0.6-1.0) Estimated GFR (Cockcroft-Gault) 10.2 Glucose Level 96 mg/dL (70-99) Calcium Level 8.4 mg/dL (8.5-10.1) Test 08/18/17 08:23 08/18/17 11:11 Glucose (Fingerstick) 67 mg/dL (70-99) 277 mg/dL (70-99) Brief Hospital Course Ms. Costa is a 77 old female with minimal v[place]an, admitted for malfunctioning HD cath, HD could not get her dialyzed. Now fixed by IR, good flow in HD, Ready for hme, no new meds Seen and examined dc < 30 Discharge Information Condition at Discharge: Improved, Stable Disposition/Orders: D/C to Home Scheduled Amoxicillin/Potassium Clav (Augmentin 500-125 Tablet), 1 TAB PO BID Diltiazem Hcl (Cardizem Cd), 1 CAP PO DAILY Furosemide (Lasix), 1 TAB PO DAILY Glipizide (Glipizide), 1 TAB PO BID, (Reported) Hydroxyzine Hcl (Hydroxyzine Hcl), 1 TAB PO HS, (Reported) Insulin Glargine,Hum.rec.anlog (Lantus Solostar), 15 UNIT SQ DAILYWBKFT, ( Reported) Pentoxifylline (Pentoxifylline), 400 MG PO DAILY, (Reported) Rosuvastatin Calcium (Crestor), 1 TAB PO DAILY, (Reported) MALLORY DAWSON MD Aug 18, 2017 13:35
[2017-08-18 15:00] VITALS: BP 143/71
== END 2017-08-18 18:00 | disposition home or self-care (01) | DRG 314 ==
LOC: ER 17:47 → 5 NORTH 18:44
PROVIDERS: ADMIT Internal Medicine; ATTEND Internal Medicine
PROC: 5A1D70Z Performance of Urinary Filtration, Intermittent, Less than 6 Hours Per Day (ICD-10-PCS; principal; 2017-08-17)
PROC: 0J2TXYZ Change Other Device in Trunk Subcutaneous Tissue and Fascia, External Approach (ICD-10-PCS; 2017-08-17)
DX: T82.41XA Breakdown (mechanical) of vascular dialysis catheter, initial encounter (principal); N18.6 End stage renal disease; I13.2 Hypertensive heart and chronic kidney disease with heart failure and with stage 5 chronic kidney disease, or end stage renal disease; E11.22 Type 2 diabetes mellitus with diabetic chronic kidney disease; I48.91 Unspecified atrial fibrillation; D63.1 Anemia in chronic kidney disease; E78.5 Hyperlipidemia, unspecified; I50.9 Heart failure, unspecified; E21.3 Hyperparathyroidism, unspecified; Y71.2 Prosthetic and other implants, materials and accessory cardiovascular devices associated with adverse incidents; Z82.49 Family history of ischemic heart disease and other diseases of the circulatory system; Z90.710 Acquired absence of both cervix and uterus; Z99.2 Dependence on renal dialysis
CPT/HCPCS: 36415; 36581; 77001; 80048; 80053; 81001; 82306; 82962; 83735; 85025; 85610; 93005; 99152; 99153; C1750; C1769; J0690; J0881; J1644; J1815; J2250; J3010; J3490; Q0177; 99285-25

== ENCOUNTER 2020-08-05 22:00 | Inpatient (IN) | payer MEDICARE, OTHER ==
[~2020-08-05] VITALS: Ht 149.9 cm; Wt 42.6 kg
[~2020-08-05 22:00] MED LIST changes: +DILT180C29 PO; +GLIP10TA24 PO; -HYDR-2766 PO; +HYDR-2769 PO; +INSU100C4 SQ; +INSU100V13 SQ; +LINA5TAB PO; +LOSA-73 PO; -LOSA50TA6 PO; -METF-620 PO; +METF10007 PO; +METF500T16 PO; -METF500T4 PO; +PANT40TA77 PO; -PENT400T2 PO; +PENT400T7 PO; -PIOG15TA2 PO; +PIOG15TA63 PO
[2020-08-05] MEDS ORDERED: MORPHINE SULFATE 4 MG/ML VIAL. ONE (22:16)
[2020-08-05 22:24] LABS: BASE EXCESS COOX -6 mmol/L (-3-3); HCO3 COOX 20 mmol/L (21-28); METHEMOGLOBIN 0.1 % (0.0-1.9); OXYHEMOGLOBIN 91.8 %; PCO2 COOX 45 mmHg (35-46); PO2 COOX 78 mmHg (65-108); SAT O2 COOX 92 % (92-99)
[2020-08-05 22:25] LABS: BASO % 0 % (0-3); EOS # 0.2 x10^3/uL (0.0-0.7); EOS % 1 % (0-3); HEMATOCRIT 33.9 % (36.0-47.0); LYMPH # 3.6 x10^3/uL (1.0-4.8); LYMPH % 26 % (24-48); MEAN CORPUSCULAR HEMOGLOBIN 35 pg (25-35); MEAN CORPUSCULAR HGB CONC 33 g/dL (31-37); MEAN CORPUSCULAR VOLUME 108 fL (79-100); MONO # 1.3 x10^3/uL (0.0-1.1); MONO % 9 % (0-9); NEUT # 8.9 x10^3/uL (1.8-7.7); NEUT % 63 % (31-73); PLATELET COUNT 227 x10^3/uL (140-400); RED BLOOD COUNT 3.13 x10^6/uL (3.50-5.40); RED CELL DISTRIBUTION WIDTH 13.9 % (11.5-14.5); WHITE BLOOD COUNT 14.1 x10^3/uL (4.0-11.0)
[2020-08-05] MEDS ORDERED: NITROGLYCERIN PREMIX 250 ML IV ONE (22:30)
[2020-08-05] MEDS ORDERED: MORPHINE SULFATE 4 MG/ML VIAL. IV ONE (22:30)
[2020-08-05 22:34] LABS: CALCIUM 10.2 mg/dL (8.5-10.1); CREATININE 7.4 mg/dL (0.6-1.0); GFR 5.3
[2020-08-05 22:40] LABS: ALBUMIN 3.2 g/dL (3.4-5.0); ALBUMIN/GLOBULIN RATIO 0.7 (1.0-1.7); TOTAL BILIRUBIN 0.4 mg/dL (0.2-1.0); TOTAL PROTEIN 7.6 g/dL (6.4-8.2)
--- NOTE | 2020-08-05 22:45 | RAD ---
Exam: Chest one view INDICATION: Short of air TECHNIQUE: Frontal view of the chest Comparisons: 09/17/2019 FINDINGS: The cardiomediastinal silhouette and pulmonary vessels are within normal limits. Hazy opacities lungs bilaterally. Small bilateral pleural effusions. IMPRESSION: Findings likely related to pulmonary edema with small bilateral pleural effusions. Superimposed infectious process is difficult to exclude. Electronically signed by: Karolina Martinez MD (08/05/2020 10:41 PM) [facility]
[2020-08-05] MEDS ORDERED: INSULIN REGULAR 100 UNIT/ML 3ML VIAL. IV ONE (23:15)
--- NOTE | 2020-08-05 23:44 | RAD ---
Abdominal and Pelvis CT, Without Contrast: History: Reason: ABDOMINAL PAIN, HYPERTENSIVE / Spl. Instructions: / History: Comparison: September 18, 2019. Procedure: Axial images are obtained of the abdomen and pelvis, without IV or oral contrast. Oral Contrast: No Findings: Evaluation of solid organs is limited without contrast. There is a mild right pleural effusion and there is marked patchy opacities in the lung bases. There is mild ecchymosis in the subcutaneous fat of the abdominal wall anteriorly seen previously. The gallbladder appears normal. The appendix is not identified. Liver: Normal. Spleen: Normal. Pancreas: Normal. Adrenal Glands: Normal. Kidneys: Atrophic. There is no free air or free fluid. There is no lymphadenopathy. The urinary bladder appears normal. There is no pericolonic inflammation identified. Impression: 1. Mild right effusion and marked basilar pulmonary infiltrates appears mildly improved. 2. Renal atrophy seen previously. End impression PQRS Compliance Statement: One or more of the following individualized dose reduction techniques were utilized for this examination: 1. Automated exposure control 2. Adjustment of the mA and/or kV according to patient size 3. Use of iterative reconstruction technique Electronically signed by: Brice Ness III, MD (08/05/2020 11:41 PM) [facility]
--- NOTE | 2020-08-05 23:55 | PHYS DOC ---
Past Medical History Past Medical History: A-Fib, Diabetes-Type II, Hypertension, Renal Failure Past Surgical History: Hysterectomy, Other Additional Past Surgical Histo: catheter placed in rt chest, l arm fistuala Smoking Status: Never Smoker Alcohol Use: None Drug Use: None General Adult EDM: Chief Complaint: SHORTNESS OF BREATH HPI: HPI: Patient is a 80 year old female who was brought here by her daughter for evaluation of sudden onset of severe trouble breathing. Patient has a history of end-stage renal failure on hemodialysis. Patient is scheduled to have dialys is tomorrow morning. Daughter said patient was doing okay this evening, then slowly sister having severe trouble breathing. There is no report of cough or fever, no chest pain. Patient does complain of low back pain. Patient also complained of abdominal pain. Review of Systems: Review of Systems: Constitutional: Denies fever or chills. [] Eyes: Denies change in visual acuity. [] HENT: Denies nasal congestion or sore throat. [] Respiratory: Positive for trouble breathing, no cough [] Cardiovascular: Denies chest pain or edema. [] GI: Positive for abdominal pain, no nausea, vomiting, bloody stools or diarrhea. [] : Denies dysuria. [] Musculoskeletal: Positive for abdominal pain, back pain Integument: Denies rash. [] Neurologic: Denies headache, focal weakness or sensory changes. [] Endocrine: Denies polyuria or polydipsia. [] Lymphatic: Denies swollen glands. [] Psychiatric: Denies depression or anxiety. [] Heart Score: Risk Factors: Risk Factors: DM, Current or recent (<one month) smoker, HTN, HLP, family history of CAD, obesity. Risk Scores: Score 0 - 3: 2.5% MACE over next 6 weeks - Discharge Home Score 4 - 6: 20.3% MACE over next 6 weeks - Admit for Clinical Observation Score 7 - 10: 72.7% MACE over next 6 weeks - Early Invasive Strategies Current Medications: Current Medications Medications (Trade) Dose Ordered Sig/Sveta Start Time Stop Time Status Last Admin Dose Admin Insulin Human Regular (HumuLIN R VIAL) 10 unit 1X ONCE 08/05/20 23:15 08/05/20 23:16 DC Morphine Sulfate (Morphine Sulfate) 4 mg 1X ONCE 08/05/20 22:30 08/05/20 22:31 DC 08/05/20 22:24 4 MG Nitroglycerin/ Dextrose 250 ml @ 0 mls/hr 1X ONCE 08/05/20 22:30 08/05/20 22:31 DC 08/05/20 22:40 1.5 MLS/HR Allergies: Allergies: Allergies Coded Allergies Type Severity Reaction Last Updated Verified No Known Drug Allergies 05/07/14 No Physical Exam: PE: Constitutional: Well developed, well nourished, MODERATE acute distress, non- toxic appearance. [] HENT: Normocephalic, atraumatic, bilateral external ears normal, oropharynx moist, no oral exudates, nose normal. [] Eyes: PERRLA, EOMI, conjunctiva normal, no discharge. [] Neck: Normal range of motion, no tenderness, supple, no stridor. [] Cardiovascular: TACHYCARDIA, regular rhythm, no murmur [] Lungs & Thorax: CRACLES DIFFUSELY, to auscultation , TACHYPNIC. Abdomen: Bowel sounds normal, soft, no tenderness, no masses, no pulsatile masses. [] Skin: Warm, dry, no erythema, no rash. [] Back: No tenderness, no CVA tenderness. [] Extremities: No tenderness, no cyanosis, no clubbing, ROM intact, no edema. [] Neurologic: Alert and oriented X 3, normal motor function, normal sensory function, no focal deficits noted. [] Psychologic: Affect normal, judgement normal, mood normal. [] Current Patient Data: Labs: Laboratory Tests Test 08/05/20 22:15 08/05/20 22:30 White Blood Count 14.1 x10^3/uL (4.0-11.0) H Red Blood Count 3.13 x10^6/uL (3.50-5.40) L Hemoglobin 11.0 g/dL (12.0-15.5) L Hematocrit 33.9 % (36.0-47.0) L Mean Corpuscular Volume 108 fL (79-100) H Mean Corpuscular Hemoglobin 35 pg (25-35) Mean Corpuscular Hemoglobin Concent 33 g/dL (31-37) Red Cell Distribution Width 13.9 % (11.5-14.5) Platelet Count 227 x10^3/uL (140-400) Neutrophils (%) (Auto) 63 % (31-73) Lymphocytes (%) (Auto) 26 % (24-48) Monocytes (%) (Auto) 9 % (0-9) Eosinophils (%) (Auto) 1 % (0-3) Basophils (%) (Auto) 0 % (0-3) Neutrophils # (Auto) 8.9 x10^3/uL (1.8-7.7) H Lymphocytes # (Auto) 3.6 x10^3/uL (1.0-4.8) Monocytes # (Auto) 1.3 x10^3/uL (0.0-1.1) H Eosinophils # (Auto) 0.2 x10^3/uL (0.0-0.7) Basophils # (Auto) 0.0 x10^3/uL (0.0-0.2) Sodium Level 136 mmol/L (136-145) Potassium Level 4.0 mmol/L (3.5-5.1) Chloride Level 96 mmol/L (98-107) L Carbon Dioxide Level 24 mmol/L (21-32) Anion Gap 16 (6-14) H Blood Urea Nitrogen 71 mg/dL (7-20) H Creatinine 7.4 mg/dL (0.6-1.0) H Estimated GFR (Cockcroft-Gault) 5.3 BUN/Creatinine Ratio 10 (6-20) Glucose Level 400 mg/dL (70-99) H Calcium Level 10.2 mg/dL (8.5-10.1) H Total Bilirubin 0.4 mg/dL (0.2-1.0) Aspartate Amino Transferase (AST) 22 U/L (15-37) Alanine Aminotransferase (ALT) 23 U/L (14-59) Alkaline Phosphatase 141 U/L (46-116) H Troponin I Quantitative 1.371 ng/mL (0.000-0.055) LE-Oar-N-Type Natriuretic Peptide 88502 pg/mL (0-449) H Total Protein 7.6 g/dL (6.4-8.2) Albumin 3.2 g/dL (3.4-5.0) L Albumin/Globulin Ratio 0.7 (1.0-1.7) L Acetone Level Neg (NEG) O2 Saturation 92 % (92-99) Arterial Blood pH 7.27 (7.35-7.45) L Arterial Blood pCO2 at Patient Temp 45 mmHg (35-46) Arterial Blood pO2 at Patient Temp 78 mmHg (65-108) Arterial Blood HCO3 20 mmol/L (21-28) L Arterial Blood Base Excess -6 mmol/L (-3-3) L Oxyhemoglobin 91.8 % Methemoglobin 0.1 % (0.0-1.9) Carbon Monoxide, Quantitative 0.5 % (0.0-1.9) FiO2 100 Laboratory Tests 08/05/20 22:15 Laboratory Tests 08/05/20 22:15 Vital Signs: Vital Signs Date Time Temp Pulse Resp B/P (MAP) Pulse Ox O2 Delivery O2 Flow Rate FiO2 08/05/20 22:01 97.8 129 36 197/94 (128 78 Nasal Cannula 5.0 97.8 EKG: EKG: EKG was done at 2209, heart rate 129 bpm, sinus tachycardia, no ST segment elevation Radiology/Procedures: Radiology/Procedures: [][facility] [address] [place], [place] [id number] IMAGING REPORT Signed PATIENT: DELMY WASHINGTON ACCOUNT: [id number] : 1940 LOCATION: ER AGE: 80 SEX: F EXAM STATUS: REG ER ORD. PHYSICIAN: TONI BETTS DO REASON: ABDOMINAL PAIN, HYPERTENSIVE PROCEDURE: CT ABDOMEN PELVIS WO CONTRAST Abdominal and Pelvis CT, Without Contrast: History: Reason: ABDOMINAL PAIN, HYPERTENSIVE / Spl. Instructions: / History: Comparison: September 18, 2019. Procedure: Axial images are obtained of the abdomen and pelvis, without IV or oral contrast. Oral Contrast: No Findings: Evaluation of solid organs is limited without contrast. There is a mild right pleural effusion and there is marked patchy opacities in the lung bases. There is mild ecchymosis in the subcutaneous fat of the abdominal wall anteriorly seen previously. The gallbladder appears normal. The appendix is not identified. Liver: Normal. Spleen: Normal. Pancreas: Normal. Adrenal Glands: Normal. Kidneys: Atrophic. There is no free air or free fluid. There is no lymphadenopathy. The urinary bladder appears normal. There is no pericolonic inflammation identified. Impression: 1. Mild right effusion and marked basilar pulmonary infiltrates appears mildly improved. 2. Renal atrophy seen previously. End impression PQRS Compliance Statement: One or more of the following individualized dose reduction techniques were utilized for this examination: 1. Automated exposure control 2. Adjustment of the mA and/or kV according to patient size 3. Use of iterative reconstruction technique Electronically signed by: Jazlyn Fernandes III, MD (08/05/2020 11:41 PM) [facility] DICTATED and SIGNED BY: JAZLYN FERNANDES III, MD DATE: 08/05/20 234 [facility] [address] [place] [address] IMAGING REPORT Signed PATIENT: DELMY WASHINGTON ACCOUNT: [id number] : 1940 LOCATION: ER AGE: 80 SEX: F EXAM STATUS: REG ER ORD. PHYSICIAN: TONI BETTS DO REASON: SOA PROCEDURE: PORTABLE CHEST 1V Exam: Chest one view INDICATION: Short of air TECHNIQUE: Frontal view of the chest Comparisons: 09/17/2019 FINDINGS: The cardiomediastinal silhouette and pulmonary vessels are within normal limits. Hazy opacities lungs bilaterally. Small bilateral pleural effusions. IMPRESSION: Findings likely related to pulmonary edema with small bilateral pleural effusions. Superimposed infectious process is difficult to exclude. Electronically signed by: Karolina Mendez MD (08/05/2020 10:41 PM) [facility] DICTATED and SIGNED BY: KAROLINA MENDEZ MD DATE: 08/05/20 2240 Course & Med Decision Making: Course & Med Decision Making Pertinent Labs and Imaging studies reviewed. (See chart for details) Patient is an 80-year-old female with history of end-stage renal failure on hemodialysis Wednesday, and Wednesday, was brought here by her family for evaluation due to sudden onset of trouble breathing severely. Patient is on oxygen at home. She is scheduled for hemodialysis tomorrow morning. Patient also complained of low back pain. She denies any chest pain, no cough, no fever. She was found to be in flash pulmonary edema. Her blood pressure was elevated. Patient was put on oxygen, nitroglycerin drip was started. Patient was given 4 mg morphine IV. Patient condition improved significantly. She will be admitted to hospital, nephrology be consulted to have hemodialysis Bettye Disclaimer: Bettye Disclaimer: This electronic medical record was generated, in whole or in part, using a voice recognition dictation system. Departure Departure Impression: Primary Impression: Flash pulmonary edema Additional Impressions: Hypertensive urgency ESRD (end stage renal disease) Disposition: 09 ADMITTED INPT THIS HOSP Admitting Physician: SELINA (Dr. SELF) Condition: IMPROVED Referrals: CHRISTIANNE JACKSON MD (PCP) TONI BETTS DO Aug 05, 2020 23:54
[2020-08-06] MEDS ORDERED: MORPHINE SULFATE 4 MG/ML VIAL. IV PRN (00:15)
[2020-08-06] MEDS ORDERED: ONDANSETRON PF 4 MG/2 ML VIAL. IV PRN (00:15)
[2020-08-06] MEDS ORDERED: LABETALOL 20 MG/4 ML DISP.SYRIN. IVP ONE (01:15)
[2020-08-06 05:19] VITALS: BP 133/66
[2020-08-06 07:13] VITALS: BP 131/74
[2020-08-06] MEDS: ONDANSETRON PF 4 MG/2 ML VIAL. IVP PRN ×2 (08:17→20:08)
--- NOTE | 2020-08-06 09:29 | EKG ---
[facility] [address] [place] [address] Test Date: 2020-08-05 Test Time: 22:09:02 Pat Name: DELMY WASHINGTON Department: Room: Gender: F [employer]: : 1940 Requested By: TONI BETTS Order Number: [id number] Reading MD: Measurements Intervals [place] Rate: 129 P: 216 NE: 136 QRS: -20 QRSD: 82 T: 97 QT: 322 QTc: 474 Interpretive Statements SUPRAVENTRICULAR RHYTHM LEFTWARD AXIS CONSIDER LEFT VENTRICULAR HYPERTROPHY ST & T ABNORMALITY, CONSIDER ANTERIOR ISCHEMIA OR LEFT VENTRICULAR STRAIN LATERAL ISCHEMIA OR LEFT VENTRICULAR STRAIN ABNORMAL ECG RI6.02 No previous ECG available for comparison
--- NOTE | 2020-08-06 09:46 | PDOC1 ---
History and Physical Date of Admission Date of Admission DATE: 08/06/20 TIME: 09:45 Past Medical History Past Medical History Past Medical History Past Medical History Past Medical History: A-Fib, Diabetes-Type II, Hypertension, Renal Failure Past Surgical History: Hysterectomy, Other Additional Past Surgical Histo: catheter placed in rt chest, l arm fistuala Smoking Status: Never Smoker Alcohol Use: None Drug Use: None fhx htn Cardiovascular: CHF, HTN, Hyperlipidemia Pulmonary: No pertinent hx GI: No pertinent hx Heme/Onc: Anemia NOS Hepatobiliary: No pertinent hx Psych: No pertinent hx Rheumatologic: No pertinent hx Infectious disease: No pertinent hx Renal/: Chronic renal insuff Endocrine: Diabetes, Hyperparathyroidism Past Surgical History Past Surgical History: Hysterectomy Family History Family History: Hypertension Social History ALCOHOL: none Drugs: None Current Problem List Problem List Problems Medical Problems: (1) Flash pulmonary edema Status: Acute (2) Hypertensive urgency Status: Acute Current Medications Current Medications Current Medications Morphine Sulfate (Morphine Sulfate) 4 mg STK-MED ONCE .ROUTE ; Start 08/05/20 at 22:16; Stop 08/05/20 at 22:16; Status DC Morphine Sulfate (Morphine Sulfate) 4 mg 1X ONCE IV Last administered on 08/05/20at 22:24; Start 08/05/20 at 22:30; Stop 08/05/20 at 22:31; Status DC Nitroglycerin/ Dextrose 250 ml @ 0 mls/hr 1X ONCE IV Last administered on 08/05/20at 22:40; Start 08/05/20 at 22:30; Stop 08/05/20 at 22:31; Status DC Insulin Human Regular (HumuLIN R VIAL) 10 unit 1X ONCE IV Last administered on 08/06/20at 00:18; Start 08/05/20 at 23:15; Stop 08/05/20 at 23:16; Status DC Ondansetron HCl (Zofran) 4 mg PRN Q8HRS PRN IV NAUSEA/VOMITING Last administered on 08/06/20at 04:30; Start 08/06/20 at 00:15; Stop 08/07/20 at 00:14 Morphine Sulfate (Morphine Sulfate) 4 mg PRN Q2HR PRN IV PAIN Last administered on 08/06/20at 04:30; Start 08/06/20 at 00:15; Stop 08/07/20 at 00:14 Labetalol HCl (Normodyne Iv Push) 20 mg 1X ONCE IVP Last administered on 08/06/20at 02:29; Start 08/06/20 at 01:15; Stop 08/06/20 at 01:16; Status DC Ondansetron HCl (Zofran) 4 mg PRN Q6HRS PRN IVP NAUSEA/VOMITING Last administered on 08/06/20at 08:17; Start 08/06/20 at 08:00 Active Scripts Active Cardizem Cd (Diltiazem Hcl) 180 Mg Cap.er.24h 1 Cap PO DAILY Reported Novolog (Insulin Aspart) 100 Unit/1 Ml Cartridge 10 Units SQ TIDWMEALS Glipizide Er (Glipizide) 10 Mg Tab.er.24 1 Tab PO DAILY Diltiazem 24HR Cd (Diltiazem Hcl) 180 Mg Cap.er.24h 1 Cap PO DAILY 30 Days Levemir (Insulin Detemir) 100 Unit/1 Ml Vial 35 Unit SQ HS Pantoprazole Sodium (Pantoprazole Sodium) 40 Mg Tablet.dr 40 Mg PO DAILYAC Tradjenta (Linagliptin) 5 Mg Tablet 5 Mg PO DAILY Pentoxifylline 400 Mg Tablet.er 400 Mg PO DAILY Crestor (Rosuvastatin Calcium) 20 Mg Tablet 1 Tab PO DAILY Allergies Allergies: Coded Allergies: No Known Drug Allergies (Unverified , 05/07/14) Vitals Vitals Vital Signs Date Time Temp Pulse Resp B/P (MAP) Pulse Ox O2 Delivery O2 Flow Rate FiO2 08/06/20 07:13 96.9 99 20 131/74 (93) 92 Nasal Cannula 4.0 96.9 Labs Labs Laboratory Tests Test 08/05/20 22:15 08/05/20 22:30 08/06/20 07:57 White Blood Count 14.1 x10^3/uL (4.0-11.0) Red Blood Count 3.13 x10^6/uL (3.50-5.40) Hemoglobin 11.0 g/dL (12.0-15.5) Hematocrit 33.9 % (36.0-47.0) Mean Corpuscular Volume 108 fL (79-100) Mean Corpuscular Hemoglobin 35 pg (25-35) Mean Corpuscular Hemoglobin Concent 33 g/dL (31-37) Red Cell Distribution Width 13.9 % (11.5-14.5) Platelet Count 227 x10^3/uL (140-400) Neutrophils (%) (Auto) 63 % (31-73) Lymphocytes (%) (Auto) 26 % (24-48) Monocytes (%) (Auto) 9 % (0-9) Eosinophils (%) (Auto) 1 % (0-3) Basophils (%) (Auto) 0 % (0-3) Neutrophils # (Auto) 8.9 x10^3/uL (1.8-7.7) Lymphocytes # (Auto) 3.6 x10^3/uL (1.0-4.8) Monocytes # (Auto) 1.3 x10^3/uL (0.0-1.1) Eosinophils # (Auto) 0.2 x10^3/uL (0.0-0.7) Basophils # (Auto) 0.0 x10^3/uL (0.0-0.2) Sodium Level 136 mmol/L (136-145) Potassium Level 4.0 mmol/L (3.5-5.1) Chloride Level 96 mmol/L (98-107) Carbon Dioxide Level 24 mmol/L (21-32) Anion Gap 16 (6-14) Blood Urea Nitrogen 71 mg/dL (7-20) Creatinine 7.4 mg/dL (0.6-1.0) Estimated GFR (Cockcroft-Gault) 5.3 BUN/Creatinine Ratio 10 (6-20) Glucose Level 400 mg/dL (70-99) Calcium Level 10.2 mg/dL (8.5-10.1) Total Bilirubin 0.4 mg/dL (0.2-1.0) Aspartate Amino Transf (AST/SGOT) 22 U/L (15-37) Alanine Aminotransferase (ALT/SGPT) 23 U/L (14-59) Alkaline Phosphatase 141 U/L (46-116) Troponin I Quantitative 1.371 ng/mL (0.000-0.055) BU-Aqx-Q-Type Natriuretic Peptide 69740 pg/mL (0-449) Total Protein 7.6 g/dL (6.4-8.2) Albumin 3.2 g/dL (3.4-5.0) Albumin/Globulin Ratio 0.7 (1.0-1.7) Acetone Level Neg (NEG) O2 Saturation 92 % (92-99) Arterial Blood pH 7.27 (7.35-7.45) Arterial Blood pCO2 at Patient Temp 45 mmHg (35-46) Arterial Blood pO2 at Patient Temp 78 mmHg (65-108) Arterial Blood HCO3 20 mmol/L (21-28) Arterial Blood Base Excess -6 mmol/L (-3-3) Oxyhemoglobin 91.8 % Methemoglobin 0.1 % (0.0-1.9) Carbon Monoxide, Quantitative 0.5 % (0.0-1.9) FiO2 100 Glucose (Fingerstick) 220 mg/dL (70-99) Laboratory Tests Test 08/05/20 22:15 08/05/20 22:30 08/06/20 07:57 White Blood Count 14.1 x10^3/uL (4.0-11.0) Red Blood Count 3.13 x10^6/uL (3.50-5.40) Hemoglobin 11.0 g/dL (12.0-15.5) Hematocrit 33.9 % (36.0-47.0) Mean Corpuscular Volume 108 fL (79-100) Mean Corpuscular Hemoglobin 35 pg (25-35) Mean Corpuscular Hemoglobin Concent 33 g/dL (31-37) Red Cell Distribution Width 13.9 % (11.5-14.5) Platelet Count 227 x10^3/uL (140-400) Neutrophils (%) (Auto) 63 % (31-73) Lymphocytes (%) (Auto) 26 % (24-48) Monocytes (%) (Auto) 9 % (0-9) Eosinophils (%) (Auto) 1 % (0-3) Basophils (%) (Auto) 0 % (0-3) Neutrophils # (Auto) 8.9 x10^3/uL (1.8-7.7) Lymphocytes # (Auto) 3.6 x10^3/uL (1.0-4.8) Monocytes # (Auto) 1.3 x10^3/uL (0.0-1.1) Eosinophils # (Auto) 0.2 x10^3/uL (0.0-0.7) Basophils # (Auto) 0.0 x10^3/uL (0.0-0.2) Sodium Level 136 mmol/L (136-145) Potassium Level 4.0 mmol/L (3.5-5.1) Chloride Level 96 mmol/L (98-107) Carbon Dioxide Level 24 mmol/L (21-32) Anion Gap 16 (6-14) Blood Urea Nitrogen 71 mg/dL (7-20) Creatinine 7.4 mg/dL (0.6-1.0) Estimated GFR (Cockcroft-Gault) 5.3 BUN/Creatinine Ratio 10 (6-20) Glucose Level 400 mg/dL (70-99) Calcium Level 10.2 mg/dL (8.5-10.1) Total Bilirubin 0.4 mg/dL (0.2-1.0) Aspartate Amino Transf (AST/SGOT) 22 U/L (15-37) Alanine Aminotransferase (ALT/SGPT) 23 U/L (14-59) Alkaline Phosphatase 141 U/L (46-116) Troponin I Quantitative 1.371 ng/mL (0.000-0.055) AC-Jny-L-Type Natriuretic Peptide 37859 pg/mL (0-449) Total Protein 7.6 g/dL (6.4-8.2) Albumin 3.2 g/dL (3.4-5.0) Albumin/Globulin Ratio 0.7 (1.0-1.7) Acetone Level Neg (NEG) O2 Saturation 92 % (92-99) Arterial Blood pH 7.27 (7.35-7.45) Arterial Blood pCO2 at Patient Temp 45 mmHg (35-46) Arterial Blood pO2 at Patient Temp 78 mmHg (65-108) Arterial Blood HCO3 20 mmol/L (21-28) Arterial Blood Base Excess -6 mmol/L (-3-3) Oxyhemoglobin 91.8 % Methemoglobin 0.1 % (0.0-1.9) Carbon Monoxide, Quantitative 0.5 % (0.0-1.9) FiO2 100 Glucose (Fingerstick) 220 mg/dL (70-99) Images Images Images Images DPOA REVIEW 19 MIN to patient portal What Is a Power of Meat Department Manager? A power of commercial litigation attorney (POA) is a legal document giving one person (the agent or [id number]-[id number]) the power to act for another person (the principal). The agent can have broad legal authority or limited authority to make legal decisions about the principal's property, finances or medical care. The power of commercial litigation attorney is frequently used in the event of a principal's illness or disability, or when the principal can't be present to sign necessary legal documents for financial transactions. A power of commercial litigation attorney can end for a number of reasons, such as when the principal dies, the principal revokes it, a court invalidates it, the principal divorces their spouse, who happens to be the agent, or the agent can no longer carry out the outlined responsibilities. Conventional POAs lapse when the creator becomes incapacitated, but a durable POA remains in force to enable the agent to manage the creators affairs, and a springing POA comes into effect only if and when the creator of the POA becomes incapacitated. A medical or healthcare POA enables an agent to make medical decisions on behalf of an incapacitated person. [employer] A power of commercial litigation attorney (POA) is a legal document giving one person, the agent or [id number] the power to act for another person, the principal. The agent can have broad legal authority or limited authority to make decisions about the principal's property, finances or medical care. The power of commercial litigation attorney is often used when a principal becomes ill or disabled, or when they can't be present to sign necessary legal documents for financial transactions. Understanding Power of Meat Department Manager A power of commercial litigation attorney should be considered when planning for long-term care. There are different types of POAs that fall under either a general power of commercial litigation attorney or limited power of commercial litigation attorney. A general power of commercial litigation attorney acts on behalf of the principal in any and all matters, as allowed by the state. The agent under a general POA agreement may be authorized to take care of issues such as handling bank accounts, signing checks, selling property and assets like stocks, f A limited power of commercial litigation attorney gives the agent the power to act on behalf of the principal in specific matters or events. For example, the limited POA may explicitly state that the agent is only allowed to manage the principal's usp accounts. A limited POA may also be limited to a specific period of time (e.g., if the principal will be out of the country for, say, two years). Most chin of commercial litigation attorney documents allow an agent to represent the principal in all property and financial matters as long as the principals mental state of mind is good. If a situation occurs where the principal becomes incapable of making decisions for him or herself, the POA agreement would automatically end. However, someone who wants the POA to remain in effect after the persons health deteriorates would need to sign a durable power of commercial litigation attorney (DPOA). What is an advance directive? An advance directive is a legal document that says how you want to be cared for if you are unable to make decisions. You can include what medical treatments you would want and who you would trust to make decisions for you. An advance directive can also include other legal documents. A living will is a list of treatment preferences. It can be used to indicate whether you would want cardiopulmonary resuscitation (CPR), tube feedings, a breathing machine, or certain medicines, like antibiotics. The durable power of commercial litigation attorney for health care document identifies the person you would want to make medical decisions for you. This person is also called a proxy. Your proxy should be familiar with your values and wishes. How do I get started? You can get advance directive documents for your state from your doctor's office or from http://www.caringinfo.org. Review the forms, and ask your doctor if you have any questions. Pick a person to be your proxy, and talk it over with that person. RISK FACTORS Hypertension 2D DIMENSIONS RVDd 2.2 (2.9-3.5cm) Left Atrium(2D) 3.5 (1.6-4.0cm) IVSd 1.2 (0.7-1.1cm) Aortic Root(2D) 2.7 (2.0-3.7cm) LVDd 4.6 (3.9-5.9cm) LVOT Diameter 2.3 (1.8-2.4cm) PWd 1.2 (0.7-1.1cm) LVDs 3.1 (2.5-4.0cm) FS (%) 32.0 % SV 58.0 ml LVEF(%) 60.2 (>50%) Aortic Valve AoV Peak Elie. 162.8cm/s AoV VTI 29.7cm AO Peak GR. 10.6mmHg LVOT Peak Elie. 120.3cm/s AO Mean GR. 6mmHg SHANTANU (VMAX) 3.08cm2 AI P 1/2 Time 348ms Mitral Valve MV E Velocity 112.5cm/s MV E Peak Gr. 9mmHg MV DECEL TIME 111ms MV A Velocity 158.7cm/s MV E Mean Gr. 4mmHg E/A Ratio 0.7 MV A Duration 81ms Pulmonary Valve PV Peak Velocity 90.4cm/s Tricuspid Valve TR P. Velocity 318cm/s TR Peak Gr. 41mmHg Pulmonary Vein S1 Velocity 54.5cm/s D2 Velocity 32.0cm/s PVa duration 60msec LEFT VENTRICLE The left ventricle is normal size. There is mild concentric left ventricular h ypertrophy. The left ventricular systolic function is low normal to mildly decreased. The Ejection Fraction is 45-50%. Transmitral Doppler flow pattern is Grade I-abnormal relaxation pattern. RIGHT VENTRICLE The right ventricle is normal size. There is normal right ventricular wall thickness. The right ventricular systolic function is normal. ATRIA The left atrium size is normal. The right atrium size is normal. The interatrial septum is intact with no evidence for an atrial septal defect or patent foramen ovale as noted on 2-D or Doppler imaging. AORTIC VALVE The aortic valve is not well visualized but appears mildly calcified and opens adequately. Doppler and Color Flow revealed mild to moderate aortic regurgitation. There is no significant aortic valvular stenosis. MITRAL VALVE Mitral annular calcification is mild. The mitral valve leaflets are thickened. There is no evidence of mitral valve prolapse. There is no mitral valve stenosis. Doppler and Color Flow revealed mild to moderate, anteriorly directed mitral regurgitation. TRICUSPID VALVE Doppler and Color Flow revealed mild tricuspid regurgitation. The pulmonary artery systolic pressure is estimated at 44 mmHg. PULMONIC VALVE The pulmonic valve is not well visualized but appears to open adequately. Doppler and Color Flow revealed mild pulmonic valvular regurgitation. There is no pulmonic valvular stenosis by spectral Doppler. GREAT VESSELS The aortic root is normal in size. The ascending aorta is normal in size. The pulmonary artery is normal. The IVC is normal in size and collapses >50% with inspiration. PERICARDIAL EFFUSION There is no evidence of significant pericardial effusion. Critical Notification Critical Value: No <Conclusion> The left ventricle is normal size. The left ventricular systolic function is low normal to mildly decreased. The Ejection Fraction is 45-50%. There is mild concentric left ventricular hypertrophy. There is no significant aortic valvular stenosis. Doppler and Color Flow revealed mild to moderate, anteriorly directed mitral regurgitation. Doppler and Color Flow revealed mild tricuspid regurgitation. The pulmonary artery systolic pressure is estimated at 44 mmHg. DICTATED and SIGNED BY: HANK CRUZ MD DATE: 06/18/17 1218 CC: HANK CRUZ MD; NO PCP; GLENNA RANDLE MD ~ Exam: Chest one view INDICATION: Short of air TECHNIQUE: Frontal view of the chest Comparisons: 09/17/2019 FINDINGS: The cardiomediastinal silhouette and pulmonary vessels are within normal limits. Hazy opacities lungs bilaterally. Small bilateral pleural effusions. IMPRESSION: Findings likely related to pulmonary edema with small bilateral pleural effusions. Superimposed infectious process is difficult to exclude. Electronically signed by: Karolina Mendez MD (08/05/2020 10:41 PM) [facility] DICTATED and SIGNED BY: KAROLINA MENDEZ MD DATE: 08/05/20 2241 Comparison: September 18, 2019. Procedure: Axial images are obtained of the abdomen and pelvis, without IV or oral contrast. Oral Contrast: No Findings: Evaluation of solid organs is limited without contrast. There is a mild right pleural effusion and there is marked patchy opacities in the lung bases. There is mild ecchymosis in the subcutaneous fat of the abdominal wall anteriorly seen previously. The gallbladder appears normal. The appendix is not identified. Liver: Normal. Spleen: Normal. Pancreas: Normal. Adrenal Glands: Normal. Kidneys: Atrophic. There is no free air or free fluid. There is no lymphadenopathy. The urinary bladder appears normal. There is no pericolonic inflammation identified. Impression: 1. Mild right effusion and marked basilar pulmonary infiltrates appears mildly improved. 2. Renal atrophy seen previously. End impression PQRS Compliance Statement: One or more of the following individualized dose reduction techniques were utilized for this examination: 1. Automated exposure control 2. Adjustment of the mA and/or kV according to patient size 3. Use of iterative reconstruction technique Electronically signed by: Jazlyn Fernandes III, MD (08/05/2020 11:41 PM) [facility] DICTATED and SIGNED BY: JAZLYN FERNANDES III, MD DATE: 08/05/20 2341 VTE Prophylaxis Ordered VTE Prophylaxis Devices: No VTE Pharmacological Prophylaxi: Yes Justifications for Admission Other Justification JENNY STEVEN MD Aug 06, 2020 09:46
--- NOTE | 2020-08-06 10:26 | PDOC2 ---
JOJO ONEILL PAYROLL COORDINATOR 08/06/20 1026: CARDIAC CONSULT DATE OF CONSULT Date of Consult DATE: 08/06/20 TIME: 10:13 REASON FOR CONSULT Reason for Consult: cardiomyopathy REFERRING PHYSICIAN Referring Physician: Dr. Smith SOURCE Source: Chart review, Patient HISTORY OF PRESENT ILLNESS HISTORY OF PRESENT ILLNESS This is an 80 yo female who presented secondary to shortness of breath that began yesterday evening. Applied O2. Initially improved breathing, but later in the night, breathing worsened so she came to the ED for further evaluation and treatment. No reports of chest pain, dizziness, diaphoresis, or nausea/vomiting. No recent fevers/illness. No known COVID exposure. HPI obtained from son, Mack. PAST MEDICAL HISTORY Cardiovascular: AFIB, CHF, HTN Heme/Onc: Anemia NOS Renal/: Chronic renal failure (ESRD on HD ) Endocrine: Diabetes PAST SURGICAL HISTORY Past Surgical History: Hysterectomy FAMILY HISTORY Family History: Hypertension SOCIAL HISTORY Smoke: No ALCOHOL: none Drugs: None Lives: with Family CURRENT MEDICATIONS CURRENT MEDICATIONS Current Medications Medications (Trade) Dose Ordered Sig/Sveta Route PRN Reason Start Time Stop Time Status Last Admin Dose Admin Morphine Sulfate (Morphine Sulfate) 4 mg 1X ONCE IV 08/05/20 22:30 08/05/20 22:31 DC 08/05/20 22:24 Nitroglycerin/ Dextrose 250 ml @ 0 mls/hr 1X ONCE IV 08/05/20 22:30 08/05/20 22:31 DC 08/05/20 22:40 Insulin Human Regular (HumuLIN R VIAL) 10 unit 1X ONCE IV 08/05/20 23:15 08/05/20 23:16 DC 08/06/20 00:18 Ondansetron HCl (Zofran) 4 mg PRN Q8HRS PRN IV NAUSEA/VOMITING 08/06/20 00:15 08/07/20 00:14 08/06/20 04:30 Morphine Sulfate (Morphine Sulfate) 4 mg PRN Q2HR PRN IV PAIN 08/06/20 00:15 08/07/20 00:14 08/06/20 04:30 Labetalol HCl (Normodyne Iv Push) 20 mg 1X ONCE IVP 08/06/20 01:15 08/06/20 01:16 DC 08/06/20 02:29 Ondansetron HCl (Zofran) 4 mg PRN Q6HRS PRN IVP NAUSEA/VOMITING 08/06/20 08:00 08/06/20 08:17 ALLERGIES ALLERGIES: Coded Allergies: No Known Drug Allergies (Unverified , 05/07/14) ROS Review of System limited PHYSICAL EXAM PHYSICAL EXAM visual exam due to COVID PUI General: Alert, Cooperative, No acute distress HEENT: Atraumatic Lungs: Other (CXR reviewed, [place] ) Heart: Regular rate Abdomen: Soft Extremities: No edema Neuro: Normal speech MUSCULOSKELETAL: Osteoarthritic changes both hands VITALS/I&O VITALS/I&O: Vital Signs Date Time Temp Pulse Resp B/P (MAP) Pulse Ox O2 Delivery O2 Flow Rate FiO2 08/06/20 07:13 96.9 99 20 131/74 (93) 92 Nasal Cannula 4.0 96.9 I & O 08/05/20 08/05/20 08/06/20 15:00 23:00 07:00 Output Total 275 ml Balance -275 ml LABS Lab: Laboratory Tests Test 08/05/20 22:15 08/05/20 22:30 08/06/20 07:57 08/06/20 08:09 White Blood Count 14.1 x10^3/uL (4.0-11.0) H Red Blood Count 3.13 x10^6/uL (3.50-5.40) L Hemoglobin 11.0 g/dL (12.0-15.5) L Hematocrit 33.9 % (36.0-47.0) L Mean Corpuscular Volume 108 fL (79-100) H Mean Corpuscular Hemoglobin 35 pg (25-35) Mean Corpuscular Hemoglobin Concent 33 g/dL (31-37) Red Cell Distribution Width 13.9 % (11.5-14.5) Platelet Count 227 x10^3/uL (140-400) Neutrophils (%) (Auto) 63 % (31-73) Lymphocytes (%) (Auto) 26 % (24-48) Monocytes (%) (Auto) 9 % (0-9) Eosinophils (%) (Auto) 1 % (0-3) Basophils (%) (Auto) 0 % (0-3) Neutrophils # (Auto) 8.9 x10^3/uL (1.8-7.7) H Lymphocytes # (Auto) 3.6 x10^3/uL (1.0-4.8) Monocytes # (Auto) 1.3 x10^3/uL (0.0-1.1) H Eosinophils # (Auto) 0.2 x10^3/uL (0.0-0.7) Basophils # (Auto) 0.0 x10^3/uL (0.0-0.2) Sodium Level 136 mmol/L (136-145) Potassium Level 4.0 mmol/L (3.5-5.1) Chloride Level 96 mmol/L (98-107) L Carbon Dioxide Level 24 mmol/L (21-32) Anion Gap 16 (6-14) H Blood Urea Nitrogen 71 mg/dL (7-20) H Creatinine 7.4 mg/dL (0.6-1.0) H Estimated GFR (Cockcroft-Gault) 5.3 BUN/Creatinine Ratio 10 (6-20) Glucose Level 400 mg/dL (70-99) H Calcium Level 10.2 mg/dL (8.5-10.1) H Total Bilirubin 0.4 mg/dL (0.2-1.0) Aspartate Amino Transferase (AST) 22 U/L (15-37) Alanine Aminotransferase (ALT) 23 U/L (14-59) Alkaline Phosphatase 141 U/L (46-116) H Troponin I Quantitative 1.371 ng/mL (0.000-0.055) 2.141 ng/mL (0.000-0.055) AZ-Dbm-V-Type Natriuretic Peptide 76727 pg/mL (0-449) H Total Protein 7.6 g/dL (6.4-8.2) Albumin 3.2 g/dL (3.4-5.0) L Albumin/Globulin Ratio 0.7 (1.0-1.7) L Acetone Level Neg (NEG) O2 Saturation 92 % (92-99) Arterial Blood pH 7.27 (7.35-7.45) L Arterial Blood pCO2 at Patient Temp 45 mmHg (35-46) Arterial Blood pO2 at Patient Temp 78 mmHg (65-108) Arterial Blood HCO3 20 mmol/L (21-28) L Arterial Blood Base Excess -6 mmol/L (-3-3) L Oxyhemoglobin 91.8 % Methemoglobin 0.1 % (0.0-1.9) Carbon Monoxide, Quantitative 0.5 % (0.0-1.9) FiO2 100 Glucose (Fingerstick) 220 mg/dL (70-99) H Laboratory Tests 08/05/20 22:15 Laboratory Tests 08/05/20 22:15 ECHOCARDIOGRAM ECHOCARDIOGRAM <Conclusion> The left ventricle is normal size. The left ventricular systolic function is low normal to mildly decreased. The Ejection Fraction is 45-50%. There is mild concentric left ventricular hypertrophy. There is no significant aortic valvular stenosis. Doppler and Color Flow revealed mild to moderate, anteriorly directed mitral regurgitation. Doppler and Color Flow revealed mild tricuspid regurgitation. The pulmonary artery systolic pressure is estimated at 44 mmHg. DATE: 06/18/17 1218 ASSESSMENT/PLAN ASSESSMENT/PLAN 1. Acute respiratory failure with CHF. COVID pending 2. Acute on chronic probable systolic CHF 3. Cardiomyopathy; Echo 2017 with LVEF 45-50% 4. NSTEMI; trop highest 2.1. Possible type II in the setting of CKD, hypertensive urgency, and CHF 5. Hypertensive urgency; improved 6. ?AFIB; details unclear. Son without knowledge of AFIB. maintaining SR 7. Diabetes, II 8. ESRD on HD 9. Anemia of chronic disease Recommendations Add ASA, statin Trend trop Will start heparin per CV protocol given NSTEMI Lipids Discontinue Cardizem. Add metoprolol. Convert to long-acting if patient tolerates well Fluid offloading via HD Await COVID Echo if COVID negative Further ischemic evaluation AYSE MENDOZA MD 08/06/20 1542: CARDIAC CONSULT ASSESSMENT/PLAN ASSESSMENT/PLAN The patient was seen and interviewed as well as examined at the bedside. The chart was reviewed. The case was discussed. Agree with the plan of care. JOJO ONEILL APRN Aug 06, 2020 10:26 AYSE MENDOZA MD Aug 06, 2020 15:42
[2020-08-06] MEDS ORDERED: HEPARIN for IV BOLUS 10,000 UNIT/10 ML VIAL. IV ONE (10:30)
[2020-08-06] MEDS ORDERED: HEPARIN for IV BOLUS 10,000 UNIT/10 ML VIAL. IV PRN (10:30)
[2020-08-06] MEDS ORDERED: ASPIRIN 325 MG TABLET PO ONE (10:30)
[2020-08-06 11:01] LABS: CHOLESTEROL/HDL RATIO 4.9
[2020-08-06] MEDS ORDERED: IV NORMAL SALINE 1000ML BAG 1,000 ML IV PRN ×2 (11:04)
[2020-08-06] MEDS: HEPARIN 25,000UTS/250ML PREMIX 250 ML IV PRN (11:07)
[2020-08-06] MEDS: METOPROLOL TART IMMED RELEASE 50 MG TABLET. PO SCH ×2 (11:08→20:08)
[2020-08-06] MEDS ORDERED: ALBUMIN HUMAN 25% 200 ML IV PRN (11:15)
[2020-08-06] MEDS ORDERED: DIALYSIS PATIENT. MC PRN ×2 (11:15)
[2020-08-06 11:21] VITALS: BP 157/110
--- NOTE | 2020-08-06 11:51 | PDOC2 ---
CONSULT Date of Consult Date of Consult DATE: 08/06/20 TIME: 11:37 Reason for Consult Reason for Consult: ESRD Source Source: Patient History of Present Illness Reason for Visit: Patient is a 80 year old female who was brought to ER by her daughter for evaluation of sudden onset of severe trouble breathing. Patient has a history of end-stage renal failure on hemodialysis. Per Daughter patient was doing okay , then slowly sister having severe trouble breathing. No report of cough or fever, no chest pain. Patient does complain of low back pain. Patient also complained of abdominal pain. No diarrhea , Nausea or Vomiting Patient doesnt speak jordanian, Hx Obtained from chart review Past Medical History Cardiovascular: AFIB, CHF, HTN Pulmonary: No pertinent hx GI: No pertinent hx Heme/Onc: Anemia NOS Hepatobiliary: No pertinent hx Psych: No pertinent hx Rheumatologic: No pertinent hx Infectious disease: No pertinent hx Renal/: Chronic renal failure (ESRD on HD ) Endocrine: Diabetes Past Surgical History Past Surgical History: Hysterectomy Family History Family History: Hypertension Social History ALCOHOL: none Drugs: None Lives: with Family Current Problem List Problem List Problems Medical Problems: (1) Flash pulmonary edema Status: Acute (2) Hypertensive urgency Status: Acute Current Medications Current Medications Current Medications Morphine Sulfate (Morphine Sulfate) 4 mg STK-MED ONCE .ROUTE ; Start 08/05/20 at 22:16; Stop 08/05/20 at 22:16; Status DC Morphine Sulfate (Morphine Sulfate) 4 mg 1X ONCE IV Last administered on 08/05/20at 22:24; Start 08/05/20 at 22:30; Stop 08/05/20 at 22:31; Status DC Nitroglycerin/ Dextrose 250 ml @ 0 mls/hr 1X ONCE IV Last administered on 08/05/20at 22:40; Start 08/05/20 at 22:30; Stop 08/05/20 at 22:31; Status DC Insulin Human Regular (HumuLIN R VIAL) 10 unit 1X ONCE IV Last administered on 08/06/20at 00:18; Start 08/05/20 at 23:15; Stop 08/05/20 at 23:16; Status DC Ondansetron HCl (Zofran) 4 mg PRN Q8HRS PRN IV NAUSEA/VOMITING Last administered on 08/06/20at 04:30; Start 08/06/20 at 00:15; Stop 08/07/20 at 00:14 Morphine Sulfate (Morphine Sulfate) 4 mg PRN Q2HR PRN IV PAIN Last administered on 08/06/20at 04:30; Start 08/06/20 at 00:15; Stop 08/07/20 at 00:14 Labetalol HCl (Normodyne Iv Push) 20 mg 1X ONCE IVP Last administered on at 02:29; Start 08/06/20 at 01:15; Stop 08/06/20 at 01:16; Status DC Ondansetron HCl (Zofran) 4 mg PRN Q6HRS PRN IVP NAUSEA/VOMITING Last administered on 08/06/20at 08:17; Start 08/06/20 at 08:00 Aspirin (Maxi Aspirin) 325 mg 1X ONCE PO Last administered on 08/06/20at 11:07; Start 08/06/20 at 10:30; Stop 08/06/20 at 10:31; Status DC Aspirin (Ecotrin) 81 mg DAILYWBKFT PO ; Start 08/07/20 at 08:00 Heparin Sodium (Porcine) (Heparin Sodium) 2,950 unit 1X ONCE IV Last administered on 08/06/20at 11:09; Start 08/06/20 at 10:30; Stop 08/06/20 at 10:39; Status DC Heparin Sodium/ Dextrose 250 ml @ 0 mls/hr CONT PRN IV PER PROTOCOL Last administered on 08/06/20at 11:07; Start 08/06/20 at 10:30 Heparin Sodium (Porcine) (Heparin Sodium) 1,200 unit PRN Q6HRS PRN IV FOR UFH LEVEL LESS THAN 0.2; Start 08/06/20 at 10:30 Metoprolol Tartrate (Lopressor) 50 mg BID PO Last administered on 08/06/20at 11:08; Start 08/06/20 at 11:00 Atorvastatin Calcium (Lipitor) 40 mg QHS PO ; Start 08/06/20 at 21:00 Sodium Chloride 1,000 ml @ 1,000 mls/hr Q1H PRN IV hypotension; Start 08/06/20 at 11:04; Stop 08/06/20 at 17:03 Albumin Human 200 ml @ 200 mls/hr 1X PRN PRN IV Hypotension; Start 08/06/20 at 11:15; Stop 08/06/20 at 17:14 Sodium Chloride 1,000 ml @ 400 mls/hr Q2H30M PRN IV PATENCY; Start 08/06/20 at 11:04; Stop 08/06/20 at 23:03 Info (PHARMACY MONITORING -- do not chart) 1 each PRN DAILY PRN MC SEE COMMENTS; Start 08/06/20 at 11:15; Stop 08/06/20 at 11:16; Status DC Info (PHARMACY MONITORING -- do not chart) 1 each PRN DAILY PRN MC SEE COMMENTS; Start 08/06/20 at 11:15 Active Scripts Active Cardizem Cd (Diltiazem Hcl) 180 Mg Cap.er.24h 1 Cap PO DAILY Reported Novolog (Insulin Aspart) 100 Unit/1 Ml Cartridge 10 Units SQ TIDWMEALS Glipizide Er (Glipizide) 10 Mg Tab.er.24 1 Tab PO DAILY Diltiazem 24HR Cd (Diltiazem Hcl) 180 Mg Cap.er.24h 1 Cap PO DAILY 30 Days Levemir (Insulin Detemir) 100 Unit/1 Ml Vial 35 Unit SQ HS Pantoprazole Sodium (Pantoprazole Sodium) 40 Mg Tablet.dr 40 Mg PO DAILYAC Tradjenta (Linagliptin) 5 Mg Tablet 5 Mg PO DAILY Pentoxifylline 400 Mg Tablet.er 400 Mg PO DAILY Crestor (Rosuvastatin Calcium) 20 Mg Tablet 1 Tab PO DAILY Allergies Allergies: Coded Allergies: No Known Drug Allergies (Unverified , 05/07/14) ROS Review of System As per HPI, rest of the ROS is negative Physical Exam Physical Exam GENERAL: NAD HEENT: Normocephalic, atraumatic, anicteric, OM moist NECK: Supple, no JVD. LUNGS: Clear bilaterally, Non labored HEART: S1, S2. No gallops or murmurs. ABDOMEN: Soft, nontender, EXTREMITIES: No edema, no cyanosis. DERMATOLOGIC: . No generalized rash. Left upper extremity AV fistula PSYCHIATRIC: Cooperative, appropriate mood and affect. NEURO Grossly Normal Vital Signs Vital Signs Date Time Temp Pulse Resp B/P (MAP) Pulse Ox O2 Delivery O2 Flow Rate FiO2 08/06/20 11:21 97.0 96 25 157/110 (126) 98 Nasal Cannula 4.0 97.0 Assessment & Plan ESRD- On HD TTS Seen on Dialysis , tolerating well , Discussed treatment plan with intramural director Anemia- Stable, No indication for GUILLERMO Acute respiratory failure- Cxr reported pulmonary edema with small bilateral pleural effusions. Superimposed infectious process is difficult to exclude. CoVid Pending Acute on chronic systolic CHF- Dialysis with UF today Cardiomyopathy; Echo 2017 with LVEF 45-50% Hypertensive urgency - cardiology managing AFIB; maintaining SR Diabetes, II Labs Labs Laboratory Tests Test 08/05/20 22:15 08/05/20 22:30 08/06/20 07:57 08/06/20 08:09 White Blood Count 14.1 x10^3/uL (4.0-11.0) Red Blood Count 3.13 x10^6/uL (3.50-5.40) Hemoglobin 11.0 g/dL (12.0-15.5) Hematocrit 33.9 % (36.0-47.0) Mean Corpuscular Volume 108 fL (79-100) Mean Corpuscular Hemoglobin 35 pg (25-35) Mean Corpuscular Hemoglobin Concent 33 g/dL (31-37) Red Cell Distribution Width 13.9 % (11.5-14.5) Platelet Count 227 x10^3/uL (140-400) Neutrophils (%) (Auto) 63 % (31-73) Lymphocytes (%) (Auto) 26 % (24-48) Monocytes (%) (Auto) 9 % (0-9) Eosinophils (%) (Auto) 1 % (0-3) Basophils (%) (Auto) 0 % (0-3) Neutrophils # (Auto) 8.9 x10^3/uL (1.8-7.7) Lymphocytes # (Auto) 3.6 x10^3/uL (1.0-4.8) Monocytes # (Auto) 1.3 x10^3/uL (0.0-1.1) Eosinophils # (Auto) 0.2 x10^3/uL (0.0-0.7) Basophils # (Auto) 0.0 x10^3/uL (0.0-0.2) Sodium Level 136 mmol/L (136-145) Potassium Level 4.0 mmol/L (3.5-5.1) Chloride Level 96 mmol/L (98-107) Carbon Dioxide Level 24 mmol/L (21-32) Anion Gap 16 (6-14) Blood Urea Nitrogen 71 mg/dL (7-20) Creatinine 7.4 mg/dL (0.6-1.0) Estimated GFR (Cockcroft-Gault) 5.3 BUN/Creatinine Ratio 10 (6-20) Glucose Level 400 mg/dL (70-99) Calcium Level 10.2 mg/dL (8.5-10.1) Total Bilirubin 0.4 mg/dL (0.2-1.0) Aspartate Amino Transf (AST/SGOT) 22 U/L (15-37) Alanine Aminotransferase (ALT/SGPT) 23 U/L (14-59) Alkaline Phosphatase 141 U/L (46-116) Troponin I Quantitative 1.371 ng/mL (0.000-0.055) 2.141 ng/mL (0.000-0.055) WE-Llp-X-Type Natriuretic Peptide 51995 pg/mL (0-449) Total Protein 7.6 g/dL (6.4-8.2) Albumin 3.2 g/dL (3.4-5.0) Albumin/Globulin Ratio 0.7 (1.0-1.7) Acetone Level Neg (NEG) O2 Saturation 92 % (92-99) Arterial Blood pH 7.27 (7.35-7.45) Arterial Blood pCO2 at Patient Temp 45 mmHg (35-46) Arterial Blood pO2 at Patient Temp 78 mmHg (65-108) Arterial Blood HCO3 20 mmol/L (21-28) Arterial Blood Base Excess -6 mmol/L (-3-3) Oxyhemoglobin 91.8 % Methemoglobin 0.1 % (0.0-1.9) Carbon Monoxide, Quantitative 0.5 % (0.0-1.9) FiO2 100 Glucose (Fingerstick) 220 mg/dL (70-99) Triglycerides Level 275 mg/dL (0-150) Cholesterol Level 161 mg/dL (0-200) LDL Cholesterol, Calculated 73 mg/dL (0-100) VLDL Cholesterol, Calculated 55 mg/dL (0-40) Non-HDL Cholesterol Calculated 128 mg/dL (0-129) HDL Cholesterol 33 mg/dL (40-60) Cholesterol/HDL Ratio 4.9 Test 08/06/20 10:59 Glucose (Fingerstick) 344 mg/dL (70-99) Laboratory Tests Test 08/05/20 22:15 08/05/20 22:30 08/06/20 07:57 08/06/20 08:09 White Blood Count 14.1 x10^3/uL (4.0-11.0) Red Blood Count 3.13 x10^6/uL (3.50-5.40) Hemoglobin 11.0 g/dL (12.0-15.5) Hematocrit 33.9 % (36.0-47.0) Mean Corpuscular Volume 108 fL (79-100) Mean Corpuscular Hemoglobin 35 pg (25-35) Mean Corpuscular Hemoglobin Concent 33 g/dL (31-37) Red Cell Distribution Width 13.9 % (11.5-14.5) Platelet Count 227 x10^3/uL (140-400) Neutrophils (%) (Auto) 63 % (31-73) Lymphocytes (%) (Auto) 26 % (24-48) Monocytes (%) (Auto) 9 % (0-9) Eosinophils (%) (Auto) 1 % (0-3) Basophils (%) (Auto) 0 % (0-3) Neutrophils # (Auto) 8.9 x10^3/uL (1.8-7.7) Lymphocytes # (Auto) 3.6 x10^3/uL (1.0-4.8) Monocytes # (Auto) 1.3 x10^3/uL (0.0-1.1) Eosinophils # (Auto) 0.2 x10^3/uL (0.0-0.7) Basophils # (Auto) 0.0 x10^3/uL (0.0-0.2) Sodium Level 136 mmol/L (136-145) Potassium Level 4.0 mmol/L (3.5-5.1) Chloride Level 96 mmol/L (98-107) Carbon Dioxide Level 24 mmol/L (21-32) Anion Gap 16 (6-14) Blood Urea Nitrogen 71 mg/dL (7-20) Creatinine 7.4 mg/dL (0.6-1.0) Estimated GFR (Cockcroft-Gault) 5.3 BUN/Creatinine Ratio 10 (6-20) Glucose Level 400 mg/dL (70-99) Calcium Level 10.2 mg/dL (8.5-10.1) Total Bilirubin 0.4 mg/dL (0.2-1.0) Aspartate Amino Transf (AST/SGOT) 22 U/L (15-37) Alanine Aminotransferase (ALT/SGPT) 23 U/L (14-59) Alkaline Phosphatase 141 U/L (46-116) Troponin I Quantitative 1.371 ng/mL (0.000-0.055) 2.141 ng/mL (0.000-0.055) NH-Awu-M-Type Natriuretic Peptide 15780 pg/mL (0-449) Total Protein 7.6 g/dL (6.4-8.2) Albumin 3.2 g/dL (3.4-5.0) Albumin/Globulin Ratio 0.7 (1.0-1.7) Acetone Level Neg (NEG) O2 Saturation 92 % (92-99) Arterial Blood pH 7.27 (7.35-7.45) Arterial Blood pCO2 at Patient Temp 45 mmHg (35-46) Arterial Blood pO2 at Patient Temp 78 mmHg (65-108) Arterial Blood HCO3 20 mmol/L (21-28) Arterial Blood Base Excess -6 mmol/L (-3-3) Oxyhemoglobin 91.8 % Methemoglobin 0.1 % (0.0-1.9) Carbon Monoxide, Quantitative 0.5 % (0.0-1.9) FiO2 100 Glucose (Fingerstick) 220 mg/dL (70-99) Triglycerides Level 275 mg/dL (0-150) Cholesterol Level 161 mg/dL (0-200) LDL Cholesterol, Calculated 73 mg/dL (0-100) VLDL Cholesterol, Calculated 55 mg/dL (0-40) Non-HDL Cholesterol Calculated 128 mg/dL (0-129) HDL Cholesterol 33 mg/dL (40-60) Cholesterol/HDL Ratio 4.9 Test 08/06/20 10:59 Glucose (Fingerstick) 344 mg/dL (70-99) Review All relevant outside records, renal labs, imaging studies, telemetry/EKG's were reviewed. Images Images Chest one view Comparisons: 09/17/2019 FINDINGS: The cardiomediastinal silhouette and pulmonary vessels are within normal limits. Hazy opacities lungs bilaterally. Small bilateral pleural effusions. IMPRESSION: Findings likely related to pulmonary edema with small bilateral pleural effusions. Superimposed infectious process is difficult to exclude. CT abdomen/Pelvis w/o Contrast Impression: 1. Mild right effusion and marked basilar pulmonary infiltrates appears mildly improved. 2. Renal atrophy seen previously. RICO ORR MD Aug 06, 2020 11:51
[2020-08-06] MEDS ORDERED: METO25TA4 PO (12:00)
--- NOTE | 2020-08-06 15:57 | EKG ---
[facility] [address] [place] [address] Test Date: 2020-08-06 Test Time: 15:43:05 Pat Name: DELMY WASHINGTON Department: Room: 1 1 Gender: F [employer]: DORA : 1940 Requested By: JOJO ONEILL Order Number: [id number] Reading MD: Measurements Intervals [place] Rate: 85 P: 34 [place]: 176 QRS: 14 QRSD: 78 T: 152 QT: 378 QTc: 455 Interpretive Statements SINUS RHYTHM ST & T ABNORMALITY, CONSIDER LATERAL ISCHEMIA OR LEFT VENTRICULAR STRAIN ABNORMAL ECG RI6.02 Compared to ECG 08/05/2020 22:09:02 Supraventricular rhythm no longer present Left-axis deviation no longer present T-wave abnormality still present Possible ischemia still present
[2020-08-06] MEDS ORDERED: DEXTROSE 50% 25 GM / 50ML DISP.SYRIN. IV PRN (17:15)
--- NOTE | 2020-08-06 17:19 | NUR ---
SAÚL following for discharge planning. Spoke with RN and reviewed chart. Pt on 4l 02, IV pain medication, ADA diet, COVID negative. Pt has [employer]. PT recommendation is for SNU. LVM for son. SAÚL following. Addendum: 08/07/20 at 1104 by VIKTOR HAYS Pt transferred to n[facility]il [facility] to follow.
[2020-08-06] MEDS ORDERED: INSULIN LISPRO 300 UNITS/3 ML VIAL. SQ SCH (17:45)
[2020-08-06 19:00] VITALS: BP 138/65
[2020-08-06] MEDS: ATORVASTATIN CALCIUM 40 MG TABLET. PO SCH (20:07)
[2020-08-06 22:00] VITALS: BP 104/52
--- NOTE | 2020-08-06 22:20 | NUR ---
Transfer to 200, report given to NICANOR Clinton. Belongings sent with patient.
[2020-08-07 00:52] LABS: HEMATOCRIT 29.5 % (36.0-47.0); HEMOGLOBIN 9.6 g/dL (12.0-15.5); RED BLOOD COUNT 2.74 x10^6/uL (3.50-5.40); RED CELL DISTRIBUTION WIDTH 13.8 % (11.5-14.5)
[2020-08-07 02:54] VITALS: BP 90/38
[2020-08-07 07:22] VITALS: BP 90/41
[2020-08-07] MEDS ORDERED: INSULIN LISPRO 300 UNITS/3 ML VIAL. SQ SCH (08:00)
[2020-08-07] MEDS ORDERED: ANTI-COAG MONITOR BY PHARMACY. MC PRN (08:15)
[2020-08-07] MEDS: ASPIRIN ENTERIC COATED 81 MG TABLET.DR. PO SCH (08:34)
[2020-08-07] MEDS: INSULIN LISPRO 300 UNITS/3 ML VIAL. SQ SCH ×3 (08:39→17:59)
[2020-08-07] MEDS: METOPROLOL TART IMMED RELEASE 50 MG TABLET. PO SCH ×2 (09:00→21:06)
--- NOTE | 2020-08-07 10:13 | PDOC ---
DATE OF SERVICE DATE: 08/07/20 TIME: 10:07 SUBJECTIVE ROS Comfortable,no shortness of breath OBJECTIVE Vital Signs Vital Signs Date Time Temp Pulse Resp B/P (MAP) Pulse Ox O2 Delivery O2 Flow Rate FiO2 08/07/20 07:30 Nasal Cannula 4.0 08/07/20 07:22 98.8 89 18 90/41 (57) 90 98.8 I & 0 Intake and Output 08/07/20 07:00 Intake Total 416.22 ml Output Total 150 ml Balance 266.22 ml Intake Oral 300 ml IV Total 76.22 ml Other 40 ml Output Urine Total 150 ml # Bowel Movements 1 PHYSICAL EXAM Physical Exam GENERAL: NAD HEENT: Normocephalic, atraumatic, anicteric, OM moist NECK: Supple, no JVD. LUNGS: Clear bilaterally, Non labored HEART: S1, S2. No gallops or murmurs. ABDOMEN: Soft, nontender, EXTREMITIES: No edema, no cyanosis. DERMATOLOGIC: . No generalized rash. Left upper extremity AV fistula PSYCHIATRIC: Cooperative, appropriate mood and affect. NEURO Grossly Normal DIAGNOSIS/ASSESSMENT Assessment & Plan ESRD- On HD TTS Dialyzed yesterday , currently no emergent indication for Dialysis Anemia- Stable, No indication for GUILLERMO Acute respiratory failure- Cxr reported pulmonary edema with small bilateral pleural effusions. Superimposed infectious process is difficult to exclude. CoVid Pending Acute on chronic systolic CHF- stable, better Cardiomyopathy; Echo 2016 with LVEF 45-50% Hypertensive urgency - cardiology managing AFIB; maintaining SR Diabetes, II COMMENT/RELEVANT DATA Meds Current Medications Medications (Trade) Dose Ordered Sig/Sveta Start Time Stop Time Status Last Admin Dose Admin Albumin Human 200 ml @ 200 mls/hr 1X PRN PRN 08/06/20 11:15 08/06/20 17:14 DC 08/06/20 13:00 200 MLS/HR Aspirin (Maxi Aspirin) 325 mg 1X ONCE 08/06/20 10:30 08/06/20 10:31 DC 08/06/20 11:07 325 MG Aspirin (Ecotrin) 81 mg DAILYWBKFT 08/07/20 08:00 08/07/20 08:34 81 MG Atorvastatin Calcium (Lipitor) 40 mg QHS 08/06/20 21:00 08/06/20 20:07 40 MG Dextrose (Dextrose 50%-Water Syringe) 12.5 gm PRN Q15MIN PRN 08/06/20 17:15 Heparin Sodium (Porcine) (Heparin Sodium) 1,200 unit PRN Q6HRS PRN 08/06/20 10:30 Heparin Sodium/ Dextrose 250 ml @ 0 mls/hr CONT PRN 08/06/20 10:30 08/06/20 11:07 5.9 MLS/HR Info (Anti-Coagulation Monitoring By Pharmacy) 1 each PRN DAILY PRN 08/07/20 08:15 Info (PHARMACY MONITORING -- do not chart) 1 each PRN DAILY PRN 08/06/20 11:15 Insulin Human Lispro (HumaLOG) 0-9 UNITS TIDWMEALS 08/07/20 09:00 08/07/20 08:39 9 UNITS Insulin Human Regular (HumuLIN R VIAL) 10 unit 1X ONCE 08/05/20 23:15 08/05/20 23:16 DC 08/06/20 00:18 10 UNIT Labetalol HCl (Normodyne Iv Push) 20 mg 1X ONCE 08/06/20 01:15 08/06/20 01:16 DC 08/06/20 02:29 20 MG Metoprolol Tartrate (Lopressor) 50 mg BID 08/06/20 11:00 08/06/20 20:08 50 MG Morphine Sulfate (Morphine Sulfate) 4 mg PRN Q2HR PRN 08/06/20 00:15 08/07/20 00:14 DC 08/06/20 04:30 4 MG Nitroglycerin/ Dextrose 250 ml @ 0 mls/hr 1X ONCE 08/05/20 22:30 08/05/20 22:31 DC 08/05/20 22:40 1.5 MLS/HR Ondansetron HCl (Zofran) 4 mg PRN Q6HRS PRN 08/06/20 08:00 08/06/20 20:08 4 MG Sodium Chloride 1,000 ml @ 400 mls/hr Q2H30M PRN 08/06/20 11:04 08/06/20 23:03 DC Lab Laboratory Tests Test 08/06/20 10:59 08/06/20 16:39 08/06/20 16:45 08/06/20 19:51 Glucose (Fingerstick) 344 mg/dL (70-99) 174 mg/dL (70-99) 187 mg/dL (70-99) Heparin Anti-Xa Act, Unfractionated 0.48 IU/mL (0.30-0.70) Troponin I Quantitative 1.696 ng/mL (0.000-0.055) Test 08/06/20 23:28 08/07/20 00:32 08/07/20 08:04 08/07/20 08:05 Heparin Anti-Xa Act, Unfractionated 0.13 IU/mL (0.30-0.70) 0.21 IU/mL (0.30-0.70) 0.35 IU/mL (0.30-0.70) White Blood Count 9.0 x10^3/uL (4.0-11.0) Red Blood Count 2.74 x10^6/uL (3.50-5.40) Hemoglobin 9.6 g/dL (12.0-15.5) Hematocrit 29.5 % (36.0-47.0) Mean Corpuscular Volume 108 fL (79-100) Mean Corpuscular Hemoglobin 35 pg (25-35) Mean Corpuscular Hemoglobin Concent 33 g/dL (31-37) Red Cell Distribution Width 13.8 % (11.5-14.5) Platelet Count 149 x10^3/uL (140-400) Glucose (Fingerstick) 357 mg/dL (70-99) Results All relevant outside records, renal labs, imaging studies, telemetry/EKG's were reviewed. Justicifation of Admission Dx: Justifications for Admission: Justification of Admission Dx: N/A Chronic Renal Failure: Renail Failure (ESRD ) RICO ORR MD Aug 07, 2020 10:13
--- NOTE | 2020-08-07 10:15 | PDOC ---
JOJO ONEILL DEANDRE 08/07/20 1015: CARDIO Progress Notes Date and Time Date of Service 08/07/20 Time of Evaluation 1010 Subjective Subjective: No Chest Pain, No Palpitations, No Dizziness, Other (breathing improving ) Vitals Vitals Vital Signs Date Time Temp Pulse Resp B/P (MAP) Pulse Ox O2 Delivery O2 Flow Rate FiO2 08/07/20 07:30 Nasal Cannula 4.0 08/07/20 07:22 98.8 89 18 90/41 (57) 90 98.8 Weight Weight [ ] Input and Output Intake and Output Intake and Output 08/07/20 07:00 Intake Total 416.22 ml Output Total 150 ml Balance 266.22 ml Intake Oral 300 ml IV Total 76.22 ml Other 40 ml Output Urine Total 150 ml # Bowel Movements 1 Laboratory Labs Laboratory Tests Test 08/06/20 10:59 08/06/20 16:39 08/06/20 16:45 08/06/20 19:51 Glucose (Fingerstick) 344 mg/dL (70-99) 174 mg/dL (70-99) 187 mg/dL (70-99) Heparin Anti-Xa Act, Unfractionated 0.48 IU/mL (0.30-0.70) Troponin I Quantitative 1.696 ng/mL (0.000-0.055) Test 08/06/20 23:28 08/07/20 00:32 08/07/20 08:04 08/07/20 08:05 Heparin Anti-Xa Act, Unfractionated 0.13 IU/mL (0.30-0.70) 0.21 IU/mL (0.30-0.70) 0.35 IU/mL (0.30-0.70) White Blood Count 9.0 x10^3/uL (4.0-11.0) Red Blood Count 2.74 x10^6/uL (3.50-5.40) Hemoglobin 9.6 g/dL (12.0-15.5) Hematocrit 29.5 % (36.0-47.0) Mean Corpuscular Volume 108 fL (79-100) Mean Corpuscular Hemoglobin 35 pg (25-35) Mean Corpuscular Hemoglobin Concent 33 g/dL (31-37) Red Cell Distribution Width 13.8 % (11.5-14.5) Platelet Count 149 x10^3/uL (140-400) Glucose (Fingerstick) 357 mg/dL (70-99) Physical Exam HEENT: Neck Supple W Full Motion Chest: Symmetric LUNGS: Clear to Auscultation Heart: RRR Abdomen: Soft N/T Extremities: No Edema Neurology: alert, oriented, follow commands Assessment Assessment 1. Acute respiratory failure with CHF. COVID pending 2. Acute on chronic probable systolic CHF 3. Cardiomyopathy; Echo 2017 with LVEF 45-50%. Echo pending 4. NSTEMI; trop highest 2.1. Possible type II in the setting of CKD, hypertensive urgency, and CHF 5. Hypertensive urgency; improved 6. ?AFIB; details unclear. Son without knowledge of AFIB. maintaining SR 7. Diabetes, II 8. ESRD on HD 9. Anemia of chronic disease Recommendations ASA, statin , metoprolol Continue heparin gtt Fluid offloading via HD Given risk factors in the setting of NSTEMI, discussed further ischemic evaluation with left heart catheterization with [id number] and patient. R/b/a were discussed. Both are agreeable to proceed, but would like to discuss further with son, Mack. Attempted to reach Mack by phone, but no answer. He is supposed to visit this evening. Keep NPO p MN. Justicifation of Admission Dx: Justifications for Admission: Justification of Admission Dx: Yes IL: Acute NSTEMI AYSE MENDOZA MD 08/07/20 1805: CARDIO Progress Notes Plan Plan The patient was seen and interviewed as well as examined at the bedside. The chart was reviewed. The case was discussed. Agree with the plan of care. JOJO ONEILL APRN Aug 07, 2020 10:15 AYSE MENDOZA MD Aug 07, 2020 18:05
[2020-08-07 11:00] VITALS: BP 123/46
--- NOTE | 2020-08-07 11:53 | PDOC ---
[employer] PROGRESS NOTE Date of Service DOS: DATE: 08/07/20 TIME: 11:47 Chief Complaint Chief Complaint Acute respiratory failure with CHF. COVID pending Acute on chronic systolic CHF Echo 2017 with LVEF 45-50% NSTEMI; trop highest 2.1. Possible type II in the setting of CKD, hypertensive urgency, and CHF Hypertensive urgency; improved Diabetes mellitus type 2 ESRD on HD History of Present Illness History of Present Illness 08/07/2020 No acute events overnight. Patient is resting comfortably in bed. No acute complaints voiced at this time. Completed dialysis today. No acute telemetry monitoring events currently in sinus rhythm. Patient's chart, labs, images were reviewed and discussed with RN History obtained from discussion with nurse, chart review Patient is a 80-year-old mvl-Hrkxqpf-payhmunb female with past medical history of atrial fibrillation, diabetes, hypertension, ESRD on dialysis with left arm fistula who comes in with complaints of shortness of breath that started yesterday. Vitals/I&O Vitals/I&O: Vital Signs Date Time Temp Pulse Resp B/P (MAP) Pulse Ox O2 Delivery O2 Flow Rate FiO2 08/07/20 07:30 Nasal Cannula 4.0 08/07/20 07:22 98.8 89 18 90/41 (57) 90 98.8 I & O 0 08/06/20 08/06/20 08/07/20 15:00 23:00 07:00 Intake Total 40 ml 376.22 ml Output Total 0 ml 150 ml Balance 40 ml 226.22 ml Physical Exam General: Alert, Cooperative, No acute distress Heart: Regular rate Lungs: Clear, Other Abdomen: Soft Extremities: No edema Labs Labs: Laboratory Tests Test 08/06/20 16:39 08/06/20 16:45 08/06/20 19:51 08/06/20 23:28 Glucose (Fingerstick) 174 mg/dL (70-99) 187 mg/dL (70-99) Heparin Anti-Xa Act, Unfractionated 0.48 IU/mL (0.30-0.70) 0.13 IU/mL (0.30-0.70) Troponin I Quantitative 1.696 ng/mL (0.000-0.055) Test 08/07/20 00:32 08/07/20 08:04 08/07/20 08:05 White Blood Count 9.0 x10^3/uL (4.0-11.0) Red Blood Count 2.74 x10^6/uL (3.50-5.40) Hemoglobin 9.6 g/dL (12.0-15.5) Hematocrit 29.5 % (36.0-47.0) Mean Corpuscular Volume 108 fL (79-100) Mean Corpuscular Hemoglobin 35 pg (25-35) Mean Corpuscular Hemoglobin Concent 33 g/dL (31-37) Red Cell Distribution Width 13.8 % (11.5-14.5) Platelet Count 149 x10^3/uL (140-400) Heparin Anti-Xa Act, Unfractionated 0.21 IU/mL (0.30-0.70) 0.35 IU/mL (0.30-0.70) Glucose (Fingerstick) 357 mg/dL (70-99) Assessment and Plan Assessmemt and Plan Problems Medical Problems: (1) Flash pulmonary edema Status: Acute (2) Hypertensive urgency Status: Acute Comment Review of Relevant I have reviewed the following items diamante (where applicable) has been applied. Medications: Current Medications Medications (Trade) Dose Ordered Sig/Sveta Route PRN Reason Start Time Stop Time Status Last Admin Dose Admin Aspirin (Ecotrin) 81 mg DAILYWBKFT PO 08/07/20 08:00 08/07/20 08:34 Atorvastatin Calcium (Lipitor) 40 mg QHS PO 08/06/20 21:00 08/06/20 20:07 Insulin Human Lispro (HumaLOG) 0-5 UNITS TIDWMEALS SQ 08/06/20 17:45 08/07/20 08:17 DC 08/06/20 18:08 Insulin Human Lispro (HumaLOG) 0-9 UNITS TIDWMEALS SQ 08/07/20 09:00 08/07/20 08:39 Justifications for Admission Other Justification PAIGE SELF MD Aug 07, 2020 11:53
--- NOTE | 2020-08-07 14:18 | NUR ---
SS following for discharge planning. SS reviewed pt chart and discussed with pt RN. Pt is from home with family and is currently requiring oxygen. Pt is non-indonesian speaking and has [facility] Medicaid. Pt on Heparin drip. COVID19 negative. Pt has outpatient dialysis at [facility], ; fax [phone], Wednesday, , and Wednesday at 1200. PT recommended custodial unit. Pt's family wanting pt to return to home at discharge. SS will continue to follow for discharge planning.
[2020-08-07 15:00] VITALS: BP 125/54
--- NOTE | 2020-08-07 15:19 | NUR ---
Have reviewed and agree with documentation completed by music intern
--- NOTE | 2020-08-07 16:57 | CARD ---
MR#: [id number] Date of Study: 08/07/2020 Ordering Physician: JOJO ONEILL, Referring Physician: JOJO ONEILL, Tech: Stephanie Holloway [facility] APPROVED REPORT EXAM: Two-dimensional and M-mode echocardiogram with Doppler and color Doppler. Other Information Quality : GoodHR: 90bpm Rhythm : NSR INDICATION Short of breath, NSTEMI, CHF. 2D DIMENSIONS RVDd3.2 (2.9-3.5cm)IVSd1.2 (0.7-1.1cm) Aortic Root(2D)3.1 (2.0-3.7cm)LVDd4.3 (3.9-5.9cm) LVOT Diameter1.9 (1.8-2.4cm)PWd1.2 (0.7-1.1cm) LVDs3.1 (2.5-4.0cm)FS (%) 26.9 % SV43.6 mlLVEF(%)52.7 (>50%) Aortic Valve AoV Peak Elie.179.4cm/sAoV VTI37.9cm AO Peak GR.12.9mmHgLVOT Peak Elie.96.4cm/s AO Mean GR.8mmHgAVA (VMAX)1.60cm2 AI P 1/2 Kptd444km Mitral Valve MV E Oldftbch221.3cm/sMV DECEL DVBO525cs MV A Jbwajeoy939.9cm/sE/A Ratio1.2 MV A Wxkzbafm35vq Pulmonary Valve PV Peak Tmadyvyv107.7cm/s Tricuspid Valve TR P. Dwyxhifj208km/sRAP FYUXABGH3fiVw TR Peak Gr.42ckXnMZYM88tnBf Pulmonary Vein S1 Klycufsx87.9cm/sD2 Jebiqshw43.6cm/s LEFT VENTRICLE The left ventricle is normal size. There is mild concentric left ventricular hypertrophy. Mid to dist al anterior wall hypokinesis. The Ejection Fraction is 40-45%. Transmitral Doppler flow pattern is Gr shanice II-pseudonormal filling dynamics. RIGHT VENTRICLE The right ventricle is normal size. The right ventricular systolic function is normal. ATRIA The left atrium is mildly dilated. The right atrium size is normal. The interatrial septum is intact with no evidence for an atrial septal defect or patent foramen ovale as noted on 2-D or Doppler imagi ng. AORTIC VALVE The aortic valve is moderately calcified wtih a mild decrease in opening. SHANTANU by continuity equation is 1.6cm2. Moderate aortic regurgitation. There is no significant aortic valvular stenosis. MITRAL VALVE The mitral valve leaflets are mildly thickened. Mitral annular calcification is moderate. There is no mitral valve stenosis. Mild to moderate mitral regurgitation. TRICUSPID VALVE The tricuspid valve is normal in structure and function. Moderate tricuspid regurgitation. Estimated PAP is 40-45mmHg. PULMONIC VALVE The pulmonary valve is normal in structure and function. Trace pulmonic valvular regurgitation. GREAT VESSELS The aortic root is normal in size. The ascending aorta is normal in size. The IVC is normal in size a nd collapses >50% with inspiration. PERICARDIAL EFFUSION There is no evidence of significant pericardial effusion. Critical Notification Critical Value: No <Conclusion> Mid to distal anterior wall hypokinesis. The Ejection Fraction is 40-45%. Moderate aortic regurgitation. Mild to moderate mitral regurgitation. Moderate tricuspid regurgitation. Estimated PAP is 40-45mmHg. There is no evidence of significant pericardial effusion. Signed by : Lucas Haile, Electronically Approved : 08/07/2020 16:56:38
[2020-08-07] MEDS: HEPARIN 25,000UTS/250ML PREMIX 250 ML IV PRN (18:04)
[2020-08-07 19:57] VITALS: BP 107/50
[2020-08-07] MEDS: ATORVASTATIN CALCIUM 40 MG TABLET. PO SCH (21:06)
[2020-08-07 22:12] VITALS: BP 113/59
[2020-08-08 02:08] VITALS: BP 107/51
[2020-08-08] MEDS: ONDANSETRON PF 4 MG/2 ML VIAL. IVP PRN (02:51)
[2020-08-08 07:00] VITALS: BP 95/43
[2020-08-08] MEDS: INSULIN LISPRO 300 UNITS/3 ML VIAL. SQ SCH ×3 (08:00→17:00)
[2020-08-08] MEDS: ASPIRIN ENTERIC COATED 81 MG TABLET.DR. PO SCH (09:37)
[2020-08-08] MEDS: METOPROLOL TART IMMED RELEASE 50 MG TABLET. PO SCH (09:38)
[2020-08-08] MEDS ORDERED: LIDOCAINE 1% PF 2 ML VIAL. ONE (10:08)
[2020-08-08] MEDS ORDERED: IODIXANOL 320 MG/ML 100 ML VIAL. ONE (10:08)
[2020-08-08] MEDS ORDERED: LIDOCAINE 1% Multi-Dose 20 ML VIAL. ONE (10:25)
[2020-08-08] MEDS ORDERED: fentaNYL PF VIAL 100 MCG/2 ML VIAL ONE (10:27)
[2020-08-08] MEDS ORDERED: diphenhydrAMINE 50 MG/ML VIAL ONE (10:27)
[2020-08-08] MEDS ORDERED: MIDAZOLAM HCL/PF 2 MG/2 ML VIAL. ONE (10:27)
--- NOTE | 2020-08-08 10:29 | NUR ---
SS following up with discharge planning. SS reviewed pt chart and discussed with pt RN. Pt is currently requiring oxygen. Pt has home oxygen PRN. Pt on Heparin drip. Heart cath today. COVID19 negative. PT/OT recommended custodial unit and pt's family wanting pt to return to home with family at this time. SS will continue to follow for discharge planning.
[2020-08-08] MEDS ORDERED: NALOXONE 0.4 MG/ML VIAL. ONE (10:43)
[2020-08-08 11:00] VITALS: BP 105/71
[2020-08-08] MEDS ORDERED: IV NORMAL SALINE 1000ML BAG 1,000 ML IV PRN ×2 (11:00)
[2020-08-08] MEDS ORDERED: DIALYSIS PATIENT. MC PRN ×2 (11:00)
[2020-08-08] MEDS ORDERED: ALBUMIN HUMAN 25% 200 ML IV PRN (11:00)
--- NOTE | 2020-08-08 11:00 | NUR ---
Pt to [facility] for Cardiac catheterization for increased troponin. Consent obtained from family due to language barrier. 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 Moved to bed, monitoring started, pt becoming agitated. Order for Benadryl obtained from Dr Damon, pt appeared to calm. For procedure pt given 1mg Versed and 50mcg Fentanyl, O2 increased to 4l/nc prior to administration. 2 minutes after meds, O2 sat dropped and O2 increased to 6L/nc and pillow removed, jaw lift provided by this RN. O2 sat held at low 90s. 2 minutes later O2 sat suddenly dropped to 46%, BVM placed over mouth and nose and Narcan 0.4mg given IV. O2 sat responded immediately and back up quickly. Pt became very animated on the bed and would not hold still. Son Rikki called and through phone on speaker tried to calm pt, no success. Dr Dennison ordered another dose of Versed which had no effect. Decision made to postpone procedure. MD will speak with family on safety and neccessity of procedure and decision to proceed will be made. Pt returned to room,VSS, pt on 4L/nc with O2 sat 93%. CVC RN aware of situation and will continue to monitor. JS RN
--- NOTE | 2020-08-08 11:20 | PDOC ---
DATE OF SERVICE DATE: 08/08/20 TIME: 11:18 SUBJECTIVE ROS Comfortable,no shortness of breath OBJECTIVE Vital Signs Vital Signs Date Time Temp Pulse Resp B/P (MAP) Pulse Ox O2 Delivery O2 Flow Rate FiO2 08/08/20 09:38 69 95/43 08/08/20 07:30 Nasal Cannula 4.0 08/08/20 07:00 98.1 18 91 98.1 I & 0 Intake and Output 08/08/20 07:00 Intake Total 895 ml Output Total 100 ml Balance 795 ml Intake Oral 895 ml Output Urine Total 100 ml # Voids 3 PHYSICAL EXAM Physical Exam GENERAL: NAD HEENT: Normocephalic, atraumatic, anicteric, OM moist NECK: Supple, no JVD. LUNGS: Clear bilaterally, Non labored HEART: S1, S2. No gallops or murmurs. ABDOMEN: Soft, nontender, EXTREMITIES: No edema, no cyanosis. DERMATOLOGIC: . No generalized rash. Left upper extremity AV fistula PSYCHIATRIC: Cooperative, appropriate mood and affect. NEURO Grossly Normal DIAGNOSIS/ASSESSMENT Assessment & Plan ESRD- On HD TTS Dialysis today , discussed treatment plan with Fran Anemia- Stable, No indication for GUILLERMO Acute respiratory failure- Cxr reported pulmonary edema with small bilateral pleural effusions. Superimposed infectious process is difficult to exclude. CoVid negative Acute on chronic systolic CHF- stable, better Cardiomyopathy; Echo 2016 with LVEF 45-50%/ NSTEMI- scheduled for cardiac cath today Hypertensive urgency - cardiology managing AFIB; maintaining SR Diabetes, II COMMENT/RELEVANT DATA Meds Current Medications Medications (Trade) Dose Ordered Sig/Sveta Start Time Stop Time Status Last Admin Dose Admin Albumin Human 200 ml @ 200 mls/hr 1X PRN PRN 08/06/20 11:15 08/06/20 17:14 DC 08/06/20 13:00 200 MLS/HR Aspirin (Maxi Aspirin) 325 mg 1X ONCE 08/06/20 10:30 08/06/20 10:31 DC 08/06/20 11:07 325 MG Aspirin (Ecotrin) 81 mg DAILYWBKFT 08/07/20 08:00 08/08/20 09:37 81 MG Atorvastatin Calcium (Lipitor) 40 mg QHS 08/06/20 21:00 08/07/20 21:06 40 MG Dextrose (Dextrose 50%-Water Syringe) 12.5 gm PRN Q15MIN PRN 08/06/20 17:15 Diphenhydramine HCl (Benadryl) 50 mg STK-MED ONCE 08/08/20 10:27 08/08/20 10:28 DC Fentanyl Citrate (Fentanyl 2ml Vial) 100 mcg STK-MED ONCE 08/08/20 10:27 08/08/20 10:28 DC Heparin Sodium (Porcine) (Heparin Sodium) 1,200 unit PRN Q6HRS PRN 08/06/20 10:30 Heparin Sodium/ Dextrose 250 ml @ 0 mls/hr CONT PRN 08/06/20 10:30 08/07/20 18:04 6.89 MLS/HR Heparin Sodium/ Sodium Chloride 1,000 ml @ As Directed STK-MED ONCE 08/08/20 10:08 08/08/20 10:08 DC Info (Anti-Coagulation Monitoring By Pharmacy) 1 each PRN DAILY PRN 08/07/20 08:15 08/08/20 08:49 1 EACH Info (PHARMACY MONITORING -- do not chart) 1 each PRN DAILY PRN 08/06/20 11:15 Insulin Human Lispro (HumaLOG) 0-9 UNITS TIDWMEALS 08/07/20 09:00 08/07/20 17:59 4 UNITS Insulin Human Regular (HumuLIN R VIAL) 10 unit 1X ONCE 08/05/20 23:15 08/05/20 23:16 DC 08/06/20 00:18 10 UNIT Iodixanol (Visipaque 320) 100 ml STK-MED ONCE 08/08/20 10:08 08/08/20 10:08 DC Labetalol HCl (Normodyne Iv Push) 20 mg 1X ONCE 08/06/20 01:15 08/06/20 01:16 DC 08/06/20 02:29 20 MG Lidocaine HCl (Lidocaine 1% 20ml Vial) 20 ml STK-MED ONCE 08/08/20 10:25 08/08/20 10:25 DC Lidocaine HCl (Xylocaine-Mpf 1% 2ml Vial) 2 ml STK-MED ONCE 08/08/20 10:08 08/08/20 10:08 DC Metoprolol Tartrate (Lopressor) 50 mg BID 08/06/20 11:00 08/08/20 09:38 50 MG Midazolam HCl (Versed) 2 mg STK-MED ONCE 08/08/20 10:27 08/08/20 10:28 DC Morphine Sulfate (Morphine Sulfate) 4 mg PRN Q2HR PRN 08/06/20 00:15 08/07/20 00:14 DC 08/06/20 04:30 4 MG Naloxone HCl (Narcan) 0.4 mg STK-MED ONCE 08/08/20 10:43 08/08/20 10:43 DC Nitroglycerin/ Dextrose 250 ml @ 0 mls/hr 1X ONCE 08/05/20 22:30 08/05/20 22:31 DC 08/05/20 22:40 1.5 MLS/HR Ondansetron HCl (Zofran) 4 mg PRN Q6HRS PRN 08/06/20 08:00 08/08/20 02:51 4 MG Sodium Chloride 1,000 ml @ 400 mls/hr Q2H30M PRN 08/06/20 11:04 08/06/20 23:03 DC Lab Laboratory Tests Test 08/07/20 11:43 08/07/20 16:35 08/07/20 17:31 08/07/20 20:57 Glucose (Fingerstick) 157 mg/dL (70-99) 167 mg/dL (70-99) 196 mg/dL (70-99) Heparin Anti-Xa Act, Unfractionated 0.33 IU/mL (0.30-0.70) Test 08/08/20 05:50 08/08/20 06:58 Heparin Anti-Xa Act, Unfractionated 0.23 IU/mL (0.30-0.70) Glucose (Fingerstick) 303 mg/dL (70-99) Results All relevant outside records, renal labs, imaging studies, telemetry/EKG's were reviewed. Justicifation of Admission Dx: Justifications for Admission: Justification of Admission Dx: Yes Chronic Renal Failure: Renail Failure (ESRD ) AL: Acute NSTEMI RICO ORR MD Aug 08, 2020 11:20
--- NOTE | 2020-08-08 11:48 | PDOC ---
[employer] PROGRESS NOTE Date of Service DOS: DATE: 08/08/20 TIME: 11:46 Chief Complaint Chief Complaint Acute respiratory failure with CHF. COVID pending Acute on chronic systolic CHF Echo 2017 with LVEF 45-50% NSTEMI; trop highest 2.1. Possible type II in the setting of CKD, hypertensive urgency, and CHF Hypertensive urgency; improved Diabetes mellitus type 2 ESRD on HD Pending left heart cath today HD today after left heart cath Heparin drip for DVT prophylaxis and NSTEMI History of Present Illness History of Present Illness 08/08/2020 No acute events tonight. Afebrile. Blood pressure low normal. No hemodynamic instability and appears to be clinically stable. Patient resting comfortably in bed. Saturating 91% on 3 L nasal cannula. No complaints of chest pain at this time. Patient's chart, labs, images were reviewed and discussed with RN 08/07/2020 No acute events overnight. Patient is resting comfortably in bed. No acute complaints voiced at this time. Completed dialysis today. No acute telemetry monitoring events currently in sinus rhythm. Patient's chart, labs, images were reviewed and discussed with RN History obtained from discussion with nurse, chart review Patient is a 80-year-old [id number]-[id number] female with past medical history of atrial fibrillation, diabetes, hypertension, ESRD on dialysis with left arm fistula who comes in with complaints of shortness of breath that started yesterday. Vitals/I&O Vitals/I&O: Vital Signs Date Time Temp Pulse Resp B/P (MAP) Pulse Ox O2 Delivery O2 Flow Rate FiO2 08/08/20 09:38 69 95/43 08/08/20 07:30 Nasal Cannula 4.0 08/08/20 07:00 98.1 18 91 98.1 I & O 08/07/20 08/07/20 08/08/20 15:00 23:00 07:00 Intake Total 450 ml 325 ml 120 ml Output Total 100 ml Balance 450 ml 225 ml 120 ml Physical Exam General: Alert, Cooperative, No acute distress Heart: Regular rate Lungs: Clear, Other Abdomen: Soft Extremities: No edema Labs Labs: Laboratory Tests Test 08/07/20 16:35 08/07/20 17:31 08/07/20 20:57 08/08/20 05:50 Heparin Anti-Xa Act, Unfractionated 0.33 IU/mL (0.30-0.70) 0.23 IU/mL (0.30-0.70) Glucose (Fingerstick) 167 mg/dL (70-99) 196 mg/dL (70-99) Test 08/08/20 06:58 Glucose (Fingerstick) 303 mg/dL (70-99) Assessment and Plan Assessmemt and Plan Problems Medical Problems: (1) Flash pulmonary edema Status: Acute (2) Hypertensive urgency Status: Acute Comment Review of Relevant I have reviewed the following items diamante (where applicable) has been applied. Justifications for Admission Other Justification PAIGE SELF MD Aug 08, 2020 11:48
[2020-08-08] MEDS ORDERED: diphenhydrAMINE 50 MG/ML VIAL IVP ONE (12:00)
[2020-08-08] MEDS ORDERED: NALOXONE 0.4 MG/ML VIAL. IV ONE (12:00)
[2020-08-08] MEDS ORDERED: MIDAZOLAM HCL/PF 2 MG/2 ML VIAL. IV ONE (12:00)
[2020-08-08] MEDS ORDERED: fentaNYL PF VIAL 100 MCG/2 ML VIAL IV ONE (12:00)
--- NOTE | 2020-08-08 13:43 | PDOC ---
CARDIOLOGY PROGRESS NOTE SUBJECTIVE: Overnight, no new events. 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 Thanks OBJECTIVE: Vital Signs/I&O: Vital Signs Date Time Temp Pulse Resp B/P (MAP) Pulse Ox O2 Delivery O2 Flow Rate FiO2 08/08/20 11:00 98.0 66 20 105/71 (82) 94 Nasal Cannula 3.0 98.0 I & O 08/07/20 08/07/20 08/08/20 15:00 23:00 07:00 Intake Total 450 ml 325 ml 120 ml Output Total 100 ml Balance 450 ml 225 ml 120 ml Objective: Unable to communicate due to language issue No obvious pain normal heart tones. no edema. CURRENT MEDICATIONS: Current Medications Medications (Trade) Dose Ordered Sig/Sveta Route PRN Reason Start Time Stop Time Status Last Admin Dose Admin Midazolam HCl (Versed) 2 mg 1X ONCE IV 08/08/20 12:00 08/08/20 12:01 DC 08/08/20 10:53 Fentanyl Citrate (Fentanyl 2ml Vial) 50 mcg 1X ONCE IV 08/08/20 12:00 08/08/20 12:01 DC 08/08/20 10:36 Diphenhydramine HCl (Benadryl) 25 mg 1X ONCE IVP 08/08/20 12:00 08/08/20 12:01 DC 08/08/20 10:29 Naloxone HCl (Narcan) 0.4 mg 1X ONCE IV 08/08/20 12:00 08/08/20 12:01 DC 08/08/20 10:44 DIAGNOSTIC TESTING: labs reviewed Ekg with SR. Echo reviewed Labs: Laboratory Tests Test 08/07/20 16:35 08/07/20 17:31 08/07/20 20:57 08/08/20 05:50 Heparin Anti-Xa Act, Unfractionated 0.33 IU/mL (0.30-0.70) 0.23 IU/mL (0.30-0.70) L Glucose (Fingerstick) 167 mg/dL (70-99) H 196 mg/dL (70-99) H Test 08/08/20 06:58 08/08/20 11:46 Glucose (Fingerstick) 303 mg/dL (70-99) H 263 mg/dL (70-99) H ASSESSMENT: 1. NSTEMI 2. Ischemic CMP 3. ESRD 4. HTN PLAN: 1. Due to patient's elevated troponin and LV dysfunction an attempt was made to do a cardiac cath today on the patient after a thorough discussion with next of kin (son and [id number]). Prior to procedure starting, patient was very restless and moving all extremities. She was subsequently given sedation (fentanyl, versed) which lead to hypoxia and she was given reversal agents. Despite calling her son and having him speak to her, she was not able to remain still/calm on the cath table. Due to lack of any active chest pain, high risk of post-procedural bleeding complications if the patient was unable to lay flat a decision was made to abandon the procedure. -Could consider LHC with general anesthesia but patient and family considering conservative measures which I think is very reasonable given the patient's debility, age and clinical status. -If conservative measures, then plan for asa, plavix, b-kaylee and low dose odalis-inh for medical tx of NSTEMI. Supportive care. Thanks Justicifation of Admission Dx: Justifications for Admission: Justification of Admission Dx: Yes Chronic Renal Failure: Renail Failure (ESRD ) ID: Acute NSTEMI AYSE MENDOZA MD Aug 08, 2020 13:43
[2020-08-08 14:21] LABS: CREATININE 4.6 mg/dL (0.6-1.0); GFR 9.1
[2020-08-08 14:25] LABS: ALBUMIN 3.1 g/dL (3.4-5.0)
--- NOTE | 2020-08-08 15:31 | PDOC ---
Provider Note Date of Service: DATE: 08/08/20 TIME: 15:25 Provider Note Discussed case with Hernandez, patient's daughter in law who is to son, Mack. Family would like conservative measures at this time. Will follow up with financial recruiter and consider outpatient stress test is any episode of chest pain/pressures or recurrent NSTMI, acute CHF. Please see progress noted from today for further details. Continue ASA, statin. Add Plavix Decrease metoprolol to 25mg Add low-dose lisinopril Justifications for Admission Other Justification JOJO ONEILL APRN Aug 08, 2020 15:31
[2020-08-08 19:01] VITALS: BP 119/58
[2020-08-08 22:01] VITALS: BP 101/66
[2020-08-08] MEDS: METOPROLOL TART IMMED RELEASE 25 MG TABLET. PO SCH (22:43)
[2020-08-08] MEDS: ATORVASTATIN CALCIUM 40 MG TABLET. PO SCH (22:43)
[2020-08-09 02:05] VITALS: BP 101/55
[2020-08-09 05:23] LABS: HEMATOCRIT 27.9 % (36.0-47.0); HEMOGLOBIN 9.1 g/dL (12.0-15.5); RED BLOOD COUNT 2.58 x10^6/uL (3.50-5.40); RED CELL DISTRIBUTION WIDTH 14.2 % (11.5-14.5); WHITE BLOOD COUNT 7.2 x10^3/uL (4.0-11.0)
[2020-08-09 05:49] LABS: CALCIUM 7.9 mg/dL (8.5-10.1); CREATININE 4.4 mg/dL (0.6-1.0); GFR 9.6; POTASSIUM 4.4 mmol/L (3.5-5.1)
[2020-08-09 05:52] LABS: ALBUMIN 3.2 g/dL (3.4-5.0); PHOSPHORUS 6.5 mg/dL (2.6-4.7)
[2020-08-09 06:19] VITALS: BP 104/51
[2020-08-09] MEDS ORDERED: CLOPIDOGREL BISULFATE 75 MG TABLET PO SCH (08:00)
[2020-08-09] MEDS: ASPIRIN ENTERIC COATED 81 MG TABLET.DR. PO SCH (08:45)
[2020-08-09] MEDS: METOPROLOL TART IMMED RELEASE 25 MG TABLET. PO SCH (08:49)
[2020-08-09] MEDS ORDERED: LISINOPRIL 5 MG TABLET. PO SCH (09:00)
[2020-08-09] MEDS: INSULIN LISPRO 300 UNITS/3 ML VIAL. SQ SCH ×2 (09:23→12:00)
[2020-08-09 10:34] VITALS: BP 108/82
[2020-08-09] MEDS ORDERED: CLOP75TA PO (11:37)
[2020-08-09] MEDS ORDERED: LISI-338 PO (11:37)
[2020-08-09] MEDS ORDERED: ASPI-886 PO (11:37)
--- NOTE | 2020-08-09 11:38 | DISCH ---
DISCHARGE INSTRUCTIONS Condition on Discharge Condition on Discharge: Stable Activity After Discharge Activity Instructions for Disc: Activity as tolerated Lifting Instructions after Dis: No heavy lifting Exercise Instruction after Dis: Progress as tolerated Driving Instructions after Dis: Do not drive Weight Bearing Status after Di: Full weight bearing Diet after Discharge Diet after Discharge: Renal Dialysis Diet Texture: Regular Liquid Texture: Thin Liquid Swallowing Supervision: None needed Checks after Discharge Checks after discharge: Check blood sugar, ac/hs, Weigh Yourself Daily DC Comment: CBC, CMP within 1 week at discharge Contacting the DR. after DC Call your doctor for: If your condition worsens Follow-Up Follow up with: PCP within 1 week at discharge Follow Up With: Cardiology and nephrology as needed Treatment/Equipment after DC Adaptive Equipment Issued: None PAIGE SELF MD Aug 09, 2020 11:38
--- NOTE | 2020-08-09 11:52 | PDOC ---
DATE OF SERVICE DATE: 08/09/20 TIME: 11:47 SUBJECTIVE ROS Comfortable,sitting up in chair , No concerns voiced by RN OBJECTIVE Vital Signs Vital Signs Date Time Temp Pulse Resp B/P (MAP) Pulse Ox O2 Delivery O2 Flow Rate FiO2 08/09/20 10:34 99.6 72 21 108/82 (91) 100 Nasal Cannula 3.0 99.6 I & 0 Intake and Output 08/09/20 07:00 Intake Total 220 ml Balance 220 ml Intake Oral 220 ml # Bowel Movements 1 PHYSICAL EXAM Physical Exam GENERAL: NAD HEENT: Normocephalic, atraumatic, anicteric, OM moist NECK: Supple, no JVD. LUNGS: Clear bilaterally, Non labored HEART: S1, S2. No gallops or murmurs. ABDOMEN: Soft, nontender, EXTREMITIES: No edema, no cyanosis. DERMATOLOGIC: . No generalized rash. Left upper extremity AV fistula PSYCHIATRIC: Cooperative, appropriate mood and affect. NEURO Grossly Normal DIAGNOSIS/ASSESSMENT Assessment & Plan ESRD- On HD TTS Currently no indication for HD Anemia- Stable, No indication for GUILLERMO Acute respiratory failure- Cxr reported pulmonary edema with small bilateral pleural effusions. Superimposed infectious process is difficult to exclude. CoVid negative Acute on chronic systolic CHF- stable, better Cardiomyopathy; Echo 2017 with LVEF 45-50%/ NSTEMI . Card was unabe to do cardiac cath as patient unable to lie flat , Hypoxic with sedation, family wants conservative measures Hypertensive urgency - cardiology managing AFIB; maintaining SR Diabetes, II COMMENT/RELEVANT DATA Meds Current Medications Medications (Trade) Dose Ordered Sig/Sveta Start Time Stop Time Status Last Admin Dose Admin Albumin Human 200 ml @ 200 mls/hr 1X PRN PRN 08/08/20 11:00 08/08/20 16:59 DC Aspirin (Maxi Aspirin) 325 mg 1X ONCE 08/06/20 10:30 08/06/20 10:31 DC 08/06/20 11:07 325 MG Aspirin (Ecotrin) 81 mg DAILYWBKFT 08/07/20 08:00 08/09/20 08:45 81 MG Atorvastatin Calcium (Lipitor) 40 mg QHS 08/06/20 21:00 08/08/20 22:43 40 MG Clopidogrel Bisulfate (Plavix) 75 mg DAILYWBKFT 08/09/20 08:00 08/09/20 08:45 75 MG Dextrose (Dextrose 50%-Water Syringe) 12.5 gm PRN Q15MIN PRN 08/06/20 17:15 Diphenhydramine HCl (Benadryl) 25 mg 1X ONCE 08/08/20 12:00 08/08/20 12:01 DC 08/08/20 10:29 25 MG Fentanyl Citrate (Fentanyl 2ml Vial) 50 mcg 1X ONCE 08/08/20 12:00 08/08/20 12:01 DC 08/08/20 10:36 50 MCG Heparin Sodium (Porcine) (Heparin Sodium) 1,200 unit PRN Q6HRS PRN 08/06/20 10:30 Heparin Sodium/ Dextrose 250 ml @ 0 mls/hr CONT PRN 08/06/20 10:30 08/07/20 18:04 6.89 MLS/HR Heparin Sodium/ Sodium Chloride 1,000 ml @ As Directed STK-MED ONCE 08/08/20 10:08 08/08/20 10:08 DC Info (Anti-Coagulation Monitoring By Pharmacy) 1 each PRN DAILY PRN 08/07/20 08:15 08/08/20 08:49 1 EACH Info (PHARMACY MONITORING -- do not chart) 1 each PRN DAILY PRN 08/08/20 11:00 08/08/20 13:07 DC Insulin Human Lispro (HumaLOG) 0-9 UNITS TIDWMEALS 08/07/20 09:00 08/09/20 09:23 9 UNITS Insulin Human Regular (HumuLIN R VIAL) 10 unit 1X ONCE 08/05/20 23:15 08/05/20 23:16 DC 08/06/20 00:18 10 UNIT Iodixanol (Visipaque 320) 100 ml STK-MED ONCE 08/08/20 10:08 08/08/20 10:08 DC Labetalol HCl (Normodyne Iv Push) 20 mg 1X ONCE 08/06/20 01:15 08/06/20 01:16 DC 08/06/20 02:29 20 MG Lidocaine HCl (Lidocaine 1% 20ml Vial) 20 ml STK-MED ONCE 08/08/20 10:25 08/08/20 10:25 DC Lidocaine HCl (Xylocaine-Mpf 1% 2ml Vial) 2 ml STK-MED ONCE 08/08/20 10:08 08/08/20 10:08 DC Lisinopril (Prinivil) 5 mg DAILY 08/09/20 09:00 08/09/20 08:48 5 MG Metoprolol Tartrate (Lopressor) 25 mg BID 08/08/20 21:00 08/09/20 08:49 25 MG Midazolam HCl (Versed) 2 mg 1X ONCE 08/08/20 12:00 08/08/20 12:01 DC 08/08/20 10:53 2 MG Morphine Sulfate (Morphine Sulfate) 4 mg PRN Q2HR PRN 08/06/20 00:15 08/07/20 00:14 DC 08/06/20 04:30 4 MG Naloxone HCl (Narcan) 0.4 mg 1X ONCE 08/08/20 12:00 08/08/20 12:01 DC 08/08/20 10:44 0.4 MG Nitroglycerin/ Dextrose 250 ml @ 0 mls/hr 1X ONCE 08/05/20 22:30 08/05/20 22:31 DC 08/05/20 22:40 1.5 MLS/HR Ondansetron HCl (Zofran) 4 mg PRN Q6HRS PRN 08/06/20 08:00 08/08/20 02:51 4 MG Sodium Chloride 1,000 ml @ 400 mls/hr Q2H30M PRN 08/08/20 11:00 08/08/20 22:59 DC Lab Laboratory Tests Test 08/08/20 12:45 08/08/20 16:44 08/08/20 20:49 08/09/20 04:35 Sodium Level 136 mmol/L (136-145) 135 mmol/L (136-145) Potassium Level 4.0 mmol/L (3.5-5.1) 4.4 mmol/L (3.5-5.1) Chloride Level 96 mmol/L (98-107) 95 mmol/L (98-107) Carbon Dioxide Level 27 mmol/L (21-32) 26 mmol/L (21-32) Anion Gap 13 (6-14) 14 (6-14) Blood Urea Nitrogen 49 mg/dL (7-20) 42 mg/dL (7-20) Creatinine 4.6 mg/dL (0.6-1.0) 4.4 mg/dL (0.6-1.0) Estimated GFR (Cockcroft-Gault) 9.1 9.6 Glucose Level 209 mg/dL (70-99) 361 mg/dL (70-99) Calcium Level 7.0 mg/dL (8.5-10.1) 7.9 mg/dL (8.5-10.1) Phosphorus Level 6.0 mg/dL (2.6-4.7) 6.5 mg/dL (2.6-4.7) Albumin 3.1 g/dL (3.4-5.0) 3.2 g/dL (3.4-5.0) Glucose (Fingerstick) 131 mg/dL (70-99) 234 mg/dL (70-99) White Blood Count 7.2 x10^3/uL (4.0-11.0) Red Blood Count 2.58 x10^6/uL (3.50-5.40) Hemoglobin 9.1 g/dL (12.0-15.5) Hematocrit 27.9 % (36.0-47.0) Mean Corpuscular Volume 108 fL (79-100) Mean Corpuscular Hemoglobin 35 pg (25-35) Mean Corpuscular Hemoglobin Concent 33 g/dL (31-37) Red Cell Distribution Width 14.2 % (11.5-14.5) Platelet Count 127 x10^3/uL (140-400) Test 08/09/20 06:54 08/09/20 11:10 Glucose (Fingerstick) 339 mg/dL (70-99) 95 mg/dL (70-99) Results All relevant outside records, renal labs, imaging studies, telemetry/EKG's were reviewed. Justicifation of Admission Dx: Justifications for Admission: Justification of Admission Dx: Yes Chronic Renal Failure: Renail Failure (ESRD ) MA: Acute NSTEMI RICO ORR MD Aug 09, 2020 11:52
--- NOTE | 2020-08-09 12:10 | PDOC ---
CARDIO Progress Notes Date and Time Date of Service 08/09/2020 Time of Evaluation 0920 Subjective Subjective: No Chest Pain, No shortness of breath, No Palpitations Vitals Vitals Vital Signs Date Time Temp Pulse Resp B/P (MAP) Pulse Ox O2 Delivery O2 Flow Rate FiO2 08/09/20 10:34 99.6 72 21 108/82 (91) 100 Nasal Cannula 3.0 99.6 Weight Weight [ ] Input and Output Intake and Output Intake and Output 08/09/20 07:00 Intake Total 220 ml Balance 220 ml Intake Oral 220 ml # Bowel Movements 1 Laboratory Labs Laboratory Tests Test 08/08/20 12:45 08/08/20 16:44 08/08/20 20:49 08/09/20 04:35 Sodium Level 136 mmol/L (136-145) 135 mmol/L (136-145) Potassium Level 4.0 mmol/L (3.5-5.1) 4.4 mmol/L (3.5-5.1) Chloride Level 96 mmol/L (98-107) 95 mmol/L (98-107) Carbon Dioxide Level 27 mmol/L (21-32) 26 mmol/L (21-32) Anion Gap 13 (6-14) 14 (6-14) Blood Urea Nitrogen 49 mg/dL (7-20) 42 mg/dL (7-20) Creatinine 4.6 mg/dL (0.6-1.0) 4.4 mg/dL (0.6-1.0) Estimated GFR (Cockcroft-Gault) 9.1 9.6 Glucose Level 209 mg/dL (70-99) 361 mg/dL (70-99) Calcium Level 7.0 mg/dL (8.5-10.1) 7.9 mg/dL (8.5-10.1) Phosphorus Level 6.0 mg/dL (2.6-4.7) 6.5 mg/dL (2.6-4.7) Albumin 3.1 g/dL (3.4-5.0) 3.2 g/dL (3.4-5.0) Glucose (Fingerstick) 131 mg/dL (70-99) 234 mg/dL (70-99) White Blood Count 7.2 x10^3/uL (4.0-11.0) Red Blood Count 2.58 x10^6/uL (3.50-5.40) Hemoglobin 9.1 g/dL (12.0-15.5) Hematocrit 27.9 % (36.0-47.0) Mean Corpuscular Volume 108 fL (79-100) Mean Corpuscular Hemoglobin 35 pg (25-35) Mean Corpuscular Hemoglobin Concent 33 g/dL (31-37) Red Cell Distribution Width 14.2 % (11.5-14.5) Platelet Count 127 x10^3/uL (140-400) Test 08/09/20 06:54 08/09/20 11:10 Glucose (Fingerstick) 339 mg/dL (70-99) 95 mg/dL (70-99) Physical Exam HEENT: Neck Supple W Full Motion Chest: Symmetric LUNGS: Other (diminished) Heart: RRR (SR) Abdomen: Soft N/T Extremities: No Edema Neurology: alert, follow commands Assessment Assessment 1. Acute respiratory failure with CHF. COVID neg 2. Acute on chronic diastolic/systolic CHF: compensated 3. Cardiomyopathy; EF same at 40-45% 4. NSTEMI; trop highest 2.1. Possible type II in the setting of CKD, hypertensive urgency, and CHF. CP free 5. Hypertensive urgency; controlled 6. ?AFIB; details unclear. Son without knowledge of AFIB. maintaining SR 7. Diabetes, II 8. ESRD on HD 9. Anemia of chronic disease Recommendations ASA/plavix, statin. Attempted LHC yesterday but unable to lay still and was hypoxic during sedation better after reversal agents. Discussed further with family and opted for conservative measures. Will treat medically. Continue secondary prevention measures Fluid off loading per HD Follow up in office. Justicifation of Admission Dx: Justifications for Admission: Justification of Admission Dx: Yes Chronic Renal Failure: Renail Failure (ESRD ) HI: Acute NSTEMI PATEL MANCINI [employer] Aug 09, 2020 12:10
--- NOTE | 2020-08-09 13:00 | NUR ---
Dr. Garza notified of patient's blood sugar of 54 this morning. Gave patient juices & food & it improved.
[2020-08-09 14:37] VITALS: BP 123/58
[2020-08-09] MEDS ORDERED: CRESTOR5 MG PO (15:11)
--- NOTE | 2020-08-09 16:05 | NUR ---
Discharge Note: DELMY WASHINGTON [address] [place] [address] Discharge instructions and discharge home medications reviewed with Family Member and a copy given. All questions have been answered and understanding verbalized. The following instructions and handouts were given: discharge instructions, follow ups, new medication info, CHF info, NSTEMI info, HTN info, malnutrition info, oxygen requirements Discontinued lines and drains: Peripheral IV intact. Patient discharged to Home or Self Care with Family Member via Wheelchair at 1605.
--- NOTE | 2020-08-09 21:16 | PDOC3 ---
[facility]-Discharge Summary Date of Admission: Date of Admission: Aug 06, 2020 Date of Discharge: Date of Discharge: Aug 09, 2020 Discharge Diagnosis: Discharge Diagnosis: Acute respiratory failure with CHF. COVID pending Acute on chronic systolic CHF Echo 2017 with LVEF 45-50% NSTEMI; trop highest 2.1. Possible type II in the setting of CKD, hypertensive urgency, and CHF Hypertensive urgency; improved Diabetes mellitus type 2 ESRD on HD Hospital Course: Hospital Course: History obtained from discussion with nurse, chart review Patient is a 80-year-old xoz-Snjwjzm-nazewdso female with past medical history of atrial fibrillation, diabetes, hypertension, ESRD on dialysis with left arm fistula who comes in with complaints of shortness of breath that started yesterday. Admitted for further care and cardiac evaluation. Went to labor/excavator for LHC however could not tolerate lying flat. Due to multiple comorbidities and age, cardiology felt it would be appropriate to maximize medical therapy for now and proceed with convservative measures. Patient will be DC home with . The rest of her hospital course was uneventful. Disposition: Disposition/Orders: D/C to Home Activity: Activity: Resume previous activity Diet: Diet: Renal Medications: Home Meds Active Scripts Aspirin (ASPIRIN EC) 81 Mg Tablet.dr, 81 MG PO DAILYWBKFT for heart disease for 30 Days, #30 TAB.SR Prov:PAIGE SELF MD 08/09/20 Lisinopril (LISINOPRIL) 5 Mg Tablet, 5 MG PO DAILY for htn for 30 Days, #30 TAB Prov:PAIGE SELF MD 08/09/20 Clopidogrel Bisulfate (CLOPIDOGREL) 75 Mg Tablet, 75 MG PO DAILYWBKFT for co ronary artery disease for 30 Days, #30 TAB Prov:PAIGE SELF MD 08/09/20 Diltiazem Hcl (CARDIZEM CD) 180 Mg Cap.er.24h, 1 CAP PO DAILY, #90 CAP 1 Refill Prov:MALLORY DAWSON MD 06/20/17 Reported Medications Rosuvastatin Calcium (CRESTOR) 5 Mg Tablet, 10 MG PO DAILY for cholesterol for 30 Days, #30 TAB 1 Refill 08/09/20 Metoprolol Tartrate (METOPROLOL TARTRATE) 25 Mg Tablet, 1 TAB PO BID for HTN, #180 TAB 1 Refill 08/06/20 Insulin Aspart (NOVOLOG) 100 Unit/1 Ml Cartridge, 10 UNITS SQ TIDWMEALS for DIABETES, EACH 09/12/19 Glipizide (GLIPIZIDE ER) 10 Mg Tab.er.24, 1 TAB PO DAILY for DIABETES, #90 TAB 1 Refill 09/12/19 Insulin Detemir (LEVEMIR) 100 Unit/1 Ml Vial, 35 UNIT SQ HS for DIABETES, VIAL 09/12/19 Pantoprazole Sodium (PANTOPRAZOLE SODIUM ) 40 Mg Tablet.dr, 40 MG PO DAILYAC for GERD, TAB 09/12/19 Linagliptin (TRADJENTA) 5 Mg Tablet, 5 MG PO DAILY for TYPE 2 DIABETES, TAB 09/12/19 Pentoxifylline (PENTOXIFYLLINE) 400 Mg Tablet.er, 400 MG PO DAILY, TAB.SR 06/18/17 Discontinued Reported Medications Rosuvastatin Calcium (CRESTOR) 20 Mg Tablet, 1 TAB PO DAILY, #30 TAB 5 Refills 06/18/17 Scheduled Aspirin (Aspirin Ec), 81 MG PO DAILYWBKFT Clopidogrel Bisulfate (Clopidogrel), 75 MG PO DAILYWBKFT Diltiazem Hcl (Cardizem Cd), 1 CAP PO DAILY Glipizide (Glipizide Er), 1 TAB PO DAILY, (Reported) Insulin Aspart (Novolog), 10 UNITS SQ TIDWMEALS, (Reported) Insulin Detemir (Levemir), 35 UNIT SQ HS, (Reported) Linagliptin (Tradjenta), 5 MG PO DAILY, (Reported) Lisinopril (Lisinopril), 5 MG PO DAILY Metoprolol Tartrate (Metoprolol Tartrate), 1 TAB PO BID, (Reported) Pantoprazole Sodium (Pantoprazole Sodium ), 40 MG PO DAILYAC, (Reported) Pentoxifylline (Pentoxifylline), 400 MG PO DAILY, (Reported) Rosuvastatin Calcium (Crestor), 10 MG PO DAILY, (Reported) Discontinued Medications Rosuvastatin Calcium (Crestor), 1 TAB PO DAILY, (Reported) Total Time: Total Time: Total time spent was 40 minutes in preparing scripts, discharge planning with SW and RN, and preparing this discharge summary. Patient seen and examined on day of discharge. Justicifation of Admission Dx: Justifications for Admission: Justification of Admission Dx: Yes Chronic Renal Failure: Renail Failure (ESRD ) NV: Acute NSTEMI PAIGE SELF MD Aug 09, 2020 21:16
== END 2020-08-09 16:06 | disposition home health service (06) | DRG 280 ==
LOC: ER 22:00 → 6 SOUTH 23:57 → 2 NORTH 08-06 22:50
PROVIDERS: ADMIT Internal Medicine; ATTEND Internal Medicine
PROC: 5A1D70Z Performance of Urinary Filtration, Intermittent, Less than 6 Hours Per Day (ICD-10-PCS; principal; 2020-08-06)
PROC: 5A1D70Z Performance of Urinary Filtration, Intermittent, Less than 6 Hours Per Day (ICD-10-PCS; 2020-08-08)
DX: I16.0 Hypertensive urgency (principal); J96.01 Acute respiratory failure with hypoxia; I21.A1 Myocardial infarction type 2; N18.6 End stage renal disease; I50.43 Acute on chronic combined systolic (congestive) and diastolic (congestive) heart failure; J81.1 Chronic pulmonary edema; I13.2 Hypertensive heart and chronic kidney disease with heart failure and with stage 5 chronic kidney disease, or end stage renal disease; Z20.828 Contact with and (suspected) exposure to other viral communicable diseases; E11.22 Type 2 diabetes mellitus with diabetic chronic kidney disease; I48.91 Unspecified atrial fibrillation; E78.5 Hyperlipidemia, unspecified; D63.8 Anemia in other chronic diseases classified elsewhere; R53.81 Other malaise; I25.5 Ischemic cardiomyopathy; Z90.710 Acquired absence of both cervix and uterus; Z99.2 Dependence on renal dialysis; Z82.49 Family history of ischemic heart disease and other diseases of the circulatory system
CPT/HCPCS: 36415; 71045; 74176; 80053; 80061; 80069; 82010; 82805; 82962; 83880; 84484; 85025; 85027; 85520; 93005; 93306; 94618; 96365; 96366; 96375; 99285; J1200; J1644; J1815; J2250; J2270; J2310; J2405; J3010; J3490; P9046; U0003; 97110-GP; 97116-GP; 97530-GO; 97530-GP; 97535-GO; G0378

== ENCOUNTER 2020-08-17 03:58 | Emergency (ER) | payer OTHER ==
[~2020-08-17] VITALS: Ht 142.2 cm; Wt 44.5 kg
[~2020-08-17 03:58] MED LIST changes: +ASPI-886 PO; +CLOP75TA PO; +CRESTOR5 MG PO; +LISI-338 PO; +METO25TA4 PO
--- NOTE | 2020-08-17 05:29 | PHYS DOC ---
Past Medical History Past Medical History: A-Fib, Diabetes-Type II, Hypertension, Renal Failure Past Surgical History: Hysterectomy, Other Additional Past Surgical Histo: catheter placed in rt chest, l arm fistuala Smoking Status: Never Smoker Alcohol Use: None Drug Use: None General Adult EDM: Chief Complaint: SHORTNESS OF BREATH HPI: HPI: Patient is a 80 year old [f__sex] who presents with [] Review of Systems: Review of Systems: Constitutional: Denies fever or chills. [] Eyes: Denies change in visual acuity. [] HENT: Denies nasal congestion or sore throat. [] Respiratory: Denies cough or shortness of breath. [] Cardiovascular: Denies chest pain or edema. [] GI: Denies abdominal pain, nausea, vomiting, bloody stools or diarrhea. [] : Denies dysuria. [] Musculoskeletal: Denies back pain or joint pain. [] Integument: Denies rash. [] Neurologic: Denies headache, focal weakness or sensory changes. [] Endocrine: Denies polyuria or polydipsia. [] Lymphatic: Denies swollen glands. [] Psychiatric: Denies depression or anxiety. [] Heart Score: Risk Factors: Risk Factors: DM, Current or recent (<one month) smoker, HTN, HLP, family history of CAD, obesity. Risk Scores: Score 0 - 3: 2.5% MACE over next 6 weeks - Discharge Home Score 4 - 6: 20.3% MACE over next 6 weeks - Admit for Clinical Observation Score 7 - 10: 72.7% MACE over next 6 weeks - Early Invasive Strategies Allergies: Allergies: Allergies Coded Allergies Type Severity Reaction Last Updated Verified No Known Drug Allergies 05/07/14 No Physical Exam: PE: Constitutional: Well developed, well nourished, no acute distress, non-toxic appearance. [] HENT: Normocephalic, atraumatic, bilateral external ears normal, oropharynx moist, no oral exudates, nose normal. [] Eyes: PERRLA, EOMI, conjunctiva normal, no discharge. [] Neck: Normal range of motion, no tenderness, supple, no stridor. [] Cardiovascular:Heart rate regular rhythm, no murmur [] Lungs & Thorax: Bilateral breath sounds clear to auscultation [] Abdomen: Bowel sounds normal, soft, no tenderness, no masses, no pulsatile masses. [] Skin: Warm, dry, no erythema, no rash. [] Back: No tenderness, no CVA tenderness. [] Extremities: No tenderness, no cyanosis, no clubbing, ROM intact, no edema. [] Neurologic: Alert and oriented X 3, normal motor function, normal sensory function, no focal deficits noted. [] Psychologic: Affect normal, judgement normal, mood normal. [] Current Patient Data: Vital Signs: Vital Signs Date Time Temp Pulse Resp B/P (MAP) Pulse Ox O2 Delivery O2 Flow Rate FiO2 08/17/20 04:11 67 18 129/43 (71) 97 Room Air 08/17/20 04:00 97.7 97.7 EKG: EKG: @0513 NSR at 65bpm, NO ST elevation, QRS 78ms, QT/QTc 496/517ms, t wave inversion II-III and aVF and V3-V6, no ST elevation. Radiology/Procedures: Radiology/Procedures: PROCEDURE: PORTABLE CHEST 1V EXAMINATION: PORTABLE CHEST 1V CLINICAL HISTORY: Shortness of breath EXAM DATE/TIME: 08/17/2020 4:57 AM COMPARISON: 08/05/2020 FINDINGS: Lines, Tubes, and Devices: None. Cardiomediastinal Silhouette: Normal heart size. Aortic atherosclerotic calcification. Lungs and Pleura: Mildly improved aeration of the bilateral lower lung zones. Persistent diffuse interstitial and patchy alveolar opacities, greatest in the lower lung zones. Probable small residual bilateral pleural effusions. Bones and Soft Tissues: Degenerative changes of the thoracic spine. IMPRESSION: Mildly improved aeration of the bilateral lungs with persistent interstitial and patchy airspace disease. Probable small residual bilateral pleural effusions. Electronically signed by: Panchito Monge DO (08/17/2020 5:30 AM) [facility] Course & Med Decision Making: Course & Med Decision Making Pertinent Labs and Imaging studies reviewed. (See chart for details) [] Bettye Disclaimer: Bettye Disclaimer: This electronic medical record was generated, in whole or in part, using a voice recognition dictation system. Departure Departure Impression: Primary Impression: Dyspnea Qualified Codes: R06.00 - Dyspnea, unspecified Additional Impressions: ESRD (end stage renal disease) Suspected 2019 novel coronavirus infection Lactic acidosis Disposition: 01 DC HOME SELF CARE/HOMELESS Condition: STABLE Referrals: CHRISTIANNE JACKSON MD (PCP) Patient Instructions: Dialysis Diet, Aymx-ni-Dygc, End Stage Kidney Disease, Lactic Acid, Lactate, Shortness of Breath, [id number]-Hjzc Additional Instructions: You have been tested for or diagnosed with COVID-19. It is an infection caused by a new type of coronavirus. COVID-19 will cause cold-like or mild flu symptoms in most. It can cause more severe symptoms like problems breathing in some. There is no treatment for COVID-19. The body will clear the infection over time. Self-care will help to ease discomfort. Steps to Take: Self-Care Rest as needed. Healthy habits may help you feel better. Steps include: Choose healthy foods including fruits and vegetables. Drink water throughout the day. Get plenty of sleep each night. If you smoke, try to quit. It may ease breathing. Avoid alcohol. Keep Others Healthy The virus can spread to others. Droplets are released every time you sneeze or cough. The droplets can get into the mouth, nose, or eyes of people near you and lead to infection. To lower the chances of spreading COVID-19 to others: Stay at home until your doctor has said it is safe to leave. If you tested positive this will mean staying isolated until both of the following are true: At least 7 days have passed since the start of illness. You are free of fever for at least 72 hours without the use of medicine. During this time: - Avoid public areas, events, or transportation. Do not return to work or school until your doctor has said it is safe to do so. - Call ahead if you need to go to a medical center. Let them know you may have COVID-19. It will help them guide you where to go. They may also ask you to wear a facemask when you come to the office. - If you call for emergency medical services, let them know you may have COVID-19. While at home: - Try to avoid close contact with others. Stay about 6 feet away. - If possible, spend most of your time in a separate room from others. - Use a face mask if you will be in close contact with others such as sharing a room or vehicle. - Have someone wipe down common surfaces in the home. Use household drawing in machine tender every day on areas like doorknobs, counters, or sinks. - Cough or sneeze into a tissue. Throw the tissue away right after use. If a tissue is not available, cough or sneeze into your elbow. - Wash your hands often. Wash them after sneezing or coughing. Use soap and water and wash for at least 20 seconds. Alcohol based hand signs cleaner can be used if soap and water is not available. - Do not prepare food for others. Avoid sharing personal items like forks, spoons, or toothbrushes. - Avoid close contact with pets while you are sick. There is no evidence of the virus passing to pets. This is a safety step until more is known about this virus. Isolation can be frustrating. Social interaction can help. Keep in touch with friends and family through phone and tech options. You can still interact with others in your home, just keep a safe distance of about 6 feet. Follow-up: Your doctors office will check in with you to see if there are any changes in your health. You may be asked to keep track of symptoms to share with them. They will also let you know when you are clear to be in public again. Problems to Look Out For: Contact your doctor if your recovery is not going as you expect. Get emergency care if you have problems such as: - Trouble breathing - Nonstop chest pain or pressure - Changes in awareness, confusion, or problems waking - Lips or face have bluish color - Worsening of symptoms If you think you have an emergency, call for emergency medical services right away. As taken from [facility] ISIS DUENAS DO Aug 17, 2020 05:29
--- NOTE | 2020-08-17 05:33 | RAD ---
EXAMINATION: PORTABLE CHEST 1V CLINICAL HISTORY: Shortness of breath EXAM DATE/TIME: 08/17/2020 4:57 AM COMPARISON: 08/05/2020 FINDINGS: Lines, Tubes, and Devices: None. Cardiomediastinal Silhouette: Normal heart size. Aortic atherosclerotic calcification. Lungs and Pleura: Mildly improved aeration of the bilateral lower lung zones. Persistent diffuse interstitial and patchy alveolar opacities, greatest in the lower lung zones. Probable small residual bilateral pleural effusions. Bones and Soft Tissues: Degenerative changes of the thoracic spine. IMPRESSION: Mildly improved aeration of the bilateral lungs with persistent interstitial and patchy airspace disease. Probable small residual bilateral pleural effusions. Electronically signed by: Panchito Monge DO (08/17/2020 5:30 AM) [facility]
[2020-08-17 05:37] LABS: BASO % 0 % (0-3); EOS # 0.2 x10^3/uL (0.0-0.7); EOS % 2 % (0-3); HEMATOCRIT 26.2 % (36.0-47.0); HEMOGLOBIN 8.5 g/dL (12.0-15.5); LYMPH # 1.7 x10^3/uL (1.0-4.8); LYMPH % 16 % (24-48); MEAN CORPUSCULAR HEMOGLOBIN 35 pg (25-35); MEAN CORPUSCULAR HGB CONC 33 g/dL (31-37); MEAN CORPUSCULAR VOLUME 107 fL (79-100); MONO # 1.1 x10^3/uL (0.0-1.1); MONO % 10 % (0-9); NEUT # 7.7 x10^3/uL (1.8-7.7); NEUT % 71 % (31-73); PLATELET COUNT 187 x10^3/uL (140-400); RED BLOOD COUNT 2.45 x10^6/uL (3.50-5.40); RED CELL DISTRIBUTION WIDTH 14.3 % (11.5-14.5); WHITE BLOOD COUNT 10.8 x10^3/uL (4.0-11.0)
[2020-08-17 05:44] LABS: CALCIUM 8.9 mg/dL (8.5-10.1); GFR 5.6; POTASSIUM 4.8 mmol/L (3.5-5.1)
[2020-08-17 05:50] LABS: ALBUMIN 3.1 g/dL (3.4-5.0); ALBUMIN/GLOBULIN RATIO 0.7 (1.0-1.7); MAGNESIUM 2.7 mg/dL (1.8-2.4); TOTAL BILIRUBIN 0.3 mg/dL (0.2-1.0); TOTAL PROTEIN 7.3 g/dL (6.4-8.2)
[2020-08-17 06:15] LABS: INFLUENZA A PATIENT NEGATIVE (NEGATIVE); INFLUENZA B PATIENT NEGATIVE (NEGATIVE)
[2020-08-17 06:33] VITALS: BP 140/60
--- NOTE | 2020-08-19 09:41 | NUR ---
IP: Attempted to call results of COVID test. No answer. Left a voicemail to return the call.
== END 2020-08-17 06:45 | disposition home or self-care (01) ==
LOC: ER 03:58
DX: R06.02 Shortness of breath (principal); Z20.828 Contact with and (suspected) exposure to other viral communicable diseases; E11.22 Type 2 diabetes mellitus with diabetic chronic kidney disease; I12.0 Hypertensive chronic kidney disease with stage 5 chronic kidney disease or end stage renal disease; N18.6 End stage renal disease; E87.2 Acidosis; I48.20 Chronic atrial fibrillation, unspecified; Z90.710 Acquired absence of both cervix and uterus; Z98.890 Other specified postprocedural states
CPT/HCPCS: 36415; 71045; 80053; 82553; 83605; 83735; 84484; 85025; 87804; 99285; C9803; U0003

== ENCOUNTER 2021-10-04 10:38 | Inpatient (IN) | payer MEDICARE, OTHER ==
[~2021-10-04] VITALS: Ht 147.3 cm; Wt 43.6 kg
[~2021-10-04 10:38] MED LIST changes: -LISI-338 PO; +LISI5TAB15 PO
--- NOTE | 2021-10-04 11:35 | ED.ADGEN ---
Past Medical History Past Medical History: A-Fib, Diabetes-Type II, Hypertension, Renal Failure Additional Past Medical Histor: unable to obtain Past Surgical History: Other Additional Past Surgical Histo: unable to obtain Smoking Status: Unknown if ever smoked Alcohol Use: None Drug Use: None General Adult EDM: Chief Complaint: BACK PAIN - NO INJURY HPI: HPI: Patient is a 81 year old female coming in from dialysis via EMS. They stated that she was complaining of back pain but patient speaks mung. He states that she normally has some agitation and back pain but it got more severe today. On son's arrival he is able to translate and states that she is having exacerbation of her low back pain radiating to the left leg. He also states that she has been having fevers for the past 1 to 2 days with cough. Denies any GI complaint. No known sick contacts. Is a dialysis patient. Only had 1 hour out of her only 3-hour dialysis session. Received her second COVID-vaccine in March but has not had her booster. She was satting 85% on room air, son states she has oxygen at home that she wears a couple of times per month as needed Review of Systems: Review of Systems: All other systems within normal limits except for as noted in the HPI Current Medications: Current Medications Medications (Trade) Dose Ordered Sig/Sveta Start Time Stop Time Status Last Admin Dose Admin Acetaminophen (Tylenol) 1,000 mg 1X ONCE 10/04/21 12:45 10/04/21 12:46 DC 10/04/21 12:45 1,000 MG Fentanyl Citrate (Fentanyl 2ml Vial) 50 mcg 1X ONCE 10/04/21 11:45 10/04/21 11:48 DC 10/04/21 11:59 50 MCG Allergies: Allergies: Allergies Coded Allergies Type Severity Reaction Last Updated Verified No Known Drug Allergies 10/04/21 No Physical Exam: PE: Constitutional: Well developed, well nourished, no acute distress, non-toxic appearance. [] HENT: Normocephalic, atraumatic, bilateral external ears normal, nose normal. [] Eyes: PERRLA, conjunctiva normal, no discharge. [] Neck: No rigidity, supple, no stridor. [] Cardiovascular: Regular rate and rhythm, brisk cap refill [] Lungs & Thorax: Non labored symmetric respirations, no tachypnea or respiratory distress [] Abdomen: Soft, nondistended. Skin: Warm, dry, no erythema, no rash. [] Back: Unremarkable, no step-off or deformity, bilateral low back Extremities: No deformities, range of motion grossly intact, no lower extremity edema [] Neurologic: Alert and oriented X 3, no focal deficits noted. [] Psychologic: Affect normal, judgement normal, mood normal. [] Current Patient Data: Labs: Laboratory Tests Test 10/04/21 11:47 10/04/21 12:00 White Blood Count 4.8 x10^3/uL (4.0-11.0) Red Blood Count 3.14 x10^6/uL (3.50-5.40) L Hemoglobin 10.1 g/dL (12.0-15.5) L Hematocrit 31.9 % (36.0-47.0) L Mean Corpuscular Volume 102 fL (79-100) H Mean Corpuscular Hemoglobin 32 pg (25-35) Mean Corpuscular Hemoglobin Concent 32 g/dL (31-37) Red Cell Distribution Width 18.1 % (11.5-14.5) H Platelet Count 99 x10^3/uL (140-400) L Neutrophils (%) (Auto) 86 % (31-73) H Lymphocytes (%) (Auto) 8 % (24-48) L Monocytes (%) (Auto) 5 % (0-9) Eosinophils (%) (Auto) 0 % (0-3) Basophils (%) (Auto) 0 % (0-3) Neutrophils # (Auto) 4.2 x10^3/uL (1.8-7.7) Lymphocytes # (Auto) 0.4 x10^3/uL (1.0-4.8) L Monocytes # (Auto) 0.2 x10^3/uL (0.0-1.1) Eosinophils # (Auto) 0.0 x10^3/uL (0.0-0.7) Basophils # (Auto) 0.0 x10^3/uL (0.0-0.2) Sodium Level 137 mmol/L (136-145) Potassium Level 5.1 mmol/L (3.5-5.1) Chloride Level 99 mmol/L (98-107) Carbon Dioxide Level 24 mmol/L (21-32) Anion Gap 14 (6-14) Blood Urea Nitrogen 30 mg/dL (7-20) H Creatinine 4.3 mg/dL (0.6-1.0) H Estimated GFR (Cockcroft-Gault) 9.9 BUN/Creatinine Ratio 7 (6-20) Glucose Level 299 mg/dL (70-99) H Calcium Level 7.4 mg/dL (8.5-10.1) L Phosphorus Level 4.7 mg/dL (2.6-4.7) Magnesium Level 2.4 mg/dL (1.8-2.4) Total Bilirubin 0.4 mg/dL (0.2-1.0) Aspartate Amino Transferase (AST) 31 U/L (15-37) Alanine Aminotransferase (ALT) 23 U/L (14-59) Alkaline Phosphatase 124 U/L (46-116) H Troponin I High Sensitivity 104 ng/L (4-50) H YP-Ojt-R-Type Natriuretic Peptide > 59234 pg/mL (0-449) H Total Protein 6.8 g/dL (6.4-8.2) Albumin 2.8 g/dL (3.4-5.0) L Albumin/Globulin Ratio 0.7 (1.0-1.7) L Hepatitis B Surface Antigen Nonreactive (Nonreactive) Hepatitis B Surface Antibody Reactive Influenza Type A Antigen Negative (NEGATIVE) Influenza Type B Antigen Negative (NEGATIVE) SARS-CoV-2 Antigen (Rapid) Negative (NEGATIVE) Laboratory Tests 10/04/21 11:47 Laboratory Tests 10/04/21 11:47 Vital Signs: Vital Signs Date Time Temp Pulse Resp B/P (MAP) Pulse Ox O2 Delivery O2 Flow Rate FiO2 10/04/21 12:04 100.6 65 21 155/73 (100) 97 Nasal Cannula 3.0 100.6 EKG: EKG: [] Heart Score: C/O Chest Pain: No Risk Factors: Risk Factors: DM, Current or recent (<one month) smoker, HTN, HLP, family history of CAD, obesity. Risk Scores: Score 0 - 3: 2.5% MACE over next 6 weeks - Discharge Home Score 4 - 6: 20.3% MACE over next 6 weeks - Admit for Clinical Observation Score 7 - 10: 72.7% MACE over next 6 weeks - Early Invasive Strategies Radiology/Procedures: Radiology/Procedures: [facility] [address] [place], [place] [id number] IMAGING REPORT Signed PATIENT: DELMY WASHINGTON ACCOUNT: [id number] : 1940 LOCATION: ER AGE: 81 SEX: F EXAM STATUS: REG ER ORD. PHYSICIAN: AD NEWBERRY MD REASON: fever PROCEDURE: ACUTE ABDOMEN SERIES PROCEDURE: AP abdomen 10/04/2021 12:11 PM. REASON FOR STUDY: Reason: fever / Spl. Instructions: / History: . COMPARISON: Chest film of 08/17/2020. FINDINGS: No free air is seen. Gas is present within what appears be mostly small bowel. There is no evidence of obstruction. No abnormal masses or gas collections are seen. AP view of the chest shows worsening infiltrates or edema in the lungs. There is no apparent pleural fluid. The heart remains enlarged.. IMPRESSION: No evidence of obstruction. Worsened pulmonary opacities.. Electronically signed by: Hank Clarke Jr., MD (10/04/2021 12:13 PM) [id number] DICTATED and SIGNED BY: HANK CLARKE Jr, MD DATE: 10/04/21 [id number] [] Course & Med Decision Making: Course & Med Decision Making Pertinent Labs and Imaging studies reviewed. (See chart for details) [] Dragon Disclaimer: Dragon Disclaimer: This electronic medical record was generated, in whole or in part, using a voice recognition dictation system. Departure Departure Impression: Primary Impression: ESRD (end stage renal disease) Additional Impression: Fever Disposition: ADMITTED INPATIENT Admitting Physician: SELINA Condition: STABLE Referrals: CHRISTIANNE JACKSON MD (PCP) Problem Qualifiers AD NEWBERRY MD Oct 04, 2021 11:35
[2021-10-04] MEDS ORDERED: fentaNYL PF VIAL 100 MCG/2 ML VIAL IVP ONE (11:45)
[2021-10-04 11:58] LABS: BASO % 0 % (0-3); EOS % 0 % (0-3); HEMATOCRIT 31.9 % (36.0-47.0); HEMOGLOBIN 10.1 g/dL (12.0-15.5); LYMPH # 0.4 x10^3/uL (1.0-4.8); LYMPH % 8 % (24-48); MEAN CORPUSCULAR HEMOGLOBIN 32 pg (25-35); MEAN CORPUSCULAR HGB CONC 32 g/dL (31-37); MEAN CORPUSCULAR VOLUME 102 fL (79-100); MONO # 0.2 x10^3/uL (0.0-1.1); MONO % 5 % (0-9); NEUT # 4.2 x10^3/uL (1.8-7.7); NEUT % 86 % (31-73); PLATELET COUNT 99 x10^3/uL (140-400); RED BLOOD COUNT 3.14 x10^6/uL (3.50-5.40); RED CELL DISTRIBUTION WIDTH 18.1 % (11.5-14.5); WHITE BLOOD COUNT 4.8 x10^3/uL (4.0-11.0)
[2021-10-04 12:09] LABS: CALCIUM 7.4 mg/dL (8.5-10.1); CREATININE 4.3 mg/dL (0.6-1.0); GFR 9.9; POTASSIUM 5.1 mmol/L (3.5-5.1)
[2021-10-04 12:15] LABS: ALBUMIN 2.8 g/dL (3.4-5.0); ALBUMIN/GLOBULIN RATIO 0.7 (1.0-1.7); MAGNESIUM 2.4 mg/dL (1.8-2.4); PHOSPHORUS 4.7 mg/dL (2.6-4.7); TOTAL BILIRUBIN 0.4 mg/dL (0.2-1.0); TOTAL PROTEIN 6.8 g/dL (6.4-8.2)
--- NOTE | 2021-10-04 12:15 | RAD ---
PROCEDURE: AP abdomen 10/04/2021 12:11 PM. REASON FOR STUDY: Reason: fever / Spl. Instructions: / History: . COMPARISON: Chest film of 08/17/2020. FINDINGS: No free air is seen. Gas is present within what appears be mostly small bowel. There is no evidence of obstruction. No abnormal masses or gas collections are seen. AP view of the chest shows worsening infiltrates or edema in the lungs. There is no apparent pleural fluid. The heart remains enlarged.. IMPRESSION: No evidence of obstruction. Worsened pulmonary opacities.. Electronically signed by: Juan Clarke Jr., MD (10/04/2021 12:13 PM) [id number]
[2021-10-04 12:30] LABS: INFLUENZA A PATIENT NEGATIVE (NEGATIVE); INFLUENZA B PATIENT NEGATIVE (NEGATIVE)
[2021-10-04] MEDS ORDERED: ACETAMINOPHEN 500 MG TABLET PO ONE (12:45)
[2021-10-04] MEDS ORDERED: ACETAMINOPHEN 325 MG TABLET. PO PRN (13:30)
[2021-10-04] MEDS ORDERED: fentaNYL PF VIAL 100 MCG/2 ML VIAL IVP PRN (13:30)
[2021-10-04] MEDS ORDERED: ONDANSETRON PF 4 MG/2 ML VIAL. IVP PRN (13:30)
[2021-10-04] MEDS ORDERED: cefTRIAXone IV Push 1 GM VIAL. IVP SCH (14:00)
[2021-10-04] MEDS ORDERED: IV NORMAL SALINE 1000ML BAG 1,000 ML IV PRN ×2 (14:45)
[2021-10-04] MEDS ORDERED: ALBUMIN HUMAN 25% 200 ML IV PRN (14:45)
[2021-10-04] MEDS ORDERED: DIALYSIS PATIENT. MC PRN ×2 (14:45)
--- NOTE | 2021-10-04 14:54 | HP ---
DATE OF SERVICE: 10/04/2021 ADMIT DATE: 10/04/2021 CHIEF COMPLAINT: Back pain. HISTORY OF PRESENT ILLNESS: The patient is a pleasant 81-year-old female who is originally from [facility]. She was at dialysis today and had some back pain. They were able to finish 3 hours, but then sent her to the hospital after the dialysis via EMS. She has been vaccinated, but no booster. She has been having fevers up to 100.6 per her son. Imaging has shown some worsening pulmonary opacities. I discussed the case with ER physician. We are going to admit the patient. PAST MEDICAL HISTORY: End-stage renal disease, on dialysis; AFib, diabetes, hypertension. ALLERGIES: None. FAMILY HISTORY: Diabetes. SOCIAL HISTORY: She does not drink, smoke or take drugs. She is from [facility]. MEDICATIONS: Reviewed. Please refer to the MRAD. REVIEW OF SYSTEMS: GENERAL: No history of weight change, weakness or fevers. SKIN: No bruising, hair changes or rashes. EYES: No blurred, double or loss of vision. NOSE AND THROAT: No history of nosebleeds, hoarseness or sore throat. HEART: No history of palpitations, chest pain or shortness of breath on exertion. LUNGS: She complains of shortness of breath. GASTROINTESTINAL: Denies changes in appetite, nausea, vomiting, diarrhea or constipation. GENITOURINARY: No history of frequency, urgency, hesitancy or nocturia. NEUROLOGIC: Denies history of numbness, tingling, tremor or weakness. PSYCHIATRIC: No history of panic, anxiety or depression. ENDOCRINE: No history of heat or cold intolerance, polyuria or polydipsia. EXTREMITIES: Denies muscle weakness, joint pain, pain on walking or stiffness. MUSCULOSKELETAL: She complains of back pain. PHYSICAL EXAMINATION: VITALS: Within normal limits and are stable. GENERAL: No apparent distress. Alert and oriented. HEENT: Normal cephalic atraumatic, external auditory canals are patent. EYES: Extraocular muscles are intact, pupils are equally round and reactive to light and accommodation. MUSCULOSKELETAL: Well developed, well nourished, good range of motion. ENDOCRINE: No thyromegaly was palpated. LYMPHATICS: No cervical chain or axillary nodes were noted. HEMATOPOIETIC: No bruising. NECK: Supple, no JVD, no thyromegaly was noted. LUNGS: She has some slight crackles on the right. HEART: RRR, S1, S2 present. Peripheral pulses intact, no obvious murmurs were noted. ABDOMEN: Soft, nontender. Positive bowel sounds no organomegaly, normal bowel sounds. EXTREMITIES: Without any cyanosis, clubbing, or edema. Pedal pulses intact, Homans sign is negative. NEUROLOGIC: Normal speech, normal tone. A and O x 3, moves all extremities, no obvious focal deficits. PSYCHIATRIC: Normal affect, normal mood. Stable. SKIN: No ulcerations or rashes, good skin turgor, no jaundice. VASCULAR: Good capillary refill, neurovascular bundle appears to be intact. LABORATORY DATA: White count 4.8, hemoglobin 10.1, platelets 99. Electrolytes are normal other than a BUN of 30 and creatinine of 4.3, glucose is high at 299, calcium 7.4. BNP greater than 35,000. Troponin is 104. COVID testing is surprisingly negative. Acute abdominal series shows no evidence of obstruction, but she does have pulmonary opacities. ASSESSMENT AND PLAN: Back pain with abnormal imaging suspicious for pneumonia, subjective fevers, chronic renal failure, on dialysis and probable acute on chronic systolic and diastolic heart failure. The patient has been admitted. We will consult Nephrology. Empiric IV antibiotics, trend labs. Home meds. Deep venous thrombosis prophylaxis. Full code. O2 per nasal cannula p.r.n., p.r.n. Tylenol, p.r.n. fentanyl. Physical therapy and occupational therapy. AARTI/ELBA DR: Jaun TID: [id number]
[2021-10-04 15:00] VITALS: BP 124/82
[2021-10-04] MEDS: IPRATRPIUM/ALBUTEROL 0.5/2.5MG 3 ML NEBU. NEB SCH ×2 (15:29→19:02)
[2021-10-04] MEDS ORDERED: LOSA25TA54 PO (17:30)
[2021-10-04 19:10] VITALS: BP 132/62
--- NOTE | 2021-10-04 19:14 | EKG ---
[facility] [address] [place] [address] Test Date: 2021-10-04 Test Time: 11:53:35 Pat Name: DELMY WASHINGTON Department: Room: 569 1 Gender: F Compliance Monitor: : 1940 Requested By: AD NEWBERRY Order Number: [id number] Reading MD: Lino Damon MD Measurements Intervals [place] Rate: 92 P: 48 IL: 164 QRS: -29 QRSD: 78 T: 28 QT: 394 QTc: 493 Interpretive Statements SINUS RHYTHM Electronically Signed On 10-13-2021 18:12:19 PHYSICAL METEOROLOGIST by Lino Damon MD
[2021-10-04 23:45] VITALS: BP 109/45
[2021-10-05 03:30] VITALS: BP 105/49
[2021-10-05 06:18] LABS: ALBUMIN 2.9 g/dL (3.4-5.0); ALBUMIN/GLOBULIN RATIO 0.7 (1.0-1.7); CALCIUM 7.2 mg/dL (8.5-10.1); CREATININE 4.5 mg/dL (0.6-1.0); GFR 9.4; TOTAL BILIRUBIN 0.3 mg/dL (0.2-1.0); TOTAL PROTEIN 7.2 g/dL (6.4-8.2)
[2021-10-05 06:28] LABS: POTASSIUM 5.2 mmol/L (3.5-5.1)
[2021-10-05 06:32] LABS: BASO % 0 % (0-3); EOS % 0 % (0-3); HEMATOCRIT 32.8 % (36.0-47.0); HEMOGLOBIN 10.2 g/dL (12.0-15.5); LYMPH # 0.9 x10^3/uL (1.0-4.8); LYMPH % 21 % (24-48); MEAN CORPUSCULAR HEMOGLOBIN 32 pg (25-35); MEAN CORPUSCULAR HGB CONC 31 g/dL (31-37); MEAN CORPUSCULAR VOLUME 104 fL (79-100); MONO # 0.4 x10^3/uL (0.0-1.1); MONO % 8 % (0-9); NEUT # 3.1 x10^3/uL (1.8-7.7); NEUT % 71 % (31-73); PLATELET COUNT 114 x10^3/uL (140-400); RED BLOOD COUNT 3.16 x10^6/uL (3.50-5.40); WHITE BLOOD COUNT 4.4 x10^3/uL (4.0-11.0)
[2021-10-05 07:00] VITALS: BP 159/72
[2021-10-05] MEDS ORDERED: PIP/TAZO PER PHARMACY MC PRN (10:00)
[2021-10-05] MEDS ORDERED: guaiFENesin/CODEINE 100mg/10mg 5 ML LIQUID PO PRN (10:00)
[2021-10-05 11:00] VITALS: BP 143/87
[2021-10-05] MEDS ORDERED: REMDESIVIR LOAD in IV NORMAL SALINE 250ML TV IV ONE (11:00)
[2021-10-05] MEDS: PIPERACILLIN/TAZOBACTAM 2.25 GM in IV NORMAL SALINE 50ML 50 ML IV SCH ×2 (11:30→18:35)
[2021-10-05] MEDS ORDERED: INSULIN LISPRO 300 UNITS/3 ML VIAL. SQ ONE (12:45)
[2021-10-05 15:00] VITALS: BP 110/58
[2021-10-05] MEDS: IPRATROPIUM/ALBUTEROL 20/100mcg/INH INHALER. INH SCH ×3 (15:24→20:38)
[2021-10-05] MEDS ORDERED: DEXTROSE 50% 25 GM / 50ML DISP.SYRIN. IV PRN (17:30)
[2021-10-05] MEDS: INSULIN LISPRO 300 UNITS/3 ML VIAL. SQ SCH (18:37)
[2021-10-05 19:00] VITALS: BP 130/63
[2021-10-05] MEDS: INSULIN GLARGINE SYRINGE. SQ SCH (21:11)
[2021-10-05] MEDS: ATORVASTATIN CALCIUM 40 MG TABLET. PO SCH (21:14)
[2021-10-05] MEDS: METOPROLOL TART IMMED RELEASE 25 MG TABLET. PO SCH (21:15)
[2021-10-05 23:00] VITALS: BP 114/49
[2021-10-06] MEDS: PIPERACILLIN/TAZOBACTAM 2.25 GM in IV NORMAL SALINE 50ML 50 ML IV SCH ×4 (00:19→18:18)
[2021-10-06 03:12] VITALS: BP 124/58
--- NOTE | 2021-10-06 04:18 | CONS ---
DATE OF CONSULTATION: 10/05/2021 REQUESTING PHYSICIAN: Hospitalist. REASON FOR CONSULTATION: Renal failure. HISTORY OF PRESENT ILLNESS: An 81-year-old female well known to this physician with history of diabetes mellitus, hypertension, end-stage renal disease. She undergoes hemodialysis on a Wednesday, , Wednesday schedule at [facility] ____ Dialysis Unit. Presented to the Emergency Department from dialysis with back pain. She did not complete her dialysis. She has subsequently been found to be COVID-19 positive. PAST MEDICAL HISTORY: Diabetes mellitus; hypertension; end-stage renal disease, hemodialysis dependent, Wednesday, , and Wednesday; atrial fibrillation; anemia of chronic kidney disease; secondary hyperparathyroidism and renal disease. ALLERGIES: None. MEDICATIONS: Per medication list. FAMILY HISTORY: Noncontributory. SOCIAL HISTORY: The patient resides with assistance from family. REVIEW OF SYSTEMS: Other than back pain, which radiates to the left leg. She was also noted to have fevers 1-2 days with cough. Otherwise, remainder of review of systems is unremarkable. The patient did have 2 initial COVID vaccines infections, but not her booster. PHYSICAL EXAMINATION: Due to COVID-19 positive status, bedside examination not pursued. LABORATORY DATA: Sodium 138, potassium 5.2, chloride 96, CO2 of 22, BUN 40, creatinine 4.5, GFR 9.4, calcium 7.2. Hemoglobin 10.2, hematocrit 32.8%. IMPRESSION: 1. End-stage renal disease secondary to diabetes mellitus ____ nephrosclerosis -- hemodialysis dependent, Wednesday, , Wednesday. 2. COVID-19 positive status. 3. Anemia of chronic kidney disease. RECOMMENDATIONS: 1. Ongoing dialysis Wednesday, and Wednesday. 2. Management of COVID-19 per primary service. 3. Epogen for hemoglobin. We will follow. QUE/LAW/ALYSSA DR: QUE/ayde TID: [id number]
[2021-10-06 07:00] VITALS: BP 100/51
[2021-10-06] MEDS: LOSARTAN POTASSIUM 25 MG TABLET. PO SCH (09:00)
[2021-10-06] MEDS: METOPROLOL TART IMMED RELEASE 25 MG TABLET. PO SCH ×2 (09:00→21:06)
[2021-10-06] MEDS: glipiZIDE ER 2.5 MG TAB.ER.24 PO SCH (09:28)
[2021-10-06] MEDS: PENTOXIFYLLINE ER 400 MG TABLET.ER. PO SCH (09:29)
[2021-10-06] MEDS: PANTOPRAZOLE 40 MG TABLET.DR. PO SCH (09:30)
[2021-10-06] MEDS: LINAGLIPTIN 5 MG TABLET PO SCH (09:30)
[2021-10-06] MEDS: IPRATROPIUM/ALBUTEROL 20/100mcg/INH INHALER. INH SCH ×4 (09:30→21:03)
[2021-10-06] MEDS: DEXAMETHASONE SOD PHOS 4 MG/ML VIAL IVP SCH (09:32)
[2021-10-06] MEDS: INSULIN LISPRO 300 UNITS/3 ML VIAL. SQ SCH ×6 (09:33→17:00)
[2021-10-06 10:01] LABS: CALCIUM 6.7 mg/dL (8.5-10.1); CREATININE 6.8 mg/dL (0.6-1.0); GFR 5.8
[2021-10-06 10:38] LABS: POTASSIUM 6.1 mmol/L (3.5-5.1)
[2021-10-06 11:00] VITALS: BP 105/58
--- NOTE | 2021-10-06 11:50 | NUR ---
SW following. Discussed with RN, pt from home with family, 3L (does not use oxygen at home), renal diet, COVID-19 positive. SW notified pt's dialysis clinic of positive test. SW to call paperback machine operator to discharge so [facility] can arrange alternate clinic for pt. Pt does dialysis at [facility] (ph: [phone]). SW will continue to follow.
--- NOTE | 2021-10-06 11:52 | PDOC ---
DATE OF SERVICE DATE: 10/06/21 TIME: 11:52 SUBJECTIVE ROS stable OBJECTIVE Vital Signs Vital Signs Date Time Temp Pulse Resp B/P (MAP) Pulse Ox O2 Delivery O2 Flow Rate FiO2 10/06/21 11:00 97.8 74 18 105/58 (74) 92 Nasal Cannula 3.0 97.8 I & 0 Intake and Output 10/06/21 06:59 Intake Total 630 ml Balance 630 ml Intake Oral 270 ml IV Total 360 ml # Bowel Movements 2 PHYSICAL EXAM Physical Exam GENERAL: NAD HEENT: Normocephalic, atraumatic, anicteric, OM moist NECK: Supple, no JVD. LUNGS: Clear bilaterally, Non labored HEART: S1, S2. No gallops or murmurs. ABDOMEN: Soft, nontender, EXTREMITIES: No edema, no cyanosis. DERMATOLOGIC: . No generalized rash. Left upper extremity AV fistula PSYCHIATRIC: Cooperative, appropriate mood and affect. NEURO Grossly Normal DIAGNOSIS/ASSESSMENT Assessment & Plan DIAGNOSIS/ASSESSMENT Assessment & Plan ESRD- On HD TTS under [facility] Currently no indication for HD today Hyperkalemia-Mild , Monitor Anemia- Stable, No indication for GUILLERMO COVID-19 positive status. On 3 Lts O2by NC . Primary managing Chronic systolic CHF Cardiomyopathy; Echo 2017 with LVEF 45-50%/ NSTEMI . Hypertension AFIB; maintaining SR Diabetes, II COMMENT/RELEVANT DATA Meds Current Medications Medications (Trade) Dose Ordered Sig/Sveta Start Time Stop Time Status Last Admin Dose Admin Acetaminophen (Tylenol) 650 mg PRN Q4HRS PRN 10/04/21 13:30 10/05/21 13:29 DC Albumin Human 200 ml @ 200 mls/hr 1X PRN PRN 10/04/21 14:45 10/04/21 20:44 DC Albuterol/ Ipratropium (Combivent Respimat 20-100 Mcg) 1 puff RTQID 10/05/21 13:00 10/06/21 09:30 1 PUFF Albuterol/ Ipratropium (Duoneb) 3 ml RTQID 10/04/21 16:00 10/05/21 12:36 DC Atorvastatin Calcium (Lipitor) 40 mg HS 10/05/21 21:00 10/05/21 21:14 40 MG Ceftriaxone Sodium (Rocephin) 1 gm Q24H 10/04/21 14:00 10/05/21 09:54 DC 10/04/21 15:24 1 GM Dexamethasone Sodium Phosphate (Decadron) 6 mg DAILY 10/06/21 09:00 10/06/21 09:32 6 MG Dextrose (Dextrose 50%-Water Syringe) 12.5 gm PRN Q15MIN PRN 10/05/21 17:30 Diltiazem HCl (Cardizem 24hr Cd) 180 mg DAILY 10/06/21 09:00 Fentanyl Citrate (Fentanyl 2ml Vial) 50 mcg PRN Q1HR PRN 10/04/21 13:30 10/05/21 13:29 DC 10/04/21 18:06 50 MCG Glipizide (Glucotrol Er) 10 mg DAILY08 10/06/21 08:00 10/06/21 09:28 10 MG Guaifenesin/ Codeine Phosphate (Robitussin Ac) 5 ml PRN Q6HRS PRN 10/05/21 10:00 Info (PHARMACY MONITORING -- do not chart) 1 each PRN DAILY PRN 10/04/21 14:45 Insulin Glargine (Lantus Syringe) 35 unit QHS 10/05/21 21:00 10/05/21 21:11 35 UNIT Insulin Human Lispro (HumaLOG) 0-7 UNITS TIDWMEALS 10/05/21 17:30 10/06/21 09:34 4 UNITS Linagliptin (Tradjenta) 5 mg DAILY 10/06/21 09:00 10/06/21 09:30 5 MG Losartan Potassium (Cozaar) 25 mg DAILY 10/06/21 09:00 Metoprolol Tartrate (Lopressor) 25 mg BID 10/05/21 21:00 10/05/21 21:15 25 MG Ondansetron HCl (Zofran) 4 mg PRN Q8HRS PRN 10/04/21 13:30 10/05/21 13:29 DC 10/04/21 20:10 4 MG Pantoprazole Sodium (Protonix) 40 mg DAILYAC 10/06/21 07:30 10/06/21 09:30 40 MG Pentoxifylline (TRENtal) 400 mg DAILY 10/06/21 09:00 10/06/21 09:29 400 MG Piperacillin Sod/ Tazobactam Sod (Zosyn Per Pharmacy) 1 each PRN DAILY PRN 10/05/21 10:00 Piperacillin Sod/ Tazobactam Sod 2.25 gm/Sodium Chloride 50 ml @ 100 mls/hr Q6HRS 10/05/21 11:00 10/06/21 05:51 100 MLS/HR Remdesivir 100 mg/ Sodium Chloride 230 ml @ 460 mls/hr Q24H 10/06/21 11:00 10/09/21 11:29 Remdesivir 200 mg/ Sodium Chloride 210 ml @ 210 mls/hr 1X ONCE 10/05/21 11:00 10/05/21 11:59 DC 10/05/21 12:45 210 MLS/HR Sodium Chloride 1,000 ml @ 400 mls/hr Q2H30M PRN 10/04/21 14:45 10/05/21 02:44 DC Lab Laboratory Tests Test 10/05/21 15:43 10/05/21 19:38 10/06/21 07:00 10/06/21 08:53 Glucose (Fingerstick) 324 mg/dL (70-99) 165 mg/dL (70-99) 239 mg/dL (70-99) Sodium Level 135 mmol/L (136-145) Potassium Level 6.1 mmol/L (3.5-5.1) Chloride Level 93 mmol/L (98-107) Carbon Dioxide Level 19 mmol/L (21-32) Anion Gap 23 (6-14) Blood Urea Nitrogen 73 mg/dL (7-20) Creatinine 6.8 mg/dL (0.6-1.0) Estimated GFR (Cockcroft-Gault) 5.8 Glucose Level 238 mg/dL (70-99) Calcium Level 6.7 mg/dL (8.5-10.1) Results All relevant outside records, renal labs, imaging studies, telemetry/EKG's were reviewed. Justicifation of Admission Dx: Justifications for Admission: Justification of Admission Dx: Yes Chronic Renal Failure: Renail Failure HI: Acute NSTEMI RICO ORR MD Oct 06, 2021 11:52
[2021-10-06] MEDS: REMDESIVIR 100mg in NORMAL SALINE 250ML X 4 DAYS IV SCH (12:22)
[2021-10-06 15:00] VITALS: BP 105/58
[2021-10-06 19:00] VITALS: BP 153/66
[2021-10-06] MEDS: LACTOBACILLUS RHAMNOSUS GG 1 CAPSULE. PO SCH (21:05)
[2021-10-06] MEDS: INSULIN GLARGINE SYRINGE. SQ SCH (21:05)
[2021-10-06] MEDS: ATORVASTATIN CALCIUM 40 MG TABLET. PO SCH (21:05)
[2021-10-06 23:00] VITALS: BP 138/66
[2021-10-07] MEDS: PIPERACILLIN/TAZOBACTAM 2.25 GM in IV NORMAL SALINE 50ML 50 ML IV SCH ×4 (00:33→20:20)
--- NOTE | 2021-10-07 00:51 | PDOC ---
[employer] PROGRESS NOTE Date of Service DOS: 10/06 late entry Chief Complaint Chief Complaint Back pain with abnormal imaging suspicious for pneumonia, subjective fevers, chronic renal failure, on dialysis and probable acute on chronic systolic and diastolic heart failure. The patient has been admitted. We will consult Nephrology. Empiric IV antibiotics, trend labs. Home meds. Deep venous thrombosis prophylaxis. Full code. O2 per nasal cannula p.r.n., p.r.n. Tylenol, p.r.n. fentanyl. Physical therapy and occupational therapy. History of Present Illness History of Present Illness 10/06 eval and examined at bedside. continue current discussed with bedside RN 10/05 evaluated and examined at bedside. no complaints from patient but difficult communication overall. continue current. nephro following. Vitals/I&O Vitals/I&O: Vital Signs Date Time Temp Pulse Resp B/P (MAP) Pulse Ox O2 Delivery O2 Flow Rate FiO2 10/06/21 21:06 153/66 10/06/21 15:00 98.0 80 18 92 Nasal Cannula 3.0 98.0 I & O 10/06/21 10/06/21 10/07/21 15:00 23:00 07:00 Intake Total 120 ml Balance 120 ml Physical Exam General: Cooperative, moderate distress Heart: Regular rate Lungs: Clear, Other Abdomen: Normal bowel sounds, No tenderness Extremities: No edema, Normal pulses Skin: No significant lesion Labs Labs: Laboratory Tests Test 10/06/21 07:00 10/06/21 08:53 10/06/21 17:17 10/06/21 20:54 Sodium Level 135 mmol/L (136-145) Potassium Level 6.1 mmol/L (3.5-5.1) Chloride Level 93 mmol/L (98-107) Carbon Dioxide Level 19 mmol/L (21-32) Anion Gap 23 (6-14) Blood Urea Nitrogen 73 mg/dL (7-20) Creatinine 6.8 mg/dL (0.6-1.0) Estimated GFR (Cockcroft-Gault) 5.8 Glucose Level 238 mg/dL (70-99) Calcium Level 6.7 mg/dL (8.5-10.1) Glucose (Fingerstick) 239 mg/dL (70-99) 61 mg/dL (70-99) 233 mg/dL (70-99) Assessment and Plan Assessmemt and Plan Problems Medical Problems: (1) Fever Status: Acute Comment Review of Relevant I have reviewed the following items diamante (where applicable) has been applied. Medications: Current Medications Medications (Trade) Dose Ordered Sig/Sveta Route PRN Reason Start Time Stop Time Status Last Admin Dose Admin Dexamethasone Sodium Phosphate (Decadron) 6 mg DAILY IVP 10/06/21 09:00 10/06/21 09:32 Remdesivir 100 mg/ Sodium Chloride 230 ml @ 460 mls/hr Q24H IV 10/06/21 11:00 10/09/21 11:29 10/06/21 12:22 Linagliptin (Tradjenta) 5 mg DAILY PO 10/06/21 09:00 10/06/21 09:30 Pantoprazole Sodium (Protonix) 40 mg DAILYAC PO 10/06/21 07:30 10/06/21 09:30 Pentoxifylline (TRENtal) 400 mg DAILY PO 10/06/21 09:00 10/06/21 09:29 Glipizide (Glucotrol Er) 10 mg DAILY08 PO 10/06/21 08:00 10/06/21 09:28 Insulin Human Lispro (HumaLOG) 10 units TIDWMEALS SQ 10/06/21 08:00 10/06/21 12:23 Lactobacillus Rhamnosus (Culturelle) 1 cap BID PO 10/06/21 21:00 10/06/21 21:05 Justifications for Admission Other Justification JESSIE ROWLEY MD Oct 07, 2021 00:51
[2021-10-07 03:00] VITALS: BP 142/67
[2021-10-07 03:58] LABS: CALCIUM 6.9 mg/dL (8.5-10.1); CREATININE 7.7 mg/dL (0.6-1.0); POTASSIUM 5.2 mmol/L (3.5-5.1)
[2021-10-07 07:00] VITALS: BP 113/57
[2021-10-07] MEDS: INSULIN LISPRO 300 UNITS/3 ML VIAL. SQ SCH ×6 (08:00→17:00)
[2021-10-07] MEDS: IPRATROPIUM/ALBUTEROL 20/100mcg/INH INHALER. INH SCH ×4 (08:00→20:20)
[2021-10-07] MEDS ORDERED: IV NORMAL SALINE 1000ML BAG 1,000 ML IV PRN ×2 (08:15)
[2021-10-07] MEDS ORDERED: DIALYSIS PATIENT. MC PRN ×2 (08:15)
[2021-10-07] MEDS: LACTOBACILLUS RHAMNOSUS GG 1 CAPSULE. PO SCH ×2 (12:29→20:36)
[2021-10-07] MEDS: glipiZIDE ER 2.5 MG TAB.ER.24 PO SCH (12:29)
[2021-10-07] MEDS: PENTOXIFYLLINE ER 400 MG TABLET.ER. PO SCH (12:30)
[2021-10-07] MEDS: PANTOPRAZOLE 40 MG TABLET.DR. PO SCH (12:30)
[2021-10-07] MEDS: LINAGLIPTIN 5 MG TABLET PO SCH (12:30)
[2021-10-07] MEDS: METOPROLOL TART IMMED RELEASE 25 MG TABLET. PO SCH ×2 (12:30→20:46)
[2021-10-07] MEDS: LOSARTAN POTASSIUM 25 MG TABLET. PO SCH (12:31)
[2021-10-07] MEDS: DEXAMETHASONE SOD PHOS 4 MG/ML VIAL IVP SCH (12:32)
--- NOTE | 2021-10-07 12:49 | NUR ---
SS following up with discharge planning. SS reviewed pt chart and discussed with pt RN. Pt is currently requiring oxygen at three liters nasal canula. COVID19 positive. Pt has no home oxygen. Pt on IV Remdesivir, IV Decadron, and IV Zosyn. Pt has outpatient hemodialysis at [facility], ; fax [phone], Wednesday, , and Wednesday. Not ready. SS will continue to follow for discharge planning.
[2021-10-07] MEDS: REMDESIVIR 100mg in NORMAL SALINE 250ML X 4 DAYS IV SCH (13:32)
[2021-10-07 14:45] VITALS: BP 115/58
--- NOTE | 2021-10-07 14:50 | PDOC ---
[employer] PROGRESS NOTE Date of Service DOS: DATE: 10/07/21 TIME: 14:40 Chief Complaint Chief Complaint A/P: Acute respiratory failure with hypoxia - due to COVID 19 COVID 19 pneumonia - remdesivir, steroids anemia - of chronic renal insufficiency Sepsis - due to COVID 19 Abnormal CXR - due to COVID 19 ESRD - on HD Deep venous thrombosis prophylaxis. Full code. O2 per nasal cannula p.r.n., p.r.n. Tylenol, p.r.n. fentanyl. Physical therapy and occupational therapy. History of Present Illness History of Present Illness Ms Costa is an 79yo F w/ PMHx ESRD on HD, HTN, HLD who p/w fevers 100.6 F at home chest radiograph suspicious for bilateral pneumonia. COVID-19 rapid returned positive. Admitted for COVID-19 treatment.. 10/05: evaluated and examined at bedside. no complaints from patient but difficult communication overall. continue current. nephro following. 10/06: eval and examined at bedside. continue current discussed with bedside RN 10/07: Seen bedside after HD. She is urgently trying to have a bowel movement. Little short of breath slight cough. Having some diarrhea. Vitals/I&O Vitals/I&O: Vital Signs Date Time Temp Pulse Resp B/P (MAP) Pulse Ox O2 Delivery O2 Flow Rate FiO2 10/07/21 12:31 84 113/57 10/07/21 07:00 96.8 17 96 Nasal Cannula 3.0 96.8 I & O 10/06/21 10/06/21 10/07/21 15:00 23:00 07:00 Intake Total 120 ml Balance 120 ml Physical Exam General: Cooperative, moderate distress Heart: Regular rate Lungs: Clear, Other Abdomen: Normal bowel sounds, No tenderness Extremities: No edema, Normal pulses Skin: No significant lesion Labs Labs: Laboratory Tests Test 10/06/21 17:17 10/06/21 20:54 10/07/21 03:00 10/07/21 13:35 Glucose (Fingerstick) 61 mg/dL (70-99) 233 mg/dL (70-99) 118 mg/dL (70-99) Sodium Level 137 mmol/L (136-145) Potassium Level 5.2 mmol/L (3.5-5.1) Chloride Level 95 mmol/L (98-107) Carbon Dioxide Level 20 mmol/L (21-32) Anion Gap 22 (6-14) Blood Urea Nitrogen 98 mg/dL (7-20) Creatinine 7.7 mg/dL (0.6-1.0) Estimated GFR (Cockcroft-Gault) 5.0 Glucose Level 303 mg/dL (70-99) Calcium Level 6.9 mg/dL (8.5-10.1) Assessment and Plan Assessmemt and Plan Problems Medical Problems: (1) Fever Status: Acute Comment Review of Relevant I have reviewed the following items diamante (where applicable) has been applied. Medications: Current Medications Medications (Trade) Dose Ordered Sig/Sveta Route PRN Reason Start Time Stop Time Status Last Admin Dose Admin Lactobacillus Rhamnosus (Culturelle) 1 cap BID PO 10/06/21 21:00 10/07/21 12:29 Justifications for Admission Other Justification JESSIE CHILDRESS MD Oct 07, 2021 14:50
--- NOTE | 2021-10-07 16:12 | PDOC ---
DATE OF SERVICE DATE: 10/07/21 TIME: 16:10 SUBJECTIVE ROS stable, sitting up eating lunch OBJECTIVE Vital Signs Vital Signs Date Time Temp Pulse Resp B/P (MAP) Pulse Ox O2 Delivery O2 Flow Rate FiO2 10/07/21 14:45 97.4 76 17 115/58 (77) 94 Room Air 97.4 10/07/21 08:16 3.0 I & 0 Intake and Output 10/07/21 07:00 Intake Total 120 ml Balance 120 ml Intake Oral 120 ml # Bowel Movements 8 PHYSICAL EXAM Physical Exam GENERAL: NAD HEENT: Normocephalic, atraumatic, anicteric, OM moist NECK: Supple, no JVD. LUNGS: Clear bilaterally, Non labored HEART: S1, S2. No gallops or murmurs. ABDOMEN: Soft, nontender, EXTREMITIES: No edema, no cyanosis. DERMATOLOGIC: . No generalized rash. Left upper extremity AV fistula PSYCHIATRIC: Cooperative, appropriate mood and affect. NEURO Grossly Normal DIAGNOSIS/ASSESSMENT Assessment & Plan ESRD- On HD TTS under Dr Novak . Froy oseguera, discussed treatment plan with Fran, tolerated well Hyperkalemia-Mild , dialysis today Anemia- Stable, No indication for GUILLERMO COVID-19 positive status. On 3 Lts O2by [place] . Primary managing Chronic systolic CHF Cardiomyopathy; Echo 2017 with LVEF 45-50%/ NSTEMI . Hypertension AFIB; maintaining SR Diabetes, II COMMENT/RELEVANT DATA Meds Current Medications Medications (Trade) Dose Ordered Sig/Sveta Start Time Stop Time Status Last Admin Dose Admin Acetaminophen (Tylenol) 650 mg PRN Q4HRS PRN 10/04/21 13:30 10/05/21 13:29 DC Albumin Human 200 ml @ 200 mls/hr 1X PRN PRN 10/04/21 14:45 10/04/21 20:44 DC Albuterol/ Ipratropium (Combivent Respimat 20-100 Mcg) 1 puff RTQID 10/05/21 13:00 10/07/21 12:34 1 PUFF Albuterol/ Ipratropium (Duoneb) 3 ml RTQID 10/04/21 16:00 10/05/21 12:36 DC Atorvastatin Calcium (Lipitor) 40 mg HS 10/05/21 21:00 10/06/21 21:05 40 MG Ceftriaxone Sodium (Rocephin) 1 gm Q24H 10/04/21 14:00 10/05/21 09:54 DC 10/04/21 15:24 1 GM Dexamethasone Sodium Phosphate (Decadron) 6 mg DAILY 10/06/21 09:00 10/07/21 12:32 6 MG Dextrose (Dextrose 50%-Water Syringe) 12.5 gm PRN Q15MIN PRN 10/05/21 17:30 Diltiazem HCl (Cardizem 24hr Cd) 180 mg DAILY 10/06/21 09:00 10/07/21 12:31 180 MG Fentanyl Citrate (Fentanyl 2ml Vial) 50 mcg PRN Q1HR PRN 10/04/21 13:30 10/05/21 13:29 DC 10/04/21 18:06 50 MCG Glipizide (Glucotrol Er) 10 mg DAILY08 10/06/21 08:00 10/07/21 12:29 10 MG Guaifenesin/ Codeine Phosphate (Robitussin Ac) 5 ml PRN Q6HRS PRN 10/05/21 10:00 Info (PHARMACY MONITORING -- do not chart) 1 each PRN DAILY PRN 10/07/21 08:15 Insulin Glargine (Lantus Syringe) 35 unit QHS 10/05/21 21:00 10/06/21 21:05 35 UNIT Insulin Human Lispro (HumaLOG) 0-7 UNITS TIDWMEALS 10/05/21 17:30 10/06/21 12:24 4 UNITS Lactobacillus Rhamnosus (Culturelle) 1 cap BID 10/06/21 21:00 10/07/21 12:29 1 CAP Linagliptin (Tradjenta) 5 mg DAILY 10/06/21 09:00 10/07/21 12:30 5 MG Losartan Potassium (Cozaar) 25 mg DAILY 10/06/21 09:00 10/07/21 12:31 25 MG Metoprolol Tartrate (Lopressor) 25 mg BID 10/05/21 21:00 10/07/21 12:30 25 MG Ondansetron HCl (Zofran) 4 mg PRN Q8HRS PRN 10/04/21 13:30 10/05/21 13:29 DC 10/04/21 20:10 4 MG Pantoprazole Sodium (Protonix) 40 mg DAILYAC 10/06/21 07:30 10/07/21 12:30 40 MG Pentoxifylline (TRENtal) 400 mg DAILY 10/06/21 09:00 10/07/21 12:30 400 MG Piperacillin Sod/ Tazobactam Sod (Zosyn Per Pharmacy) 1 each PRN DAILY PRN 10/05/21 10:00 Piperacillin Sod/ Tazobactam Sod 2.25 gm/Sodium Chloride 50 ml @ 100 mls/hr Q6HRS 10/05/21 11:00 10/07/21 15:08 100 MLS/HR Remdesivir 100 mg/ Sodium Chloride 230 ml @ 460 mls/hr Q24H 10/06/21 11:00 10/09/21 11:29 10/07/21 13:32 460 MLS/HR Remdesivir 200 mg/ Sodium Chloride 210 ml @ 210 mls/hr 1X ONCE 10/05/21 11:00 10/05/21 11:59 DC 10/05/21 12:45 210 MLS/HR Sodium Chloride 1,000 ml @ 400 mls/hr Q2H30M PRN 10/07/21 08:15 10/07/21 20:14 Lab Laboratory Tests Test 10/06/21 17:17 10/06/21 20:54 10/07/21 03:00 10/07/21 13:35 Glucose (Fingerstick) 61 mg/dL (70-99) 233 mg/dL (70-99) 118 mg/dL (70-99) Sodium Level 137 mmol/L (136-145) Potassium Level 5.2 mmol/L (3.5-5.1) Chloride Level 95 mmol/L (98-107) Carbon Dioxide Level 20 mmol/L (21-32) Anion Gap 22 (6-14) Blood Urea Nitrogen 98 mg/dL (7-20) Creatinine 7.7 mg/dL (0.6-1.0) Estimated GFR (Cockcroft-Gault) 5.0 Glucose Level 303 mg/dL (70-99) Calcium Level 6.9 mg/dL (8.5-10.1) Results All relevant outside records, renal labs, imaging studies, telemetry/EKG's were reviewed. Justicifation of Admission Dx: Justifications for Admission: Justification of Admission Dx: Yes Chronic Renal Failure: Renail Failure [place]: Acute NSTEMI RICO ORR MD Oct 07, 2021 16:12
[2021-10-07 19:00] VITALS: BP 97/42
[2021-10-07] MEDS: HEPARIN for SUB-Q USE 5,000 UNIT/ML VIAL. SQ SCH (20:40)
[2021-10-07] MEDS: INSULIN GLARGINE SYRINGE. SQ SCH (20:45)
[2021-10-07] MEDS: ATORVASTATIN CALCIUM 40 MG TABLET. PO SCH (21:25)
[2021-10-07 23:00] VITALS: BP 85/44
[2021-10-08] MEDS: PIPERACILLIN/TAZOBACTAM 2.25 GM in IV NORMAL SALINE 50ML 50 ML IV SCH ×4 (00:56→18:36)
[2021-10-08 03:00] VITALS: BP 142/56
[2021-10-08] MEDS: HEPARIN for SUB-Q USE 5,000 UNIT/ML VIAL. SQ SCH ×3 (06:16→23:27)
[2021-10-08 07:00] VITALS: BP 121/58
[2021-10-08 07:42] LABS: CREATININE 4.8 mg/dL (0.6-1.0); GFR 8.7; POTASSIUM 3.6 mmol/L (3.5-5.1)
[2021-10-08] MEDS: INSULIN LISPRO 300 UNITS/3 ML VIAL. SQ SCH ×6 (08:00→17:00)
[2021-10-08] MEDS: glipiZIDE ER 2.5 MG TAB.ER.24 PO SCH (08:44)
[2021-10-08] MEDS: PENTOXIFYLLINE ER 400 MG TABLET.ER. PO SCH (08:44)
[2021-10-08] MEDS: PANTOPRAZOLE 40 MG TABLET.DR. PO SCH (08:44)
[2021-10-08] MEDS: DEXAMETHASONE SOD PHOS 4 MG/ML VIAL IVP SCH (08:45)
[2021-10-08] MEDS: LINAGLIPTIN 5 MG TABLET PO SCH (08:45)
[2021-10-08] MEDS: LACTOBACILLUS RHAMNOSUS GG 1 CAPSULE. PO SCH ×2 (08:45→23:26)
[2021-10-08] MEDS: IPRATROPIUM/ALBUTEROL 20/100mcg/INH INHALER. INH SCH ×4 (08:46→23:26)
[2021-10-08] MEDS: LOSARTAN POTASSIUM 25 MG TABLET. PO SCH (08:49)
[2021-10-08] MEDS: METOPROLOL TART IMMED RELEASE 25 MG TABLET. PO SCH ×2 (08:56→23:26)
[2021-10-08] MEDS ORDERED: DEXTROSE 50% 25 GM / 50ML DISP.SYRIN. IV ONE (09:00)
[2021-10-08 11:00] VITALS: BP 115/58
--- NOTE | 2021-10-08 12:06 | PDOC ---
DATE OF SERVICE DATE: 10/08/21 TIME: 12:04 SUBJECTIVE ROS stable, No complaints OBJECTIVE Vital Signs Vital Signs Date Time Temp Pulse Resp B/P (MAP) Pulse Ox O2 Delivery O2 Flow Rate FiO2 10/08/21 11:00 98.5 72 20 115/58 (77) 100 Room Air 98.5 10/07/21 19:00 4.0 I & 0 Intake and Output 10/08/21 07:00 Intake Total 820 ml Balance 820 ml Intake Oral 720 ml IV Total 100 ml # Bowel Movements 4 PHYSICAL EXAM Physical Exam GENERAL: NAD HEENT: Normocephalic, atraumatic, anicteric, OM moist NECK: Supple, no JVD. LUNGS: Clear bilaterally, Non labored HEART: S1, S2. No gallops or murmurs. ABDOMEN: Soft, nontender, EXTREMITIES: No edema, no cyanosis. DERMATOLOGIC: . No generalized rash. Left upper extremity AV fistula PSYCHIATRIC: Cooperative, appropriate mood and affect. NEURO Grossly Normal DIAGNOSIS/ASSESSMENT Assessment & Plan ESRD- On HD TTS under Dr Novak .No indication for dialysis today - clinically stable, K normal Anemia- Stable, COVID-19 positive status. On 3 Lts O2by [place] . Primary managing Chronic systolic CHF Cardiomyopathy; Echo 2017 with LVEF 45-50%/ NSTEMI . Hypertension AFIB; maintaining SR Diabetes, II COMMENT/RELEVANT DATA Meds Current Medications Medications (Trade) Dose Ordered Sig/Sveta Start Time Stop Time Status Last Admin Dose Admin Acetaminophen (Tylenol) 650 mg PRN Q4HRS PRN 10/04/21 13:30 10/05/21 13:29 DC Albumin Human 200 ml @ 200 mls/hr 1X PRN PRN 10/04/21 14:45 10/04/21 20:44 DC Albuterol/ Ipratropium (Combivent Respimat 20-100 Mcg) 1 puff RTQID 10/05/21 13:00 10/08/21 08:46 1 PUFF Albuterol/ Ipratropium (Duoneb) 3 ml RTQID 10/04/21 16:00 10/05/21 12:36 DC Atorvastatin Calcium (Lipitor) 40 mg HS 10/05/21 21:00 10/07/21 21:25 40 MG Ceftriaxone Sodium (Rocephin) 1 gm Q24H 10/04/21 14:00 10/05/21 09:54 DC 10/04/21 15:24 1 GM Dexamethasone Sodium Phosphate (Decadron) 6 mg DAILY 10/06/21 09:00 10/08/21 08:45 6 MG Dextrose (Dextrose 50%-Water Syringe) 12.5 gm PRN Q15MIN PRN 10/05/21 17:30 10/08/21 06:05 25 GM Diltiazem HCl (Cardizem 24hr Cd) 180 mg DAILY 10/06/21 09:00 10/08/21 08:45 180 MG Fentanyl Citrate (Fentanyl 2ml Vial) 50 mcg PRN Q1HR PRN 10/04/21 13:30 10/05/21 13:29 DC 10/04/21 18:06 50 MCG Glipizide (Glucotrol Er) 10 mg DAILY08 10/06/21 08:00 10/08/21 08:44 10 MG Guaifenesin/ Codeine Phosphate (Robitussin Ac) 5 ml PRN Q6HRS PRN 10/05/21 10:00 10/08/21 02:03 5 ML Heparin Sodium (Porcine) (Heparin Sodium) 5,000 unit Q8HRS 10/07/21 22:00 10/08/21 06:16 5,000 UNIT Info (PHARMACY MONITORING -- do not chart) 1 each PRN DAILY PRN 10/07/21 08:15 Insulin Glargine (Lantus Syringe) 35 unit QHS 10/05/21 21:00 10/07/21 20:45 35 UNIT Insulin Human Lispro (HumaLOG) 0-7 UNITS TIDWMEALS 10/05/21 17:30 10/06/21 12:24 4 UNITS Lactobacillus Rhamnosus (Culturelle) 1 cap BID 10/06/21 21:00 10/08/21 08:45 1 CAP Linagliptin (Tradjenta) 5 mg DAILY 10/06/21 09:00 10/08/21 08:45 5 MG Losartan Potassium (Cozaar) 25 mg DAILY 10/06/21 09:00 10/08/21 08:49 25 MG Metoprolol Tartrate (Lopressor) 25 mg BID 10/05/21 21:00 10/08/21 08:56 25 MG Ondansetron HCl (Zofran) 4 mg PRN Q8HRS PRN 10/04/21 13:30 10/05/21 13:29 DC 10/04/21 20:10 4 MG Pantoprazole Sodium (Protonix) 40 mg DAILYAC 10/06/21 07:30 10/08/21 08:44 40 MG Pentoxifylline (TRENtal) 400 mg DAILY 10/06/21 09:00 10/08/21 08:44 400 MG Piperacillin Sod/ Tazobactam Sod (Zosyn Per Pharmacy) 1 each PRN DAILY PRN 10/05/21 10:00 Piperacillin Sod/ Tazobactam Sod 2.25 gm/Sodium Chloride 50 ml @ 100 mls/hr Q6HRS 10/05/21 11:00 10/08/21 06:06 100 MLS/HR Remdesivir 100 mg/ Sodium Chloride 230 ml @ 460 mls/hr Q24H 10/06/21 11:00 10/09/21 11:29 10/07/21 13:32 460 MLS/HR Remdesivir 200 mg/ Sodium Chloride 210 ml @ 210 mls/hr 1X ONCE 10/05/21 11:00 10/05/21 11:59 DC 10/05/21 12:45 210 MLS/HR Sodium Chloride 1,000 ml @ 400 mls/hr Q2H30M PRN 10/07/21 08:15 10/07/21 20:14 DC Lab Laboratory Tests Test 10/07/21 13:35 10/07/21 16:28 10/07/21 20:32 10/08/21 05:58 Glucose (Fingerstick) 118 mg/dL (70-99) 146 mg/dL (70-99) 206 mg/dL (70-99) 42 mg/dL (70-99) Test 10/08/21 06:25 10/08/21 06:28 10/08/21 08:16 10/08/21 11:34 Sodium Level 138 mmol/L (136-145) Potassium Level 3.6 mmol/L (3.5-5.1) Chloride Level 98 mmol/L (98-107) Carbon Dioxide Level 22 mmol/L (21-32) Anion Gap 18 (6-14) Blood Urea Nitrogen 61 mg/dL (7-20) Creatinine 4.8 mg/dL (0.6-1.0) Estimated GFR (Cockcroft-Gault) 8.7 Glucose Level 255 mg/dL (70-99) Calcium Level 7.0 mg/dL (8.5-10.1) Glucose (Fingerstick) 204 mg/dL (70-99) 239 mg/dL (70-99) 99 mg/dL (70-99) Results All relevant outside records, renal labs, imaging studies, telemetry/EKG's were reviewed. Justicifation of Admission Dx: Justifications for Admission: Justification of Admission Dx: Yes Chronic Renal Failure: Renail Failure OR: Acute NSTEMI RICO ORR MD Oct 08, 2021 12:06
[2021-10-08] MEDS: REMDESIVIR 100mg in NORMAL SALINE 250ML X 4 DAYS IV SCH (12:29)
[2021-10-08 15:00] VITALS: BP 113/57
--- NOTE | 2021-10-08 16:24 | PDOC ---
[employer] PROGRESS NOTE Date of Service DOS: DATE: 10/08/21 TIME: 16:23 Chief Complaint Chief Complaint A/P: Acute respiratory failure with hypoxia - due to COVID 19 COVID 19 pneumonia - remdesivir, steroids anemia - of chronic renal insufficiency Sepsis - due to COVID 19 Abnormal CXR - due to COVID 19 ESRD - on HD Deep venous thrombosis prophylaxis. Full code. O2 per nasal cannula p.r.n., p.r.n. Tylenol, p.r.n. fentanyl. Physical therapy and occupational therapy. History of Present Illness History of Present Illness Ms Costa is an 79yo F w/ PMHx ESRD on HD, HTN, HLD who p/w fevers 100.6 F at home chest radiograph suspicious for bilateral pneumonia. COVID-19 rapid returned positive. Admitted for COVID-19 treatment.. 10/05: evaluated and examined at bedside. no complaints from patient but difficult communication overall. continue current. nephro following. 10/06: eval and examined at bedside. continue current discussed with bedside RN 10/07: Seen bedside after HD. She is urgently trying to have a bowel movement. Little short of breath slight cough. Having some diarrhea. 10/08: Seen bedside still short of breath with cough requiring O2. Still having diarrhea. Vitals/I&O Vitals/I&O: Vital Signs Date Time Temp Pulse Resp B/P (MAP) Pulse Ox O2 Delivery O2 Flow Rate FiO2 10/08/21 15:00 98.3 63 20 113/57 (75) 100 Room Air 98.3 10/08/21 08:00 3.0 I & O 10/07/21 10/07/21 10/08/21 15:00 23:00 07:00 Intake Total 600 ml 220 ml Balance 600 ml 220 ml Physical Exam General: Cooperative, moderate distress Heart: Regular rate Lungs: Clear, Other Abdomen: Normal bowel sounds, No tenderness Extremities: No edema, Normal pulses Skin: No significant lesion Labs Labs: Laboratory Tests Test 10/07/21 16:28 10/07/21 20:32 10/08/21 05:58 10/08/21 06:25 Glucose (Fingerstick) 146 mg/dL (70-99) 206 mg/dL (70-99) 42 mg/dL (70-99) Sodium Level 138 mmol/L (136-145) Potassium Level 3.6 mmol/L (3.5-5.1) Chloride Level 98 mmol/L (98-107) Carbon Dioxide Level 22 mmol/L (21-32) Anion Gap 18 (6-14) Blood Urea Nitrogen 61 mg/dL (7-20) Creatinine 4.8 mg/dL (0.6-1.0) Estimated GFR (Cockcroft-Gault) 8.7 Glucose Level 255 mg/dL (70-99) Calcium Level 7.0 mg/dL (8.5-10.1) Test 10/08/21 06:28 10/08/21 08:16 10/08/21 11:34 Glucose (Fingerstick) 204 mg/dL (70-99) 239 mg/dL (70-99) 99 mg/dL (70-99) Assessment and Plan Assessmemt and Plan Problems Medical Problems: (1) Fever Status: Acute Comment Review of Relevant I have reviewed the following items diamante (where applicable) has been applied. Medications: Current Medications Medications (Trade) Dose Ordered Sig/Sveta Route PRN Reason Start Time Stop Time Status Last Admin Dose Admin Heparin Sodium (Porcine) (Heparin Sodium) 5,000 unit Q8HRS SQ 10/07/21 22:00 10/08/21 14:34 Justifications for Admission Other Justification JESSIE CHILDRESS MD Oct 08, 2021 16:24
[2021-10-08 19:00] VITALS: BP 102/57
[2021-10-08] MEDS: INSULIN GLARGINE SYRINGE. SQ SCH (22:29)
[2021-10-08] MEDS: ATORVASTATIN CALCIUM 40 MG TABLET. PO SCH (23:26)
[2021-10-08 23:36] VITALS: BP 125/52
[2021-10-09] MEDS: PIPERACILLIN/TAZOBACTAM 2.25 GM in IV NORMAL SALINE 50ML 50 ML IV SCH ×3 (01:00→12:22)
[2021-10-09 03:00] VITALS: BP 106/41
[2021-10-09 07:00] VITALS: BP 103/51
[2021-10-09] MEDS: INSULIN LISPRO 300 UNITS/3 ML VIAL. SQ SCH ×6 (08:00→17:00)
[2021-10-09] MEDS: HEPARIN for SUB-Q USE 5,000 UNIT/ML VIAL. SQ SCH ×2 (08:01→14:00)
[2021-10-09 08:53] LABS: CALCIUM 6.8 mg/dL (8.5-10.1); CREATININE 6.1 mg/dL (0.6-1.0); GFR 6.6; POTASSIUM 4.7 mmol/L (3.5-5.1)
[2021-10-09] MEDS: METOPROLOL TART IMMED RELEASE 25 MG TABLET. PO SCH (09:00)
[2021-10-09] MEDS: LOSARTAN POTASSIUM 25 MG TABLET. PO SCH (09:00)
[2021-10-09] MEDS ORDERED: DOXY-181 PO (09:56)
[2021-10-09] MEDS ORDERED: DEXA4TAB63 PO (09:56)
--- NOTE | 2021-10-09 09:57 | PDOC ---
[employer] PROGRESS NOTE Date of Service DOS: DATE: 10/09/21 TIME: 09:56 Chief Complaint Chief Complaint A/P: Acute respiratory failure with hypoxia - due to COVID 19 COVID 19 pneumonia - remdesivir, steroids anemia - of chronic renal insufficiency Sepsis - due to COVID 19 Abnormal CXR - due to COVID 19 ESRD - on HD Deep venous thrombosis prophylaxis. Full code. O2 per nasal cannula p.r.n., p.r.n. Tylenol, p.r.n. fentanyl. Physical therapy and occupational therapy. History of Present Illness History of Present Illness Ms Costa is an 79yo F w/ PMHx ESRD on HD, HTN, HLD, on home O2 with COPD who p/w fevers 100.6 F at home chest radiograph suspicious for bilateral pneumonia. COVID-19 rapid returned positive. Admitted for COVID-19 treatment.. 10/05: evaluated and examined at bedside. no complaints from patient but difficult communication overall. continue current. nephro following. 10/06: eval and examined at bedside. continue current discussed with bedside RN 10/07: Seen bedside after HD. She is urgently trying to have a bowel movement. Little short of breath slight cough. Having some diarrhea. 10/08: Seen bedside still short of breath with cough requiring O2. Still having diarrhea. 10/09: Feeling improved today. Is a regular dialysis day. She is on her home 3- 1/2 L of oxygen cough and diarrhea minimally improved. Has home O2 will be able to discharge after dialysis. Vitals/I&O Vitals/I&O: Vital Signs Date Time Temp Pulse Resp B/P (MAP) Pulse Ox O2 Delivery O2 Flow Rate FiO2 10/09/21 07:00 98.3 63 16 103/51 (68) 90 Room Air 98.3 10/08/21 20:00 2.0 I & O 0 10/08/21 10/08/21 10/09/21 15:00 23:00 07:00 Intake Total 600 ml 300 ml 240 ml Output Total 2 ml 2 ml Balance 598 ml 298 ml 240 ml Physical Exam General: Cooperative, moderate distress Heart: Regular rate Lungs: Clear, Other Abdomen: Normal bowel sounds, No tenderness Extremities: No edema, Normal pulses Skin: No significant lesion Labs Labs: Laboratory Tests Test 10/08/21 11:34 10/08/21 16:25 10/08/21 19:52 10/09/21 08:06 Glucose (Fingerstick) 99 mg/dL (70-99) 91 mg/dL (70-99) 106 mg/dL (70-99) 74 mg/dL (70-99) Test 10/09/21 08:10 Sodium Level 145 mmol/L (136-145) Potassium Level 4.7 mmol/L (3.5-5.1) Chloride Level 101 mmol/L (98-107) Carbon Dioxide Level 22 mmol/L (21-32) Anion Gap 22 (6-14) Blood Urea Nitrogen 88 mg/dL (7-20) Creatinine 6.1 mg/dL (0.6-1.0) Estimated GFR (Cockcroft-Gault) 6.6 Glucose Level 73 mg/dL (70-99) Calcium Level 6.8 mg/dL (8.5-10.1) Assessment and Plan Assessmemt and Plan Problems Medical Problems: (1) Fever Status: Acute Comment Review of Relevant I have reviewed the following items diamante (where applicable) has been applied. Justifications for Admission Other Justification JESSIE CHILDRESS MD Oct 09, 2021 09:57
[2021-10-09] MEDS: glipiZIDE ER 2.5 MG TAB.ER.24 PO SCH (09:58)
[2021-10-09] MEDS: LACTOBACILLUS RHAMNOSUS GG 1 CAPSULE. PO SCH (09:58)
[2021-10-09] MEDS: PENTOXIFYLLINE ER 400 MG TABLET.ER. PO SCH (09:58)
[2021-10-09] MEDS: LINAGLIPTIN 5 MG TABLET PO SCH (09:58)
[2021-10-09] MEDS: IPRATROPIUM/ALBUTEROL 20/100mcg/INH INHALER. INH SCH ×3 (09:59→16:00)
[2021-10-09] MEDS: PANTOPRAZOLE 40 MG TABLET.DR. PO SCH (09:59)
--- NOTE | 2021-10-09 09:59 | PDOC3 ---
Discharge Summary Visit Information Date of Admission: Oct 06, 2021 Date of Discharge: Oct 09, 2021 Admitting Diagnosis: COVID19 pneumonia Final Diagnosis Problems Medical Problems: (1) Fever Status: Acute Brief Hospital Course Allergies Allergies Coded Allergies Type Severity Reaction Last Updated Verified No Known Drug Allergies 10/04/21 No Vital Signs Vital Signs Date Time Temp Pulse Resp B/P (MAP) Pulse Ox O2 Delivery O2 Flow Rate FiO2 10/09/21 07:00 98.3 63 16 103/51 (68) 90 Room Air 98.3 10/08/21 20:00 2.0 Lab Results Laboratory Tests Test 10/07/21 13:35 10/07/21 16:28 10/07/21 20:32 10/08/21 05:58 Glucose (Fingerstick) 118 mg/dL (70-99) 146 mg/dL (70-99) 206 mg/dL (70-99) 42 mg/dL (70-99) Test 10/08/21 06:25 10/08/21 06:28 10/08/21 08:16 10/08/21 11:34 Sodium Level 138 mmol/L (136-145) Potassium Level 3.6 mmol/L (3.5-5.1) Chloride Level 98 mmol/L (98-107) Carbon Dioxide Level 22 mmol/L (21-32) Anion Gap 18 (6-14) Blood Urea Nitrogen 61 mg/dL (7-20) Creatinine 4.8 mg/dL (0.6-1.0) Estimated GFR (Cockcroft-Gault) 8.7 Glucose Level 255 mg/dL (70-99) Calcium Level 7.0 mg/dL (8.5-10.1) Glucose (Fingerstick) 204 mg/dL (70-99) 239 mg/dL (70-99) 99 mg/dL (70-99) Test 10/08/21 16:25 10/08/21 19:52 10/09/21 08:06 10/09/21 08:10 Glucose (Fingerstick) 91 mg/dL (70-99) 106 mg/dL (70-99) 74 mg/dL (70-99) Sodium Level 145 mmol/L (136-145) Potassium Level 4.7 mmol/L (3.5-5.1) Chloride Level 101 mmol/L (98-107) Carbon Dioxide Level 22 mmol/L (21-32) Anion Gap 22 (6-14) Blood Urea Nitrogen 88 mg/dL (7-20) Creatinine 6.1 mg/dL (0.6-1.0) Estimated GFR (Cockcroft-Gault) 6.6 Glucose Level 73 mg/dL (70-99) Calcium Level 6.8 mg/dL (8.5-10.1) Laboratory Tests Test 10/08/21 11:34 10/08/21 16:25 10/08/21 19:52 10/09/21 08:06 Glucose (Fingerstick) 99 mg/dL (70-99) 91 mg/dL (70-99) 106 mg/dL (70-99) 74 mg/dL (70-99) Test 10/09/21 08:10 Sodium Level 145 mmol/L (136-145) Potassium Level 4.7 mmol/L (3.5-5.1) Chloride Level 101 mmol/L (98-107) Carbon Dioxide Level 22 mmol/L (21-32) Anion Gap 22 (6-14) Blood Urea Nitrogen 88 mg/dL (7-20) Creatinine 6.1 mg/dL (0.6-1.0) Estimated GFR (Cockcroft-Gault) 6.6 Glucose Level 73 mg/dL (70-99) Calcium Level 6.8 mg/dL (8.5-10.1) Brief Hospital Course Ms Costa is an 79yo F w/ PMHx ESRD on HD, HTN, HLD, on home O2 with COPD who p/w fevers 100.6 F at home chest radiograph suspicious for bilateral pneumonia. COVID-19 rapid returned positive. Admitted for COVID-19 treatment.. 10/05: evaluated and examined at bedside. no complaints from patient but difficult communication overall. continue current. nephro following. 10/06: eval and examined at bedside. continue current discussed with bedside RN 10/07: Seen bedside after HD. She is urgently trying to have a bowel movement. Little short of breath slight cough. Having some diarrhea. 10/08: Seen bedside still short of breath with cough requiring O2. Still having diarrhea. 10/09: Feeling improved today. Is a regular dialysis day. She is on her home 3- 1/2 L of oxygen cough and diarrhea minimally improved. Has home O2 will be able to discharge after dialysis. Consults: Nephrology Problem list: Acute respiratory failure with hypoxia - due to COVID 19 COPD - on home O2 COVID 19 pneumonia - remdesivir, steroids anemia - of chronic renal insufficiency Sepsis - due to COVID 19 Abnormal CXR - due to COVID 19 ESRD - on HD Greater than 30 minutes spent on d/c home Discharge Information Condition at Discharge: Improved Follow Up: Weeks (1) Disposition/Orders: D/C to Home Scheduled Dexamethasone (Decadron) 4 Mg Tablet, 1 TAB PO ONCE for COVID19 for 6 Days, #1 Ref 0 Prescribed by: JESSIE CHILDRESS MD on 10/09/21 0956 Diltiazem Hcl (Cardizem Cd) 180 Mg Cap.er.24h, 1 CAP PO DAILY, #90 Ref 1 Prescribed by: MALLORY DAWSON on 06/20/17 1215 Last Action: Continued on 10/05/211731 by OUMOU SIEGEL Doxycycline Monohydrate (Doxycycline Monohydrate) 100 Mg Capsule, 1 CAP PO BID for Pneumonia for 5 Days, #10 Prescribed by: JESSIE CHILDRESS MD on 10/09/21 0956 Glipizide (Glipizide Er) 10 Mg Tab.er.24, 1 TAB PO DAILY for DIABETES, #90 Ref 1 (Reported) Entered as Reported by: JOCELYNE CALDERON on 09/12/19 1348 Last Action: Converted on 10/05/211731 by OUMOU SIEGEL Insulin Aspart (Novolog) 100 Unit/1 Ml Cartridge, 10 UNITS SQ TIDWMEALS for DIABETES, (Reported) Entered as Reported by: JOCELYNE CALDERON on 09/12/19 1351 Last Action: Converted on 10/05/211731 by OUMOU SIEGEL Insulin Detemir (Levemir) 100 Unit/1 Ml Vial, 35 UNIT SQ HS for DIABETES, (Reported) Entered as Reported by: JOCELYNE CALDERON on 09/12/19 1345 Last Action: Converted on 10/05/211731 by OUMOU SIEGEL Linagliptin (Tradjenta) 5 Mg Tablet, 5 MG PO DAILY for TYPE 2 DIABETES, (Reported) Entered as Reported by: JOCELYNE CALDERON on 09/12/19 1342 Last Action: Continued on 10/05/211731 by OUMOU SIEGEL Losartan Potassium (Losartan Potassium ) 25 Mg Tablet, 25 MG PO DAILY for HYPERTENSION, (Reported) Entered as Reported by: OUMOU SIEGEL on 10/04/211729 Last Taken: Unknown Dose on Unknown Date & Time Last Action: Continued on 10/05/211731 by OUMOU SIEGEL Metoprolol Tartrate (Metoprolol Tartrate) 25 Mg Tablet, 1 TAB PO BID for HTN, #180 Ref 1 (Reported) Entered as Reported by: MIKA HOSKINS RN on 08/06/20 1200 Last Action: Continued on 10/05/211731 by OUMOU SIEGEL Pantoprazole Sodium (Pantoprazole Sodium ) 40 Mg Tablet.dr, 40 MG PO DAILYAC for GERD, (Reported) Entered as Reported by: JOCELYNE CALDERON on 09/12/19 1343 Last Action: Continued on 10/05/211731 by OUMOU SIEGEL Pentoxifylline (Pentoxifylline) 400 Mg Tablet.er, 400 MG PO DAILY, (Reported) Entered as Reported by: Erich Plata on 06/18/17 0146 Last Action: Continued on 10/05/211731 by OUMOU SIEGEL Rosuvastatin Calcium (Crestor) 5 Mg Tablet, 10 MG PO DAILY for cholesterol for 30 Days, #30 Ref 1 (Reported) Entered as Reported by: YARIEL WADE on 08/09/20 1511 Last Action: Converted on 10/05/211731 by OUMOU SIEGEL Justicifation of Admission Dx: Justifications for Admission: Justification of Admission Dx: Yes Chronic Renal Failure: Renail Failure [place]: Acute NSTEMI JESSIE CHILDRESS MD Oct 09, 2021 09:59
[2021-10-09] MEDS: DEXAMETHASONE SOD PHOS 4 MG/ML VIAL IVP SCH (10:00)
[2021-10-09] MEDS: REMDESIVIR 100mg in NORMAL SALINE 250ML X 4 DAYS IV SCH (10:45)
[2021-10-09 11:00] VITALS: BP 119/60
--- NOTE | 2021-10-09 11:29 | PDOC ---
DATE OF SERVICE DATE: 10/09/21 TIME: 11:28 SUBJECTIVE ROS stable, No complaints OBJECTIVE Vital Signs Vital Signs Date Time Temp Pulse Resp B/P (MAP) Pulse Ox O2 Delivery O2 Flow Rate FiO2 10/09/21 11:00 98.7 74 16 119/60 (79) 99 Room Air 98.7 10/08/21 20:00 2.0 I & 0 Intake and Output 10/09/21 07:00 Intake Total 1140 ml Output Total 4 ml Balance 1136 ml Intake Oral 1140 ml Output Urine Total 3 ml Stool Total 1 ml # Voids 1 # Bowel Movements 4 PHYSICAL EXAM Physical Exam GENERAL: NAD HEENT: Normocephalic, atraumatic, anicteric, OM moist NECK: Supple, no JVD. LUNGS: Clear bilaterally, Non labored HEART: S1, S2. No gallops or murmurs. ABDOMEN: Soft, nontender, EXTREMITIES: No edema, no cyanosis. DERMATOLOGIC: . No generalized rash. Left upper extremity AV fistula PSYCHIATRIC: Cooperative, appropriate mood and affect. NEURO Grossly Normal DIAGNOSIS/ASSESSMENT DIAGNOSIS/ASSESSMENT Assessment & Plan ESRD- On HD TTS under Dr Novak Dialysis today. Discussed treatment plan with CHECO Anemia- Stable, COVID-19 positive status. On 3 Lts O2by [place] . Primary managing . On Chronic o2 AT HOME Chronic systolic CHF - comensated currently Cardiomyopathy; Echo 2016 with LVEF 45-50%/ NSTEMI . Hypertension AFIB; maintaining SR Diabetes, II DC per primary COMMENT/RELEVANT DATA Meds Current Medications Medications (Trade) Dose Ordered Sig/Sveta Start Time Stop Time Status Last Admin Dose Admin Acetaminophen (Tylenol) 650 mg PRN Q4HRS PRN 10/04/21 13:30 10/05/21 13:29 DC Albumin Human 200 ml @ 200 mls/hr 1X PRN PRN 10/04/21 14:45 10/04/21 20:44 DC Albuterol/ Ipratropium (Combivent Respimat 20-100 Mcg) 1 puff RTQID 10/05/21 13:00 10/09/21 09:59 1 PUFF Albuterol/ Ipratropium (Duoneb) 3 ml RTQID 10/04/21 16:00 10/05/21 12:36 DC Atorvastatin Calcium (Lipitor) 40 mg HS 10/05/21 21:00 10/08/21 23:26 40 MG Ceftriaxone Sodium (Rocephin) 1 gm Q24H 10/04/21 14:00 10/05/21 09:54 DC 10/04/21 15:24 1 GM Dexamethasone Sodium Phosphate (Decadron) 6 mg DAILY 10/06/21 09:00 10/09/21 10:00 6 MG Dextrose (Dextrose 50%-Water Syringe) 12.5 gm PRN Q15MIN PRN 10/05/21 17:30 10/08/21 06:05 25 GM Diltiazem HCl (Cardizem 24hr Cd) 180 mg DAILY 10/06/21 09:00 10/08/21 08:45 180 MG Fentanyl Citrate (Fentanyl 2ml Vial) 50 mcg PRN Q1HR PRN 10/04/21 13:30 10/05/21 13:29 DC 10/04/21 18:06 50 MCG Glipizide (Glucotrol Er) 10 mg DAILY08 10/06/21 08:00 10/09/21 09:58 10 MG Guaifenesin/ Codeine Phosphate (Robitussin Ac) 5 ml PRN Q6HRS PRN 10/05/21 10:00 10/08/21 02:03 5 ML Heparin Sodium (Porcine) (Heparin Sodium) 5,000 unit Q8HRS 10/07/21 22:00 10/09/21 08:01 5,000 UNIT Info (PHARMACY MONITORING -- do not chart) 1 each PRN DAILY PRN 10/07/21 08:15 Insulin Glargine (Lantus Syringe) 35 unit QHS 10/05/21 21:00 10/07/21 20:45 35 UNIT Insulin Human Lispro (HumaLOG) 0-7 UNITS TIDWMEALS 10/05/21 17:30 10/06/21 12:24 4 UNITS Lactobacillus Rhamnosus (Culturelle) 1 cap BID 10/06/21 21:00 10/09/21 09:58 1 CAP Linagliptin (Tradjenta) 5 mg DAILY 10/06/21 09:00 10/09/21 09:58 5 MG Losartan Potassium (Cozaar) 25 mg DAILY 10/06/21 09:00 10/08/21 08:49 25 MG Metoprolol Tartrate (Lopressor) 25 mg BID 10/05/21 21:00 10/08/21 23:26 25 MG Ondansetron HCl (Zofran) 4 mg PRN Q8HRS PRN 10/04/21 13:30 10/05/21 13:29 DC 10/04/21 20:10 4 MG Pantoprazole Sodium (Protonix) 40 mg DAILYAC 10/06/21 07:30 10/09/21 09:59 40 MG Pentoxifylline (TRENtal) 400 mg DAILY 10/06/21 09:00 10/09/21 09:58 400 MG Piperacillin Sod/ Tazobactam Sod (Zosyn Per Pharmacy) 1 each PRN DAILY PRN 10/05/21 10:00 Piperacillin Sod/ Tazobactam Sod 2.25 gm/Sodium Chloride 50 ml @ 100 mls/hr Q6HRS 10/05/21 11:00 10/09/21 08:01 100 MLS/HR Remdesivir 100 mg/ Sodium Chloride 230 ml @ 460 mls/hr Q24H 10/06/21 11:00 10/09/21 11:29 10/09/21 10:45 460 MLS/HR Remdesivir 200 mg/ Sodium Chloride 210 ml @ 210 mls/hr 1X ONCE 10/05/21 11:00 10/05/21 11:59 DC 10/05/21 12:45 210 MLS/HR Sodium Chloride 1,000 ml @ 400 mls/hr Q2H30M PRN 10/07/21 08:15 10/07/21 20:14 DC Lab Laboratory Tests Test 10/08/21 11:34 10/08/21 16:25 10/08/21 19:52 10/09/21 08:06 Glucose (Fingerstick) 99 mg/dL (70-99) 91 mg/dL (70-99) 106 mg/dL (70-99) 74 mg/dL (70-99) Test 10/09/21 08:10 Sodium Level 145 mmol/L (136-145) Potassium Level 4.7 mmol/L (3.5-5.1) Chloride Level 101 mmol/L (98-107) Carbon Dioxide Level 22 mmol/L (21-32) Anion Gap 22 (6-14) Blood Urea Nitrogen 88 mg/dL (7-20) Creatinine 6.1 mg/dL (0.6-1.0) Estimated GFR (Cockcroft-Gault) 6.6 Glucose Level 73 mg/dL (70-99) Calcium Level 6.8 mg/dL (8.5-10.1) Results All relevant outside records, renal labs, imaging studies, telemetry/EKG's were reviewed. Justicifation of Admission Dx: Justifications for Admission: Justification of Admission Dx: Yes Chronic Renal Failure: Renail Failure [place]: Acute NSTEMI RICO ORR MD Oct 09, 2021 11:29
[2021-10-09] MEDS ORDERED: DIALYSIS PATIENT. MC PRN ×2 (13:30)
[2021-10-09] MEDS ORDERED: IV NORMAL SALINE 1000ML BAG 1,000 ML IV PRN ×2 (13:30)
--- NOTE | 2021-10-09 17:52 | NUR ---
Discharge Note: ADDIE WASHINGTON [facility] Discharge instructions and discharge home medications reviewed with Kim Kramer (Family Member) via telephone and a copy given. All questions have been answered and understanding verbalized. The following instructions and handouts were given: follow up instructions and medication education, gee 19 isolation procecures for home Discontinued lines and drains: 22 guage right FA, tip intact. patient tolerated well. Patient discharged to home with self care via family.
[2021-10-09] MEDS ORDERED: PIPERACILLIN/TAZOBACTAM 2.25 GM in IV NORMAL SALINE 50ML 50 ML IV SCH (20:00)
== END 2021-10-09 18:27 | disposition home or self-care (01) | DRG 871 ==
LOC: ER 10:38 → 5 SOUTH 12:50 → OBSVTOIN 10-06 08:05
PROVIDERS: ADMIT Internal Medicine; ATTEND Internal Medicine
PROC: XW033E5 Introduction of Remdesivir Anti-infective into Peripheral Vein, Percutaneous Approach, New Technology Group 5 (ICD-10-PCS; principal; 2021-10-06)
PROC: 5A1D70Z Performance of Urinary Filtration, Intermittent, Less than 6 Hours Per Day (ICD-10-PCS; 2021-10-07)
PROC: 5A1D70Z Performance of Urinary Filtration, Intermittent, Less than 6 Hours Per Day (ICD-10-PCS; 2021-10-09)
DX: A41.89 Other specified sepsis (principal); U07.1 COVID-19; J12.82 Pneumonia due to coronavirus disease 2019; J96.01 Acute respiratory failure with hypoxia; N18.6 End stage renal disease; I12.0 Hypertensive chronic kidney disease with stage 5 chronic kidney disease or end stage renal disease; N25.81 Secondary hyperparathyroidism of renal origin; J44.0 Chronic obstructive pulmonary disease with (acute) lower respiratory infection; D63.1 Anemia in chronic kidney disease; E78.5 Hyperlipidemia, unspecified; Z83.3 Family history of diabetes mellitus; Z99.2 Dependence on renal dialysis; I48.91 Unspecified atrial fibrillation; E11.22 Type 2 diabetes mellitus with diabetic chronic kidney disease
CPT/HCPCS: 36415; 74022; 80048; 80053; 82962; 83735; 83880; 84100; 84484; 85025; 86706; 87340; 87428; 93005; 96374; G0378; G0379; J0696; J1100; J1644; J1815; J2405; J2543; J3010; J7050; U0003; U0005; 97530-GP; 99285-25; J7030